=== PATIENT | female | born 1970 | race Caucasian/White ===

== ENCOUNTER 2018-02-11 20:02 | Observation (INO) | payer OTHER ==
[2018-02-11 21:27] LABS: Absolute Monocytes 0.5 K/uL (0.1-1.3); Absolute Neutrophil 4.9 K/uL (1.8-8.0); Basophils % 0.9 % (0-1.3); Eosinophils % 6.6 % (0-4.4); Hematocrit 38.5 % (36.0-45.0); Lymphocytes % 25.4 % (15.3-44.8); MCH 27.3 pg (27.0-35.0); MCV 82.6 fL (80-100); MPV 8.6 fL (7.6-11.3); Monocytes % 6.2 % (3.3-12.3); RBC Red Blood Cell Count 4.66 M/uL (3.86-4.86)
--- NOTE | 2018-02-11 21:28 | RAD REPORT ---
EXAM DESCRIPTION: Tamir Single View02/11/2018 9:21 pm CLINICAL HISTORY: abd pain COMPARISON: none FINDINGS: The lungs appear clear of acute infiltrate. The heart is normal size IMPRESSION: No acute abnormalities displayed
[2018-02-11] MEDS ORDERED: NA CHLORIDE 0.9% 1,000 ML ONE (21:30)
[2018-02-11] MEDS ORDERED: FENTANYL CITR 100 MCG/2 ML ONE (21:30)
[2018-02-11] MEDS ORDERED: ONDANSETRON 4 MG/2 ML VIAL ONE (21:30)
[2018-02-11 21:32] LABS: Urine Bacteria <20 /HPF (<20); Urine Culture Reflex Order NOT NEEDED; Urine RBC <5 /HPF (NONE SEEN)
[2018-02-11 21:33] LABS: Urine Mucus 2+ /HPF (NONE SEEN)
[2018-02-11 21:42] LABS: Bicarbonate 27 mEq/L (21-31); Glucose Level 115 mg/dL (65-120); Lipase 15 U/L (22-51); Potassium 3.8 mEq/L (3.6-5.0); Sodium Level 137 mEq/L (135-145)
[2018-02-11 21:48] LABS: ALT/SGPT 13 IU/L (10-60); AST/SGOT 16 IU/L (10-42); Albumin 3.8 g/dL (3.2-5.5); Alkaline Phosphatase 45 IU/L (42-121); Amylase Level 32 U/L (28-100); BUN Blood Urea Nitrogen 13 mg/dL (6-20); Bilirubin Direct < 0.1 mg/dL (0-0.2); Bilirubin Total 0.3 mg/dL (0.3-1.2); Protein, Total 6.4 g/dL (6.0-8.3)
[2018-02-11 22:23] LABS: Urine Blood NEGATIVE (NEG); Urine Glucose NEGATIVE (NEG); Urine Protein 1+ (NEG); Urine Specific Gravity >1.030 (1.005-1.030); Urine pH 5.5 (5.0-7.0)
[2018-02-12] MEDS ORDERED: FENTANYL CITR 100 MCG/2 ML ONE (00:24)
--- NOTE | 2018-02-12 00:54 | ER ---
Nurse's Notes [facility] Name: Nithin Beth Age: 47 yrs Sex: Female : 1970 Arrival Date: 02/11/2018 Time: 20:04 Bed 13 Private MD: Ghassan Bang Diagnosis: Abdominal tenderness-intractable Presentation: 02/11 20:12 Presenting complaint: Patient states: About 1:00 today I started getting pain in my aj1 right lower side, it was constant and wouldn't go away. By the time I drove to [place] the pain was awful. I went to [place] emergency room and they thought it might be a hernia. They did a CT scan. They said to go home and if the pain gets worse than come back to the emergency room. Reports nausea. denies vomiting, diarrhea, fever. Transition of care: patient was not received from another setting of care. Onset of symptoms was February 11, 2018. Risk Assessment: Do you want to hurt yourself or someone else? Patient reports no desire to harm self or others. Initial Sepsis Screen: Does the patient meet any 2 criteria? No. Patient's initial sepsis screen is negative. Does the patient have a suspected source of infection? No. Patient's initial sepsis screen is negative. Care prior to arrival: None. 20:12 Method Of Arrival: [facility]ulatory [facility] 20:12 Acuity: HUSAM 3 aj1 Triage Assessment: 20:16 General: Appears in no apparent distress. uncomfortable, Behavior is calm, cooperative, aj1 appropriate for age. Pain: Complains of pain in right lower quadrant Pain does not radiate. Pain currently is 7 out of 10 on a pain scale. Quality of pain is described as burning, Pain began 1300 today Is continuous, Alleviated by nothing. Aggravated by nothing. GI: Abdomen is non-distended, Reports nausea, Patient currently denies diarrhea, vomiting. 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 - Social history:: Smoking status: Patient uses tobacco products, 3 cigarettes per day. - Ebola Screening: : No symptoms or risks identified at this time. - Family history:: not pertinent. Screenin:30 Abuse screen: Denies threats or abuse. Denies injuries from another. Nutritional bp screening: No deficits noted. Tuberculosis screening: No symptoms or risk factors identified. Fall Risk None identified. Assessment: 20:20 General: Appears distressed, uncomfortable, obese, Behavior is cooperative, appropriate bp for age, anxious, RECD 47YO [facility] AMBULATORY FROM TRIAGE, C/O RLQ PAIN SINCE 1300, SEEN EARLIER TODAY AT [facility] WITH CT COMPLETED AND D/C HOME. 21:00 GI: Bowel sounds present X 4 quads. Abd is soft X 4 quads. bp 21:36 Reassessment: PT COMPLETED PO CONTRAST, CT NOTIFIED. bp 22:22 Reassessment: PT RESTING QUIETLY, NO S/S ACUTE DISTRESS, CT PENDING. bp 23:21 Reassessment: ALL CURRENT ORDERS COMPLETED, PT TO CT AT THIS TIME, NO S/S ACUTE bp DISTRESS. Vital Signs: 20:16 BP 128 / 69; Pulse 70; Resp 18; Temp 97.7; Pulse Ox 97% on R/A; Weight 95.71 kg (R); aj1 Height 5 ft. 3 in. (160.02 cm); Pain 7/10; 21:45 BP 99 / 55; Pulse 50; Resp 14; Pulse Ox 95% ; bp 22:23 BP 106 / 55; Pulse 47; Resp 23; Pulse Ox 95% ; bp 23:20 BP 103 / 53; Pulse 61; Resp 20; Pulse Ox 95% ; bp 05 00:10 BP 106 / 57; Pulse 50; Resp 13; Pulse Ox 95% ; bp 01:00 BP 108 / 68; Pulse 57; Resp 21; Pulse Ox 95% ; bp 02:00 BP 97 / 60; Pulse 49; Resp 23; Pulse Ox 95% ; bp 02:30 BP 101 / 67; Pulse 55; Resp 15; Pulse Ox 96% ; bp 02/11 20:16 Body Mass Index 37.38 (95.71 kg, 160.02 cm) [facility] ED Course: 02/11 20:04 Patient arrived in ED. am2 20:04 Ghassan Bang MD is Private Physician. am2 20:14 Triage completed. aj1 20:16 Arm band placed on Patient placed in an exam room. aj1 20:18 Ghassan Fong, RON is Primary Nurse. bp 20:27 Sulaiman Garcia MD is Attending Physician. deborah 20:30 Patient has correct armband on for positive identification. Bed in low position. Call bp light in reach. Side rails up X2. 21:21 Chest Single View XRAY In Process Unspecified. EDMS 21:22 Inserted saline lock: 20 gauge in left forearm, using aseptic technique. Blood bp collected. 23:42 CT completed. Patient moved to CT via wheelchair. Patient moved back from CT. cw1 23:53 CT Abd/Pelvis - W/Contrast In Process Unspecified. EDMS 05 00:53 Estevan Harris MD is Hospitalizing Provider. deborah 02:34 No provider procedures requiring assistance completed. Patient admitted, IV remains in bp place. Administered Medications: 02/11 21:25 Drug: NS 0.9% 1000 ml Route: IV; Rate: 1 bolus; Site: left forearm; bp 02/12 00:17 Follow up: IV Status: Completed infusion; IV Intake: 1000ml bp 02/11 21:25 Drug: fentaNYL (PF) 50 mcg Route: IVP; Site: left forearm; bp 22:00 Follow up: Response: Pain is decreased bp 21:25 Drug: Zofran 4 mg Route: IVP; Site: left forearm; bp 22:00 Follow up: Response: No adverse reaction; Pain is decreased bp 02/12 00:51 Drug: fentaNYL (PF) 50 mcg Route: IVP; Site: left forearm; bp 02:03 Follow up: Response: Pain is unchanged, physician notified bp 02:12 Drug: morphine 4 mg Route: IVP; Site: left forearm; bp 02:36 Follow up: Response: Pain is decreased bp 02:12 Drug: Zofran 4 mg Route: IVP; Site: left forearm; bp 02:36 Follow up: Response: No adverse reaction bp Intake: 00:17 IV: 1000ml; Total: 1000ml. bp Outcome: 00:53 Decision to Hospitalize by Provider. deborah 02:57 Admitted to Tele accompanied by tech, family with patient, via wheelchair, room 425, bp with chart, Report called to DIDIER VELASQUEZ 02:58 Condition: stable bp 02:58 Patient left the ED. bp Signatures: Dispatcher [employer] EDMary Lou Peterson RN RN ajSulaiman Jackson MD MD cha Woodley, Eusebia cw1 Manuela Cornelius am2 Ghassan Fong RN RN bp Corrections: (The following items were deleted from the chart) 02/11 23:42 23:21 Reassessment: ALL CURRENT ORDERS COMPLETED, CT RESULTS PENDING, NO S/S ACUTE bp DISTRESS bp 02/12 02:56 02:35 Admitted to Med/surg accompanied by tech, family with patient, via wheelchair, bp room 425, with chart, Report called to HAYDEN VELASQUEZ bp 02:58 02:35 Condition: stable bp bp 02:58 02:35 Instructed on the need for admit, bp bp 02:58 02:35 Admitted to Med/surg accompanied by tech, family with patient, via wheelchair, bp room 425, with chart, Report called to DIDIER VELASQUEZ bp
--- NOTE | 2018-02-12 00:54 | EDPHYS ---
Physician Documentation [facility] Name: Nithin Beth Age: 47 yrs Sex: Female : 1970 Arrival Date: 02/11/2018 Time: 20:04 Bed 13 Private MD: Ghassan Bang ED Physician Sulaiman Garcia HPI: 02/11 21:03 This 47 yrs old Female presents to ER via Ambulatory with complaints of deborah Abdominal Pain - RLQ. 21:03 The patient presents with abdominal pain in the lower abdomen, right lower quadrant. deborah Onset: The symptoms/episode began/occurred 1 day(s) ago. The symptoms do not radiate. Associated signs and symptoms: none. The symptoms are described as crampy, sharp. Modifying factors: The symptoms are alleviated by nothing, the symptoms are aggravated by nothing. Severity of pain: At its worst the pain was moderate in the emergency department the pain has resolved. The patient has not experienced similar symptoms in the past. 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 - Social history:: Smoking status: Patient uses tobacco products, 3 cigarettes per day. - Ebola Screening: : No symptoms or risks identified at this time. - Family history:: not pertinent. ROS: 21:03 Constitutional: Negative for fever, chills, and weight loss, Eyes: Negative for injury, deborah pain, redness, and discharge, ENT: Negative for injury, pain, and discharge, Neck: Negative for injury, pain, and swelling, Cardiovascular: Negative for chest pain, palpitations, and edema, Respiratory: Negative for shortness of breath, cough, wheezing, and pleuritic chest pain, Back: Negative for injury and pain, : Negative for injury, bleeding, discharge, and swelling, MS/Extremity: Negative for injury and deformity, Skin: Negative for injury, rash, and discoloration, Neuro: Negative for headache, weakness, numbness, tingling, and seizure, Psych: Negative for depression, anxiety, suicide ideation, homicidal ideation, and hallucinations, Allergy/Immunology: Negative for hives, rash, and allergies, Endocrine: Negative for neck swelling, polydipsia, polyuria, polyphagia, and marked weight changes, Hematologic/Lymphatic: Negative for swollen nodes, abnormal bleeding, and unusual bruising. 21:03 Abdomen/GI: Positive for abdominal pain, of the right lower quadrant. Exam: 21:03 Constitutional: This is a well developed, well nourished patient who is awake, alert, deborah and in no acute distress. Head/Face: Normocephalic, atraumatic. Eyes: Pupils equal round and reactive to light, extra-ocular motions intact. Lids and lashes normal. Conjunctiva and sclera are non-icteric and not injected. Cornea within normal limits. Periorbital areas with no swelling, redness, or edema. ENT: Nares patent. No nasal discharge, no septal abnormalities noted. Tympanic membranes are normal and external auditory canals are clear. Oropharynx with no redness, swelling, or masses, exudates, or evidence of obstruction, uvula midline. Mucous membranes moist. Neck: Trachea midline, no thyromegaly or masses palpated, and no cervical lymphadenopathy. Supple, full range of motion without nuchal rigidity, or vertebral point tenderness. No Meningismus. Chest/axilla: Normal chest wall appearance and motion. Nontender with no deformity. No lesions are appreciated. Cardiovascular: Regular rate and rhythm with a normal S1 and S2. No gallops, murmurs, or rubs. Normal PMI, no JVD. No pulse deficits. Respiratory: Lungs have equal breath sounds bilaterally, clear to auscultation and percussion. No rales, rhonchi or wheezes noted. No increased work of breathing, no retractions or nasal flaring. Abdomen/GI: Soft, non-tender, with normal bowel sounds. No distension or tympany. No guarding or rebound. No evidence of tenderness throughout. Back: No spinal tenderness. No costovertebral tenderness. Full range of motion. Skin: Warm, dry with normal turgor. Normal color with no rashes, no lesions, and no evidence of cellulitis. MS/ Extremity: Pulses equal, no cyanosis. Neurovascular intact. Full, normal range of motion. Neuro: Awake and alert, GCS 15, oriented to person, place, time, and situation. Cranial nerves II-XII grossly intact. Motor strength 5/5 in all extremities. Sensory grossly intact. Cerebellar exam normal. Normal gait. Psych: Awake, alert, with orientation to person, place and time. Behavior, mood, and affect are within normal limits. Vital Signs: 20:16 BP 128 / 69; Pulse 70; Resp 18; Temp 97.7; Pulse Ox 97% on R/A; Weight 95.71 kg (R); aj1 Height 5 ft. 3 in. (160.02 cm); Pain 7/10; 21:45 BP 99 / 55; Pulse 50; Resp 14; Pulse Ox 95% ; bp 22:23 BP 106 / 55; Pulse 47; Resp 23; Pulse Ox 95% ; bp 23:20 BP 103 / 53; Pulse 61; Resp 20; Pulse Ox 95% ; bp 05 00:10 BP 106 / 57; Pulse 50; Resp 13; Pulse Ox 95% ; bp 01:00 BP 108 / 68; Pulse 57; Resp 21; Pulse Ox 95% ; bp 02:00 BP 97 / 60; Pulse 49; Resp 23; Pulse Ox 95% ; bp 02:30 BP 101 / 67; Pulse 55; Resp 15; Pulse Ox 96% ; bp 02/11 20:16 Body Mass Index 37.38 (95.71 kg, 160.02 cm) [facility] MDM: 02/11 20:27 Patient medically screened. [facility] 21:05 Data reviewed: vital signs, nurses notes, lab test result(s), radiologic studies, CT [facility] scan, plain films. 02/11 21:02 Order name: Amylase, Serum; Complete Time: :31 [facility] 02/11 21:02 Order name: Basic Metabolic Panel; Complete Time: : [facility] 02/11 21:02 Order name: CBC with Diff; Complete Time: : [facility] 02/11 21:02 Order name: Creatinine for Radiology; Complete Time: 22:31 [facility] 02/11 21:02 Order name: Hepatic Function; Complete Time: 22:31 [facility] 02/11 21:02 Order name: Lipase; Complete Time: 22:31 [facility] 02/11 21:02 Order name: Urine Microscopic Only; Complete Time: 22:31 [facility] 02/11 21:02 Order name: Urine Culture [facility] 02/11 21:02 Order name: CT Abd/Pelvis - W/Contrast 02/11 21:06 Order name: Reserve; Complete Time: : [facility] 02/11 21:06 Order name: Chest Single View XRAY; Complete Time: : [facility] 02/11 21:28 Order name: Urine Dipstick--Ancillary (enter results); Complete Time: : [facility] 02/11 21:28 Order name: Urine --Ancillary (enter results); Complete Time: : [facility] 02/11 21:02 Order name: Urine Test (obtain specimen); Complete Time: : [facility] 02/11 21:02 Order name: IV Saline Lock; Complete Time: : [facility] 02/11 21:02 Order name: Labs collected and sent; Complete Time: : [facility] 02/11 21:02 Order name: Urine Dipstick-Ancillary (obtain specimen); Complete Time: : [facility] 02/11 21:06 Order name: EKG; Complete Time: 21: [facility] 02/11 21:06 Order name: EKG - Nurse/Tech; Complete Time: 21:35 [facility] 02/12 01:00 Order name: CONS Physician Consult EDMS Administered Medications: 21:25 Drug: NS 0.9% 1000 ml Route: IV; Rate: 1 bolus; Site: left forearm; bp 02/12 00:17 Follow up: IV Status: Completed infusion; IV Intake: 1000ml bp 02/11 21:25 Drug: fentaNYL (PF) 50 mcg Route: IVP; Site: left forearm; bp 22:00 Follow up: Response: Pain is decreased bp 21:25 Drug: Zofran 4 mg Route: IVP; Site: left forearm; bp 22:00 Follow up: Response: No adverse reaction; Pain is decreased bp 02/12 00:51 Drug: fentaNYL (PF) 50 mcg Route: IVP; Site: left forearm; bp 02:03 Follow up: Response: Pain is unchanged, physician notified bp 02:12 Drug: morphine 4 mg Route: IVP; Site: left forearm; bp 02:36 Follow up: Response: Pain is decreased bp 02:12 Drug: Zofran 4 mg Route: IVP; Site: left forearm; bp 02:36 Follow up: Response: No adverse reaction bp Disposition: 02/12/18 00:53 Hospitalization ordered by Estevan Harris for Observation. Preliminary diagnosis is Abdominal tenderness - intractable. - Bed requested for Telemetry/MedSurg (observation). - Status is Observation. bp - Condition is Fair. - Problem is new. - Symptoms have improved. UTI on Admission? No Signatures: Dispatcher [employer] EDMS Mary Lou Caballero RN RN ajOralia Swann RN RN kl Anderson, Corey, MD MD cha Peltier, Brian, RN RN bp Corrections: (The following items were deleted from the chart) 00:54 00:53 Hospitalization Ordered by Estevan Harris MD for Observation. Preliminary deborah diagnosis is Abdominal tenderness. Bed requested for Telemetry/MedSurg (observation). Status is Observation. Condition is Fair. Problem is new. Symptoms have improved. UTI on Admission? No. deborah 02:19 00:54 02/12/2018 00:53 Hospitalization Ordered by Estevan Harris MD for Observation. kl Preliminary diagnosis is Abdominal tenderness - intractable. Bed requested for Telemetry/MedSurg (observation). Status is Observation. Condition is Fair. Problem is new. Symptoms have improved. UTI on Admission? No. deborah 02:58 02:19 02/12/2018 00:53 Hospitalization Ordered by Estevan Harris MD for Observation. bp Preliminary diagnosis is Abdominal tenderness - intractable. Bed requested for Telemetry/MedSurg (observation). Status is Observation. Condition is Fair. Problem is new. Symptoms have improved. UTI on Admission? No. marilyn
[2018-02-12] MEDS ORDERED: ACETAMINOPHEN 500 MG TAB PO PRN (01:37)
[2018-02-12] MEDS ORDERED: ONDANSETRON 4 MG/2 ML VIAL IV PRN (01:37)
[2018-02-12] MEDS ORDERED: ALPRAZOLAM 0.25 MG TABLET PO PRN (01:37)
[2018-02-12] MEDS ORDERED: NA CHLORIDE 0.9% 1,000 ML IV SCH (02:00)
[2018-02-12] MEDS ORDERED: MORPHINE 4 MG/ML SYR ONE (02:08)
[2018-02-12] MEDS ORDERED: ONDANSETRON 4 MG/2 ML VIAL ONE (02:08)
[2018-02-12 03:41] VITALS: BMI 37.3
[2018-02-12] MEDS ORDERED: METHYLPREDNISOLONE 125 MG INJ IV ONE (06:04)
[2018-02-12 06:28] VITALS: O2SAT 94
[2018-02-12] MEDS ORDERED: Levofloxacin500mg IV 500 MG/100 ML BAG IV SCH (07:00)
--- NOTE | 2018-02-12 08:33 | RAD REPORT ---
EXAM DESCRIPTION: CTAbdomen Pelvis W Contrast - 02/12/2018 6:03 am CLINICAL HISTORY: Abdominal pain. COMPARISON: 01/22/2017 TECHNIQUE: Biphasic CT imaging of the abdomen and pelvis was performed with 100 ml non-ionic IV cont rast. All CT scans are performed using dose optimization technique as appropriate and may include automated exposure control or mA/KV adjustment according to patient size. FINDINGS: Ill-defined opacities in both posterior lung bases, greater on the left may represent deve loping pneumonia/ aspiration or subsegmental atelectasis. The liver, spleen, pancreas, adrenal glands and kidneys are within normal limits. Cholecystectomy cli ps. No bowel obstruction, free air, free fluid or abscess. Postsurgical changes of gastric bypass noted. The appendix is normal. No evidence of significant lymphadenopathy. No suspicious bony findings. IMPRESSION: No acute intra-abdominal or pelvic finding. Posterior lung base opacities as detailed, greater on the left.
[2018-02-12] MEDS ORDERED: ENOXAPARIN 40 MG/0.4 ML SQ SCH (09:00)
[2018-02-12] MEDS ORDERED: TRAMADOL HCL 50 MG TAB PO PRN (10:08)
[2018-02-12] MEDS ORDERED: TRAZODONE 50 MG TABLET PO PRN (10:09)
--- NOTE | 2018-02-12 10:49 | EKG ---
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
[2018-02-12] MEDS ORDERED: METAXALONE 800 MG TAB PO PRN (11:25)
--- NOTE | 2018-02-12 11:25 | P.HP ---
Certification for Inpatient Patient admitted to: Observation With expected LOS: <2 Midnights Patient will require the following post-hospital care: None Practitioner: I am a practitioner with admitting privileges, knowledge of patient current condition, hospital course, and medical plan of care. Services: Services provided to patient in accordance with Admission requirements found in Title 42 Section 412.3 of the Code of Federal Regulations Patient History Date of Service: 02/12/18 Reason for admission: patient with right sided abdominal pain History of Present Illness: Patient is a 47-year-old female who came to the hospital with right-sided abdominal pain. Patient's pain was getting worse through the day. It started around 1 o'clock and after she picked up her child from [employer] she went to the emergency room. In the emergency room she had imaging studies as well as labs with no abnormality. Patient was discharged from the hospital. Patient came to our emergency room as her pain was not improving. In the emergency room her initial CT scan was repeated and once again this did not reveal any abnormality. However, reviewing the CT scan patient did appear to have a right lower lobe infiltrate. Otherwise, did not see any other abnormal findings. On physical exam patient does have pain on straight leg raise. Whenever I raise her right leg she has severe abdominal pain. Whenever I ask her to twist from her right to left side she has severe pain. She has pain on palpation from the transversus abdominus muscle to the right rectus sheath. She may have a abdominal muscle injury. At this time she will be admitted to the hospital for further evaluation. Allergies ketorolac Allergy (Verified 02/12/18 05:53) Unknown Erythromycin Allergy (Uncoded 01/22/17 20:13) Unknown TETRACYCLINES Allergy (Uncoded 01/22/17 20:13) Unknown Home Medications: Fluoxetine HCl [Prozac] 1 tab PO DAILY 02/12/18 Eclectic Carbonate [Eclectic Carbonate ER] 2 tab PO BEDTIME 02/12/18 Trazodone HCl 2 tab PO BEDTIME PRN PRN 02/12/18 - Past Medical/Surgical History Has patient received pneumonia vaccine in the past: No Diabetic: No -: bipolar -: cholecystectomy -: gastric bypass -: tubal ligation - Family History Mother Medical History: Hypertension, Diabetes, Stroke - Social History Smoking Status: Current every day smoker Alcohol use: No CD- Drugs: No Caffeine use: Yes Place of Residence: Home Review of Systems 10-point ROS is otherwise unremarkable Physical Examination - Vital Signs Temperature: 98.4 F Blood Pressure: 104/53 Pulse: 59 Respirations: 16 Pulse Ox (%): 95 - Physical Exam General: Alert, In no apparent distress, Oriented x3 HEENT: Atraumatic, PERRLA, Mucous membr. moist/pink, EOMI, Sclerae nonicteric Neck: Supple, 2+ carotid pulse no bruit, No LAD, Without JVD or thyroid abnormality Respiratory: Clear to auscultation bilaterally, Normal air movement Cardiovascular: Regular rate/rhythm, Normal S1 S2, No murmurs Gastrointestinal: Normal bowel sounds, Soft and benign, Non-distended, No rebound, No guarding, Tenderness Musculoskeletal: No tenderness Integumentary: No rashes Neurological: Normal gait, Normal speech, Normal strength at 5/5 x4 extr, Normal tone, Sensation intact, Cranial nerves 3-12 intact, Normal affect Lymphatics: No axilla or inguinal lymphadenopathy - Studies Laboratory Data (last 24 hrs) 02/11/18 21:10: Creatinine 0.88 02/11/18 21:10: WBC 8.0, Hgb 12.7, Hct 38.5, Plt Count 217 02/11/18 21:10: Sodium 137, Potassium 3.8, BUN 13, Creatinine 0.92, Glucose 115 , Total Bilirubin 0.3, AST 16, ALT 13, Alkaline Phosphatase 45, Amylase 32, Lipase 15 L Assessment & Plan - Problems (Diagnosis) (1) Strain of abdominal muscle Current Visit: Yes Status: Acute (2) Abdominal pain Onset Date: 02/12/18 Current Visit: Yes Status: Acute Qualifiers: Abdominal location: right lower quadrant Qualified Code(s): R10.31 - Right lower quadrant pain - Plan Plan: 1. we will go ahead and start patient on on IV fluids and pain control. Will start patient on a muscle relaxer as well. Patient's labs and imaging studies do not indicate an intra-abdominal process. It appears she may have been muscle strain and she has significant pain on straight leg raise. She does not have any peritoneal signs. Whenever she moves her core muscles she appears to have more tenderness. At this time will go ahead and consult GI and surgery and get an opinion from them. If they do not feel that patient needs any further workup that she possibly can go home later today with anti-inflammatory and a muscle relaxer as well as something stronger for pain. She will need a repeat evaluation in 1-2 weeks if she is stable for discharge home. Discharge Plan: Home Plan to discharge in: 48 Hours - Advance Directives Does patient have a Living Will: No Does patient have a Durable POA for Healthcare: No - Code Status/Comfort Care Code Status Assessed: Yes Code Status: Full Code Critical Care: No Time Spent Managing PTS Care (In Minutes): 50
[2018-02-12 12:20] VITALS: BP 117/72; TEMP 99
--- NOTE | 2018-02-12 13:36 | CON ---
Date of Consultation: 02/12/2018 I came to do the consult; however, the patient's bed empty. She is nowhere to be found. I asked the nurses and coffee roaster. No one knows where the patient is needs. They are suspecting, the patient tomas s already escaped the hospital. Therefore, consult could not be done. BENTLEY/VIOLETA Voice ID: [id number] Report ID: [id number]
[2018-02-12] MEDS ORDERED: LITHIUM CARBONATE PO SCH (21:00)
[2018-02-13] MEDS ORDERED: FLUOXETINE 20 MG CAP PO SCH (09:00)
== END 2018-02-12 13:12 | disposition home or self-care (01) ==
LOC: ER 20:02 → ERHOLD 02-12 00:57 → 4TH 02-12 02:26
PROVIDERS: ADMIT Hospitalist; ATTEND Hospitalist
DX: S39.011A Strain of muscle, fascia and tendon of abdomen, initial encounter (principal); X58.XXXA Exposure to other specified factors, initial encounter; Y92.9 Unspecified place or not applicable; F31.9 Bipolar disorder, unspecified; Z98.84 Bariatric surgery status; F17.210 Nicotine dependence, cigarettes, uncomplicated
CPT/HCPCS: 36415; 71045; 74177; 80048; 80076; 80178; 81003; 81015; 81025; 82150; 83690; 85025; 87086; 87088; 93005; 96361; 96374; 96375; 99285; G0378; J1650; J2405; J2930; J3010; J7030; Q9967

== ENCOUNTER 2018-04-10 17:33 | Emergency (ER) | payer OTHER ==
--- OUTSIDE RECORDS SUMMARY | 2018-04-10 17:55 | XMS REPORT ---
:1970 Author Organization eClinicalWorks Care Team Providers Name Role Phone Mariana Ochoa Provider Role Unavailable Allergies, Adverse Reactions, Alerts Substance Reaction Event Type N.K.D.A. Info Not Available Non Drug Allergy Problems Problem Type Condition Code Onset Dates Condition Status Problem Non-intractable vomiting with R11.2 Active nausea, unspecified vomiting type Problem Arthralgia, unspecified joint M25.50 Active Problem Diarrhea, unspecified type R19.7 Active Problem Bipolar disorder F31.9 Active Problem Lightheadedness R42 Active Problem Weakness R53.1 Active Problem Joint swelling M25.40 Active Problem Iron deficiency anemia, unspecified D50.9 Active iron deficiency anemia type Problem Fatigue, unspecified type R53.83 Active Problem Hypotension, unspecified hypotension I95.9 Active type Assessment Iron deficiency anemia, unspecified D50.9 Active iron deficiency anemia type Assessment Lightheadedness R42 Active Assessment Joint swelling M25.40 Active Assessment Arthralgia, unspecified joint M25.50 Active Assessment Non-intractable vomiting with R11.2 Active nausea, unspecified vomiting type Assessment Diarrhea, unspecified type R19.7 Active Assessment Weakness R53.1 Active Assessment Hypotension, unspecified hypotension I95.9 Active type Assessment Fatigue, unspecified type R53.83 Active Medications Medication Code Code Instructions Start End Status Dosage System Date Date Fish Oil [facility] 62202035730 1000 MG Orally Active 1 capsule Once a day Multivitamin ND 81214985138 - Orally Active as Women directed Fluoxetine HCl ND 72331306259 20 MG Orally Active 1 capsule [place] [address]-42 300 MG Orally Active 3 capsule Carbonate Once a day at bedtime Trazodone HCl [facility] [address]-36 100 MG Orally Active 2 tablet Once a day at bedtime as needed Vitamin B ND 90718187575 - Orally Active as Complex directed Melatonin [facility] 10357-68920 10 MG Orally Active 3 capsule at bedtime as needed with food Results Name Result Date Reference Range Unit Abnormality Flag Electrocardiogram (EKG) Summary Purpose eClinicalWorks Submission
--- NOTE | 2018-04-10 18:20 | RAD REPORT ---
EXAM DESCRIPTION: RAD - Chest Single View - 04/10/2018 6:12 pm CLINICAL HISTORY: CHEST PAIN Chest pain. COMPARISON: Chest Single View dated 02/11/2018 FINDINGS: Portable technique limits examination quality. The lungs are grossly clear. The heart is normal in size. No displaced fractures. IMPRESSION: No acute intrathoracic process suspected.
[2018-04-10] MEDS ORDERED: NA CHLORIDE 0.9% 0 ML ONE (18:43)
[2018-04-10] MEDS ORDERED: METOCLOPRAMIDE 10 MG/2mL INJ ONE (18:43)
[2018-04-10 18:59] LABS: Absolute Lymphocytes (CBC) 2.5 K/uL (0.7-4.9); Absolute Monocytes 0.4 K/uL (0.1-1.3); Absolute Neutrophil 5.9 K/uL (1.8-8.0); Basophils % 0.9 % (0-1.3); Eosinophils % 4.6 % (0-4.4); Hematocrit 38.7 % (36.0-45.0); Lymphocytes % 26.9 % (15.3-44.8); MCH 28.6 pg (27.0-35.0); MCV 85.7 fL (80-100); MPV 8.1 fL (7.6-11.3); Monocytes % 4.7 % (3.3-12.3); RBC Red Blood Cell Count 4.52 M/uL (3.86-4.86)
[2018-04-10 19:13] LABS: Protime INR 0.96
[2018-04-10 19:39] LABS: ALT/SGPT 37 U/L (12-78); AST/SGOT 7 U/L (15-37); Albumin 3.7 g/dL (3.4-5.0); Alkaline Phosphatase 51 U/L (45-117); BUN Blood Urea Nitrogen 11 mg/dL (7-18); Bicarbonate 25 mmol/L (21-32); Bilirubin Direct 0.1 mg/dL (0-0.2); Bilirubin Total 0.3 mg/dL (0.2-1.0); CKMB Creatine Kinase MB < 1.0 ng/mL (0.3-3.6); Creatine Phosphokinase 38 U/L (26-192); Glucose Level 91 mg/dL (74-106); Magnesium 2.1 mg/dL (1.8-2.4); NT PRO-BNP 261 pg/mL (<125); Potassium 3.8 mmol/L (3.5-5.1); Protein, Total 6.9 g/dL (6.4-8.2); Sodium Level 141 mmol/L (136-145)
[2018-04-10] MEDS ORDERED: PROMETHAZINE 25 MG/ML VIAL ONE (21:07)
--- NOTE | 2018-04-10 22:13 | RAD REPORT ---
EXAM DESCRIPTION: CT - Abdomen Pelvis W Contrast - 04/10/2018 9:37 pm CLINICAL HISTORY: Abdominal pain COMPARISON: CT study February 11 TECHNIQUE: Biphasic, helical CT imaging of the abdomen and pelvis was performed following 100 ml non -ionic IV contrast. No oral contrast administered. All CT scans are performed using dose optimization technique as appropriate and may include automated exposure control or mA/KV adjustment according to patient size. FINDINGS: No suspicious findings in the lung bases. No pericardial thickening or effusion. The liver, spleen, and pancreas show no suspicious findings. Cholecystectomy clips are present. No bi liary tree dilatation. Symmetric renal function is seen with no hydronephrosis or suspicious renal mass. No pyelonephritis o r acute renal parenchymal process. No urinary bladder abnormality. Calcifications are seen along the anterior aspect of the uterus. These are similar to the comparison. Uterine configuration has not changed. A 2 centimeter left ovarian cyst is present. Additional small er ovarian cysts are present. No suspicious ovarian finding. Gastric bypass surgical changes are present. The gastric and small bowel anastomotic sites show no ac keaton findings. No acute large or small bowel finding the appendix is normal. No free air or pneumatosi s. Physiologic quantity of free fluid present in the cul-de-sac. No mass or bulky lymphadenopathy. The patient has a small to moderate-sized fat only right inguinal h ernia. This has enlarged since January. There is no congested or edematous fatty tissue. Patient has a ve ry small incidental umbilical hernia. No suspicious bony findings. IMPRESSION: No obstruction, free air or surgically emergent finding. No acute GI or finding. Patient has fat only right inguinal hernia has enlarged since January. This shows no congested or ed[place] us fat. A 2 centimeter left ovarian cyst is present believed to be incidental. Physiologic quantity of free f luid seen.
--- NOTE | 2018-04-10 22:13 | RAD REPORT ---
EXAM DESCRIPTION: CT - Chest For Pe Angio - 04/10/2018 9:37 pm CLINICAL HISTORY: Syncope, chest pain, hypotension, bradycardia, history of gastric bypass and suasna cystectomy, abdominal pain COMPARISON: Chest films same date TECHNIQUE: Dynamically enhanced 3 mm thick images of the chest were obtained during administration o f approximately 150mL Isovue 370 IV contrast. Coronal and oblique reconstruction images were generate d and reviewed. Exam utilizes a protocol to evaluate the pulmonary arterial tree. All CT scans are performed using dose optimization technique as appropriate and may include automated exposure control or mA/KV adjustment according to patient size. FINDINGS: No pulmonary emboli are identified. The aorta as imaged shows no acute or suspicious finding. No pericardial thickening or effusion. No infiltrate or mass in the lung parenchyma. Minimal atelectasis changes are present No pleural effu timur or pleural thickening. No mediastinal or hilar suspicious masses. No chest wall masses or abnormal axillary lymphadenopathy. IMPRESSION: No pulmonary emboli identified. No other significant or suspicious findings.
--- NOTE | 2018-04-10 22:15 | EDPHYS ---
Physician Documentation [facility] Name: Nithin Beth Age: 48 yrs Sex: Female : 1970 Arrival Date: 04/10/2018 Time: 17:36 Bed 20 Private MD: Mariana Ochoa ED Physician Tevin Méndez HPI: 04/10 18:09 This 48 yrs old Female presents to ER via Wheelchair with complaints of Blood jmm Pressure Problem - LOW, Syncope. 18:09 The patient has experienced syncope, collapsed. Onset: The symptoms/episode jmm began/occurred acutely, just prior to arrival. Associated injury: The patient did not suffer any apparent associated injury. Associated signs and symptoms: Pertinent positives: abdominal pain, chest pain. This is a 48 year old female with a history of bipolar disorder that presents to the ED with a syncopal episode which occurred earlier today. Patient complains of 6 weeks of generalized fatigue with intermittent episodes of chest pain which is described as a pulling sensation. The patient also admits to ongoing low blood pressure for the same period of time. The patient denies fever. The patient states beginning 1 week ago the patient develop multiple episodes of vomiting and diarrhea with reported dark stools. . 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 - Social history:: Smoking status: Patient/guardian denies using tobacco, the patient reports quitting approximately .1 years ago. - Ebola Screening: : No symptoms or risks identified at this time. ROS: 18:09 Eyes: Negative for injury, pain, redness, and discharge, ENT: Negative for injury, jmm pain, and discharge, Neck: Negative for injury, pain, and swelling. 18:09 Respiratory: Negative for shortness of breath, cough, wheezing, and pleuritic chest pain. 18:09 Back: Negative for injury and pain, : Negative for injury, bleeding, discharge, and swelling, MS/Extremity: Negative for injury and deformity. 18:09 Constitutional: Positive for malaise. 18:09 Cardiovascular: Positive for chest pain. 18:09 Abdomen/GI: Positive for abdominal pain, nausea and vomiting, diarrhea. 18:09 Neuro: Positive for syncope. 18:09 All other systems are negative. Exam: 18:09 Constitutional: This is a well developed, well nourished patient who is awake, alert, jmm and in no acute distress. Head/Face: atraumatic. 18:09 Cardiovascular: Rate: normal, Rhythm: regular, Pulses: no pulse deficits are appreciated. 18:09 Respiratory: the patient does not display signs of respiratory distress, Respirations: normal, Breath sounds: are clear throughout. 18:09 Abdomen/GI: Inspection: abdomen appears normal, Bowel sounds: normal, Palpation: soft, mild abdominal tenderness, in the right lower quadrant and left lower quadrant. 18:09 Skin: Appearance: Color: normal in color. 18:09 Neuro: Orientation: is normal, Mentation: is normal, Memory: is normal. 18:09 Psych: Behavior/mood is pleasant, cooperative. Vital Signs: 17:42 BP 114 / 42; Pulse 50; Resp 18; Pulse Ox 96% ; Weight 90.26 kg; Height 5 ft. 2 in. sv (157.48 cm); 19:45 BP 86 / 64; Pulse 70; Resp 16; Pulse Ox 99% on R/A; bs1 20:00 BP 99 / 62; Pulse 58; Resp 16; Pulse Ox 99% on R/A; bs1 21:00 BP 110 / 63; Pulse 60; Resp 16; Pulse Ox 98% on R/A; bs1 22:00 BP 98 / 46; Pulse 51; Resp 16 S; Pulse Ox 95% on R/A; bs1 22:30 BP 110 / 54; Pulse 58; Resp 16; Temp 98(O); Pulse Ox 100% on R/A; Pain 0/10; bs1 17:42 Body Mass Index 36.40 (90.26 kg, 157.48 cm) sv MDM: 18:02 Patient medically screened. [facility] 21:48 Data reviewed: vital signs, nurses notes, lab test result(s). [facility] 22:06 Differential Diagnosis: aortic aneurysm, cardiac arrhythmia, GI bleed, sepsis, [facility] vasovagal episode. ED course: Lab and imaging studies are unremarkable. Patient is alert and non toxic in appearance in the ED. Patient is encouraged to follow up with PCP for further evaluation or to return to the ED if symptoms worsen. Patient and family understood and agrees with the plan of care. . ED course: Patient is afebrile and non toxic in appearance, labs appear inconsistent with sepsis. Guac is negative and H/H is normal. I do not currently suspect GI bleed. Patient has no focal neuro deficits, I do not currently suspect CVA, imaging studies negative for PE and and dissection. . ED course: I discussed the patient with Dr. Cardona whom agrees with the plan of care. . 04/10 17:50 Order name: Basic Metabolic Panel; Complete Time: 19:53 [facility] 04/10 17:50 Order name: CBC with Diff; Complete Time: 19:30 [facility] 04/10 17:50 Order name: Ckmb; Complete Time: 19:53 [facility] 04/10 17:50 Order name: CPK; Complete Time: 19:53 [facility] 04/10 17:50 Order name: LFT's; Complete Time: 19:53 [facility] 04/10 17:50 Order name: Magnesium; Complete Time: 19:53 [facility] 04/10 17:50 Order name: NT PRO-BNP; Complete Time: 19:53 [facility] 04/10 17:50 Order name: PT-INR; Complete Time: 19:33 [facility] 04/10 17:50 Order name: Ptt, Activated; Complete Time: 19:33 [facility] 04/10 17:50 Order name: Troponin (emerg Dept Use Only); Complete Time: 19:30 [facility] 04/10 17:50 Order name: XRAY Chest (1 view); Complete Time: 18:37 [facility] 04/10 18:04 Order name: CT Chest For PE Angio; Complete Time: 22:21 [facility] 04/10 18:04 Order name: Occult Blood [facility] 04/10 20:10 Order name: D-Dimer; Complete Time: 20:55 [facility] 04/10 17:49 Order name: EKG; Complete Time: 17:49 sv 04/10 17:49 Order name: EKG - Nurse/Tech; Complete Time: 21:36 sv 04/10 17:50 Order name: Cardiac monitoring; Complete Time: 22:36 [facility] 04/10 17:50 Order name: IV Saline Lock; Complete Time: 21:11 [facility] 04/10 17:50 Order name: Labs collected and sent; Complete Time: 21:11 [facility] 04/10 17:50 Order name: O2 Per Protocol; Complete Time: 21:11 [facility] 04/10 17:50 Order name: O2 Sat Monitoring; Complete Time: 21:11 [facility] 04/10 18:04 Order name: CT Abd/Pelvis - W/Contrast; Complete Time: 22:21 [facility] 04/10 22:39 Order name: EKG - Nurse/Tech; Complete Time: 22:39 bs1 Administered Medications: 18:45 Drug: Reglan 10 mg {Note: administered by RON Guzman.} Route: IVP; Site: right bs1 antecubital; 22:36 Follow up: Response: No adverse reaction bs1 20:14 Not Given (No IV access, informed PA Ángel): NS 0.9% 1000 ml IV at 1 bolus Per protocol; bs1 1000 mL bolus 21:10 Drug: Promethazine 12.5 mg Route: IVP; Site: right upper arm; 22:36 Follow up: Response: No adverse reaction bs1 21:11 Drug: NS 0.9% 1000 ml Route: IV; Rate: 1 bolus; Site: right upper arm; bs1 22:36 Follow up: IV Status: Completed infusion bs1 22:36 Not Given (Patient Refused; informed PA): NS 0.9% 1000 ml IV at 1 bolus Per protocol; bs1 1000 mL bolus Disposition: 04/11 07:05 Co-signature as Attending Physician, Tevin Méndez MD. rn Disposition: 04/10/18 22:14 Discharged to Home. Impression: Syncope and collapse, Vomiting, Diarrhea, unspecified. - Condition is Stable. - Discharge Instructions: Food Choices to Help Relieve Diarrhea, Adult, Nausea and Vomiting, Adult, Syncope. - Prescriptions for promethazine 25 mg Oral Tablet - take 1 tablet by ORAL route every 6 hours As needed; 20 tablet. - Medication Reconciliation Form, Thank You Letter, Antibiotic Education, Prescription Opioid Use form. - Follow up: Mariana Ochoa MD; When: 1 - 2 days; Reason: Continuance of care. Signatures: Dispatcher [employer] EDMS Yojana Garcia, RN RN Ángel Bowen PA PA [facility] Jacey Warner RN RN Tevin Gorman MD MD rn Salazar, Brittany, RN RN bs1 Corrections: (The following items were deleted from the chart) 04/10 22:17 18:09 This is a 48 year old female with a history of bipolar disorder that presents to [facility] the ED with a syncopal episode which occurred earlier today. Patient complains of 6 weeks of generalized fatigue with intermittent episodes of chest pain which is described as a pulling sensation. The patient states beginning 1 week ago the patient develop multiple episodes of vomiting and diarrhea with reported dark stools. . [facility] 22:41 22:14 04/10/2018 22:14 Discharged to Home. Impression: Syncope and collapse; Vomiting; bs1 Diarrhea, unspecified. Condition is Stable. Forms are Medication Reconciliation Form, Thank You Letter, Antibiotic Education, Prescription Opioid Use. Follow up: Mariana Ochoa; When: 1 - 2 days; Reason: Continuance of care. [facility]
--- NOTE | 2018-04-10 22:15 | ER ---
Nurse's Notes [facility] Name: Nithin Beth Age: 48 yrs Sex: Female : 1970 Arrival Date: 04/10/2018 Time: 17:36 Bed 20 Private MD: Mariana Ochoa Diagnosis: Syncope and collapse;Vomiting;Diarrhea, unspecified Presentation: 04/10 17:40 Presenting complaint: Patient states: has been having syncope, chest pain, hypotension, sv low heart rate, dizziness, SOB x 1 month. Pt has been seeing her PCP and has had lab work and EKG done yesterday. Transition of care: patient was not received from another setting of care. Onset of symptoms was March 11, 2018. Care prior to arrival: None. 17:40 Method Of Arrival: Wheelchair sv 17:40 Acuity: HUSAM 3 sv 19:14 Risk Assessment: Do you want to hurt yourself or someone else? Patient reports no bs1 desire to harm self or others. Initial Sepsis Screen: Does the patient meet any 2 criteria? No. Patient's initial sepsis screen is negative. Does the patient have a suspected source of infection? No. Patient's initial sepsis screen is negative. 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 - Social history:: Smoking status: Patient/guardian denies using tobacco, the patient reports quitting approximately .1 years ago. - Ebola Screening: : No symptoms or risks identified at this time. Screenin:50 Abuse screen: Denies threats or abuse. Nutritional screening: No deficits noted. rb1 Tuberculosis screening: No symptoms or risk factors identified. 22:40 Fall Risk None identified. bs1 Assessment: 17:50 General: Appears in no apparent distress. comfortable, Behavior is calm, cooperative. rb1 17:50 Pain: Complains of pain in mid-sternal area Pain currently is 6 out of 10 on a pain rb1 scale. Neuro: Level of Consciousness is awake, alert, obeys commands, Oriented to person, place, time, situation. Cardiovascular: Capillary refill < 3 seconds is brisk in bilateral fingers Rhythm is regular. Respiratory: Airway is patent Respiratory effort is even, unlabored, Respiratory pattern is regular, symmetrical. GI: No signs and/or symptoms were reported involving the gastrointestinal system. : No signs and/or symptoms were reported regarding the genitourinary system. Derm: Skin is pink, warm \T\ dry. 17:50 Neuro: Reports dizziness, a syncopal episode. rb1 19:15 Reassessment: Report received from RON Guzman. bs1 19:15 General: Appears in no apparent distress. comfortable, Behavior is calm, cooperative, bs1 appropriate for age. Pain: Complains of pain in chest and mid-sternal area and left lower quadrant and right lower quadrant Pain does not radiate. Neuro: Level of Consciousness is awake, alert, obeys commands, Oriented to person, place, time, situation, Appropriate for age Reports dizziness, a syncopal episode. Respiratory: Airway is patent Trachea midline Respiratory effort is even, unlabored, Respiratory pattern is regular, symmetrical, Breath sounds are clear bilaterally. GI: Abdomen is round non-distended, Bowel sounds present X 4 quads. : No signs and/or symptoms were reported regarding the genitourinary system. Derm: Skin is intact, Skin is pink, warm \T\ dry. normal. Musculoskeletal: Circulation, motion, and sensation intact. Capillary refill < 3 seconds, Range of motion: intact in all extremities. 19:15 Cardiovascular: Cardiovascular: Heart tones S1 S2 present Capillary refill < 3 seconds bs1 Rhythm is regular. 20:00 Reassessment: patients IV infiltrated from doppler US from Dr Méndez, 20g right FA area. bs1 IV dc'd. Informed PA. 21:00 Reassessment: No changes from previously documented assessment. Patient and/or family bs1 updated on plan of care and expected duration. Pain level reassessed. Patient is alert, oriented x 3, equal unlabored respirations, skin warm/dry/pink. 22:30 Reassessment: Patient appears in no apparent distress at this time. Patient and/or bs1 family updated on plan of care and expected duration. Pain level reassessed. Patient is alert, oriented x 3, equal unlabored respirations, skin warm/dry/pink. Patient denies pain at this time. Patient states feeling better. Patient states symptoms have improved. Vital Signs: 17:42 BP 114 / 42; Pulse 50; Resp 18; Pulse Ox 96% ; Weight 90.26 kg; Height 5 ft. 2 in. sv (157.48 cm); 19:45 BP 86 / 64; Pulse 70; Resp 16; Pulse Ox 99% on R/A; bs1 20:00 BP 99 / 62; Pulse 58; Resp 16; Pulse Ox 99% on R/A; bs1 21:00 BP 110 / 63; Pulse 60; Resp 16; Pulse Ox 98% on R/A; bs1 22:00 BP 98 / 46; Pulse 51; Resp 16 S; Pulse Ox 95% on R/A; bs1 22:30 BP 110 / 54; Pulse 58; Resp 16; Temp 98(O); Pulse Ox 100% on R/A; Pain 0/10; bs1 17:42 Body Mass Index 36.40 (90.26 kg, 157.48 cm) sv ED Course: 17:36 Patient arrived in ED. sb2 17:36 Mariana Ochoa MD is Private Physician. sb2 17:41 Triage completed. sv 17:43 Arm band placed on left wrist. sv 17:49 [facility]el Walker [facility]. jmm 17:49 Tevin Méndez MD is Attending Physician. jmm 17:50 Patient has correct armband on for positive identification. Placed in gown. Bed in low rb1 position. Call light in reach. Side rails up X 1. hospital monitor on. Pulse ox on. NIBP on. Warm blanket given. 18:09 X-ray completed. Portable x-ray completed in exam room. Patient tolerated procedure bb2 well. 18:09 XRAY Chest (1 view) In Process Unspecified. EDMS 18:11 EKG done, by rf test technician. reviewed by Ángel VILLELA. sm3 18:15 Megan Walden, RN is Primary Nurse. rb1 18:17 Missed attempt(s): 22 gauge in right antecubital area. Bleeding controlled, band aid rb1 applied, catheter tip intact. 18:45 Missed attempt(s): 22 gauge in left antecubital area. Labs were collected and sent.. rb1 Bleeding controlled, band aid applied, catheter tip intact. 19:00 Report given to RON Dye. rb1 19:14 Radiology exam delayed due to lab results not completed at this time. (BUN/Creatinine). vr 20:01 Radiology exam delayed due to IV insertion attempt and/or patient not having nj appropriate IV at this time. 20:50 Inserted 18 gauge 10 cm midline to right upper arm brachial vein on second attempt. fc Line with good blood return and flushes well. 21:37 CT completed. Patient tolerated procedure well. Patient moved back from CT. nj 21:37 CT Chest For PE Angio In Process Unspecified. EDMS 21:37 CT Abd/Pelvis - W/Contrast In Process Unspecified. EDMS 22:00 EKG done, by ED staff, reviewed by Ángel VILLELA. bs1 22:14 Mariana Ochoa MD is Referral Physician. [facility] 22:40 No provider procedures requiring assistance completed. IV discontinued, bleeding bs1 controlled, No redness/swelling at site. Pressure dressing applied. Administered Medications: 18:45 Drug: Reglan 10 mg {Note: administered by RON Guzman.} Route: IVP; Site: right bs1 antecubital; 22:36 Follow up: Response: No adverse reaction bs1 20:14 Not Given (No IV access, informed TIKA Neal): NS 0.9% 1000 ml IV at 1 bolus Per protocol; bs1 1000 mL bolus 21:10 Drug: Promethazine 12.5 mg Route: IVP; Site: right upper arm; fc 22:36 Follow up: Response: No adverse reaction bs1 21:11 Drug: NS 0.9% 1000 ml Route: IV; Rate: 1 bolus; Site: right upper arm; bs1 22:36 Follow up: IV Status: Completed infusion bs1 22:36 Not Given (Patient Refused; informed PA): NS 0.9% 1000 ml IV at 1 bolus Per protocol; bs1 1000 mL bolus Outcome: 22:14 Discharge ordered by . [facility] 22:40 Discharged to home ambulatory, with family. bs1 22:40 Condition: stable 22:40 Discharge instructions given to patient, Instructed on discharge instructions, follow up and referral plans. medication usage, Demonstrated understanding of instructions, follow-up care, medications, Prescriptions given X 1. 22:41 Patient left the ED. bs1 Signatures: Dispatcher [employer] EDYojana Ledesma, RN RN Ángel Walker PA PA jmm Chretien, Felicia, RN RN Kimber Ayala Rebecca RN RN rb1 [place] Her Brittany bb2 Salazar, Brittany, RN RN bs1 Rhiannon Ayoub2 Linh Elliott 3 Corrections: (The following items were deleted from the chart) 17:48 17:40 Presenting complaint: Patient states: has been having syncope, hypotension, low sv heart rate, dizziness, SOB x 1 month. Pt has been seeing her PCP and has had lab work and EKG done yesterday. sv 19:15 17:50 Pain: rb1 rb1 19:17 17:50 Missed attempt(s): 22 gauge in right antecubital area. rb1 rb1
[2018-04-10] MEDS ORDERED: NA CHLORIDE 0.9% 1,000 ML ONE (22:20)
[2018-04-10 22:51] VITALS: BP 110/54; TEMP 98; O2SAT 100
--- NOTE | 2018-04-11 08:06 | EKG ---
Test Date: 2018-04-10 Test Time: 21:52:21 Tugger Operator: BETZAIDA MEASUREMENT RESULTS: Intervals: Rate: 52 AL: 144 QRSD: 92 QT: 486 QTc: 451 [place]: P: 50 AL: 144 QRS: 8 T: 36 INTERPRETIVE STATEMENTS: Sinus bradycardia Otherwise normal ECG Compared to ECG 04/10/2018 18:03:58 ST (T wave) deviation no longer present Electronically Signed On 04-11-18 08:03:16 CDT by Dano Johansen
--- NOTE | 2018-04-11 08:06 | EKG ---
Test Date: 2018-04-10 Test Time: 18:03:58 Design Technician: DARSHANA MEASUREMENT RESULTS: Intervals: Rate: 49 LA: 126 QRSD: 78 QT: 472 QTc: 426 [place]: P: 55 LA: 126 QRS: 5 T: 41 INTERPRETIVE STATEMENTS: Marked sinus bradycardia Junctional ST depression, probably normal Abnormal ECG Compared to ECG 04/09/2018 11:21:06 ST (T wave) deviation now present Electronically Signed On 04-11-18 08:03:19 CDT by Dano Johansen
== END 2018-04-10 22:41 | disposition home or self-care (01) ==
LOC: ER 17:33
DX: R11.10 Vomiting, unspecified (principal); R19.7 Diarrhea, unspecified; F31.9 Bipolar disorder, unspecified; Z88.3 Allergy status to other anti-infective agents; Z88.5 Allergy status to narcotic agent
CPT/HCPCS: 36415; 71045; 71275; 74177; 80048; 80076; 82550; 82553; 83735; 83880; 84484; 85025; 85379; 85610; 85730; 93005; 99285; J2550; J2765; J7030; Q9967

== ENCOUNTER 2018-10-28 21:05 | Inpatient (IN) | payer OTHER ==
[2018-10-28 21:42] VITALS: BMI 35.4
[2018-10-28] MEDS ORDERED: ONDANSETRON 4 MG/2 ML VIAL IV PRN (21:48)
--- OUTSIDE RECORDS SUMMARY | 2018-10-28 22:22 | XMS REPORT | Clinical Summary ---
:1970 Author Organization [facility] Address [address] [place] [address] Care Team Providers Name Role Phone Mariana Ochoa MD Primary Care Provider Allergies Active Allergy Reactions Severity Noted Date Comments Erythromycin 05/04/2018 Tetracycline 05/04/2018 Ondansetron Hcl 05/04/2018 Medications Medication Sig Dispensed Refills Start Date End Date Status FLUoxetine Take 20 mg by 0 Active (PROzac) 20 mg/5 mouth daily. mL (4 mg/mL) solution lithium 300 mg Take 900 mg by 0 Active tablet mouth nightly. meclizine Take 1 tablet 20 tablet 0 05/11/2018 Active (ANTIVERT) 25 mg (25 mg total) by tablet mouth every 6 (six) hours as needed for dizziness for up to 20 doses. traZODone Take 200 mg by 0 05/11/2018 Discontinued (DESYREL) 100 MG mouth nightly as tablet needed for sleep. aspirin 81 mg Chew 1 tablet 30 tablet 0 05/06/2018 06/05/2018 chewable tablet (81 mg total) daily for 30 days. traZODone Take 1 tablet 30 tablet 0 05/11/2018 06/10/2018 (DESYREL) 100 MG (100 mg total) tablet by mouth nightly as needed for sleep for up to 30 days. Active Problems Problem Noted Date Chest pain 05/06/2018 Unstable angina 05/04/2018 Encounters Date Type Specialty Care Team Description 05/12/2018 Documentation [employer] Mayte Rainey RN 05/04/2018 - Hospital Encounter General Internal Claudio Sanches History of fainting spells of unknown cause (Primary Dx); 05/11/2018 Medicine MD Iman Unstable angina; Joglekar, MD Daniel Reyes Dhruti Bharatbhai, MD after 10/27/2017 Social History Tobacco Use Types Packs/Day Years Used Date Former Smoker Cigarettes 30 Quit: 02/21/2018 Smokeless Tobacco: Never Used Comments: 3-4 cigarrettes at day Alcohol Use Drinks/Week oz/Week Comments No Sex Assigned at Date Recorded Not on file Job Start Date Occupation Industry Not on file Not on file Not on file Travel History Travel Start Travel End No recent travel history available. Last Filed Vital Signs Vital Sign Reading Time Taken Blood Pressure 92/43 05/11/2018 7:36 AM CDT Pulse 55 05/11/2018 7:36 AM CDT Temperature 36.7 C (98 F) 05/11/2018 7:36 AM CDT Respiratory Rate 18 05/11/2018 7:36 AM CDT Oxygen Saturation 94% 05/11/2018 7:36 AM CDT Inhaled Oxygen Concentration - - Weight 98 kg (216 lb) 05/05/2018 8:58 AM CDT Height 160 cm (5' 3") 05/05/2018 8:58 AM CDT Body Mass Index 38.26 05/05/2018 8:58 AM CDT Plan of Treatment Health Maintenance Due Date Last Done Comments CERVICAL CANCER SCREENING 1993 INFLUENZA VACCINE 04/23/2018 Procedures Procedure Name Priority Date/Time Associated Comments Diagnosis EEG VIDEO MONITORING Routine 05/10/2018 7:33 Results for this PM CDT procedure are in the results section. EEG CONTINUOUS WITH Routine 05/10/2018 1:09 Results for this VIDEO REDUCED SERVICE AM CDT procedure are in the results section. LITHIUM LEVEL Routine 05/09/2018 9:50 Results for this PM CDT procedure are in the results section. EEG AWAKE/ASLEEP LESS Routine 05/09/2018 9:56 Results for this THAN 41 MIN AM CDT procedure are in the results section. ZZESTIMATED GFR Routine 05/09/2018 4:55 Results for this AM CDT procedure are in the results section. BASIC METABOLIC PANEL Routine 05/09/2018 4:55 Results for this AM CDT procedure are in the results section. CBC HEMOGRAM Routine 05/09/2018 3:30 Results for this AM CDT procedure are in the results section. MRI BRAIN WO CONTRAST Routine 05/08/2018 8:45 Results for this PM CDT procedure are in the results section. ZZESTIMATED GFR Routine 05/08/2018 4:00 Results for this AM CDT procedure are in the results section. BASIC METABOLIC PANEL Routine 05/08/2018 4:00 Results for this AM CDT procedure are in the results section. HC COMPLETE BLD COUNT Routine 05/08/2018 3:55 Results for this W/AUTO DIFF AM CDT procedure are in the results section. CT HEAD WO CONTRAST Routine 05/07/2018 1:25 Results for this PM CDT procedure are in the results section. ZZESTIMATED GFR Routine 05/07/2018 3:05 Results for this AM CDT procedure are in the results section. CBC HEMOGRAM Routine 05/07/2018 3:05 Results for this AM CDT procedure are in the results section. COMPREHENSIVE METABOLIC Routine 05/07/2018 3:05 Results for this PANEL AM CDT procedure are in the results section. LITHIUM LEVEL Routine 05/07/2018 3:05 Results for this AM CDT procedure are in the results section. LITHIUM LEVEL STAT 05/06/2018 12:00 Results for this PM CDT procedure are in the results section. ZZESTIMATED GFR Routine 05/06/2018 3:38 Results for this AM CDT procedure are in the results section. COMPREHENSIVE METABOLIC Routine 05/06/2018 3:38 Results for this PANEL AM CDT procedure are in the results section. LITHIUM LEVEL Routine 05/06/2018 3:38 Results for this AM CDT procedure are in the results section. MAGNESIUM LEVEL Routine 05/06/2018 3:38 Results for this AM CDT procedure are in the results section. LITHIUM LEVEL STAT 05/05/2018 8:28 Results for this PM CDT procedure are in the results section. US CAROTID DUPLEX Routine 05/05/2018 12:23 Results for this BILATERAL PM CDT procedure are in the results section. NM MYOCARDIAL PERFUSION Routine 05/05/2018 11:08 Results for this STRESS ONLY AM CDT procedure are in the results section. CV STRESS TEST NUCLEAR Routine 05/05/2018 11:08 Results for this CARDIO AM CDT procedure are in the results section. ECHOCARDIOGRAM 2D Routine 05/05/2018 8:30 Results for this COMPLETE W MMODE AM CDT procedure are in SPECTRAL COLOR DOPPLER the results (16568) section. ECG 12-LEAD STAT 05/05/2018 5:36 Results for this AM CDT procedure are in the results section. TROPONIN Routine 05/05/2018 5:35 Results for this AM CDT procedure are in the results section. URINE DRUGS OF ABUSE Routine 05/05/2018 4:31 Results for this SCREEN AM CDT procedure are in the results section. HCG QUALITATIVE, URINE Routine 05/05/2018 4:31 Results for this SCREEN AM CDT procedure are in the results section. THYROID STIMULATING Routine 05/05/2018 4:22 Results for this HORMONE AM CDT procedure are in the results section. LIPID PANEL Routine 05/05/2018 4:22 Results for this AM CDT procedure are in the results section. ZZESTIMATED GFR Routine 05/05/2018 4:22 Results for this AM CDT procedure are in the results section. PROTHROMBIN TIME WITH Routine 05/05/2018 4:22 Results for this INR AM CDT procedure are in the results section. HC COMPLETE BLD COUNT Routine 05/05/2018 4:22 Results for this W/AUTO DIFF AM CDT procedure are in the results section. BASIC METABOLIC PANEL Routine 05/05/2018 4:22 Results for this AM CDT procedure are in the results section. CT CERVICAL SPINE W STAT 05/04/2018 8:55 Results for this CONTRAST PM CDT procedure are in the results section. ECG ED PRELIMINARY Routine 05/04/2018 6:01 Results for this INTERPRETATION PM CDT procedure are in the results section. POTASSIUM LEVEL STAT 05/04/2018 5:50 Results for this PM CDT procedure are in the results section. ALT (SGPT) STAT 05/04/2018 5:50 Results for this PM CDT procedure are in the results section. AST (SGOT) STAT 05/04/2018 5:50 Results for this PM CDT procedure are in the results section. ZZESTIMATED GFR STAT 05/04/2018 4:54 Results for this PM CDT procedure are in the results section. B NATRIURETIC PEPTIDE STAT 05/04/2018 4:54 Results for this PM CDT procedure are in the results section. TROPONIN STAT 05/04/2018 4:54 Results for this PM CDT procedure are in the results section. COMPREHENSIVE METABOLIC STAT 05/04/2018 4:54 Results for this PANEL PM CDT procedure are in the results section. HC COMPLETE BLD COUNT STAT 05/04/2018 4:54 Results for this W/AUTO DIFF PM CDT procedure are in the results section. XR CHEST 2 VW STAT 05/04/2018 3:29 Results for this PM CDT procedure are in the results section. ECG 12-LEAD STAT 05/04/2018 3:03 Results for this PM CDT procedure are in the results section. after 10/27/2017 Results Continuous EEG monitoring (05/10/2018 7:33 PM CDT) Narrative Performed At CONTINUOUS VIDEO-EEG MONITORING REPORT Patient Name: Nithin Bojorquez Date of : 1970 Gender: female Start Date: 05/10/18 Start Time: 00:00 End Date: 05/10/18 End Time: 18:42 Indication Seizures Technical Summary Technique:Modified international 10/20 system of EEG electrode placement was used. Visual Analysis of EEG-Video Monitoring:This electroencephalogram was recorded simultaneously with video throughout the monitoring. The EEG was visually inspected and analyzed for characterization of the background activity in all awake and sleep states, abnormal focal and generalized features, and intraictal and ictal epileptiform activity. Electrical seizure activity was correlated with the patients clinical activity recorded on video and video captured clinical events were correlated with simultaneously recorded EEG activity. Computer Analysis of EEG Waveforms:The EEG underwent continuous computerized digital spectral analysis, which consisted of real time detection of electrical events that could be considered epileptiform. All electrographic events identified by the detection program were visually inspected in order to assess the waveform characteristics and significance of these electrographic events. All intraictal and ictal epileptiform events are described further below with additional details of the visual analysis of the EEG. Events detected by computer analysis that were not determined by visual analysis to be epileptiform were considered to be myogenic, biologic, mechanical, or electrical artifact in origin. Only computer detected events that have been verified by visual inspection to be interictal or ictal epileptiform discharges are reported below and considered in the final report of this monitoring study. Findings Awake Recording:The occipital dominant rhythm is 10 Hz. 18-22 Hz activity is present in all regions. Sleep Recording: No epileptiform activity was recorded. Hyperventilation: Not performed. Photic Stimulation:Not performed. Impression The background activity is within the range of normal variation. No lateralized or epileptiform activity was recorded. ICD-10 Code: R569 Continuous EEG monitoring (05/10/2018 1:09 AM CDT) Narrative Performed At CONTINUOUS VIDEO-EEG MONITORING REPORT Patient Name: Nithin Bojorquez Date of : 1970 Gender: female Start Date: 05/09/18 Start Time: 17:00 End Date: 05/09/18 End Time: 23:59 The study was disconnected for approximately 3 hours Indication Seizures Technical Summary Technique:Modified international 10/20 system of EEG electrode placement was used. Visual Analysis of EEG-Video Monitoring:This electroencephalogram was recorded simultaneously with video throughout the monitoring. The EEG was visually inspected and analyzed for characterization of the background activity in all awake and sleep states, abnormal focal and generalized features, and intraictal and ictal epileptiform activity. Electrical seizure activity was correlated with the patients clinical activity recorded on video and video captured clinical events were correlated with simultaneously recorded EEG activity. Computer Analysis of EEG Waveforms:The EEG underwent continuous computerized digital spectral analysis, which consisted of real time detection of electrical events that could be considered epileptiform. All electrographic events identified by the detection program were visually inspected in order to assess the waveform characteristics and significance of these electrographic events. All intraictal and ictal epileptiform events are described further below with additional details of the visual analysis of the EEG. Events detected by computer analysis that were not determined by visual analysis to be epileptiform were considered to be myogenic, biologic, mechanical, or electrical artifact in origin. Only computer detected events that have been verified by visual inspection to be interictal or ictal epileptiform discharges are reported below and considered in the final report of this monitoring study. Findings Awake Recording: The occipital dominant rhythm is 10 Hz. 18-22 Hz activity is present in all regions. Sleep Recording:No epileptiform activity was recorded. Hyperventilation: Not performed. Photic Stimulation: Not performed. Impression The background activity is within the range of normal variation. No lateralized or epileptiform activity was recorded. ICD-10 Code: R569 [place] level (05/09/2018 9:50 PM CDT)Only the most recent of5 resultswithin the time period is included. [place] 0.31 (L) 0.60 - 1.20 mmol/L [facility] DEPARTMENT OF PATHOLOGY AND GENOMIC MEDICINE Specimen Serum Performing Organization Address City/State/Zipcode Phone Number [facility] DEPARTMENT OF PATHOLOGY AND [address] [place] [address] [employer] EEG (routine) (05/09/2018 9:56 AM CDT) Narrative Performed At EEG AWAKE AND ASLEEP Date of Service: 05/09/18 Awake Recording: The occipital dominant rhythm is 10 Hz. 18-22 Hz activity is present in all regions. Sleep Recording:No epileptiform activity was recorded. Hyperventilation: Not performed. Photic Stimulation: Not performed. Impression The background activity is within the range of normal variation. No lateralized or epileptiform activity was recorded. ICD-10 Code: R569 Estimated GFR (05/09/2018 4:55 AM CDT)Only the most recent of6 resultswithin the time period is included. GFR Non Af Amer >90 mL/min/1.[address] [facility] DEPARTMENT OF PATHOLOGY AND GENOMIC MEDICINE GFR Af Amer >90 mL/min/1.[address] [facility] DEPARTMENT OF Comment: PATHOLOGY AND GENOMIC Chronic kidney disease: <60 mL/min/1.73m2 MEDICINE Kidney failure: <15 mL/min/1.73m2 The estimated GFR is calculated from the IDMS-traceable Modification of Diet in Renal Disease Equation. The accuracy of the calculation is poor when the creatinine is normal. Calculated values >90 mL/min/1.73m2 are not reported. This equation has not been validated in children (<18 years), women, the elderly (>70 years), or ethnic groups other than Caucasians and Americans. Specimen Plasma specimen Performing Organization Address City/State/Zipcode Phone Number [facility] DEPARTMENT OF PATHOLOGY AND [address] [place] [address] [employer] Basic metabolic panel (05/09/2018 4:55 AM CDT)Only the most recent of3 resultswithin the time period is included. Sodium 141 135 - 148 mEq/L [facility] DEPARTMENT OF PATHOLOGY AND GENOMIC MEDICINE Potassium 4.1 3.5 - 5.0 mEq/L [facility] DEPARTMENT OF PATHOLOGY AND GENOMIC MEDICINE Chloride 108 98 - 112 mEq/L [facility] DEPARTMENT OF PATHOLOGY AND GENOMIC MEDICINE CO2 21 (L) 24 - 31 mEq/L [facility] DEPARTMENT OF PATHOLOGY AND GENOMIC MEDICINE Anion gap 12@ANIO 7 - 15 mEq/L [facility] DEPARTMENT OF PATHOLOGY AND GENOMIC MEDICINE BUN 9 6 - 20 mg/dL [facility] DEPARTMENT OF PATHOLOGY AND GENOMIC MEDICINE Creatinine 0.7 0.5 - 0.9 mg/dL [facility] DEPARTMENT OF PATHOLOGY AND GENOMIC MEDICINE Glucose 100 (H) 65 - 99 mg/dL [facility] DEPARTMENT OF PATHOLOGY AND GENOMIC MEDICINE Calcium 8.3 8.3 - 10.2 mg/dL [facility] DEPARTMENT OF PATHOLOGY AND GENOMIC MEDICINE Specimen Plasma specimen Performing Organization Address City/[facility] Phone Number [facility] PATHOLOGY AND [address] [place] [address] [facility] CBC hemogram (05/09/2018 3:30 AM CDT)Only the most recent of2 resultswithin the time period is included. WBC 7.62 4.50 - 11.00 k/uL [facility] DEPARTMENT OF PATHOLOGY AND GENOMIC MEDICINE RBC 4.17 (L) 4.20 - 5.50 m/uL [facility] DEPARTMENT OF PATHOLOGY AND GENOMIC MEDICINE HGB 12.0 12.0 - 16.0 g/dL [facility] DEPARTMENT OF PATHOLOGY AND GENOMIC MEDICINE HCT 37.6 37.0 - 47.0 % [facility] DEPARTMENT OF PATHOLOGY AND GENOMIC MEDICINE MCV 90.2 82.0 - 100.[address] [facility] DEPARTMENT OF PATHOLOGY AND GENOMIC MEDICINE MCH 28.8 27.0 - 34.[address] [facility] DEPARTMENT OF PATHOLOGY AND GENOMIC MEDICINE MCHC 31.9 31.0 - 37.0 g/dL [facility] DEPARTMENT OF PATHOLOGY AND GENOMIC MEDICINE RDW - SD 47.9 37.0 - 55.[address] [facility] DEPARTMENT OF PATHOLOGY AND GENOMIC MEDICINE MPV 9.6 8.8 - 13.[address] [facility] DEPARTMENT OF PATHOLOGY AND GENOMIC MEDICINE Platelet count 246 150 - 400 k/uL [facility] DEPARTMENT OF PATHOLOGY AND GENOMIC MEDICINE Nucleated RBC 0.00 /[address] [facility] DEPARTMENT OF PATHOLOGY AND GENOMIC MEDICINE Performing Organization Address City/[facility] Phone Number [facility] DEPARTMENT PATHOLOGY AND [address] [place] [address] [facility] MRI Brain Wo Contrast (05/08/2018 8:45 PM CDT) Narrative Performed At EXAMINATION: MRI BRAIN WO CONTRAST RADIANT CLINICAL HISTORY: NEURO DEFICITACUTESINGLEPROGRESSING, possible seizures COMPARISON:05/07/[address] TECHNIQUE: Multiplanar and multisequence MRI imaging of the brain was obtained without contrast. FINDINGS: No diffusion restriction to suggest acute ischemia. No abnormal susceptibility to suggest intracranial hemorrhage. Brain volume is normal. No acute hydrocephalus or extra-axial fluid collection identified. No intracranial mass effect. Midline structures are maintained. The major flow voids in the skull base are identified. Visualized paranasal sinuses and mastoid air cells are clear. Orbits are unremarkable. Visualized soft tissue shows no gross abnormalities. IMPRESSION: No acute intracranial abnormality. [facility]-[id number] Procedure Note Interface, Radiology Results Incoming - 05/08/2018 9:57 PM CDT EXAMINATION: MRI BRAIN WO CONTRAST CLINICAL HISTORY: NEURO DEFICIT ACUTE SINGLE PROGRESSING, possible seizures COMPARISON: 05/07/[address] TECHNIQUE: Multiplanar and multisequence MRI imaging of the brain was obtained without contrast. FINDINGS: No diffusion restriction to suggest acute ischemia. No abnormal susceptibility to suggest intracranial hemorrhage. Brain volume is normal. No acute hydrocephalus or extra-axial fluid collection identified. No intracranial mass effect. Midline structures are maintained. The major flow voids in the skull base are identified. Visualized paranasal sinuses and mastoid air cells are clear. Orbits are unremarkable. Visualized soft tissue shows no gross abnormalities. IMPRESSION: No acute intracranial abnormality. [id number] Performing Organization Address City/State/Zipcode Phone Number [facility] [address] [place] [address] CBC with platelet and differential (05/08/2018 3:55 AM CDT)Only the most recent of3 resultswithin the time period is included. WBC 7.51 4.50 - 11.00 k/uL [facility] DEPARTMENT OF PATHOLOGY AND GENOMIC MEDICINE RBC 4.26 4.20 - 5.50 m/uL [facility] DEPARTMENT OF PATHOLOGY AND GENOMIC MEDICINE HGB 12.2 12.0 - 16.0 g/dL [facility] DEPARTMENT OF PATHOLOGY AND GENOMIC MEDICINE HCT 37.6 37.0 - 47.0 % [facility] DEPARTMENT OF PATHOLOGY AND GENOMIC MEDICINE MCV 88.3 82.0 - 100.[address] [facility] DEPARTMENT OF PATHOLOGY AND GENOMIC MEDICINE MCH 28.6 27.0 - 34.[address] [facility] DEPARTMENT OF PATHOLOGY AND GENOMIC MEDICINE MCHC 32.4 31.0 - 37.0 g/dL [facility] DEPARTMENT OF PATHOLOGY AND GENOMIC MEDICINE RDW - SD 47.1 37.0 - 55.[address] [facility] DEPARTMENT OF PATHOLOGY AND GENOMIC MEDICINE MPV 9.5 8.8 - 13.[address] [facility] DEPARTMENT OF PATHOLOGY AND GENOMIC MEDICINE Platelet count 227 150 - 400 k/uL [facility] DEPARTMENT OF PATHOLOGY AND GENOMIC MEDICINE Nucleated RBC 0.00 /[address] [facility] DEPARTMENT OF PATHOLOGY AND GENOMIC MEDICINE Neutrophils 57.3 39.0 - 69.0 % [facility] DEPARTMENT OF PATHOLOGY AND GENOMIC MEDICINE Lymphocytes 28.8 25.0 - 45.0 % [facility] DEPARTMENT OF PATHOLOGY AND GENOMIC MEDICINE Monocytes 6.4 0.0 - 10.0 % [facility] DEPARTMENT OF PATHOLOGY AND GENOMIC MEDICINE Eosinophils 5.5 (H) 0.0 - 5.0 % [facility] DEPARTMENT OF PATHOLOGY AND GENOMIC MEDICINE Basophils 0.9 0.0 - 1.0 % [facility] DEPARTMENT OF PATHOLOGY AND GENOMIC MEDICINE Immature granulocytes 1.1 (H)Comment: 0.0 - 1.0 % [facility] DEPARTMENT OF "Immature PATHOLOGY AND GENOMIC granulocytes" MEDICINE (promyelocytes, myelocytes, metamyelocytes) Specimen Blood Performing Organization Address City/State/Zipcode Phone Number [facility] DEPARTMENT OF PATHOLOGY AND [employer] [place] [address] [facility] CT Head Wo Contrast (05/07/2018 1:25 PM CDT) Narrative Performed At EXAMINATION:CT HEAD WO CONTRAST RADIANT CLINICAL HISTORY:dizziness COMPARISON:CT head 01/21/2012. TECHNIQUE: Noncontrast head CT performed using radiation dose reduction techniques.Technical factors are evaluated and adjusted to ensure appropriate moderation of exposure.Automated dose management technology is applied to adjust radiation exposure while achieving a diagnostic quality image. FINDINGS: No evidence of acute intracranial hemorrhage, mass, mass effect, midline shift, or acute infarct. Ventricles and sulci are normal in appearance for age.Basal cisterns are clear. Calvarium is intact. Stable nonspecific tortuosity mild prominence of the optic nerve sheaths. Orbital contents are otherwise unremarkable. No significant sinus inflammatory changes.Mastoid air cells are clear. IMPRESSION: 1. No CT evidence of acute intracranial abnormality. [id number] Procedure Note Interface, Radiology Results Incoming - 05/07/2018 1:41 PM CDT EXAMINATION: CT HEAD WO CONTRAST CLINICAL HISTORY: dizziness COMPARISON: CT head 01/21/2012. TECHNIQUE: Noncontrast head CT performed using radiation dose reduction techniques. Technical factors are evaluated and adjusted to ensure appropriate moderation of exposure. Automated dose management technology is applied to adjust radiation exposure while achieving a diagnostic quality image. FINDINGS: No evidence of acute intracranial hemorrhage, mass, mass effect, midline shift , or acute infarct. Ventricles and sulci are normal in appearance for age. Basal cisterns are clear. Calvarium is intact. Stable nonspecific tortuosity mild prominence of the optic nerve sheaths. Orbital contents are otherwise unremarkable. No significant sinus inflammatory changes. Mastoid air cells are clear. IMPRESSION: 1. No CT evidence of acute intracranial abnormality. [id number] Performing Organization Address City/State/Zipcode Phone Number [facility] [address] [place] [address] Comprehensive metabolic panel (05/07/2018 3:05 AM CDT)Only the most recent of3 resultswithin the time period is included. Sodium 139 135 - 148 mEq/L [facility] DEPARTMENT OF PATHOLOGY AND GENOMIC MEDICINE Potassium 3.7 3.5 - 5.0 mEq/L [facility] DEPARTMENT OF PATHOLOGY AND GENOMIC MEDICINE Chloride 106 98 - 112 mEq/L [facility] DEPARTMENT OF PATHOLOGY AND GENOMIC MEDICINE CO2 20 (L) 24 - 31 mEq/L [facility] DEPARTMENT OF PATHOLOGY AND GENOMIC MEDICINE Anion gap 13@ANIO 7 - 15 mEq/L [facility] DEPARTMENT OF PATHOLOGY AND GENOMIC MEDICINE BUN 11 6 - 20 mg/dL [facility] DEPARTMENT OF PATHOLOGY AND GENOMIC MEDICINE Creatinine 0.7 0.5 - 0.9 mg/dL [facility] DEPARTMENT OF PATHOLOGY AND GENOMIC MEDICINE Glucose 112 (H) 65 - 99 mg/dL [facility] DEPARTMENT OF PATHOLOGY AND GENOMIC MEDICINE Calcium 9.2 8.3 - 10.2 mg/dL [facility] DEPARTMENT OF PATHOLOGY AND GENOMIC MEDICINE Protein 6.2 (L) 6.3 - 8.3 g/dL [facility] DEPARTMENT OF Comment: PATHOLOGY AND GENOMIC [place] 4.6-7.0 g/dL MEDICINE 1 week 4.4-7.6 g/dL 7 months-1year5.1-7.3 g/dL 1-2 years5.6-7.5 g/dL >3 years6.0-8.0 g/dL 18-150 6.3-8.3 g/dL Albumin 3.2 (L) 3.5 - 5.0 g/dL [facility] DEPARTMENT OF PATHOLOGY AND GENOMIC MEDICINE A/G ratio 1.1 0.7 - 3.8 [facility] [facility]IC MEDICINE Alkaline phosphatase 47 35 - 104 U/L [facility] DEPARTMENT OF PATHOLOGY AND GENOMIC MEDICINE AST 16 10 - 35 U/L [facility] DEPARTMENT OF PATHOLOGY AND GENOMIC MEDICINE ALT 9 5 - 50 U/L [facility] DEPARTMENT OF PATHOLOGY AND GENOMIC MEDICINE Total bilirubin <0.2 0.0 - 1.2 mg/dL [facility] DEPARTMENT OF PATHOLOGY AND GENOMIC MEDICINE Specimen Plasma specimen Performing Organization Address City/[facility] Phone Number [facility] DEPARTMENT OF PATHOLOGY AND [address] [place] [address] Magnesium level (05/06/2018 3:38 AM CDT) Magnesium 1.8 1.6 - 2.6 mg/dL [facility] DEPARTMENT OF PATHOLOGY AND GENOMIC MEDICINE Specimen Plasma specimen Performing Organization Address City/[facility] Phone Number [facility] DEPARTMENT OF PATHOLOGY AND [address] [place] [address] Pv carotid duplex (05/05/2018 12:23 PM CDT) Narrative Performed At [facility] Vascular Ultrasound Laboratory Carotid Artery Duplex Report [address] [place] [address] 9, [place] [address] For quality control director purposes, the categorization of the degree of the stenosis of this exam is based on criteria described in the IAC carotid stenosis grading white paper( www.intersocietal.org/Vascular) and Ml Hercules, Daphne Antony, et al. Carotid artery stenosis: monzon-scale and Doppler US diagnosis--Society of Radiologists in Ultrasound Consensus Conference. Radiology. 2003 Nov; 229(2):340-6. Pat.Name:NITHIN BOJORQUEZ Pat.ID:[id number] .Date: 05/05/2018 Refer.MD:CLAUDIO SANCHES MD Exam Time: 11:42:00 AM Study Type:Carotid DOBAge:1970,48Y Sex: FEMALE Sonogrphr: Yanci Durbin RVBobbi. Stat.:Inpatient Room:Y0225HHeiiRiz: [place], CPT - 4: 14796 Echo Event ID:[id number] Order ID:[id number] Reason for Study:Multiple episodes of syncope and chest pain. History of bipolar disorder and tobacco use. Procedures:Colorflow, Grayscale/2D, Pulsed wave Doppler Race:C SUMMARY: PHYSICAL ASSESSMENT BloodPulsesCarotid Pressure Carotid TemporalBruit Right 100/61 ++0 Left 95/63 ++0 CAROTID ARTERY SCAN RIGHT:There is smooth intimal lining in the common carotid ,bulb, internal and external carotid artery. Colorflow is normal. LEFT:There is smooth intimal lining in the common carotid ,bulb, internal and external carotid artery. Colorflow is normal. PRELIMINARY FINDINGS 1. Normal carotid duplex exam. PHYSICIAN INTERPRETATION Bilateral carotid artery examination demonstrates no evidence of plaque or occlusive disease. Normal carotid duplex exam. Both vertebral arteries are antegrade. Hypoplastic left vertebral artery. Carotid Findings:RightLeft Verteb.Flw AntegradeAntegrade Subclavian TriphasicTriphasic MEASUREMENTS: DOPPLER Right CCA Dist CCA Dist PSV87.9 cm/sCCA Dist EDV20.6 cm/s Right CCA Mid CCA Mid DDW711 cm/sCCA Mid EDV 27.3 cm/s Right CCA Prox CCA Prox PSV 100 cm/sCCA Prox EDV19.5 cm/s Right ECA Prox ECA Prox PSV 112 cm/sECA Prox EDV13.6 cm/s Right ICA Dist ICA Dist PSV85.4 cm/Lauren Dist EDV25.7 cm/s Right ICA Mid ICA Mid PSV 58.9 cm/Lauren Mid EDV 17.8 cm/s Right ICA Prox ICA Prox PSV81.2 cm/Lauren Prox EDV26.4 cm/s Right Vertebral Vertebral PSV 46.1 cm/sVertebral EDV 16.4 cm/s Right Subclavian Subclavian PSV 132 cm/sSubclavian EDV 0 cm/s Left CCA Dist CCA Dist PSV94.3 cm/sCCA Dist EDV19.5 cm/s Left CCA Mid CCA Mid BPL333 cm/sCCA Mid EDV 27.4 cm/s Left CCA Prox CCA Prox PSV 130 cm/sCCA Prox EDV21.5 cm/s Left ECA Prox ECA Prox PSV 115 cm/sECA Prox EDV13.2 cm/s Left ICA Dist ICA Dist PSV73.6 cm/Lauren Dist EDV25.8 cm/s Left ICA Mid ICA Mid PSV 71.1 cm/Lauren Mid EDV 27 cm/s Left ICA Prox ICA Prox PSV63.1 cm/Lauren Prox EDV23.2 cm/s Left Vertebral Vertebral PSV 48.3 cm/sVertebral EDV 8.68 cm/s Left Subclavian Subclavian PSV94 cm/sSubclavian EDV 0 cm/s Right ICA/CCA Ratio ICA/CCA PSV0.796 Left ICA/CCA Ratio ICA/CCA PSV0.595 Signed 05/05/2018 02:49 PM Frantz Lawrence MD, RPVI Procedure Note Interface, Radiology Results In - 05/05/2018 2:51 PM CDT Vascular Ultrasound Laboratory Carotid Artery Duplex Report [address] [place] [address] For quality control director purposes, the categorization of the degree of the stenosis of this exam is based on criteria described in the IAC carotid stenosis grading white paper( www.intersocietal.org/Vascular) and Wendi Hercules., Mami Antony., et al. Carotid artery stenosis: monzon-scale and Doppler US diagnosis--Society of Radiologists in Ultrasound Consensus Conference. Radiology. 2003 Nov; 229(2):340-6. Pat.Name: NITHIN BOJORQUEZ.ID: [id number] .Date: 05/05/2018 Refer.MD: CLAUDIO SANCHES MD Exam Time: 11:42:00 AM Study Type:Carotid Age: 9 1970,48Y Sex: FEMALE Sonogrphr: Yanci Durbin RVT Pat. Stat.:Inpatient Room: [facility] Tape Vol: [place], CPT - 4: 51680 Echo Event ID:[id number] Order ID: [id number] Reason for Study:Multiple episodes of syncope and chest pain. History of bipolar disorder and tobacco use. Procedures:Colorflow, Grayscale/2D, Pulsed wave Doppler Race: C SUMMARY: PHYSICAL ASSESSMENT Blood Pulses Carotid Pressure Carotid Temporal Bruit Right 100/61 + + 0 Left 95/63 + + 0 CAROTID ARTERY SCAN RIGHT: There is smooth intimal lining in the common carotid ,bulb, internal and external carotid artery. Colorflow is normal. LEFT: There is smooth intimal lining in the common carotid ,bulb, internal and external carotid artery. Colorflow is normal. PRELIMINARY FINDINGS 1. Normal carotid duplex exam. PHYSICIAN INTERPRETATION Bilateral carotid artery examination demonstrates no evidence of plaque or occlusive disease. Normal carotid duplex exam. Both vertebral arteries are antegrade. Hypoplastic left vertebral artery. Carotid Findings: Right Left Verteb.Flw Antegrade Antegrade Subclavian Triphasic Triphasic MEASUREMENTS: DOPPLER Right CCA Dist CCA Dist PSV 87.9 cm/s CCA Dist EDV 20.6 cm/s Right CCA Mid CCA Mid PSV 102 cm/s CCA Mid EDV 27.3 cm/s Right CCA Prox CCA Prox PSV 100 cm/s CCA Prox EDV 19.5 cm/s Right ECA Prox ECA Prox PSV 112 cm/s ECA Prox EDV 13.6 cm/s Right ICA Dist ICA Dist PSV 85.4 cm/s ICA Dist EDV 25.7 cm/s Right ICA Mid ICA Mid PSV 58.9 cm/s ICA Mid EDV 17.8 cm/s Right ICA Prox ICA Prox PSV 81.2 cm/s ICA Prox EDV 26.4 cm/s Right Vertebral Vertebral PSV 46.1 cm/s Vertebral EDV 16.4 cm/s Right Subclavian Subclavian PSV 132 cm/s Subclavian EDV 0 cm/s Left CCA Dist CCA Dist PSV 94.3 cm/s CCA Dist EDV 19.5 cm/s Left CCA Mid CCA Mid PSV 106 cm/s CCA Mid EDV 27.4 cm/s Left CCA Prox CCA Prox PSV 130 cm/s CCA Prox EDV 21.5 cm/s Left ECA Prox ECA Prox PSV 115 cm/s ECA Prox EDV 13.2 cm/s Left ICA Dist ICA Dist PSV 73.6 cm/s ICA Dist EDV 25.8 cm/s Left ICA Mid ICA Mid PSV 71.1 cm/s ICA Mid EDV 27 cm/s Left ICA Prox ICA Prox PSV 63.1 cm/s ICA Prox EDV 23.2 cm/s Left Vertebral Vertebral PSV 48.3 cm/s Vertebral EDV 8.68 cm/s Left Subclavian Subclavian PSV 94 cm/s Subclavian EDV 0 cm/s Right ICA/CCA Ratio ICA/CCA PSV 0.796 Left ICA/CCA Ratio ICA/CCA PSV 0.595 Signed 05/05/2018 02:49 PM Frantz Lawrence MD, RPVI Performing Organization Address [facility] Phone Number [facility] [address] [place] [address] Cv ecg exercise stress (nuclear or echo) (05/05/2018 11:08 AM CDT) Resting HR 53 [facility] Resting BP 103 [facility] Peak MET Achieved 1.0 [facility] Protocol Name REGADENO [facility] Time in Exercise Phase 00:01:00 [facility] Max Systolic BP 106 [facility] Max Diastolic BP 53 [facility] Max Heart Rate 70 [facility] Max Predicted Heart Rate 174 [facility] Target HR Formula (220 - Age)*100% [facility] Test Indication chest pain [facility] Stress Test Impression -Waveform interpreted in report [facility] associated with image study. No interpretation is provided as part of this Stress ECG report.-Electronically Signed By Esme HOUSTON, Barbara Barfield ([id number]), field map editor Rosmery Romo ([id number]) on 05/05/2018 10:51:23 AM Target HR 147.[address] [facility] Performing Organization Address [facility] Phone Number [facility] [address] [place] [address] Myocardial perfusion (05/05/2018 11:08 AM CDT) Narrative Performed At [facility] Nuclear Cardiology and Cardiac CT [address] [address] Myocardial Perfusion Imaging Report Stress ECG tracings are available in MUSE, EPIC and CV Web All ECG interpretations are included in this report Pat.Name:NITHIN BOJORQUEZ Pat.ID:[id number] .Date: 05/05/2018 Refer.MD:BARBARA DOUGLASS MD Exam Time: 10:24:00 AM Study Type:Myocardial Perfusion Imaging Height:63inWeight: 216lb BSA: 2 g5SQOXve:1970,48Y Sex: FEMALEBP:103/55 HR:53 bpmHCT: 38 % Nuclear Tech:Francy Woodward [facility]/Sanya Salazar [facility] Pat. Stat.:Outpatient Nuclear Event ID:[id number] Order ID:[id number] Reason for Study:Chest pain, unspecified* History / Clinical:Family history CAD, Obesity, Cholecystectomy, Gastric Bypass, Bi-Polar Procedures:Stress only Risk Factors:Obesity, Family history of cardiovascular disease Clinical Symptoms:Regadenoson Physical Exam:S1, S2 Surgery: Troponin Negativex 1 - 05/05/18, K+ - 3.7 - 05/05/18, Bun/Cr - 12/0.8 - 05/05/18 Medications:Aspirin SUMMARY: SCINTIGRAPHIC RESULTS Perfusion Defect Size (% LV) 0 % Total 0 % Ischemia 0 % Scar Left Ventricular Perfusion Results There is normal tracer distribution throughout the myocardium during stress. Gated SPECT Results The post-stress left ventricular ejection fraction is 64 % with normal regional wall motion and left ventricular thickening.Left ventricular end-diastolic volume is 100 ml; end-systolic volume is36 ml. The left ventricle is of normal size at stress.The right ventricle is of normal size with normal wall motion. Conclusion Normal regadenoson Tc-99m tetrofosmin myocardial perfusion study. The left ventricular ejection fraction is normal. Comments Patients with a normal stress myocardial perfusion study have a low (< 1%) annual risk of cardiac or nonfatal myocardial infarction. Study Quality/Artifacts The study quality is good. The mild reduction in apical-septal wall counts is probably due to breast attenuation artifact rather than coronary artery disease which resolves with prone imaging. Comparison to Previous Study None available. STRESS: Baseline Vital Signs:Intervention: Regadenoson 0.4mg/5ml IV over 10 seconds followed by radiotracer injection and 5ml saline flush ECG: Sinus bradycardia HR:53 BP:103/55 Stress Test Results: Target HR: 148 Symptoms and Complications: Arrhythmias: None Terminated: As per Regadenoson protocol Symptoms:Shortness of breath Complications: None Conclusions: Normal heart rate response to pharmacological stress, Normal blood pressure response to pharmacological stress Stress ECG Interp: No ischemic ST segment change occurred with stress. Signed 05/05/2018 05:00 PM Barbara Victoria MD Procedure Note Interface, Radiology Results In - 05/05/2018 5:00 PM CDT Nuclear Cardiology and Cardiac CT [address] [place] [address] Myocardial Perfusion Imaging Report Stress ECG tracings are available in [employer], [employer] and [employer] All ECG interpretations are included in this report Pat.Name: NITHIN BOJORQUEZ Pat.ID: [id number] .Date: 05/05/2018 Refer.MD: BARBARA DOUGLASS MD Exam Time: 10:24:00 AM Study Type:Myocardial Perfusion Imaging Height: 63in Weight: 216lb BSA: 2 m2 Age: 7 1970,48Y Sex: FEMALE BP: 103/55 HR: 53 bpm HCT: 38 % Nuclear Tech:ROB Acosta/Sanya Salazar [employer] Pat. Stat.:Outpatient Nuclear Event ID:[id number] Order ID: [id number] Reason for Study:Chest pain, unspecified* History / Clinical:Family history CAD, Obesity, Cholecystectomy, Gastric Bypass, Bi-Polar Procedures:Stress only Risk Factors:Obesity, Family history of cardiovascular disease Clinical Symptoms:Regadenoson Physical Exam:S1, S2 Surgery: Troponin Negative x 1 - 05/05/18, K+ - 3.7 - 05/05/18, Bun/Cr - 12/0.8 - 05/05/18 Medications:Aspirin SUMMARY: SCINTIGRAPHIC RESULTS Perfusion Defect Size (% LV) 0 % Total 0 % Ischemia 0 % Scar Left Ventricular Perfusion Results There is normal tracer distribution throughout the myocardium during stress. Gated SPECT Results The post-stress left ventricular ejection fraction is 64 % with normal regional wall motion and left ventricular thickening. Left ventricular end-diastolic volume is 100 ml; end-systolic volume is 36 ml. The left ventricle is of normal size at stress. The right ventricle is of normal size with normal wall motion. Conclusion Normal regadenoson Tc-99m tetrofosmin myocardial perfusion study. The left ventricular ejection fraction is normal. Comments Patients with a normal stress myocardial perfusion study have a low (< 1%) annual risk of cardiac or nonfatal myocardial infarction. Study Quality/Artifacts The study quality is good. The mild reduction in apical-septal wall counts is probably due to breast attenuation artifact rather than coronary artery disease which resolves with prone imaging. Comparison to Previous Study None available. STRESS: Baseline Vital Signs: Intervention: Regadenoson 0.4mg/5ml IV over 10 seconds followed by radiotracer injection and 5ml saline flush ECG: Sinus bradycardia HR: 53 BP: 103/55 Stress Test Results: Target HR: 148 Symptoms and Complications: Arrhythmias: None Terminated: As per Regadenoson protocol Symptoms: Shortness of breath Complications: None Conclusions: Normal heart rate response to pharmacological stress, Normal blood pressure response to pharmacological stress Stress ECG Interp: No ischemic ST segment change occurred with stress. Signed 05/05/2018 05:00 PM Barbara Victoria MD Performing Organization Address City/State/Zipcode Phone Number [facility] [address] [place] [address] Echocardiogram complete w contrast and 3D if needed (05/05/2018 8:30 AM CDT) Narrative Performed At [facility] Echocardiography Report [address] [facility], [facility] 9, [place] [address] Pat.Name:NITHIN BOJORQUEZ.ID:[id number] .Date: 05/05/2018 Refer.MD:CARMEN MCCORMICK MD Exam Time: 6:40:00 AMStudy Type:Routine Echo Height:63inWeight: 216lb BSA: 2 j2BQERrp:1970,48Y Sex: FEMALEBP:99/51 HR:51 bpmSonogrphr: THADDEUS Mancia Pat. Stat.:Inpatient Room:[facility] Study Status:Final Echo Event ID:[id number] Order ID:[id number] Reason for Study:Chest pain, suspected cardiac etiology Procedures:2D Echo, Colorflow Doppler, Strain Race: SUMMARY: Normal 2D and Doppler examination. FINDINGS: LV: LV size is normal. LV EF is normal. Overall wall motion is normal.Estimated EF is 60-64%. RV: RV size is normal. RV systolic function is normal. RV wall motionis normal. LA: LA size is normal. RA: RA size is normal. AO: Aortic root diameter is normal. BULMARO: No pericardial effusion. AV: No structural AV abnormalities noted. MV: No structural MV abnormalities noted. A trace of mitral regurgitation. PV: Pulmonic valve not well seen. TV: No structural TV abnormalities noted. A trace of tricuspid regurgitation Rodriguez: LV relaxation is normal. LV filling pressure is normal. Other:Insufficient TR jet to estimate PA systolic pressure. MEASUREMENTS: 2D Parasternal [place] LVOT 2.2 cmLA Ds3.5 cm LVIDd4.9 cmIndex2.5 cm/m Ao Rtd 3.3 cm Index1.7 cm/m LVIDs3.1 cmLV Tbhw064.7 g(87-129) LV%fs 37.6 % LVM Index 80.8 g/m2 IVSd 1 cmRWT0.3 LVPWd0.8 cm Signed 05/05/2018 02:34 PM Lisa Castaneda M.D. Procedure Note Interface, Radiology Results In - 05/05/2018 2:35 PM CDT Echocardiography Report [address]Name: NITHIN BOJORQUEZ Radha.ID: [id number] .Date: 05/05/2018 Refer.MD: CARMEN MCCORMICK MD Exam Time: 6:40:00 AM Study Type:Routine Echo Height: 63in Weight: 216lb BSA: 2 m2 Age: 7 1970,48Y Sex: FEMALE BP: 99/51 HR: 51 bpm Sonogrphr: THADDEUS Mancia Pat. Stat.:Inpatient Room: [facility] Study Status:Final Echo Event ID:[id number] Order ID: [id number] Reason for Study:Chest pain, suspected cardiac etiology Procedures:2D Echo, Colorflow Doppler, Strain Race: SUMMARY: Normal 2D and Doppler examination. FINDINGS: LV: LV size is normal. LV EF is normal. Overall wall motion is normal. Estimated EF is 60-64%. RV: RV size is normal. RV systolic function is normal. RV wall motion is normal. LA: LA size is normal. RA: RA size is normal. AO: Aortic root diameter is normal. BULMARO: No pericardial effusion. AV: No structural AV abnormalities noted. MV: No structural MV abnormalities noted. A trace of mitral regurgitation. PV: Pulmonic valve not well seen. TV: No structural TV abnormalities noted. A trace of tricuspid regurgitation Rodriguez: LV relaxation is normal. LV filling pressure is normal. Other: Insufficient TR jet to estimate PA systolic pressure. MEASUREMENTS: 2D Parasternal [place] LVOT 2.2 cm LA Ds 3.5 cm LVIDd 4.9 cm Index 2.5 cm/m Ao Rtd 3.3 cm Index 1.7 cm/m LVIDs 3.1 cm LV Mass 161.7 g (87-129) LV%fs 37.6 % LVM Index 80.8 g/m2 IVSd 1 cm RWT 0.3 LVPWd 0.8 cm Signed 05/05/2018 02:34 PM Lisa Castaneda M.D. Performing Organization Address City/State/Zipcode Phone Number [facility] [address] [place] [address] ECG 12 lead (05/05/2018 5:36 AM CDT)Only the most recent of2 resultswithin the time period is included. Ventricular rate 52 [facility] Atrial rate 52 [facility] PA interval 140 [facility] QRSD interval 88 [facility] QT interval 482 [facility] QTC interval 448 [facility] P axis 1 39 [facility] QRS axis 1 11 [facility] T wave axis 47 [facility] EKG impression Sinus bradycardia-Low voltage QRS-Borderline [facility] ECG-In automated comparison with ECG of 04-MAY-2018 15:03,-Change in inferior and anterior forces now noted- Performing Organization Address [facility]i Phone Number [facility] [address] [place] [address] Troponin (05/05/2018 5:35 AM CDT)Only the most recent of2 resultswithin the time period is included. Troponin <0.30 0.00 - 0.30 ng/mL [facility] DEPARTMENT OF PATHOLOGY Comment: AND GENOMIC MEDICINE 0.30 - 1.49 ng/mlMay indicate increased risk of acute coronary syndrome. >=1.5 ng/mlConsistent with acute myocardial infarction. The diagnostic value of a single normal or non-diagnostic result is questionable.Serial samples at 2-6 hour intervals are required to rule out acute myocardial injury. Specimen Plasma specimen Performing Organization Address [facility] Phone Number [facility] DEPARTMENT OF PATHOLOGY AND [address] [place], [place] [id number] [facility] hCG qualitative, urine screen (05/05/2018 4:31 AM CDT) hCG qualitative, urine NegativeComment: [facility] DEPARTMENT OF Sensitivity of HCG test: 25 PATHOLOGY AND GENOMIC mIU/mL MEDICINE Specimen Urine Performing Organization Address [facility] Phone Number [facility] DEPARTMENT OF PATHOLOGY AND [address] [place] [address] [facility] Urine drugs of abuse screen (05/05/2018 4:31 AM CDT) Amphetamine screen, urine Negative [facility] DEPARTMENT OF PATHOLOGY AND GENOMIC MEDICINE Barbiturate screen, urine Negative [facility] DEPARTMENT OF PATHOLOGY AND GENOMIC MEDICINE Benzodiazepine screen, Negative [facility] DEPARTMENT OF urine PATHOLOGY AND GENOMIC MEDICINE Cannabinoid screen, urine Negative [facility] DEPARTMENT OF PATHOLOGY AND GENOMIC MEDICINE Cocaine screen, urine Negative [facility] DEPARTMENT OF PATHOLOGY AND GENOMIC MEDICINE Methadone metabolite Negative [facility] DEPARTMENT OF (EDDP), urine PATHOLOGY AND GENOMIC MEDICINE Opiates screen, urine Negative [facility] DEPARTMENT OF PATHOLOGY AND GENOMIC MEDICINE Oxycodone screen, urine Negative [facility] DEPARTMENT OF PATHOLOGY AND GENOMIC MEDICINE Phencyclidine screen, urine Negative [facility] DEPARTMENT OF PATHOLOGY AND GENOMIC MEDICINE Tricyclic screen, urine Negative [facility] DEPARTMENT OF Comment: PATHOLOGY AND GENOMIC Drug screen minimum concentration of detectability MEDICINE Kirgjkakbtux6322 ng/mL Barbiturates 200 ng/mL Itqakzkfgbemofs031 ng/mL Aracsku806 ng/mL Eaukyqizc219 ng/mL Ndmkotj915 ng/mL Stnklapcb814 ng/mL Phencyclidine 25 ng/mL Ctqwfqeiprop91 ng/mL Yjetprfwrn9451 ng/mL Negative test results indicates presumptive evidence of lack of clinically significant drug concentration in this urine specimen. Positive test results are presumptive evidence of clinically significant drug concentration in this urine specimen. Testing performed for medical purposes only. Specimen Urine Performing Organization Address City/[facility] Phone Number [facility] DEPARTMENT OF PATHOLOGY AND [address] [place] [address] [employer] [facility] Prothrombin time with INR (05/05/2018 4:22 AM CDT) Prothrombin time 13.6 12.0 - 15.[address] [facility] DEPARTMENT OF PATHOLOGY AND GENOMIC MEDICINE INR 1.0 [facility] DEPARTMENT OF Comment: PATHOLOGY AND GENOMIC The International Normalized Ratio (INR) is a therapeutic MEDICINE monitoring tool for patients who are stable on oral anticoagulant therapy. An INR of 2.0-3.0 is suggested for deep vein thrombosis/pulmonary embolism. Specimen Blood Performing Organization Address City/[facility] Phone Number [facility] DEPARTMENT OF PATHOLOGY AND [address] [place] [address] Thyroid stimulating hormone (05/05/2018 4:22 AM CDT) TSH 6.15 (H) 0.27 - 4.20 uIU/mL [facility] DEPARTMENT OF PATHOLOGY AND GENOMIC MEDICINE Specimen Plasma specimen Performing Organization Address [facility] Phone Number [facility] DEPARTMENT OF PATHOLOGY AND [address] [place] [address] [employer] [facility] Lipid panel (05/05/2018 4:22 AM CDT) Cholesterol 177 <200 mg/dL [facility] DEPARTMENT OF PATHOLOGY AND GENOMIC MEDICINE Triglycerides 105 <150 mg/dL [facility] DEPARTMENT OF PATHOLOGY AND GENOMIC MEDICINE HDL cholesterol 45 >40 mg/dL [facility] DEPARTMENT OF PATHOLOGY AND GENOMIC MEDICINE LDL cholesterol 114 (H)Comment: Result <100 mg/dL [facility] DEPARTMENT OF obtained by direct LDL PATHOLOGY AND GENOMIC measurement MEDICINE Lipid panel interpretation SeeBelow [facility] DEPARTMENT OF Comment: PATHOLOGY AND GENOMIC Total Cholesterol (mg/dL) MEDICINE <200 Desirable 700-631Oemislasew-akyj >=240High Triglycerides (mg/dL) <150 Normal 596-807Nfkwehhhdu-lyqe 200-499High >=500Very high HDL Cholesterol (mg/dL) <40Low (male) <40Low (female) LDL Cholesterol (mg/dL) <100 Optimal 100-129Near or above optimal 704-897Yrdgjvnyce-urkz 160-189High >=190Very high Risk Catergories that modify LDL goals. Risk CatergoriesLDL goal (mg/dL) CHD and CHD risk equivalent<100 (10-year risk >20%) Multiple (2+) risk factors <130 (10-year risk=<20%) 0-1 risk factors <160 (<10-year risk) Defining levels of lipids in metabolic syndrome Triglycerides>=150 mg/dL HDL Cholesterol Men<40 mg/dL Women<40 mg/dL Non-HDL cholesterol is a second target for therapy in persons with high triglycerides (>=200 mg/dL) Specimen Plasma specimen Performing Organization Address City/State/Zipcode Phone Number [facility] DEPARTMENT OF PATHOLOGY AND [address] [place] [address] CT Cervical Spine W Contrast (05/04/2018 8:55 PM CDT) Narrative Performed At EXAMINATION: CT CERVICAL SPINE W CONTRAST [facility] CLINICAL HISTORY: Radiculopathy COMPARISON:None TECHNIQUE: Postcontrast imaging through the cervical spine was performed with coronal and sagittal reconstructed images. CT scans are performed using radiation dose reduction techniques (iterative reconstruction and/or automated exposure control). Technical factors are evaluated and adjusted to ensure appropriate moderation of exposure. Automated dose management technology is applied to adjust radiation exposure while achieving a diagnostic quality image. FINDINGS: Cervical lordosis is maintained.No acute fractures or subluxations. No suspicious soft tissue abnormalities. No abnormal enhancement. Degenerative changes: Mildly degenerative disc at C5-C6 resulting in mild central stenosis and mild right foraminal stenosis. Otherwise no significant posterior disc disease, spinal canal or neural foraminal stenosis. IMPRESSION: No acute abnormality. [facility]-[id number] Procedure Note Interface, Radiology Results Incoming - 05/04/2018 9:05 PM CDT EXAMINATION: CT CERVICAL SPINE W CONTRAST CLINICAL HISTORY: Radiculopathy COMPARISON: None TECHNIQUE: Postcontrast imaging through the cervical spine was performed with coronal and sagittal reconstructed images. CT scans are performed using radiation dose reduction techniques (iterative reconstruction and/or automated exposure control). Technical factors are evaluated and adjusted to ensure appropriate moderation of exposure. Automated dose management technology is applied to adjust radiation exposure while achieving a diagnostic quality image. FINDINGS: Cervical lordosis is maintained. No acute fractures or subluxations. No suspicious soft tissue abnormalities. No abnormal enhancement. Degenerative changes: Mildly degenerative disc at C5-C6 resulting in mild central stenosis and mild right foraminal stenosis. Otherwise no significant posterior disc disease, spinal canal or neural foraminal stenosis. IMPRESSION: No acute abnormality. [facility]-[id number] Performing Organization Address [facility] Phone Number [facility] [address] [place] [id number] ECG ED Preliminary Interpretation - NOT AN ORDER (05/04/2018 6:01 PM CDT) Narrative Performed At Claudio Sanches MD 05/09/20182:00 AM ECG ED Preliminary Interpretation - Not an Order Performed by: CLAUDIO SANCHES Authorized by: CLAUDIO SANCHES ECG reviewed by ED Physician in the absence of a help desk analyst: yes Previous ECG: Previous ECG:Unavailable Interpretation: Interpretation: abnormal Rate: ECG rate:62 ECG rate assessment: normal Rhythm: Rhythm: sinus rhythm Ectopy: Ectopy: none QRS: QRS axis:Normal QRS intervals:Normal Conduction: Conduction: normal ST segments: ST segments:Normal T waves: T waves: normal Q waves: Q waves:III and aVF Other findings: Other findings: poor R wave progression ALT (SGPT) (05/04/2018 5:50 PM CDT) ALT 14 5 - 50 U/L [facility] DEPARTMENT OF PATHOLOGY AND GENOMIC MEDICINE Specimen Plasma specimen Performing Organization Address [facility] Phone Number [facility] DEPARTMENT OF PATHOLOGY AND [address] [place] [phone] [facility] AST (SGOT) (05/04/2018 5:50 PM CDT) AST 13 10 - 35 U/L [facility] DEPARTMENT OF PATHOLOGY AND GENOMIC MEDICINE Specimen Plasma specimen Performing Organization Address [facility] Phone Number [facility] DEPARTMENT OF PATHOLOGY AND [address] [place] [phone] [facility] Potassium level (05/04/2018 5:50 PM CDT) Potassium 4.1 3.5 - 5.0 mEq/L [facility] DEPARTMENT OF PATHOLOGY AND GENOMIC MEDICINE Specimen Plasma specimen Performing Organization Address City/State/Zipcode Phone Number [facility] DEPARTMENT OF PATHOLOGY AND [address] [place] [address] [facility] B natriuretic peptide (05/04/2018 4:54 PM CDT) BNP 43 0 - 100 pg/mL [facility] DEPARTMENT OF PATHOLOGY AND GENOMIC MEDICINE Specimen Blood Narrative Performed At Unable to perform testing, specimen is [facility] DEPARTMENT OF PATHOLOGY AND GENOMIC HEMOLYZED.[facility] MEDICINE requested for K, AST, ALT,ALP(tests). ROGE CELESTE/HUNTER(name/location) notified by PC(tech ID) at05/04/2018 17:31(date/time). Performing Organization Address [facility] Phone Number [facility] DEPARTMENT OF PATHOLOGY AND [address] [place] [address] GENOMIC MEDICINE XR Chest 2 Vw (05/04/2018 3:29 PM CDT) Narrative Performed At EXAMINATION:XR CHEST 2 VW [facility] CLINICAL HISTORY:Chest painACS suspected COMPARISON:None Technique:PA and lateral chest radiographs are obtained. IMPRESSION: 1.The lungs are clear. 2.There is no pleural fluid or pneumothorax. 3.The heart size and mediastinal contours are within normal limits. 4.There is no significant skeletal abnormality. [id number] Procedure Note Hm Interface, Radiology Results Incoming - 05/04/2018 3:34 PM CDT EXAMINATION: XR CHEST 2 VW CLINICAL HISTORY: Chest pain ACS suspected COMPARISON: None Technique: PA and lateral chest radiographs are obtained. IMPRESSION: 1. The lungs are clear. 2. There is no pleural fluid or pneumothorax. 3. The heart size and mediastinal contours are within normal limits. 4. There is no significant skeletal abnormality. [id number] Performing Organization Address City/[facility]/Zipcode Phone Number [facility] [address] [place] [address] after 10/27/2017 Insurance Payer Benefit Plan / Group Subscriber ID Type Phone Address [employer] OPEN ACCESS/NETWORK xxxxxxxxxxx HMO Advance Directives Patient has advance care planning documents on file. For more information, please contact:Félix Madsen[address] [place] [address]
--- OUTSIDE RECORDS SUMMARY | 2018-10-28 22:22 | XMS REPORT ---
:1970 Author Organization eClinicalWorks Care Team Providers Name Role Phone Mariana Ochoa Provider Role Unavailable Allergies No Known Allergies Problems Problem Type Condition Code Onset Dates [...] Problem Hypotension, unspecified hypotension I95.9 Active type Medications No Known Medications Results No Known Results Summary Purpose eClinicalWorks Submission
--- OUTSIDE RECORDS SUMMARY | 2018-10-28 22:22 | XMS REPORT ---
:1970 Author Organization eClinicalWorks Care Team Providers Name Role Phone Mariana Ochoa Provider Role Unavailable Allergies, Adverse Reactions, Alerts Substance Reaction Event Type Zofran Causes red bumps on her tongue Drug Allergy Problems Problem Type Condition Code Onset Dates Condition Status Problem Fatigue, unspecified type R53.83 Active Problem Joint swelling M25.40 Active Problem Iron deficiency anemia, unspecified D50.9 Active iron deficiency anemia type Problem Left lower quadrant pain R10.32 Active Assessment Chest pain, unspecified type R07.9 Active Problem Abnormal liver function test R94.5 Active Assessment Follow-up exam Z09 Active Problem Vitamin D deficiency E55.9 Active Problem Abdominal pain, unspecified R10.9 Active abdominal location Problem Syncope, unspecified syncope type R55 Active Problem Chest pain, unspecified type R07.9 Active Problem Left ovarian cyst N83.202 Active Problem Non-intractable vomiting with R11.2 Active nausea, unspecified vomiting type Assessment Left ovarian cyst N83.202 Active Assessment Left lower quadrant pain R10.32 Active Problem Lightheadedness R42 Active Problem Bipolar disorder F31.9 Active Problem Diarrhea, unspecified type R19.7 Active Problem Weakness R53.1 Active Problem Arthralgia, unspecified joint M25.50 Active Problem Hypotension, unspecified I95.9 Active hypotension type Medications Medication Code Code Instructions Start End Status Dosage System Date Date [place] ND 39264932102 300 MG Orally Active 3 capsule at Carbonate Once a day bedtime Fish Oil ND 20195000048 1000 MG Orally Active 1 capsule Once a day Multivitamin ND 56532774213 - Orally Active as directed Women Trazodone HCl ND 73221087387 100 MG Orally Active 2 tablet at Once a day bedtime as needed Melatonin ND 82612771842 10 MG Orally Active 3 capsule at bedtime as needed with food Dicyclomine HCl ND 20543544825 20 mg Orally Up Active 1 tablet as to 4x daily needed for abdominal pain Tramadol HCl ND 20709408169 50 MG Orally May 15May Active 1 tablet as Twice daily 2018 03, needed for 2017 pain Vitamin B [facility] 39590846477 - Orally Active as directed Complex Fluoxetine HCl [facility] 13966198529 20 MG Orally Active 1 capsule in Once a day the morning Results No Known Results Summary Purpose eClinicalWorks Submission
--- OUTSIDE RECORDS SUMMARY | 2018-10-28 22:22 | XMS REPORT ---
:1970 Author Organization eClinicalWorks Care Team Providers Name Role Phone Mariana Ochoa Provider Role Unavailable Allergies, Adverse Reactions, Alerts Substance Reaction Event Type Zofran Causes red bumps on her tongue Drug Allergy Problems Problem Type Condition Code Onset Dates Condition Status Problem Lightheadedness R42 Active Problem Weakness R53.1 Active Problem Bipolar disorder F31.9 Active Problem Abdominal pain, unspecified R10.9 Active abdominal location Problem Joint swelling M25.40 Active Problem Syncope, unspecified syncope type R55 Active Problem Diarrhea, unspecified type R19.7 Active Problem Non-intractable vomiting with R11.2 Active nausea, unspecified vomiting type Problem Iron deficiency anemia, unspecified D50.9 Active iron deficiency anemia type Problem Arthralgia, unspecified joint M25.50 Active Assessment Non-intractable vomiting with R11.2 Active nausea, unspecified vomiting type Assessment Abdominal pain, unspecified R10.9 Active abdominal location Assessment Diarrhea, unspecified type R19.7 Active Assessment Hypotension, unspecified hypotension I95.9 Active type Assessment Follow-up exam Z09 Active Problem Hypotension, unspecified hypotension I95.9 Active type Assessment Syncope, unspecified syncope type R55 Active Problem Fatigue, unspecified type R53.83 Active Medications Medication Code Code Instructions Start End Status Dosage System Date Date Multivitamin [facility] 55544745210 - Orally Active as directed Women Vitamin B [facility] 70844615628 - Orally Active as directed Complex Trazodone HCl ND 24258091153 100 MG Orally Active 2 tablet at Once a day bedtime as needed [place] ND 73158635872 300 MG Orally Active 3 capsule at Carbonate Once a day bedtime Melatonin ND 90578246179 10 MG Orally Active 3 capsule at bedtime as needed with food Fluoxetine HCl ND 58997716613 20 MG Orally Active 1 capsule in Once a day the morning Fish Oil ND 01698664805 1000 MG Orally Active 1 capsule Once a day Dicyclomine HCl ND 16106739111 20 mg Orally Up April 16May 16, Active 1 tablet as to 4x daily 2017 2017 needed for abdominal pain Results No Known Results Summary Purpose eClinicalWorks Submission
--- OUTSIDE RECORDS SUMMARY | 2018-10-28 22:22 | XMS REPORT ---
:1970 Author Organization eClinicalWorks Care Team Providers Name Role Phone Mariana Ochoa Provider Role Unavailable Allergies No Known Allergies Problems Problem Type Condition Code Onset Dates Condition Status Problem Lightheadedness R42 Active Problem Weakness R53.1 Active Problem Bipolar disorder F31.9 Active Problem Hypotension, unspecified hypotension I95.9 Active type Problem Fatigue, unspecified type R53.83 Active Problem Abdominal pain, unspecified R10.9 Active abdominal location Problem Joint swelling M25.40 Active Problem Syncope, unspecified syncope type R55 Active Problem Diarrhea, unspecified type R19.7 Active Problem Non-intractable vomiting with R11.2 Active nausea, unspecified vomiting type Problem Iron deficiency anemia, unspecified D50.9 Active iron deficiency anemia type Problem Arthralgia, unspecified joint M25.50 Active Medications No Known Medications Results No Known Results Summary Purpose eClinicalWorks Submission
--- OUTSIDE RECORDS SUMMARY | 2018-10-28 22:22 | XMS REPORT ---
[...] Status Dosage System Date Date Fish Oil [facility] 40484636819 1000 MG Orally Active 1 capsule Once a day Multivitamin ND 97957423400 - Orally Active as Women directed Fluoxetine HCl ND 58635323963 20 MG Orally Active 1 capsule [place] [address]-47 300 MG Orally Active 3 capsule Carbonate Once a day at bedtime Trazodone HCl [facility] [address]-05 100 MG Orally Active 2 tablet Once a day at bedtime as needed Vitamin B ND 99588083347 - Orally Active as Complex directed Melatonin [facility] [address] 10 MG Orally Active 3 capsule at bedtime as needed with food Results Name Result Date Reference Range Unit Abnormality Flag Electrocardiogram (EKG) Summary Purpose eClinicalWorks Submission
--- OUTSIDE RECORDS SUMMARY | 2018-10-28 22:23 | XMS REPORT ---
:1970 Author Organization eClinicalWorks Care Team Providers Name Role Phone Mariana Ochoa Provider Role Unavailable Allergies, Adverse Reactions, Alerts Substance Reaction Event Type Zofran Causes red bumps on her tongue Drug Allergy Gabapentin shaking and twitching Drug Allergy Problems Problem Type Condition Code Onset Dates Condition Status Problem Vitamin D deficiency E55.9 Active Problem Left lower quadrant pain R10.32 Active Problem Left ovarian cyst N83.202 Active Problem Paresthesias R20.2 Active Problem Bipolar disorder F31.9 Active Problem Other chronic pain G89.29 Active Problem Lightheadedness R42 Active Problem Neck pain M54.2 Active Problem Abnormal liver function test R94.5 Active Problem Chest pain, unspecified type R07.9 Active Problem Dorsalgia, unspecified M54.9 Active Problem Gastroesophageal reflux disease K21.9 Active without esophagitis Problem Diarrhea, unspecified type R19.7 Active Problem Arthralgia, unspecified joint M25.50 Active Problem Weakness R53.1 Active Problem Non-intractable vomiting with R11.2 Active nausea, unspecified vomiting type Problem Iron deficiency anemia, unspecified D50.9 Active iron deficiency anemia type Problem Joint swelling M25.40 Active Problem Hypotension, unspecified I95.9 Active hypotension type Problem Syncope, unspecified syncope type R55 Active Assessment Paresthesias R20.2 Active Problem Fatigue, unspecified type R53.83 Active Problem Abdominal pain, unspecified R10.9 Active abdominal location Medications Medication Code Code Instructions Start End Status Dosage System Date Date [place] ND 43022257524 300 MG Orally Active 3 capsule at Carbonate Once a day bedtime Multivitamin ND 21278013004 - Orally Active as directed Women Vitamin B ND 13462853752 - Orally Active as directed Complex Trazodone HCl ND 59488059603 100 MG Orally Active 2 tablet at Once a day bedtime as needed Melatonin ND 03262760857 10 MG Orally Active 3 capsule at bedtime as needed with food Dicyclomine HCl ND 08989424585 20 mg Orally Up Active 1 tablet as to 4x daily needed for abdominal pain Fish Oil [facility] 92486343997 1000 MG Orally Active 1 capsule Once a day Lyrica [facility] 67215492298 100 MG Orally Aug 14, Active 1 capsule Three times a 2017 day Fluoxetine HCl [facility] 01935520027 20 MG Orally Active 1 capsule in Once a day the morning Results No Known Results Summary Purpose eClinicalWorks Submission
[2018-10-28] MEDS: MORPHINE 2 MG/ML SYR IV PRN (22:24)
[2018-10-28] MEDS: D5 0.45 NS 1,000 ML IV SCH (22:25)
[2018-10-28] MEDS: PROMETHAZINE 25 MG/ML VIAL IV PRN (22:46)
[2018-10-29] MEDS: MORPHINE 2 MG/ML SYR IV PRN ×8 (00:30→22:55)
[2018-10-29] MEDS: D5 0.45 NS 1,000 ML IV SCH ×3 (04:31→21:40)
[2018-10-29] MEDS: PROMETHAZINE 25 MG/ML VIAL IV PRN ×3 (04:31→13:15)
[2018-10-29 06:07] LABS: Absolute Lymphocytes (CBC) 1.9 K/uL (0.7-4.9); Absolute Monocytes 0.4 K/uL (0.1-1.3); Absolute Neutrophil 3.4 K/uL (1.8-8.0); Basophils % 0.9 % (0-1.3); Eosinophils % 5.8 % (0-4.4); Hematocrit 38.7 % (36.0-45.0); Lymphocytes % 31.3 % (15.3-44.8); MPV 8.1 fL (7.6-11.3); Monocytes % 6.1 % (3.3-12.3); RBC Red Blood Cell Count 4.48 M/uL (3.86-4.86)
--- NOTE | 2018-10-29 14:08 | P.HP ---
Date of Service: 10/29/18 PC: This 48-year-old female presented to another facility with severe right lower quadrant abdominal pain for diagnosis and treatment. HPC: Patient has been complaining of right lower quadrant abdominal pain, going straight through to her back. Describes it as severe. Located around the area were she has her known right inguinal hernia. Does not feel bulge at the moment, will was having severe discomfort. She was transferred to our facility for evaluation and treatment. PMH: Morbid obesity PSHx: Previous gastric bypass surgery, cholecystectomy, tubal ligation SOC: Allergies are noted SYS REVIEW: No cough, wheeze, shortness of breath. No chest pain or palpitations. Has having this discomfort for the last couple of weeks but has intensified O/E awake alert comfortable at the moment HEENT: Within normal limits Chest: Air entry equal bilateral ABD: Tender in the right lower quadrant, hernia is reduced at the moment LOCO: Intact DATA: White cell count normal, I reviewed the films with the radiologist Dr. richards. We did not see any acute findings however the patient does have an obvious right inguinal hernia. IMPRESSION: Abdominal pain PLAN: I will take her to the operating room for laparoscopic repair of this right inguinal hernia with mesh. The risks of this procedure have been discussed. The possibility of bleeding, infection, injury to bowel blood vessels and nerves were explained. Chronic pain and recurrence were outlined. Infection and the need to remove the mesh was explained. She understands and wants us to proceed.
[2018-10-29] MEDS ORDERED: PROPOFOL 200 MG/20 ML VIAL IV ONE (14:15)
[2018-10-29] MEDS ORDERED: MIDAZOLAM HCL 2 MG/2 ML INJ ONE ×2 (14:16→17:02)
[2018-10-29] MEDS ORDERED: GLYCOPYRROLATE 0.2 MG/ML SYR ONE (14:16)
[2018-10-29] MEDS ORDERED: LIDOCAINE 2% MPF 5 ML VIAL ONE (14:17)
[2018-10-29] MEDS ORDERED: FENTANYL CITR 250 MCG/5 ML ONE (14:18)
[2018-10-29] MEDS ORDERED: ONDANSETRON 4 MG/2 ML VIAL ONE (14:20)
[2018-10-29] MEDS ORDERED: NEOSTIGMINE 1 MG/ML -10 ML VIAL ONE (14:20)
[2018-10-29] MEDS ORDERED: ROCURONIUM 50 MG/5 ML VIAL IV ONE (14:21)
[2018-10-29] MEDS ORDERED: Ringers Lactate 1,000 ML IV ONE (14:27)
[2018-10-29] MEDS ORDERED: CEFAZOLIN SODIUM 1 GM/VIAL ONE (14:29)
[2018-10-29] MEDS: BUPIVACAINE 0.5% PF 10 ML VIAL ONE ×2 (14:40→15:15)
[2018-10-29] MEDS ORDERED: NS 0.9% VIAL 10 ML ONE (15:41)
--- NOTE | 2018-10-29 16:58 | P.OP ---
Preoperative diagnosis: Possible bilateral inguinal hernia Postoperative diagnosis: Right inguinal hernia (insignificant) Primary procedure: Attempted preperitoneal laparoscopic hernia repair Secondary procedure: Laparoscopy with lysis of adhesions Anesthesia: General Estimated blood loss: Less than 10 cc Specimen: None Findings: See operative technique Operative Technique: The patient brought the operating room and placed supine on the table were after the induction of adequate general anesthesia, the Burk catheter was inserted, and she was prepped and draped in usual aseptic manner. A subumbilical incision was made. This brought down through the skin and subcutaneous tissue. She has some scar tissue in this area from a previous tubal ligation. Attempts were made to identify the anterior rectus sheath. We were unable to easily do this and decision was made to do a laparoscopy and performed a KRYSTA repair of these hernias if needed. With the Visiport were able to enter is the peritoneal cavity. The peritoneum was pressurized approximate 12 mm of mercury. Under direct vision 2 5 mm trocars were placed in the left and right lateral sides of the abdomen at the level of the umbilicus. The patient was then placed in marked Trendelenburg. We were now able to visualize the pelvis in the lower anterior abdominal wall. We could see that the uterus was adherent to the anterior wall abdominal wall most area. As we brushed a small bowel all way of we could see that there was if slight hang-up for a 2nd and it appeared that we took down spleen adhesions of the small bowel to the lateral aspect and broad ligament. The small bowel was then freed it. Inspection of the right fallopian tube showed some mild congestion there was also a cyst in the right ovary. Inspection of the anterior abdominal wall showed a tiny knee opening measure approximately 3 mm as our peritoneal defect. This is most likely was showing as a cystic area on the CT scan consistent with a possible miniscule hernia. This however does not cause any bowel entrapment excess trauma as it is so is significant in size. If I justify doing a hernia repair as I do not believe the AE it is required nor be it is the source of the patient's discomfort. Continuing to look around we followed the small bowel up to the ileocecal bowel. The appendix was visualized was no evidence of any inflammation. Some adhesions to the anterior abdominal wall were noted it were taken down using blunt sharp dissection. Attention was turned back duct very insistent will discuss this with her gynecological colleagues to see whether not is of significance in the severe addressed in the future. At this point the eye was inspected to ensure adequate hemostasis. The umbilical trocar site was approximated with 2 interrupted sutures of absorbable material placed using the Endo Close. The pneumoperitoneum was now collapsed, the sutures tied, and zuri applied to the skin. At the end of the procedure she was in a stable condition when sent to the recovery room. Needle sponge instrument count were correct. No drains were placed. The Burk catheter had been discontinued.
--- NOTE | 2018-10-29 17:31 | RAD REPORT ---
[facility] 5[facility]20 pm CLINICAL HISTORY: Chest pain COMPARISON: March 2018 FINDINGS: The lungs appear clear of acute infiltrate. The heart is normal size A pneumothorax is not seen
[2018-10-29] MEDS: HYDROMORPHONE HCL 2 MG/ML inj ONE ×3 (17:37→17:50)
[2018-10-29 22:07] VITALS: O2SAT 99
[2018-10-30] MEDS: HYDROCODONE/APAP 7.5/325 MG TAB PO PRN ×3 (00:09→15:15)
[2018-10-30] MEDS: MORPHINE 2 MG/ML SYR IV PRN ×3 (01:57→11:27)
[2018-10-30] MEDS: PROMETHAZINE 25 MG/ML VIAL IV PRN ×2 (01:57→07:30)
[2018-10-30] MEDS: D5 0.45 NS 1,000 ML IV SCH ×2 (05:20→14:00)
[2018-10-30 12:21] VITALS: BP 155/72; TEMP 99.2
--- NOTE | 2018-10-30 14:14 | P.PN ---
Date of Service: 10/30/18 S: Patient feels okay today, has been up ambulating about 5 times this morning. Since urine for regional pain appears to be gone now just extremely sore from the surgery. O: Wounds are clean, vital signs remain stable pain appears to be controlled on oral medication A: Surgically stable P: Patient's pain appears to have resolved. I have discussed her case with another physician. She will see her as an outpatient in regards to her ovarian cyst. It is all positive been recommended that she be placed on Levaquin Flagyl for some mild observed inflammation in that right at our next day. She will also be discharged on oral pain medication (a script has been left on her chart). She will be see me next week, an appoint will we made at that time for the [facility] [facility] evaluation within the next 2 weeks after she has completed her course of antibiotics. I have discussed with the patient her surgical findings. The fact that she had a tiny hernia that I did not believe required surgical repair. This was explained to her has been in detail. We also discussed the use of her incentive spirometer, diet, and need for laxatives probably in a day or so should she find herself constipated. They appear to be content, had no other questions, and will be seeing me next week in my office. Should she have any questions or problems, she has been advised go directly to the emergency room, or contact me. l
== END 2018-10-30 15:22 | disposition home or self-care (01) | DRG 358 ==
LOC: 2ND 21:23 → OBSVTOIN 10-29 14:05
PROVIDERS: ADMIT Surgery; ATTEND Surgery
PROC: 0WJG4ZZ Inspection of Peritoneal Cavity, Percutaneous Endoscopic Approach (ICD-10-PCS; principal; 2018-10-29 14:30)
DX: K40.90 Unilateral inguinal hernia, without obstruction or gangrene, not specified as recurrent (principal); N83.201 Unspecified ovarian cyst, right side; E66.01 Morbid (severe) obesity due to excess calories; Z68.35 Body mass index [BMI] 35.0-35.9, adult
CPT/HCPCS: 36415; 71045; 85025; G0378; J0690; J1170; J2250; J2270; J2405; J2550; J2704; J2710; J3010

== ENCOUNTER 2018-11-10 16:29 | Emergency (ER) | payer OTHER ==
--- OUTSIDE RECORDS SUMMARY | 2018-11-10 16:32 | XMS REPORT ---
[...] Dosage System Date Date Fish Oil [facility] 74565579217 1000 MG Orally Active 1 capsule Once a day Multivitamin ND 13649210658 - Orally Active as Women directed Fluoxetine HCl ND 24028407559 20 MG Orally Active 1 capsule [place] [address]-40 300 MG Orally Active 3 capsule Carbonate Once a day at bedtime Trazodone HCl [facility] [address]-64 100 MG Orally Active 2 tablet Once a day at bedtime as needed Vitamin B ND 85932613318 - Orally Active as Complex directed Melatonin [facility] [address] 10 MG Orally Active 3 capsule at bedtime as needed with food Results Name Result Date Reference Range Unit Abnormality Flag Electrocardiogram (EKG) Summary Purpose eClinicalWorks Submission
--- OUTSIDE RECORDS SUMMARY | 2018-11-10 16:32 | XMS REPORT ---
[...] End Status Dosage System Date Date Multivitamin [facility] [id number] - Orally Active as directed Women Vitamin B [facility] 62523320319 - Orally Active as directed Complex Trazodone HCl ND 90750470842 100 MG Orally Active 2 tablet at Once a day bedtime as needed [place] ND 76024828318 300 MG Orally Active 3 capsule at Carbonate Once a day bedtime Melatonin ND 74342617083 10 MG Orally Active 3 capsule at bedtime as needed with food Fluoxetine HCl ND 40151730730 20 MG Orally Active 1 capsule in Once a day the morning Fish Oil ND 37965012816 1000 MG Orally Active 1 capsule Once a day Dicyclomine HCl ND 73863476025 20 mg Orally Up April 16May 16, Active 1 tablet as to 4x daily 2017 2017 needed for abdominal pain Results No Known Results Summary Purpose eClinicalWorks Submission
--- OUTSIDE RECORDS SUMMARY | 2018-11-10 16:32 | XMS REPORT ---
[...] Start End Status Dosage System Date Date [place] ND 74653281790 300 MG Orally Active 3 capsule at Carbonate Once a day bedtime Fish Oil ND 66192202782 1000 MG Orally Active 1 capsule Once a day Multivitamin ND 98300230987 - Orally Active as directed Women Trazodone HCl ND 65280823746 100 MG Orally Active 2 tablet at Once a day bedtime as needed Melatonin ND 43454784597 10 MG Orally Active 3 capsule at bedtime as needed with food Dicyclomine HCl ND 34108605724 20 mg Orally Up Active 1 tablet as to 4x daily needed for abdominal pain Tramadol HCl ND 38588341393 50 MG Orally May 15May Active 1 tablet as Twice daily 2018 03, needed for 2017 pain Vitamin B [facility] 27834989288 - Orally Active as directed Complex Fluoxetine HCl [facility] 81526047867 20 MG Orally Active 1 capsule in Once a day the morning Results No Known Results Summary Purpose eClinicalWorks Submission
--- OUTSIDE RECORDS SUMMARY | 2018-11-10 16:32 | XMS REPORT ---
[...] Start End Status Dosage System Date Date [place] ND [id number] 300 MG Orally Active 3 capsule at Carbonate Once a day bedtime Multivitamin ND 65268802470 - Orally Active as directed Women Vitamin B ND 65451197824 - Orally Active as directed Complex Trazodone HCl ND 87267024718 100 MG Orally Active 2 tablet at Once a day bedtime as needed Melatonin ND 19302806569 10 MG Orally Active 3 capsule at bedtime as needed with food Dicyclomine HCl ND 00423412575 20 mg Orally Up Active 1 tablet as to 4x daily needed for abdominal pain Fish Oil [facility] 74575284724 1000 MG Orally Active 1 capsule Once a day Lyrica [facility] 67665701061 100 MG Orally Aug 14, Active 1 capsule Three times a 2017 day Fluoxetine HCl [facility] 70659472366 20 MG Orally Active 1 capsule in Once a day the morning Results No Known Results Summary Purpose eClinicalWorks Submission
--- OUTSIDE RECORDS SUMMARY | 2018-11-10 16:32 | XMS REPORT | Clinical Summary ---
:1970 Author Organization [employer] Address [address] [place] [address] Care Team Providers Name Role Phone Mariana [...] Type Specialty Care Team Description 05/12/2018 Documentation Continuous Process Tanner Rotary Drum Mayte Rainey RN 05/04/2018 - Hospital Encounter General Internal Claudio Sanches History of fainting spells of unknown cause (Primary Dx); 05/11/2018 Medicine MD Iman Unstable angina; Joglekar, MD Daniel Reyes Dhruti Bharatbhai, MD after 11/09/2017 Social History Tobacco Use Types Packs/Day Years [...] are in SPECTRAL COLOR DOPPLER the results (38615) section. ECG 12-LEAD STAT 05/05/2018 5:36 Results [...] procedure are in the results section. after 11/09/2017 Results Continuous EEG monitoring (05/10/2018 7:33 PM [...] epileptiform activity was recorded. ICD-10 Code: R569 [place] level (05/09/2018 9:50 PM CDT)Only the most recent of5 resultswithin the time period is included. [place] 0.31 (L) 0.60 - 1.20 mmol/L [facility] DEPARTMENT OF PATHOLOGY AND GENOMIC MEDICINE Specimen Serum Performing Organization Address City/State/Zipcode Phone Number [facility] DEPARTMENT OF PATHOLOGY AND [address] [place] [address] [facility] EEG (routine) (05/09/2018 9:56 AM CDT) Narrative [...] GFR Non Af Amer >90 mL/min/1.73 m2 [facility] DEPARTMENT OF PATHOLOGY AND GENOMIC MEDICINE GFR Af Amer >90 mL/min/1.73 m2 [facility] DEPARTMENT OF Comment: PATHOLOGY AND GENOMIC Chronic [...] specimen Performing Organization Address City/State/Zipcode Phone Number [facility] DEPARTMENT OF PATHOLOGY AND [address] [place] [address] [facility] Basic metabolic panel (05/09/2018 4:55 AM CDT)Only the most recent of3 resultswithin the time period is included. Sodium 141 135 - 148 mEq/L [facility] DEPARTMENT OF PATHOLOGY AND GENOMIC MEDICINE Potassium 4.1 3.5 - 5.0 mEq/L [facility] DEPARTMENT OF PATHOLOGY AND GENOMIC MEDICINE Chloride 108 98 - 112 mEq/L [facility] DEPARTMENT OF PATHOLOGY AND GENOMIC MEDICINE CO2 21 (L) 24 - 31 mEq/L [facility] DEPARTMENT OF PATHOLOGY AND GENOMIC MEDICINE Anion gap 12@ANIO 7 - 15 mEq/L [facility] DEPARTMENT OF PATHOLOGY AND GENOMIC MEDICINE BUN 9 6 - 20 mg/dL [facility] DEPARTMENT OF PATHOLOGY AND GENOMIC MEDICINE Creatinine 0.7 0.5 - 0.9 mg/dL [facility] DEPARTMENT OF PATHOLOGY AND GENOMIC MEDICINE Glucose 100 (H) 65 - 99 mg/dL [facility] DEPARTMENT OF PATHOLOGY AND GENOMIC MEDICINE Calcium 8.3 8.3 - 10.2 mg/dL [facility] DEPARTMENT OF PATHOLOGY AND GENOMIC MEDICINE Specimen Plasma specimen Performing Organization Address City/[facility] Phone Number [facility] PATHOLOGY AND [address] [place] [address] [facility] CBC hemogram (05/09/2018 3:30 AM CDT)Only the most recent of2 resultswithin the time period is included. WBC 7.62 4.50 - 11.00 k/uL [facility] DEPARTMENT OF PATHOLOGY AND GENOMIC MEDICINE RBC 4.17 (L) 4.20 - 5.50 m/uL [facility] DEPARTMENT OF PATHOLOGY AND GENOMIC MEDICINE HGB 12.0 12.0 - 16.0 g/dL [facility] DEPARTMENT OF PATHOLOGY AND GENOMIC MEDICINE HCT 37.6 37.0 - 47.0 % [facility] DEPARTMENT OF PATHOLOGY AND GENOMIC MEDICINE MCV 90.2 82.0 - 100.0 fL [facility] DEPARTMENT OF PATHOLOGY AND GENOMIC MEDICINE MCH 28.8 27.0 - 34.0 pg [facility] DEPARTMENT OF PATHOLOGY AND GENOMIC MEDICINE MCHC 31.9 31.0 - 37.0 g/dL [facility] DEPARTMENT OF PATHOLOGY AND GENOMIC MEDICINE RDW - SD 47.9 37.0 - 55.0 fL [facility] DEPARTMENT OF PATHOLOGY AND GENOMIC MEDICINE MPV 9.6 8.8 - 13.2 fL [facility] DEPARTMENT OF PATHOLOGY AND GENOMIC MEDICINE Platelet count 246 150 - 400 k/uL [facility] DEPARTMENT OF PATHOLOGY AND GENOMIC MEDICINE Nucleated RBC 0.00 /100 WBC [facility] DEPARTMENT OF PATHOLOGY AND GENOMIC MEDICINE Performing Organization Address City/[facility] Phone Number [facility] DEPARTMENT PATHOLOGY AND [address] [place] [address] [facility] MRI Brain Wo Contrast (05/08/2018 8:45 [...] gross abnormalities. IMPRESSION: No acute intracranial abnormality. [facility]-[id number] Procedure Note Interface, Radiology Results Incoming - [...] gross abnormalities. IMPRESSION: No acute intracranial abnormality. [facility]-[id number] Performing Organization Address City/State/Zipcode Phone Number [facility] [address] [place] [address] CBC with platelet and differential (05/08/2018 3:55 AM CDT)Only the most recent of3 resultswithin the time period is included. WBC 7.51 4.50 - 11.00 k/uL [facility] DEPARTMENT OF PATHOLOGY AND GENOMIC MEDICINE RBC 4.26 4.20 - 5.50 m/uL [facility] DEPARTMENT OF PATHOLOGY AND GENOMIC MEDICINE HGB 12.2 12.0 - 16.0 g/dL [facility] DEPARTMENT OF PATHOLOGY AND GENOMIC MEDICINE HCT 37.6 37.0 - 47.0 % [facility] DEPARTMENT OF PATHOLOGY AND GENOMIC MEDICINE MCV 88.3 82.0 - 100.0 fL [facility] DEPARTMENT OF PATHOLOGY AND GENOMIC MEDICINE MCH 28.6 27.0 - 34.0 pg [facility] DEPARTMENT OF PATHOLOGY AND GENOMIC MEDICINE MCHC 32.4 31.0 - 37.0 g/dL [facility] DEPARTMENT OF PATHOLOGY AND GENOMIC MEDICINE RDW - SD 47.1 37.0 - 55.0 fL [facility] DEPARTMENT OF PATHOLOGY AND GENOMIC MEDICINE MPV 9.5 8.8 - 13.2 fL [facility] DEPARTMENT OF PATHOLOGY AND GENOMIC MEDICINE Platelet count 227 150 - 400 k/uL [facility] DEPARTMENT OF PATHOLOGY AND GENOMIC MEDICINE Nucleated RBC 0.00 /100 WBC [facility] DEPARTMENT OF PATHOLOGY AND GENOMIC MEDICINE Neutrophils 57.3 39.0 - 69.0 % [facility] DEPARTMENT OF PATHOLOGY AND GENOMIC MEDICINE Lymphocytes 28.8 25.0 - 45.0 % [facility] DEPARTMENT OF PATHOLOGY AND GENOMIC MEDICINE Monocytes 6.4 0.0 - 10.0 % [facility] DEPARTMENT OF PATHOLOGY AND GENOMIC MEDICINE Eosinophils 5.5 (H) 0.0 - 5.0 % [facility] DEPARTMENT OF PATHOLOGY AND GENOMIC MEDICINE Basophils 0.9 0.0 - 1.0 % [facility] DEPARTMENT OF PATHOLOGY AND GENOMIC MEDICINE Immature granulocytes 1.1 (H)Comment: 0.0 - 1.0 % [facility] DEPARTMENT OF "Immature PATHOLOGY AND GENOMIC granulocytes" MEDICINE (promyelocytes, myelocytes, metamyelocytes) Specimen Blood Performing Organization Address City/State/Zipcode Phone Number [facility] DEPARTMENT OF PATHOLOGY AND [address] [place] [address] [facility] CT Head Wo Contrast (05/07/2018 1:25 [...] No CT evidence of acute intracranial abnormality. [id number] Procedure Note Interface, Radiology Results Incoming - [...] No CT evidence of acute intracranial abnormality. [id number] Performing Organization Address City/State/Zipcode Phone Number [facility] [address] [place] [address] Comprehensive metabolic panel (05/07/2018 3:05 AM CDT)Only the most recent of3 resultswithin the time period is included. Sodium 139 135 - 148 mEq/L [facility] DEPARTMENT OF PATHOLOGY AND GENOMIC MEDICINE Potassium 3.7 3.5 - 5.0 mEq/L [facility] DEPARTMENT OF PATHOLOGY AND GENOMIC MEDICINE Chloride 106 98 - 112 mEq/L [facility] DEPARTMENT OF PATHOLOGY AND GENOMIC MEDICINE CO2 20 (L) 24 - 31 mEq/L [facility] DEPARTMENT OF PATHOLOGY AND GENOMIC MEDICINE Anion gap 13@ANIO 7 - 15 mEq/L [facility] DEPARTMENT OF PATHOLOGY AND GENOMIC MEDICINE BUN 11 6 - 20 mg/dL [facility] DEPARTMENT OF PATHOLOGY AND GENOMIC MEDICINE Creatinine 0.7 0.5 - 0.9 mg/dL [facility] DEPARTMENT OF PATHOLOGY AND GENOMIC MEDICINE Glucose 112 (H) 65 - 99 mg/dL [facility] DEPARTMENT OF PATHOLOGY AND GENOMIC MEDICINE Calcium 9.2 8.3 - 10.2 mg/dL [facility] DEPARTMENT OF PATHOLOGY AND GENOMIC MEDICINE Protein 6.2 (L) 6.3 - 8.3 g/dL [facility] DEPARTMENT OF Comment: PATHOLOGY AND GENOMIC 4.6-7.0 g/dL MEDICINE 1 week 4.4-7.6 g/dL 7 months-1year5.1-7.3 g/dL 1-2 years5.6-7.5 g/dL >3 years6.0-8.0 g/dL 18-150 6.3-8.3 g/dL Albumin 3.2 (L) 3.5 - 5.0 g/dL [facility] DEPARTMENT OF PATHOLOGY AND GENOMIC MEDICINE A/G ratio 1.1 0.7 - 3.8 [facility] DEPARTMENT OF PATHOLOGY AND GENOMIC MEDICINE Alkaline phosphatase 47 35 - 104 U/L [facility] DEPARTMENT OF PATHOLOGY AND GENOMIC MEDICINE AST 16 10 - 35 U/L [facility] DEPARTMENT OF PATHOLOGY AND GENOMIC MEDICINE ALT 9 5 - 50 U/L [facility] DEPARTMENT OF PATHOLOGY AND GENOMIC MEDICINE Total bilirubin <0.2 0.0 - 1.2 mg/dL [facility] DEPARTMENT OF PATHOLOGY AND GENOMIC MEDICINE Specimen Plasma specimen Performing Organization Address City/[facility] Phone Number [facility] DEPARTMENT OF PATHOLOGY AND [address] [place] [address] Magnesium level (05/06/2018 3:38 AM CDT) Magnesium 1.8 1.6 - 2.6 mg/dL [facility] DEPARTMENT OF PATHOLOGY AND GENOMIC MEDICINE Specimen Plasma specimen Performing Organization Address City/[facility] Phone Number [facility] DEPARTMENT OF PATHOLOGY AND [address] [place] [address] Pv carotid duplex (05/05/2018 12:23 PM CDT) Narrative Performed At [facility] Vascular Ultrasound Laboratory Carotid Artery Duplex Report [address] [place] [address] 9, [place] [address] For quality control specialist purposes, the categorization of the degree of the stenosis of this exam is based on criteria described in the IAC carotid stenosis grading white paper( www.intersocietal.org/Vascular) and Ml Hercules, Daphne Antony, et al. Carotid artery stenosis: monzon-scale and Doppler US diagnosis--Society of Radiologists in Ultrasound Consensus Conference. Radiology. 2003 Nov; 229(2):340-6. Pat.Name:NITHIN BOJORQUEZ Pat.ID:[id number] .Date: 05/05/2018 Refer.MD:CLAUDIO SANCHES MD Exam Time: 11:42:00 AM Study Type:Carotid DOBAge:1970,48Y Sex: FEMALE Sonogrphr: Yanci Durbin RVBobbi. Stat.:Inpatient Room:[id number]: [place], CPT - 4: [address]92 Echo Event ID:[id number] Order ID:[id number] Reason for Study:Multiple episodes of syncope and [...] EDV20.6 cm/s Right CCA Mid CCA Mid [id number] cm/sCCA Mid EDV 27.3 cm/s Right CCA [...] EDV19.5 cm/s Left CCA Mid CCA Mid [id number] cm/sCCA Mid EDV 27.4 cm/s Left CCA [...] Vascular Ultrasound Laboratory Carotid Artery Duplex Report [address] [place] [address] For quality control specialist purposes, the categorization of the degree of the stenosis of this exam is based on criteria described in the IAC carotid stenosis grading white paper( www.intersocietal.org/Vascular) and Wendi Hercules., Mami Antony., et al. Carotid artery stenosis: monzon-scale and Doppler US diagnosis--Society of Radiologists in Ultrasound Consensus Conference. Radiology. 2003 Nov; 229(2):340-6. Pat.Name: NITHIN BOJORQUEZ.ID: [id number] .Date: 05/05/2018 Refer.MD: CLAUDIO SANCHES MD Exam Time: 11:42:00 AM Study Type:Carotid Age: 9 1970,48Y Sex: FEMALE Sonogrphr: Yanci Durbin RVT Pat. Stat.:Inpatient Room: [facility] Tape Vol: [place], CPT - 4: [address]854 Echo Event ID:[id number] Order ID: [id number] Reason for Study:Multiple episodes of syncope and [...] Frantz Lawrence MD, RPVI Performing Organization Address [facility] Phone Number [facility] [address] [place] [address] Cv ecg exercise stress (nuclear or echo) (05/05/2018 11:08 AM CDT) Resting HR 53 [facility] MUSE Resting BP 103 [facility] Peak MET Achieved 1.0 [facility] Protocol Name REGADENO [facility] Time in Exercise Phase 00:01:00 [facility] Max Systolic BP 106 [facility] Max Diastolic BP 53 [facility] M[facility] Max Heart Rate 70 [facility] Max Predicted Heart Rate 174 [facility] M[facility] Target HR Formula (220 - Age)*100% [facility] M[facility] Test Indication chest pain [facility] M[facility] Stress Test Impression -Waveform interpreted in report [facility] MUSE associated with image study. No interpretation is provided as part of this Stress ECG report.-Electronically Signed By Esme HOUSTON, Barbara Barfield ([id number]), editor map Rosmery Romo ([id number]) on 05/05/2018 10:51:23 AM Target HR 147.90 bpm [facility] M[facility] Performing Organization Address [facility] Phone Number [facility] [address] [place] [address] Myocardial perfusion (05/05/2018 11:08 AM CDT) Narrative Performed At [facility] Nuclear Cardiology and Cardiac CT [address] [address] Myocardial Perfusion Imaging Report Stress ECG tracings are available in MUSE, EPIC and CV Web All ECG interpretations are included in this report Pat.Name:NITHIN BOJORQUEZ Pat.ID:[id number] .Date: 05/05/2018 Refer.MD:BARBARA DOUGLASS MD Exam Time: 10:24:00 AM Study Type:Myocardial Perfusion Imaging Height:63inWeight: 216lb BSA: 2 [id number]:1970,48Y Sex: FEMALEBP:103/55 HR:53 bpmHCT: 38 % Nuclear Tech:Francy Woodward [facility]/Sanya Salazar [facility] Pat. Stat.:Outpatient Nuclear Event ID:[id number] Order ID:[id number] Reason for Study:Chest pain, unspecified* History / [...] PM CDT Nuclear Cardiology and Cardiac CT [address] [place] [address] Myocardial Perfusion Imaging Report Stress ECG tracings are available in [employer], [employer] and [employer] All ECG interpretations are included in this report Pat.Name: NITHIN BOJORQUEZ Pat.ID: [id number] .Date: 05/05/2018 Refer.MD: BARBARA DOULGASS MD Exam Time: 10:24:00 AM Study Type:Myocardial Perfusion Imaging Height: 63in Weight: 216lb BSA: 2 m2 Age: 7 1970,48Y Sex: FEMALE BP: 103/55 HR: 53 bpm HCT: 38 % Nuclear Tech:ROB Acosta/Sanya Salazar [employer] Pat. Stat.:Outpatient Nuclear Event ID:[id number] Order ID: [id number] Reason for Study:Chest pain, unspecified* History / [...] Organization Address City/State/Zipcode Phone Number [facility] [address] [place] [address] Echocardiogram complete w contrast and 3D if needed (05/05/2018 8:30 AM CDT) Narrative Performed At [facility] Echocardiography Report [address] [facility], [facility] [address], [place] [address] Pat.Name:NITHIN BOJORQUEZ.ID:[id number] .Date: 05/05/2018 Refer.MD:CARMEN MCCORMICK MD Exam Time: 6:40:00 AMStudy Type:Routine Echo Height:63inWeight: 216lb BSA: 2 q8OUOUkw:1970,48Y Sex: FEMALEBP:99/51 HR:51 bpmSonogrphr: THADDEUS Mancia Pat. Stat.:Inpatient Room:[facility] Study Status:Final Echo Event ID:[id number] Order ID:[id number] Reason for Study:Chest pain, suspected cardiac etiology [...] PA systolic pressure. MEASUREMENTS: 2D Parasternal [place] LVOT 2.2 cmLA Ds3.5 cm LVIDd4.9 cmIndex2.5 cm/m Ao Rtd 3.3 cm Index1.7 cm/m LVIDs3.1 cmLV Sqoo380.7 g(87-129) LV%fs 37.6 % LVM Index 80.8 g/m2 IVSd 1 cmRWT0.3 LVPWd0.8 cm Signed 05/05/2018 02:34 PM Lisa Castaneda M.D. Procedure Note Interface, Radiology Results In - 05/05/2018 2:35 PM CDT Echocardiography Report [address]Name: NITHIN BOJORQUEZ Radha.ID: [id number] .Date: 05/05/2018 Refer.MD: CARMEN MCCORMICK MD Exam Time: 6:40:00 AM Study Type:Routine Echo Height: 63in Weight: 216lb BSA: 2 m2 Age: 7 1970,48Y Sex: FEMALE BP: 99/51 HR: 51 bpm Sonogrphr: THADDEUS Mancia Pat. Stat.:Inpatient Room: [facility] Study Status:Final Echo Event ID:[id number] Order ID: [id number] Reason for Study:Chest pain, suspected cardiac etiology [...] PA systolic pressure. MEASUREMENTS: 2D Parasternal [place] LVOT 2.2 cm LA Ds 3.5 cm LVIDd 4.9 cm Index 2.5 cm/m Ao Rtd 3.3 cm Index 1.7 cm/m LVIDs 3.1 cm LV Mass 161.7 g (87-129) LV%fs 37.6 % LVM Index 80.8 g/m2 IVSd 1 cm RWT 0.3 LVPWd 0.8 cm Signed 05/05/2018 02:34 PM Lisa Castaneda M.D. Performing Organization Address City/State/Zipcode Phone Number [facility] [address] [place] [address] ECG 12 lead (05/05/2018 5:36 AM CDT)Only the most recent of2 resultswithin the time period is included. Ventricular rate 52 [facility] Atrial rate 52 [facility] CO interval 140 [facility] QRSD interval 88 [facility] QT interval 482 [facility] QTC interval 448 [facility] P axis 1 39 [facility] QRS axis 1 11 [facility] T wave axis 47 [facility] EKG impression Sinus bradycardia-Low voltage QRS-Borderline [facility] ECG-In automated comparison with ECG of 04-MAY-2018 15:03,-Change in inferior and anterior forces now noted- Performing Organization Address [facility] Phone Number [facility] [address] [place] [address] Troponin (05/05/2018 5:35 AM CDT)Only the most recent of2 resultswithin the time period is included. Troponin <0.30 0.00 - 0.30 ng/mL [facility] DEPARTMENT OF PATHOLOGY Comment: AND GENOMIC MEDICINE 0.30 - 1.49 ng/mlMay indicate increased risk of acute coronary syndrome. >=1.5 ng/mlConsistent with acute myocardial infarction. The diagnostic value of a single normal or non-diagnostic result is questionable.Serial samples at 2-6 hour intervals are required to rule out acute myocardial injury. Specimen Plasma specimen Performing Organization Address [facility] Phone Number [facility] DEPARTMENT OF PATHOLOGY AND [address] [place], [place] [address] [facility] hCG qualitative, urine screen (05/05/2018 4:31 AM CDT) hCG qualitative, urine NegativeComment: [facility] DEPARTMENT OF Sensitivity of HCG test: 25 PATHOLOGY AND GENOMIC mIU/mL MEDICINE Specimen Urine Performing Organization Address [facility] Phone Number [facility] DEPARTMENT OF PATHOLOGY AND [address] [place] [address] [facility] Urine drugs of abuse screen (05/05/2018 4:31 AM CDT) Amphetamine screen, urine Negative [facility] DEPARTMENT OF PATHOLOGY AND GENOMIC MEDICINE Barbiturate screen, urine Negative [facility] DEPARTMENT OF PATHOLOGY AND GENOMIC MEDICINE Benzodiazepine screen, Negative [facility] DEPARTMENT OF urine PATHOLOGY AND GENOMIC MEDICINE Cannabinoid screen, urine Negative [facility] DEPARTMENT OF PATHOLOGY AND GENOMIC MEDICINE Cocaine screen, urine Negative [facility] DEPARTMENT OF PATHOLOGY AND GENOMIC MEDICINE Methadone metabolite Negative [facility] DEPARTMENT OF (EDDP), urine PATHOLOGY AND GENOMIC MEDICINE Opiates screen, urine Negative [facility] DEPARTMENT OF PATHOLOGY AND GENOMIC MEDICINE Oxycodone screen, urine Negative [facility] DEPARTMENT OF PATHOLOGY AND GENOMIC MEDICINE Phencyclidine screen, urine Negative [facility] DEPARTMENT OF PATHOLOGY AND GENOMIC MEDICINE Tricyclic screen, urine Negative [facility] DEPARTMENT OF Comment: PATHOLOGY AND GENOMIC Drug screen minimum concentration of detectability MEDICINE Mjxrqvkeuobo8889 ng/mL Barbiturates 200 ng/mL Hffcudtapvsvspx111 ng/mL Bcclrlu414 ng/mL Liekrcfpj179 ng/mL Texozik885 ng/mL Rpcnxkhif972 ng/mL Phencyclidine 25 ng/mL Khwolqlkdfcv45 ng/mL Gewhrhfzbn3530 ng/mL Negative test results indicates presumptive evidence of lack of clinically significant drug concentration in this urine specimen. Positive test results are presumptive evidence of clinically significant drug concentration in this urine specimen. Testing performed for medical purposes only. Specimen Urine Performing Organization Address City/[facility] Phone Number [facility] DEPARTMENT OF PATHOLOGY AND [address] [place] [address] [employer] [facility] Prothrombin time with INR (05/05/2018 4:22 AM CDT) Prothrombin time 13.6 12.0 - 15.0 sec [facility] DEPARTMENT OF PATHOLOGY AND GENOMIC MEDICINE INR 1.0 [facility] DEPARTMENT OF Comment: PATHOLOGY AND GENOMIC The International Normalized Ratio (INR) is a therapeutic MEDICINE monitoring tool for patients who are stable on oral anticoagulant therapy. An INR of 2.0-3.0 is suggested for deep vein thrombosis/pulmonary embolism. Specimen Blood Performing Organization Address City/[facility] Phone Number [facility] DEPARTMENT OF PATHOLOGY AND [address] [place] [address] Thyroid stimulating hormone (05/05/2018 4:22 AM CDT) TSH 6.15 (H) 0.27 - 4.20 uIU/mL [facility] DEPARTMENT OF PATHOLOGY AND GENOMIC MEDICINE Specimen Plasma specimen Performing Organization Address [facility] Phone Number [facility] DEPARTMENT OF PATHOLOGY AND [address] [place] [address] [employer] [facility] Lipid panel (05/05/2018 4:22 AM CDT) Cholesterol 177 <200 mg/dL [facility] DEPARTMENT OF PATHOLOGY AND GENOMIC MEDICINE Triglycerides 105 <150 mg/dL [facility] DEPARTMENT OF PATHOLOGY AND GENOMIC MEDICINE HDL cholesterol 45 >40 mg/dL [facility] DEPARTMENT OF PATHOLOGY AND GENOMIC MEDICINE LDL cholesterol 114 (H)Comment: Result <100 mg/dL [facility] DEPARTMENT OF obtained by direct LDL PATHOLOGY AND GENOMIC measurement MEDICINE Lipid panel interpretation SeeBelow [facility] DEPARTMENT OF Comment: PATHOLOGY AND GENOMIC Total Cholesterol (mg/dL) MEDICINE <200 Desirable 085-487Tometvpiuj-yikn >=240High Triglycerides (mg/dL) <150 Normal 588-810Ydvlfphhdl-hrnd 200-499High >=500Very high HDL Cholesterol (mg/dL) <40Low (male) <40Low (female) LDL Cholesterol (mg/dL) <100 Optimal 100-129Near or above optimal 492-980Gnxkrlwovp-mvjd 160-189High >=190Very high Risk Catergories that modify [...] specimen Performing Organization Address City/State/Zipcode Phone Number [facility] DEPARTMENT OF PATHOLOGY AND [address] [place] [address] CT Cervical Spine W Contrast (05/04/2018 8:55 [...] neural foraminal stenosis. IMPRESSION: No acute abnormality. [facility]-[id number] Procedure Note Interface, Radiology Results Incoming - [...] neural foraminal stenosis. IMPRESSION: No acute abnormality. [facility]-[id number] Performing Organization Address [facility] Phone Number [facility] [address] [place] [address] ECG ED Preliminary Interpretation - NOT AN ORDER (05/04/2018 6:01 PM CDT) Narrative Performed At Claudio Sanches MD 05/09/20182:00 AM ECG ED Preliminary Interpretation - Not an Order Performed by: CLAUDIO SANCHES Authorized by: CLAUDIO SANCHES ECG reviewed by ED Physician in the absence of a car rental agency manager: yes Previous ECG: Previous ECG:Unavailable Interpretation: Interpretation: [...] CDT) ALT 14 5 - 50 U/L [facility] DEPARTMENT OF PATHOLOGY AND GENOMIC MEDICINE Specimen Plasma specimen Performing Organization Address [facility] Phone Number [facility] DEPARTMENT OF PATHOLOGY AND [address] [place] [address] [facility] AST (SGOT) (05/04/2018 5:50 PM CDT) AST 13 10 - 35 U/L [facility] DEPARTMENT OF PATHOLOGY AND GENOMIC MEDICINE Specimen Plasma specimen Performing Organization Address [facility] Phone Number [facility] DEPARTMENT OF PATHOLOGY AND [address] [place] [address] [facility] Potassium level (05/04/2018 5:50 PM CDT) Potassium 4.1 3.5 - 5.0 mEq/L [facility] DEPARTMENT OF PATHOLOGY AND GENOMIC MEDICINE Specimen Plasma specimen Performing Organization Address City/State/Zipcode Phone Number [facility] DEPARTMENT OF PATHOLOGY AND [address] [place] [address] [facility] MEDICINE B natriuretic peptide (05/04/2018 4:54 PM CDT) BNP 43 0 - 100 pg/mL [facility] DEPARTMENT OF PATHOLOGY AND GENOMIC MEDICINE Specimen Blood Narrative Performed At Unable to perform testing, specimen is [facility] DEPARTMENT OF PATHOLOGY AND GENOMIC HEMOLYZED.Recollect MEDICINE requested for K, AST, ALT,ALP(tests). ROGE CELESTE/HUNTER(name/location) notified by PC(tech ID) at05/04/2018 17:31(date/time). Performing Organization Address [facility] Phone Number [facility] DEPARTMENT OF PATHOLOGY AND [address] [place] [address] GENOMIC MEDICINE XR Chest 2 Vw (05/04/2018 3:29 PM CDT) Narrative Performed At EXAMINATION:XR CHEST 2 VW [facility] CLINICAL HISTORY:Chest painACS suspected COMPARISON:None Technique:PA and lateral chest radiographs are obtained. IMPRESSION: 1.The lungs are clear. 2.There is no pleural fluid or pneumothorax. 3.The heart size and mediastinal contours are within normal limits. 4.There is no significant skeletal abnormality. [id number] Procedure Note Hm Interface, Radiology Results Incoming [...] 4. There is no significant skeletal abnormality. [id number] Performing Organization Address City/[facility]/Zipcode Phone Number [facility] [address] [place] [address] after 11/09/2017 Insurance Payer Benefit Plan / Group Subscriber ID Type Phone Address [employer] OPEN ACCESS/NETWORK xxxxxxxxxxx HMO Advance Directives Patient has advance care planning documents on file. For more information, please contact:Félix Madsen[address] [place] [address]
[2018-11-10 18:09] LABS: Absolute Lymphocytes (CBC) 1.4 K/uL (0.7-4.9); Absolute Monocytes 0.6 K/uL (0.1-1.3); Absolute Neutrophil 6.2 K/uL (1.8-8.0); Basophils % 0.5 % (0-1.3); Eosinophils % 2.6 % (0-4.4); Hematocrit 41.6 % (36.0-45.0); Lymphocytes % 16.8 % (15.3-44.8); MPV 7.9 fL (7.6-11.3); RBC Red Blood Cell Count 4.89 M/uL (3.86-4.86)
[2018-11-10 18:22] LABS: Protime INR 1.09
--- NOTE | 2018-11-10 18:34 | RAD REPORT ---
EXAM DESCRIPTION: US - Extrem Venous W Compress Neal - 11/10/2018 6:25 pm CLINICAL HISTORY: PAIN Bilateral leg edema and swelling. COMPARISON: No comparisons TECHNIQUE: Real-time sonographic interrogation of the left and right lower extremity deep venous sys tems was performed. FINDINGS: Normal compressibility, flow augmentation, phasic flow and spontaneous flow is identified in both the left and right lower extremity deep venous systems. IMPRESSION: No sonographic evidence of left or right lower extremity deep venous thrombosis.
--- NOTE | 2018-11-10 18:37 | RAD REPORT ---
EXAM DESCRIPTION: US - Lower Extremity Artery Uni Ltd - 11/10/2018 6:25 pm CLINICAL HISTORY: PAIN COMPARISON: No comparisons FINDINGS: Grayscale, color, power and spectral Doppler of the left lower extremity arterial system w as performed. Triphasic waveforms are seen throughout the left lower extremity arterial system. No stenosis or occl usion is seen. IMPRESSION: Unremarkable examination.
[2018-11-10] MEDS ORDERED: PROMETHAZINE 25 MG/ML VIAL ONE (18:47)
[2018-11-10] MEDS ORDERED: NA CHLORIDE 0.9% 100 ML IV ONE (18:48)
[2018-11-10] MEDS ORDERED: NACHLORIDE 0.45% 1,000 ML IV ONE (18:53)
[2018-11-10] MEDS ORDERED: NA CHLORIDE 0.9% 1,000 ML ONE (18:53)
[2018-11-10] MEDS ORDERED: BUTORPHANOL 2 MG/ML VIAL IV ONE (19:00)
--- NOTE | 2018-11-10 19:27 | RAD REPORT ---
EXAM DESCRIPTION: RAD - Chest Single View - 11/10/2018 6:50 pm CLINICAL HISTORY: COUGH Chest pain. COMPARISON: Chest Single View dated 10/29/2018; Chest Single View dated 04/10/2018; Chest Single View d ated 02/11/2018 FINDINGS: Portable technique limits examination quality. The lungs are grossly clear. The heart is normal in size. No displaced fractures. IMPRESSION: No acute intrathoracic process suspected.
--- NOTE | 2018-11-10 19:28 | RAD REPORT ---
EXAM DESCRIPTION: RAD - Foot Left 2 View - 11/10/2018 6:50 pm CLINICAL HISTORY: PAIN COMPARISON: No comparisons FINDINGS: No fracture or dislocation seen. Prominent posterior and plantar calcaneal spurs.
--- NOTE | 2018-11-10 19:29 | RAD REPORT ---
EXAM DESCRIPTION: RAD - Ankle Left 3 View - 11/10/2018 6:50 pm CLINICAL HISTORY: PAIN Pain and swelling to left ankle. COMPARISON: No comparisons FINDINGS: No fracture or dislocation seen. Prominent calcaneal spurs.
[2018-11-10 19:34] LABS: ALT/SGPT 66 U/L (12-78); AST/SGOT 70 U/L (15-37); Albumin 3.4 g/dL (3.4-5.0); Alkaline Phosphatase 104 U/L (45-117); BUN Blood Urea Nitrogen 12 mg/dL (7-18); Bicarbonate 22 mmol/L (21-32); Bilirubin Direct 0.2 mg/dL (0-0.2); Bilirubin Total 0.4 mg/dL (0.2-1.0); Glucose Level 111 mg/dL (74-106); Magnesium 1.7 mg/dL (1.8-2.4); NT PRO-BNP 66 pg/mL (<125); Protein, Total 6.9 g/dL (6.4-8.2); Sodium Level 136 mmol/L (136-145); Troponin (Emerg Dept Use Only) < 0.02 ng/mL (0.0-0.045)
--- NOTE | 2018-11-10 19:43 | ER ---
Nurse's Notes [facility] Name: Nithin Beth Age: 48 yrs Sex: Female : 1970 Arrival Date: 11/10/2018 Time: 16:32 Bed 16 Private MD: Mariana Ochoa Diagnosis: Pain in left leg;Bipolar disorder Presentation: 11/10 16:40 Presenting complaint: Patient states: left ankle and left lower extremity pain that aa5 began this morning, denies known injury. Pt reports abd sx 1 week ago. Pt states "I am also running a fever today". Pt reports congestion, denies cough. Transition of care: patient was not received from another setting of care. Onset of symptoms was November 10, 2018. Risk Assessment: Do you want to hurt yourself or someone else? Patient reports no desire to harm self or others. Care prior to arrival: None. 16:40 Method Of Arrival: Wheelchair aa5 16:40 Acuity: HUSAM 3 aa5 Triage Assessment: 17:05 General: Appears uncomfortable, Behavior is calm, cooperative. Pain:. Neuro: No ls4 deficits noted. Cardiovascular: No deficits noted. Respiratory: No deficits noted. GI: No signs and/or symptoms were reported involving the gastrointestinal system. : No deficits noted. Musculoskeletal: No deficits noted. 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 - Social history:: Smoking status: Patient/guardian denies using tobacco. - Ebola Screening: : No symptoms or risks identified at this time. - Family history:: not pertinent. Screenin:06 Abuse screen: Denies threats or abuse. Denies injuries from another. Nutritional ls4 screening: No deficits noted. Tuberculosis screening: No symptoms or risk factors identified. Fall Risk None identified. Assessment: 18:50 General: Appears in no apparent distress. uncomfortable, unkempt, Behavior is anxious, ls4 fussy. Neuro: No deficits noted. Cardiovascular: No deficits noted. Respiratory: No deficits noted. GI: No deficits noted. : No signs and/or symptoms were reported regarding the genitourinary system. Derm: Skin is pink, warm \\T\\ dry. Musculoskeletal: Circulation, motion, and sensation intact. Capillary refill < 3 seconds, Range of motion: intact in all extremities, no deformity, swelling or redness to lower extremities. Vital Signs: 16:42 BP 102 / 67; Pulse 97; Resp 18 S; Temp 100.0(TE); Pulse Ox 99% on R/A; Weight 102.06 kg aa5 (R); Height 5 ft. 3 in. (160.02 cm) (R); Pain 6/10; 20:00 BP 106 / 48; Pulse 60; Resp 16; Pulse Ox 98% on R/A; jb4 16:42 Body Mass Index 39.86 (102.06 kg, 160.02 cm) aa5 ED Course: 16:32 Patient arrived in ED. mr 16:32 Mariana Ochoa MD is Private Physician. mr 16:39 Arm band placed on. aa5 16:41 Triage completed. aa5 16:44 Sulaiman Garcia MD is Attending Physician. deborah 17:05 Emani Medina, RON is Primary Nurse. ls4 17:50 First set of blood cultures drawn by me. dh3 17:58 Initial lab(s) drawn, by dc, sent to lab. Inserted saline lock: 24 gauge in left hand, dh3 using aseptic technique. Blood collected. 18:00 EKG done, by power equipment technology instructor. reviewed by Sulaiman Garcia MD. sm3 18:05 Second set of blood cultures drawn by dc. dh3 18:24 US Extremity Venous W Compression Neal In Process Unspecified. EDMS 18:25 US LE Artery Uni Ltd In Process Unspecified. EDMS 18:45 XRAY Chest (1 view) In Process Unspecified. EDMS 18:45 Foot Left 2 View XRAY In Process Unspecified. EDMS 18:45 Ankle Left 3 View XRAY In Process Unspecified. EDMS 19:00 Patient has correct armband on for positive identification. Bed in low position. Call jb4 light in reach. Side rails up X2. Pulse ox on. NIBP on. 19:31 Audra Pop FNP-C is PHCP. snw 19:41 Mariana Ochoa MD is Referral Physician. snw 19:41 Finesse Landon MD is Referral Physician. snw 20:00 No provider procedures requiring assistance completed. IV discontinued, intact, jb4 bleeding controlled. Administered Medications: 18:46 Drug: Phenergan 12.5 mg Route: IVP; Site: left forearm; ls4 19:01 Follow up: Response: No adverse reaction ls4 19:15 Follow up: Response: No adverse reaction ls4 18:48 Drug: NS 0.9% 500 ml Route: IV; Rate: bolus; Site: right forearm; ls4 19:30 Follow up: IV Status: Completed infusion; IV Intake: 500ml ls4 18:49 Drug: NS 0.9% 1000 ml Route: IV; Rate: 125 ml/hr; Site: left wrist; ls4 19:15 Drug: Stadol 2 mg Route: IVP; Site: left wrist; ls4 19:30 Follow up: Response: No adverse reaction; Marked relief of symptoms ls4 Intake: 19:30 IV: 500ml; Total: 500ml. ls4 Outcome: 19:41 Discharge ordered by . snw 20:00 Discharged to home via wheelchair, with family. jb4 20:00 Condition: stable 20:00 Discharge instructions given to patient, family, Instructed on discharge instructions, follow up and referral plans. medication usage, Demonstrated understanding of instructions, follow-up care, medications, Prescriptions given X 2. 20:14 Patient left the ED. jb4 Signatures: Dispatcher [employer] EDME Sulaiman Garcia MD MD cha Therrien, Shelly, ORTHODONTIC TREATMENT COORDINATOR-C ORTHODONTIC TREATMENT COORDINATOR-Csn Caty CliftonJennifer pan, RN RN aa5 Finesse Graham, RN RN jb4 Precious Infante Linh Elliott 3 Emani Medina, RON RN ls4
--- NOTE | 2018-11-10 19:43 | EDPHYS ---
Physician Documentation [facility] Name: Nithin Beth Age: 48 yrs Sex: Female : 1970 Arrival Date: 11/10/2018 Time: 16:32 Bed 16 Private MD: Mariana Ochoa ED Physician Sulaiman Garcia HPI: 11/10 17:28 This 48 yrs old Female presents to ER via Wheelchair with complaints of Foot deborah Pain, Fever. 17:28 The patient presents with decreased range of motion, pain. The complaints affect the deborah left foot, lateral aspect of left calf, left lateral ankle, lateral aspect of left foot, medial aspect of left calf, left medial ankle, medial aspect of left foot, left morales, anterior aspect of left ankle and dorsum of left foot. Context: The problem was sustained at an unknown location. Onset: The symptoms/episode began/occurred this morning. Modifying factors: The symptoms are alleviated by elevation of extremity, the symptoms are aggravated by weight bearing, movement. Associated signs and symptoms: The patient has no apparent associated signs or symptoms. Severity of symptoms: At their worst the symptoms were moderate, in the emergency department the symptoms are unchanged. The patient has not experienced similar symptoms in the past. 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 - Social history:: Smoking status: Patient/guardian denies using tobacco. - Ebola Screening: : No symptoms or risks identified at this time. - Family history:: not pertinent. ROS: 17:28 Constitutional: Negative for fever, chills, and weight loss, Eyes: Negative for injury, deborah pain, redness, and discharge, ENT: Negative for injury, pain, and discharge, Neck: Negative for injury, pain, and swelling, Cardiovascular: Negative for chest pain, palpitations, and edema, Respiratory: Negative for shortness of breath, cough, wheezing, and pleuritic chest pain, Abdomen/GI: Negative for abdominal pain, nausea, vomiting, diarrhea, and constipation, Back: Negative for injury and pain, : Negative for injury, bleeding, discharge, and swelling, Skin: Negative for injury, rash, and discoloration, Neuro: Negative for headache, weakness, numbness, tingling, and seizure, Psych: Negative for depression, anxiety, suicide ideation, homicidal ideation, and hallucinations, Allergy/Immunology: Negative for hives, rash, and allergies, Endocrine: Negative for neck swelling, polydipsia, polyuria, polyphagia, and marked weight changes, Hematologic/Lymphatic: Negative for swollen nodes, abnormal bleeding, and unusual bruising. 17:28 MS/extremity: Positive for pain, tenderness, of the left leg. Exam: 17:28 Head/Face: Normocephalic, atraumatic. Eyes: Pupils equal round and reactive to light, deborah extra-ocular motions intact. Lids and lashes normal. Conjunctiva and sclera are non-icteric and not injected. Cornea within normal limits. Periorbital areas with no swelling, redness, or edema. ENT: Nares patent. No nasal discharge, no septal abnormalities noted. Tympanic membranes are normal and external auditory canals are clear. Oropharynx with no redness, swelling, or masses, exudates, or evidence of obstruction, uvula midline. Mucous membranes moist. Neck: Trachea midline, no thyromegaly or masses palpated, and no cervical lymphadenopathy. Supple, full range of motion without nuchal rigidity, or vertebral point tenderness. No Meningismus. Chest/axilla: Normal chest wall appearance and motion. Nontender with no deformity. No lesions are appreciated. Cardiovascular: Regular rate and rhythm with a normal S1 and S2. No gallops, murmurs, or rubs. Normal PMI, no JVD. No pulse deficits. Respiratory: Lungs have equal breath sounds bilaterally, clear to auscultation and percussion. No rales, rhonchi or wheezes noted. No increased work of breathing, no retractions or nasal flaring. Back: No spinal tenderness. No costovertebral tenderness. Full range of motion. Female : Normal external genitalia. Skin: Warm, dry with normal turgor. Normal color with no rashes, no lesions, and no evidence of cellulitis. MS/ Extremity: Pulses equal, no cyanosis. Neurovascular intact. Full, normal range of motion. Neuro: Awake and alert, GCS 15, oriented to person, place, time, and situation. Cranial nerves II-XII grossly intact. Motor strength 5/5 in all extremities. Sensory grossly intact. Cerebellar exam normal. Normal gait. Psych: Awake, alert, with orientation to person, place and time. Behavior, mood, and affect are within normal limits. 17:28 Abdomen/GI: Inspection: abdomen appears normal, Bowel sounds: normal, Palpation: abdomen is soft and non-tender, Liver: no appreciated palpable abnormalities, Hernia: not appreciated, umbilical drainage. Vital Signs: 16:42 BP 102 / 67; Pulse 97; Resp 18 S; Temp 100.0(TE); Pulse Ox 99% on R/A; Weight 102.06 kg aa5 (R); Height 5 ft. 3 in. (160.02 cm) (R); Pain 6/10; 20:00 BP 106 / 48; Pulse 60; Resp 16; Pulse Ox 98% on R/A; jb4 16:42 Body Mass Index 39.86 (102.06 kg, 160.02 cm) aa5 MDM: 16:44 Patient medically screened. deborah 17:23 Patient medically screened. [facility] 17:28 Data reviewed: vital signs, nurses notes, lab test result(s), EKG, radiologic studies, deborah doppler, plain films. 11/10 17:27 Order name: Basic Metabolic Panel; Complete Time: 19:39 [facility] 11/10 17:27 Order name: CBC with Diff; Complete Time: 18:54 [facility] 11/10 17:27 Order name: LFT's; Complete Time: 19:39 [facility] 11/10 17:27 Order name: Magnesium; Complete Time: 19:39 [facility] 11/10 17:27 Order name: NT PRO-BNP; Complete Time: 19:39 [facility] 11/10 17:27 Order name: PT-INR; Complete Time: 18:54 [facility] 11/10 17:27 Order name: Troponin (emerg Dept Use Only); Complete Time: 19:39 [facility] 11/10 17:27 Order name: XRAY Chest (1 view); Complete Time: 19:31 [facility] 11/10 17:28 Order name: Blood Culture Adult (2) [facility] 11/10 17:28 Order name: Extremity Venous W Compression Neal; Complete Time: 18:54 [facility] 11/10 17:28 Order name: LE Artery Uni Ltd; Complete Time: 18:54 [facility] 11/10 17:28 Order name: Foot Left 2 View XRAY; Complete Time: 19:31 [facility] 11/10 17:28 Order name: Uric Acid; Complete Time: 19:39 [facility] 11/10 17:28 Order name: Sed Rate; Complete Time: 18:54 [facility] 11/10 17:27 Order name: EKG; Complete Time: 17:29 [facility] 11/10 17:27 Order name: Cardiac monitoring; Complete Time: 19:16 [facility] 11/10 17:27 Order name: EKG - Nurse/Tech; Complete Time: 19:01 [facility] 11/10 17:27 Order name: IV Saline Lock; Complete Time: 18:05 [facility] 11/10 17:27 Order name: Labs collected and sent; Complete Time: 18:05 [facility] 11/10 17:28 Order name: O2 Per Protocol; Complete Time: 19:16 [facility] 11/10 17:28 Order name: O2 Sat Monitoring; Complete Time: 19:16 [facility] 11/10 17:28 Order name: Ankle Left 3 View XRAY; Complete Time: 19:31 [facility] 11/10 18:23 Order name: Labs - recollect needed; Complete Time: 19:01 bd Administered Medications: 18:46 Drug: Phenergan 12.5 mg Route: IVP; Site: left forearm; ls4 19:01 Follow up: Response: No adverse reaction ls4 19:15 Follow up: Response: No adverse reaction ls4 18:48 Drug: NS 0.9% 500 ml Route: IV; Rate: bolus; Site: right forearm; ls4 19:30 Follow up: IV Status: Completed infusion; IV Intake: 500ml ls4 18:49 Drug: NS 0.9% 1000 ml Route: IV; Rate: 125 ml/hr; Site: left wrist; ls4 19:15 Drug: Stadol 2 mg Route: IVP; Site: left wrist; ls4 19:30 Follow up: Response: No adverse reaction; Marked relief of symptoms ls4 Disposition: 11/10/18 19:41 Discharged to Home. Impression: Pain in left leg, Bipolar disorder. - Condition is Stable. - Discharge Instructions: Bipolar Disorder, Musculoskeletal Pain, Ankle Pain, Foot Pain. - Prescriptions for Tylenol- Codeine #3 300-30 mg Oral Tablet - take 2 tablets by ORAL route every 6 hours As needed; 12 tablet. Ibuprofen 600 mg Oral Tablet - take 1 tablet by ORAL route every 8 hours As needed take with food; 21 tablet. - Medication Reconciliation Form, Thank You Letter, Antibiotic Education, Prescription Opioid Use form. - Follow up: Mariana Gabriela; When: 2 - 3 days; Reason: Recheck today's complaints, Continuance of care, Re-evaluation by your physician. Follow up: Finesse Landon; When: 2 - 3 days; Reason: Recheck today's complaints, Continuance of care, Re-evaluation by your physician. - Problem is new. - Symptoms have improved. Signatures: Dispatcher [employer] EDMS Denisha Blanton Corey, MD MD cha Therrien, Shelly, RISK ANALYST-C RISK ANALYST-Csnw Jennifer Alvarenga, RON RN aa5 Finesse Graham, RON RN jb4 Emani Medina RN RN ls4 Corrections: (The following items were deleted from the chart) 20:14 19:41 11/10/2018 19:41 Discharged to Home. Impression: Pain in left leg; Bipolar jb4 disorder. Condition is Stable. Discharge Instructions: Bipolar Disorder, Musculoskeletal Pain, Ankle Pain, Foot Pain. Prescriptions for Tylenol-Codeine #3 300-30 mg Oral Tablet - take 2 tablet by ORAL route every 6 hours As needed; 30 tablet, Ibuprofen 600 mg Oral Tablet - take 1 tablet by ORAL route every 8 hours As needed take with food; 21 tablet. and Forms are Medication Reconciliation Form, Thank You Letter, Antibiotic Education, Prescription Opioid Use. Follow up: Marianasandro Ochoa; When: 2 - 3 days; Reason: Recheck today's complaints, Continuance of care, Re-evaluation by your physician. Follow up: Finesse Landon; When: 2 - 3 days; Reason: Recheck today's complaints, Continuance of care, Re-evaluation by your physician. Problem is new. Symptoms have improved. snw
[2018-11-10 20:55] VITALS: TEMP 100
[2018-11-10 20:57] VITALS: BP 106/48; O2SAT 98
--- NOTE | 2018-11-11 08:48 | EKG ---
Test Date: 2018-11-10 Test Time: 17:55:13 Director Of Grants: DARSHANA MEASUREMENT RESULTS: Intervals: Rate: 88 AK: 152 QRSD: 82 QT: 364 QTc: 440 [place]: P: 39 AK: 152 QRS: -18 T: 39 INTERPRETIVE STATEMENTS: Normal sinus rhythm Cannot rule out Inferior infarct, age undetermined Cannot rule out Anterior infarct, age undetermined Abnormal ECG Compared to ECG 04/10/2018 21:52:21 Myocardial infarct finding now present Sinus bradycardia no longer present Electronically Signed On 11-11-18 08:46:08 CIRCUITRY NEGATIVE INSPECTOR by Dano Johansen
== END 2018-11-10 20:14 | disposition home or self-care (01) ==
LOC: ER 16:29
DX: M79.605 Pain in left leg (principal); F31.9 Bipolar disorder, unspecified; Z88.1 Allergy status to other antibiotic agents; Z88.8 Allergy status to other drugs, medicaments and biological substances
CPT/HCPCS: 36415; 71045; 80048; 80076; 83735; 83880; 84484; 84550; 85025; 85610; 85652; 87040; 93005; 93926; 93970; 99284; J0595; J2550; J7030

== ENCOUNTER 2018-12-04 06:14 | Day surgery (SDC) | payer OTHER ==
[2018-12-03 18:20] LABS: Urine Appearance CLEAR; Urine Bilirubin NEGATIVE (NEG); Urine Blood NEGATIVE (NEG); Urine Color YELLOW; Urine Glucose NEGATIVE (NEG); Urine Protein NEGATIVE (NEG); Urine Specific Gravity >=1.030 (1.005-1.030); Urine pH 5.5 (5.0-7.0)
[2018-12-03 18:21] LABS: Urine Microscopic Reflex NO UMIC
[2018-12-03 18:29] LABS: Specific Gravity > 1.030 (1.005-1.030)
[2018-12-03 18:33] LABS: Protime INR 0.93
[2018-12-03 18:38] LABS: Absolute Lymphocytes (CBC) 1.7 K/uL (0.7-4.9); Absolute Monocytes 0.3 K/uL (0.1-1.3); Basophils % 0.9 % (0-1.3); Eosinophils % 6.7 % (0-4.4); Lymphocytes % 30.7 % (15.3-44.8); MPV 7.9 fL (7.6-11.3); Monocytes % 5.5 % (3.3-12.3); RBC Red Blood Cell Count 4.47 M/uL (3.86-4.86)
--- OUTSIDE RECORDS SUMMARY | 2018-12-04 06:26 | XMS REPORT | Clinical Summary ---
:1970 Author Organization [facility] Address [address] [place] [address] Care Team Providers Name Role Phone Mariana [...] Type Specialty Care Team Description 05/12/2018 Documentation Fur Dressing Supervisor Mayte Rainey RN 05/04/2018 - Hospital Encounter General Internal Claudio Sanches History of fainting spells of unknown cause (Primary Dx); 05/11/2018 Medicine MD Iman Unstable angina; Joglekar, MD Daniel Reyes Dhruti Bharatbhai, MD after 12/03/2017 Social History Tobacco Use Types Packs/Day Years [...] are in SPECTRAL COLOR DOPPLER the results (51400) section. ECG 12-LEAD STAT 05/05/2018 5:36 Results [...] procedure are in the results section. after 12/03/2017 Results Continuous EEG monitoring (05/10/2018 7:33 PM [...] epileptiform activity was recorded. ICD-10 Code: R569 [place] level (05/09/2018 9:50 PM CDT)Only the most recent of5 resultswithin the time period is included. [place] 0.31 (L) 0.60 - 1.20 mmol/L [facility] DEPARTMENT OF PATHOLOGY AND GENOMIC MEDICINE Specimen Serum Performing Organization Address City/State/Zipcode Phone Number [facility] DEPARTMENT OF PATHOLOGY AND [address] [place] [address] [employer] EEG (routine) (05/09/2018 9:56 AM CDT) Narrative [...] GFR Non Af Amer >90 mL/min/1.73 m2 [facility] DEPARTMENT OF PATHOLOGY AND GENOMIC MEDICINE GFR Af Amer >90 mL/min/1.73 m2 [facility] DEPARTMENT OF Comment: PATHOLOGY AND GENOMIC Chronic [...] specimen Performing Organization Address City/State/Zipcode Phone Number [facility] DEPARTMENT OF PATHOLOGY AND [address] [place] [address] [employer] Basic metabolic panel (05/09/2018 4:55 AM CDT)Only the most recent of3 resultswithin the time period is included. Sodium 141 135 - 148 mEq/L [facility] DEPARTMENT OF PATHOLOGY AND GENOMIC MEDICINE Potassium 4.1 3.5 - 5.0 mEq/L [facility] DEPARTMENT OF PATHOLOGY AND GENOMIC MEDICINE Chloride 108 98 - 112 mEq/L [facility] DEPARTMENT OF PATHOLOGY AND GENOMIC MEDICINE CO2 21 (L) 24 - 31 mEq/L [facility] DEPARTMENT OF PATHOLOGY AND GENOMIC MEDICINE Anion gap 12@ANIO 7 - 15 mEq/L [facility] DEPARTMENT OF PATHOLOGY AND GENOMIC MEDICINE BUN 9 6 - 20 mg/dL [facility] DEPARTMENT OF PATHOLOGY AND GENOMIC MEDICINE Creatinine 0.7 0.5 - 0.9 mg/dL [facility] DEPARTMENT OF PATHOLOGY AND GENOMIC MEDICINE Glucose 100 (H) 65 - 99 mg/dL [facility] DEPARTMENT OF PATHOLOGY AND GENOMIC MEDICINE Calcium 8.3 8.3 - 10.2 mg/dL [facility] DEPARTMENT OF PATHOLOGY AND GENOMIC MEDICINE Specimen Plasma specimen Performing Organization Address City/[facility] Phone Number [facility] PATHOLOGY AND [address] [place] [address] [facility] CBC hemogram (05/09/2018 3:30 AM CDT)Only the most recent of2 resultswithin the time period is included. WBC 7.62 4.50 - 11.00 k/uL [facility] DEPARTMENT OF PATHOLOGY AND GENOMIC MEDICINE RBC 4.17 (L) 4.20 - 5.50 m/uL [facility] DEPARTMENT OF PATHOLOGY AND GENOMIC MEDICINE HGB 12.0 12.0 - 16.0 g/dL [facility] DEPARTMENT OF PATHOLOGY AND GENOMIC MEDICINE HCT 37.6 37.0 - 47.0 % [facility] DEPARTMENT OF PATHOLOGY AND GENOMIC MEDICINE MCV 90.2 82.0 - 100.0 fL [facility] DEPARTMENT OF PATHOLOGY AND GENOMIC MEDICINE MCH 28.8 27.0 - 34.0 pg [facility] DEPARTMENT OF PATHOLOGY AND GENOMIC MEDICINE MCHC 31.9 31.0 - 37.0 g/dL [facility] DEPARTMENT OF PATHOLOGY AND GENOMIC MEDICINE RDW - SD 47.9 37.0 - 55.0 fL [facility] DEPARTMENT OF PATHOLOGY AND GENOMIC MEDICINE MPV 9.6 8.8 - 13.2 fL [facility] DEPARTMENT OF PATHOLOGY AND GENOMIC MEDICINE Platelet count 246 150 - 400 k/uL [facility] DEPARTMENT OF PATHOLOGY AND GENOMIC MEDICINE Nucleated RBC 0.00 /100 WBC [facility] DEPARTMENT OF PATHOLOGY AND GENOMIC MEDICINE Performing Organization Address City/[facility] Phone Number [facility] DEPARTMENT PATHOLOGY AND [address] [place] [address] [facility] MRI Brain Wo Contrast (05/08/2018 [...] gross abnormalities. IMPRESSION: No acute intracranial abnormality. [facility]-[id number] Procedure Note Interface, Radiology Results Incoming - [...] gross abnormalities. IMPRESSION: No acute intracranial abnormality. [facility]-[id number] Performing Organization Address City/State/Zipcode Phone Number [facility] [address] [place] [address] CBC with platelet and differential (05/08/2018 3:55 AM CDT)Only the most recent of3 resultswithin the time period is included. WBC 7.51 4.50 - 11.00 k/uL [facility] DEPARTMENT OF PATHOLOGY AND GENOMIC MEDICINE RBC 4.26 4.20 - 5.50 m/uL [facility] DEPARTMENT OF PATHOLOGY AND GENOMIC MEDICINE HGB 12.2 12.0 - 16.0 g/dL [facility] DEPARTMENT OF PATHOLOGY AND GENOMIC MEDICINE HCT 37.6 37.0 - 47.0 % [facility] DEPARTMENT OF PATHOLOGY AND GENOMIC MEDICINE MCV 88.3 82.0 - 100.0 fL [facility] DEPARTMENT OF PATHOLOGY AND GENOMIC MEDICINE MCH 28.6 27.0 - 34.0 pg [facility] DEPARTMENT OF PATHOLOGY AND GENOMIC MEDICINE MCHC 32.4 31.0 - 37.0 g/dL [facility] DEPARTMENT OF PATHOLOGY AND GENOMIC MEDICINE RDW - SD 47.1 37.0 - 55.0 fL [facility] DEPARTMENT OF PATHOLOGY AND GENOMIC MEDICINE MPV 9.5 8.8 - 13.2 fL [facility] DEPARTMENT OF PATHOLOGY AND GENOMIC MEDICINE Platelet count 227 150 - 400 k/uL [facility] DEPARTMENT OF PATHOLOGY AND GENOMIC MEDICINE Nucleated RBC 0.00 /100 WBC [facility] DEPARTMENT OF PATHOLOGY AND GENOMIC MEDICINE Neutrophils 57.3 39.0 - 69.0 % [facility] DEPARTMENT OF PATHOLOGY AND GENOMIC MEDICINE Lymphocytes 28.8 25.0 - 45.0 % [facility] DEPARTMENT OF PATHOLOGY AND GENOMIC MEDICINE Monocytes 6.4 0.0 - 10.0 % [facility] DEPARTMENT OF PATHOLOGY AND GENOMIC MEDICINE Eosinophils 5.5 (H) 0.0 - 5.0 % [facility] DEPARTMENT OF PATHOLOGY AND GENOMIC MEDICINE Basophils 0.9 0.0 - 1.0 % [facility] DEPARTMENT OF PATHOLOGY AND GENOMIC MEDICINE Immature granulocytes 1.1 (H)Comment: 0.0 - 1.0 % [facility] DEPARTMENT OF "Immature PATHOLOGY AND GENOMIC granulocytes" MEDICINE (promyelocytes, myelocytes, metamyelocytes) Specimen Blood Performing Organization Address City/State/Zipcode Phone Number [facility] DEPARTMENT OF PATHOLOGY AND [address] [place] [address] [facility] CT Head Wo Contrast (05/07/2018 [...] No CT evidence of acute intracranial abnormality. [id number] Procedure Note Interface, Radiology Results Incoming - [...] No CT evidence of acute intracranial abnormality. [id number] Performing Organization Address City/State/Zipcode Phone Number [facility] [address] [place] [address] Comprehensive metabolic panel (05/07/2018 3:05 AM CDT)Only the most recent of3 resultswithin the time period is included. Sodium 139 135 - 148 mEq/L [facility] DEPARTMENT OF PATHOLOGY AND GENOMIC MEDICINE Potassium 3.7 3.5 - 5.0 mEq/L [facility] DEPARTMENT OF PATHOLOGY AND GENOMIC MEDICINE Chloride 106 98 - 112 mEq/L [facility] DEPARTMENT OF PATHOLOGY AND GENOMIC MEDICINE CO2 20 (L) 24 - 31 mEq/L [facility] DEPARTMENT OF PATHOLOGY AND GENOMIC MEDICINE Anion gap 13@ANIO 7 - 15 mEq/L [facility] DEPARTMENT OF PATHOLOGY AND GENOMIC MEDICINE BUN 11 6 - 20 mg/dL [facility] DEPARTMENT OF PATHOLOGY AND GENOMIC MEDICINE Creatinine 0.7 0.5 - 0.9 mg/dL [facility] DEPARTMENT OF PATHOLOGY AND GENOMIC MEDICINE Glucose 112 (H) 65 - 99 mg/dL [facility] DEPARTMENT OF PATHOLOGY AND GENOMIC MEDICINE Calcium 9.2 8.3 - 10.2 mg/dL [facility] DEPARTMENT OF PATHOLOGY AND GENOMIC MEDICINE Protein 6.2 (L) 6.3 - 8.3 g/dL [facility] DEPARTMENT OF Comment: PATHOLOGY AND GENOMIC 4.6-7.0 g/dL MEDICINE 1 week 4.4-7.6 g/dL 7 months-1year5.1-7.3 g/dL 1-2 years5.6-7.5 g/dL >3 years6.0-8.0 g/dL 18-150 6.3-8.3 g/dL Albumin 3.2 (L) 3.5 - 5.0 g/dL [facility] DEPARTMENT OF PATHOLOGY AND GENOMIC MEDICINE A/G ratio 1.1 0.7 - 3.8 [facility] DEPARTMENT OF PATHOLOGY AND GENOMIC MEDICINE Alkaline phosphatase 47 35 - 104 U/L [facility] DEPARTMENT OF PATHOLOGY AND GENOMIC MEDICINE AST 16 10 - 35 U/L [facility] DEPARTMENT OF PATHOLOGY AND GENOMIC MEDICINE ALT 9 5 - 50 U/L [facility] DEPARTMENT OF PATHOLOGY AND GENOMIC MEDICINE Total bilirubin <0.2 0.0 - 1.2 mg/dL [facility] DEPARTMENT OF PATHOLOGY AND GENOMIC MEDICINE Specimen Plasma specimen Performing Organization Address City/[facility] Phone Number [facility] DEPARTMENT OF PATHOLOGY AND [address] [place] [address] Magnesium level (05/06/2018 3:38 AM CDT) Magnesium 1.8 1.6 - 2.6 mg/dL [facility] DEPARTMENT OF PATHOLOGY AND GENOMIC MEDICINE Specimen Plasma specimen Performing Organization Address City/[facility] Phone Number [facility] DEPARTMENT OF PATHOLOGY AND [address] [place] [address] Pv carotid duplex (05/05/2018 12:23 PM CDT) Narrative Performed At [facility] Vascular Ultrasound Laboratory Carotid Artery Duplex Report [address] [place] [address] [address], [place] [address] For principal quality engineer purposes, the categorization of the degree of the stenosis of this exam is based on criteria described in the IAC carotid stenosis grading white paper( www.intersocietal.org/Vascular) and Ml Hercules, Daphne Antony, et al. Carotid artery stenosis: monzon-scale and Doppler US diagnosis--Society of Radiologists in Ultrasound Consensus Conference. Radiology. 2003 Nov; 229(2):340-6. Pat.Name:NITHIN BOJORQUEZ Pat.ID:[id number] .Date: 05/05/2018 Refer.MD:CLAUDIO SANCHES MD Exam Time: 11:42:00 AM Study Type:Carotid DOBAge:1970,48Y Sex: FEMALE Sonogrphr: Yanci Durbin RVBobbi. Stat.:Inpatient Room:[id number]: [place], CPT - 4: [address] Echo Event ID:[id number] Order ID:[id number] Reason for Study:Multiple episodes of syncope and [...] EDV20.6 cm/s Right CCA Mid CCA Mid [id number] cm/sCCA Mid EDV 27.3 cm/s Right CCA [...] EDV19.5 cm/s Left CCA Mid CCA Mid [id number] cm/sCCA Mid EDV 27.4 cm/s Left CCA [...] Vascular Ultrasound Laboratory Carotid Artery Duplex Report [address] [place] [address] For principal quality engineer purposes, the categorization of the degree of the stenosis of this exam is based on criteria described in the IAC carotid stenosis grading white paper( www.intersocietal.org/Vascular) and Wendi Hercules., Mami Antony., et al. Carotid artery stenosis: monzon-scale and Doppler US diagnosis--Society of Radiologists in Ultrasound Consensus Conference. Radiology. 2003 Nov; 229(2):340-6. Pat.Name: NITHIN BOJORQUEZ.ID: [id number] .Date: 05/05/2018 Refer.MD: CLAUDIO SANCHES MD Exam Time: 11:42:00 AM Study Type:Carotid Age: 7 1970,48Y Sex: FEMALE Sonogrphr: Yanci Durbin RVT Pat. Stat.:Inpatient Room: [facility] Tape Vol: [place], CPT - 4: [address] Echo Event ID:[id number] Order ID: [id number] Reason for Study:Multiple episodes of syncope and [...] Frantz Lawrence MD, RPVI Performing Organization Address [facility]/[place] Phone Number [facility] [address] [place] [address] Cv ecg exercise stress (nuclear or echo) (05/05/2018 11:08 AM CDT) Resting HR 53 [facility] MUSE Resting BP 103 [facility] MUSE Peak MET Achieved 1.0 [facility] MUSE Protocol Name REGADENO [facility] MUSE Time in Exercise Phase 00:01:00 [facility] MUSE Max Systolic BP 106 [facility] MUSE Max Diastolic BP 53 [facility] MUSE Max Heart Rate 70 [facility] MUSE Max Predicted Heart Rate 174 [facility] MUSE Target HR Formula (220 - Age)*100% [facility] MUSE Test Indication chest pain [facility] MUSE Stress Test Impression -Waveform interpreted in report [facility] MUSE associated with image study. No interpretation is provided as part of this Stress ECG report.-Electronically Signed By Esme HOUSTON, Barbara Barfield ([id number]), scientific editor Rosmery Romo (21) on 05/05/2018 10:51:23 AM Target HR 147.90 bpm [facility] MUSE Performing Organization Address [facility]/[place] Phone Number [facility] [address] [place] [address] Myocardial perfusion (05/05/2018 11:08 AM CDT) Narrative Performed At [facility] Nuclear Cardiology and Cardiac CT [address] [address] Myocardial Perfusion Imaging Report Stress ECG tracings are available in MUSE, EPIC and CV Web All ECG interpretations are included in this report Pat.Name:NITHIN BOJORQUEZ Pat.ID:[id number] .Date: 05/05/2018 Refer.MD:BARBARA DOUGLASS MD Exam Time: 10:24:00 AM Study Type:Myocardial Perfusion Imaging Height:63inWeight: 216lb BSA: 2 i7TYTPxo:1970,48Y Sex: FEMALEBP:103/55 HR:53 bpmHCT: 38 % Nuclear Tech:Francy Woodward [facility]/Sanya Salazar [facility] Pat. Stat.:Outpatient Nuclear Event ID:[id number] Order ID:[id number] Reason for Study:Chest pain, unspecified* History / [...] PM CDT Nuclear Cardiology and Cardiac CT [address] [place] [address] Myocardial Perfusion Imaging Report Stress ECG tracings are available in [employer], [employer] and [employer] All ECG interpretations are included in this report Pat.Name: NITHIN BOJORQUEZ Pat.ID: [id number] .Date: 05/05/2018 Refer.MD: BARBARA DOUGLASS MD Exam Time: 10:24:00 AM Study Type:Myocardial Perfusion Imaging Height: 63in Weight: 216lb BSA: 2 m2 Age: 7 1970,48Y Sex: FEMALE BP: 103/55 HR: 53 bpm HCT: 38 % Nuclear Tech:ROB Acosta/Sanya Salazar [employer]ETING AND PUBLIC RELATIONS MANAGER Pat. Stat.:Outpatient Nuclear Event ID:[id number] Order ID: [id number] Reason for Study:Chest pain, unspecified* History / [...] Organization Address City/State/Zipcode Phone Number [facility] [address] [place] [address] Echocardiogram complete w contrast and 3D if needed (05/05/2018 8:30 AM CDT) Narrative Performed At [facility] Echocardiography Report [address] [facility] [address], [place] [address] Pat.Name:NITHIN BOJORQUEZ.ID:[id number] .Date: 05/05/2018 Refer.MD:CARMEN MCCORMICK MD Exam Time: 6:40:00 AMStudy Type:Routine Echo Height:63inWeight: 216lb BSA: 2 [id number]:1970,48Y Sex: FEMALEBP:99/51 HR:51 bpmSonogrphr: THADDEUS Mancia Pat. Stat.:Inpatient Room:[facility] Study Status:Final Echo Event ID:[id number] Order ID:[id number] Reason for Study:Chest pain, suspected cardiac etiology [...] PA systolic pressure. MEASUREMENTS: 2D Parasternal Long Sarepta LVOT 2.2 cmLA Ds3.5 cm LVIDd4.9 cmIndex2.5 cm/m Ao Rtd 3.3 cm Index1.7 cm/m LVIDs3.1 cmLV Xgfp240.7 g(87-129) LV%fs 37.6 % LVM Index 80.8 g/m2 IVSd 1 cmRWT0.3 LVPWd0.8 cm Signed 05/05/2018 02:34 PM Lisa Castaneda M.D. Procedure Note Interface, Radiology Results In - 05/05/2018 2:35 PM CDT Echocardiography Report [address]Name: NITHIN BOJORQUEZ Radha.ID: [id number] .Date: 05/05/2018 Refer.MD: CARMEN MCCORMICK MD Exam Time: 6:40:00 AM Study Type:Routine Echo Height: 63in Weight: 216lb BSA: 2 m2 Age: 7 1970,48Y Sex: FEMALE BP: 99/51 HR: 51 bpm Sonogrphr: THADDEUS Mancia Pat. Stat.:Inpatient Room: [facility] Study Status:Final Echo Event ID:[id number] Order ID: [id number] Reason for Study:Chest pain, suspected cardiac etiology [...] PA systolic pressure. MEASUREMENTS: 2D Parasternal Long Sarepta LVOT 2.2 cm LA Ds 3.5 cm LVIDd 4.9 cm Index 2.5 cm/m Ao Rtd 3.3 cm Index 1.7 cm/m LVIDs 3.1 cm LV Mass 161.7 g (87-129) LV%fs 37.6 % LVM Index 80.8 g/m2 IVSd 1 cm RWT 0.3 LVPWd 0.8 cm Signed 05/05/2018 02:34 PM Lisa Castaneda M.D. Performing Organization Address City/State/Zipcode Phone Number [facility] [address] [place] [address] ECG 12 lead (05/05/2018 5:36 AM CDT)Only the most recent of2 resultswithin the time period is included. Ventricular rate 52 [facility] Atrial rate 52 [facility] VA interval 140 [facility] QRSD interval 88 [facility] QT interval 482 [facility] QTC interval 448 [facility] P axis 1 39 [facility] QRS axis 1 11 [facility] T wave axis 47 [facility] EKG impression Sinus bradycardia-Low voltage QRS-Borderline [facility] MUSE ECG-In automated comparison with ECG of 04-MAY-2018 15:03,-Change in inferior and anterior forces now noted- Performing Organization Address [facility] Phone Number [facility] MUSE [address] [place] [address] Troponin (05/05/2018 5:35 AM CDT)Only the most recent of2 resultswithin the time period is included. Troponin <0.30 0.00 - 0.30 ng/mL [facility] DEPARTMENT OF PATHOLOGY Comment: AND GENOMIC MEDICINE 0.30 - 1.49 ng/mlMay indicate increased risk of acute coronary syndrome. >=1.5 ng/mlConsistent with acute myocardial infarction. The diagnostic value of a single normal or non-diagnostic result is questionable.Serial samples at 2-6 hour intervals are required to rule out acute myocardial injury. Specimen Plasma specimen Performing Organization Address [facility]/[place] Phone Number [facility] DEPARTMENT OF PATHOLOGY AND [address] [place], [place] [address] [facility] hCG qualitative, urine screen (05/05/2018 4:31 AM CDT) hCG qualitative, urine NegativeComment: [facility] DEPARTMENT OF Sensitivity of HCG test: 25 PATHOLOGY AND GENOMIC mIU/mL MEDICINE Specimen Urine Performing Organization Address [facility]/[place] Phone Number [facility] DEPARTMENT OF PATHOLOGY AND [address] [place] [address] [facility] Urine drugs of abuse screen (05/05/2018 4:31 AM CDT) Amphetamine screen, urine Negative [facility] DEPARTMENT OF PATHOLOGY AND GENOMIC MEDICINE Barbiturate screen, urine Negative [facility] DEPARTMENT OF PATHOLOGY AND GENOMIC MEDICINE Benzodiazepine screen, Negative [facility] DEPARTMENT OF urine PATHOLOGY AND GENOMIC MEDICINE Cannabinoid screen, urine Negative [facility] DEPARTMENT OF PATHOLOGY AND GENOMIC MEDICINE Cocaine screen, urine Negative [facility] DEPARTMENT OF PATHOLOGY AND GENOMIC MEDICINE Methadone metabolite Negative [facility] DEPARTMENT OF (EDDP), urine PATHOLOGY AND GENOMIC MEDICINE Opiates screen, urine Negative [facility] DEPARTMENT OF PATHOLOGY AND GENOMIC MEDICINE Oxycodone screen, urine Negative [facility] DEPARTMENT OF PATHOLOGY AND GENOMIC MEDICINE Phencyclidine screen, urine Negative [facility] DEPARTMENT OF PATHOLOGY AND GENOMIC MEDICINE Tricyclic screen, urine Negative [facility] DEPARTMENT OF Comment: PATHOLOGY AND GENOMIC Drug screen minimum concentration of detectability MEDICINE Qcvvvqbsausq2540 ng/mL Barbiturates 200 ng/mL Zcebhonvmuweuoi843 ng/mL Shniyzw000 ng/mL Aftyhyiqs029 ng/mL Rqaquxc285 ng/mL Tguciofmd307 ng/mL Phencyclidine 25 ng/mL Ftaubfzlwdat97 ng/mL Htmtixpggf2640 ng/mL Negative test results indicates presumptive evidence of lack of clinically significant drug concentration in this urine specimen. Positive test results are presumptive evidence of clinically significant drug concentration in this urine specimen. Testing performed for medical purposes only. Specimen Urine Performing Organization Address City/[facility] Phone Number [facility] DEPARTMENT OF PATHOLOGY AND [address] [place] [address] Checkd[employer]In [facility] Prothrombin time with INR (05/05/2018 4:22 AM CDT) Prothrombin time 13.6 12.0 - 15.0 sec [facility] DEPARTMENT OF PATHOLOGY AND GENOMIC MEDICINE INR 1.0 [facility] DEPARTMENT OF Comment: PATHOLOGY AND GENOMIC The International Normalized Ratio (INR) is a therapeutic MEDICINE monitoring tool for patients who are stable on oral anticoagulant therapy. An INR of 2.0-3.0 is suggested for deep vein thrombosis/pulmonary embolism. Specimen Blood Performing Organization Address City/[facility] Phone Number [facility] DEPARTMENT OF PATHOLOGY AND [address] [place] [address] Thyroid stimulating hormone (05/05/2018 4:22 AM CDT) TSH 6.15 (H) 0.27 - 4.20 uIU/mL [facility] DEPARTMENT OF PATHOLOGY AND GENOMIC MEDICINE Specimen Plasma specimen Performing Organization Address [facility] Phone Number [facility] DEPARTMENT OF PATHOLOGY AND [address] [place] [address] [employer]In [facility] Lipid panel (05/05/2018 4:22 AM CDT) Cholesterol 177 <200 mg/dL [facility] DEPARTMENT OF PATHOLOGY AND GENOMIC MEDICINE Triglycerides 105 <150 mg/dL [facility] DEPARTMENT OF PATHOLOGY AND GENOMIC MEDICINE HDL cholesterol 45 >40 mg/dL [facility] DEPARTMENT OF PATHOLOGY AND GENOMIC MEDICINE LDL cholesterol 114 (H)Comment: Result <100 mg/dL [facility] DEPARTMENT OF obtained by direct LDL PATHOLOGY AND GENOMIC measurement MEDICINE Lipid panel interpretation SeeBelow [facility] DEPARTMENT OF Comment: PATHOLOGY AND GENOMIC Total Cholesterol (mg/dL) MEDICINE <200 Desirable 597-628Eqbuqbocpg-oxed >=240High Triglycerides (mg/dL) <150 Normal 188-672Ekzlrtpolp-daqm 200-499High >=500Very high HDL Cholesterol (mg/dL) <40Low (male) <40Low (female) LDL Cholesterol (mg/dL) <100 Optimal 100-129Near or above optimal 446-285Pwaypwmdds-vaen 160-189High >=190Very high Risk Catergories that modify [...] specimen Performing Organization Address City/State/Zipcode Phone Number [facility] DEPARTMENT OF PATHOLOGY AND [address] [place] [address] CT Cervical Spine W Contrast (05/04/2018 8:55 [...] neural foraminal stenosis. IMPRESSION: No acute abnormality. [facility]-[id number] Procedure Note Interface, Radiology Results Incoming - [...] neural foraminal stenosis. IMPRESSION: No acute abnormality. [facility]-[id number] Performing Organization Address [facility]/[place] Phone Number [employer] [address] [place] [id number] ECG ED Preliminary Interpretation - NOT AN ORDER (05/04/2018 6:01 PM CDT) Narrative Performed At Claudio Sanches MD 05/09/20182:00 AM ECG ED Preliminary Interpretation - Not an Order Performed by: CLAUDIO SANCHES Authorized by: CLAUDIO SANCHES ECG reviewed by ED Physician in the absence of a political analyst: yes Previous ECG: Previous ECG:Unavailable Interpretation: [...] CDT) ALT 14 5 - 50 U/L [facility] DEPARTMENT OF PATHOLOGY AND GENOMIC MEDICINE Specimen Plasma specimen Performing Organization Address [facility]/[place] Phone Number [facility] DEPARTMENT OF PATHOLOGY AND [address] [place] [id number] [facility] AST (SGOT) (05/04/2018 5:50 PM CDT) AST 13 10 - 35 U/L [facility] DEPARTMENT OF PATHOLOGY AND GENOMIC MEDICINE Specimen Plasma specimen Performing Organization Address [facility]/[place] Phone Number [facility] DEPARTMENT OF PATHOLOGY AND [address] [place] [phone] [facility] Potassium level (05/04/2018 5:50 PM CDT) Potassium 4.1 3.5 - 5.0 mEq/L [facility] DEPARTMENT OF PATHOLOGY AND GENOMIC MEDICINE Specimen Plasma specimen Performing Organization Address City/State/Zipcode Phone Number [facility] DEPARTMENT OF PATHOLOGY AND [address] [place] [address] [facility] MEDICINE B natriuretic peptide (05/04/2018 4:54 PM CDT) BNP 43 0 - 100 pg/mL [facility] DEPARTMENT OF PATHOLOGY AND GENOMIC MEDICINE Specimen Blood Narrative Performed At Unable to perform testing, specimen is [facility] DEPARTMENT OF PATHOLOGY AND GENOMIC HEMOLYZED.Recollect MEDICINE requested for K, AST, ALT,ALP(tests). ROGE CELESTE/HUNTER(name/location) notified by PC(tech ID) at05/04/2018 17:31(date/time). Performing Organization Address [facility] Phone Number [facility] DEPARTMENT OF PATHOLOGY AND [address] [place] [address] GENOMIC MEDICINE XR Chest 2 Vw (05/04/2018 3:29 PM CDT) Narrative Performed At EXAMINATION:XR CHEST 2 VW [facility] CLINICAL HISTORY:Chest painACS suspected COMPARISON:None Technique:PA and lateral chest radiographs are obtained. IMPRESSION: 1.The lungs are clear. 2.There is no pleural fluid or pneumothorax. 3.The heart size and mediastinal contours are within normal limits. 4.There is no significant skeletal abnormality. [id number] Procedure Note Hm Interface, Radiology Results Incoming [...] 4. There is no significant skeletal abnormality. [id number] Performing Organization Address City/[facility]/Zipcode Phone Number [facility] [address] [place] [address] after 12/03/2017 Insurance Payer Benefit Plan / Group Subscriber ID Type Phone Address [employer] OPEN ACCESS/NETWORK xxxxxxxxxxx HMO Advance Directives Patient has advance care planning documents on file. For more information, please contact:Félix Madsen[address] [place] [address]
--- OUTSIDE RECORDS SUMMARY | 2018-12-04 06:27 | XMS REPORT ---
[...] Start End Status Dosage System Date Date [place] ND 47941898615 300 MG Orally Active 3 capsule at Carbonate Once a day bedtime Fish Oil ND 00627364298 1000 MG Orally Active 1 capsule Once a day Multivitamin ND 23032282619 - Orally Active as directed Women Trazodone HCl ND 64227196724 100 MG Orally Active 2 tablet at Once a day bedtime as needed Melatonin ND 86765453461 10 MG Orally Active 3 capsule at bedtime as needed with food Dicyclomine HCl ND 89230805075 20 mg Orally Up Active 1 tablet as to 4x daily needed for abdominal pain Tramadol HCl ND 71950806755 50 MG Orally May 15May Active 1 tablet as Twice daily 2018 03, needed for 2017 pain Vitamin B [facility] 80178728356 - Orally Active as directed Complex Fluoxetine HCl [facility] 24525803154 20 MG Orally Active 1 capsule in Once a day the morning Results No Known Results Summary Purpose eClinicalWorks Submission
--- OUTSIDE RECORDS SUMMARY | 2018-12-04 06:27 | XMS REPORT ---
[...] Start End Status Dosage System Date Date [place] ND 06884891274 300 MG Orally Active 3 capsule at Carbonate Once a day bedtime Multivitamin ND 26737590005 - Orally Active as directed Women Vitamin B ND 92675823313 - Orally Active as directed Complex Trazodone HCl ND 36862604686 100 MG Orally Active 2 tablet at Once a day bedtime as needed Melatonin ND 38778238848 10 MG Orally Active 3 capsule at bedtime as needed with food Dicyclomine HCl ND 28400224223 20 mg Orally Up Active 1 tablet as to 4x daily needed for abdominal pain Fish Oil [facility] 20860830343 1000 MG Orally Active 1 capsule Once a day Lyrica [facility] 39455614615 100 MG Orally Aug 14, Active 1 capsule Three times a 2017 day Fluoxetine HCl [facility] 22851081793 20 MG Orally Active 1 capsule in Once a day the morning Results No Known Results Summary Purpose eClinicalWorks Submission
--- OUTSIDE RECORDS SUMMARY | 2018-12-04 06:27 | XMS REPORT ---
[...] End Status Dosage System Date Date Multivitamin [facility] 26240876107 - Orally Active as directed Women Vitamin B [facility] 48064867705 - Orally Active as directed Complex Trazodone HCl ND 18487790619 100 MG Orally Active 2 tablet at Once a day bedtime as needed [place] ND 41341838303 300 MG Orally Active 3 capsule at Carbonate Once a day bedtime Melatonin ND 67654493610 10 MG Orally Active 3 capsule at bedtime as needed with food Fluoxetine HCl ND 68673105222 20 MG Orally Active 1 capsule in Once a day the morning Fish Oil ND 13170670753 1000 MG Orally Active 1 capsule Once a day Dicyclomine HCl ND 33375177005 20 mg Orally Up April 16May 16, Active 1 tablet as to 4x daily 2017 2017 needed for abdominal pain Results No Known Results Summary Purpose eClinicalWorks Submission
--- OUTSIDE RECORDS SUMMARY | 2018-12-04 06:27 | XMS REPORT ---
[...] Status Dosage System Date Date Fish Oil [facility] 58517646266 1000 MG Orally Active 1 capsule Once a day Multivitamin ND 31567903216 - Orally Active as Women directed Fluoxetine HCl ND 41333729889 20 MG Orally Active 1 capsule [place] [address]-32 300 MG Orally Active 3 capsule Carbonate Once a day at bedtime Trazodone HCl [facility] [address]-54 100 MG Orally Active 2 tablet Once a day at bedtime as needed Vitamin B ND 62289085955 - Orally Active as Complex directed Melatonin [facility] [address] 10 MG Orally Active 3 capsule at bedtime as needed with food Results Name Result Date Reference Range Unit Abnormality Flag Electrocardiogram (EKG) Summary Purpose eClinicalWorks Submission
[2018-12-04] MEDS ORDERED: Ringers Lactate 1,000 ML IV ONE (07:02)
[2018-12-04] MEDS ORDERED: PROPOFOL 200 MG/20 ML VIAL IV ONE (07:03)
[2018-12-04] MEDS ORDERED: FENTANYL CITR 100 MCG/2 ML ONE (07:03)
[2018-12-04] MEDS ORDERED: CEFAZOLIN/SWI 1gm 2 GM/20 ML SYR ONE (07:03)
[2018-12-04] MEDS ORDERED: ONDANSETRON 4 MG/2 ML VIAL ONE (07:04)
[2018-12-04] MEDS ORDERED: LIDOCAINE 2% MPF 5 ML VIAL ONE (07:04)
[2018-12-04] MEDS ORDERED: MIDAZOLAM HCL 2 MG/2 ML INJ ONE ×2 (07:04→10:38)
[2018-12-04] MEDS ORDERED: ROCURONIUM 50 MG/5 ML VIAL IV ONE (07:04)
[2018-12-04] MEDS ORDERED: LIDOCAINE 1% MPF 5 ML VIAL ONE (07:05)
[2018-12-04] MEDS ORDERED: BUPIVACAINE 0.5% PF 10 ML VIAL ONE (07:21)
[2018-12-04] MEDS ORDERED: NEOSTIGMINE 1 MG/ML -10 ML VIAL ONE (09:34)
[2018-12-04] MEDS ORDERED: GLYCOPYRROLATE 0.2 MG/ML SYR ONE (09:34)
[2018-12-04] MEDS: MORPHINE 4 MG/ML SYR ONE ×2 (10:08→10:14)
[2018-12-04] MEDS: HYDROMORPHONE HCL 1 MG/ML INJ ONE ×2 (10:23→10:28)
[2018-12-04] MEDS ORDERED: PROMETHAZINE 25 MG/ML VIAL ONE (10:30)
[2018-12-04] MEDS ORDERED: MEPERIDINE HCL 25 MG/0.5 ML ONE (11:15)
[2018-12-04 11:32] VITALS: TEMP 98.6
[2018-12-04] MEDS ORDERED: TRAMADOL HCL 50 MG TAB ONE (11:51)
[2018-12-04] MEDS ORDERED: HYDROCODONE/APAP 10/325 TAB ONE (12:27)
[2018-12-04 12:58] VITALS: BP 124/70; O2SAT 96
--- NOTE | 2018-12-04 20:01 | DS ---
Date of Discharge: 12/04/2018 Hospital Course: The patient underwent diagnostic laparoscopy, lysis of numerous thick adhesions, ap pendectomy, right salpingectomy, left salpingo-oophorectomy. Specimen sent to Pathology. Minimal bl ood loss. She had been given 2 g of Ancef for prophylaxis. She will be observed for 2-3 hours posto peratively, and if she does well, she will be dismissed. To return to my office in 1 week for follow up, to report any temperature elevation of 100 degrees or greater, severe pain, heavy bleeding, or an y other type of abnormalities. Dismissed with tramadol for analgesia. Final Diagnoses: Left lower quadrant pain, diagnostic laparoscopy with numerous adhesions removed, r ight salpingectomy, left salpingo-oophorectomy, and appendectomy. NIKKI/VIOLETA Voice ID: [id number] Report ID: [id number]
--- NOTE | 2018-12-04 20:01 | OP ---
Surgeon: Jose Luis Delgadillo MD Indications: A 48-year-old female with left lower quadrant discomfort. Full preoperative counseling concerning procedures and possible complications, including infection, blood loss, anesthetic compli cations, injury to bladder, bowel, ureter, postoperative complications, clots in legs, pneumonia. Th e patient knows fully well this surgery does not guarantee that her discomfort will stop. Additional Surgeon: Dr. Allen. Ext Js Developer Surgeon: Dr. Delgadillo. Description Of Procedure: After adequate general anesthesia, prepped and draped, and time-out was pe rformed, visualizing instruments were placed above the umbilicus. Noted to be dense adhesions of the omentum to the anterior abdominal wall. These were removed piecemeal by fulguration. At this point , the uterus was seen, noted to be basically normal. The right ovary was normal. Both tubes were sw ollen and inflamed, and the left ovary had a 3 cm cystic lesion. It was decided to remove both tubes , which were done with LigaSure, fulguration. The left tube and ovary were both removed. The right ovary though appeared completely normal and therefore it was decided to leave the right ovary. The a ppendix was noted to have a fecalith in the base, and therefore the appendix was removed. All specim ens were removed. Re-evaluation of the pelvis showed no further spotting or bleeding. At this point , all instruments were removed, and the incisions were closed. The patient had been given 2 g of Anc ef for prophylaxis. Tolerated all procedures well. Transferred to the recovery room in good conditi on. Final Diagnoses: Left lower quadrant pain, diagnostic laparoscopy with lysis of numerous adhesions, right salpingectomy, left salpingo-oophorectomy, and appendectomy. NIKKI/VIOLETA Voice ID: [id number] Report ID: [id number]
--- NOTE | 2018-12-04 20:13 | OP ---
Date of Procedure: 12/04/2018 Surgeon: Bartolome Allen MD INTRAOPERATIVE CONSULTATION Essentially, the patient is a 48-year-old female, who was undergoing a diagnostic laparoscopy for low er pelvic pain. Had a left ovarian cyst seen on an endovaginal ultrasound. Had a diagnostic laparos copy and lysis of adhesions done about 6 weeks ago. The patient still has her appendix and was compl aining of bilateral lower pelvic pain. Therefore, Dr. Delgadillo is going to dictate portion of the case involving the lysis of adhesion, the salpingectomy, and left ovarian oophorectomy with the cyst remov al as well. I will dictate the appendix portion of it. Essentially the small bowel and large bowel were within normal limits. The appendix itself had appen dicoliths, which were visible. Then the mesoappendix was divided with ligature and the Endo-DARCY stap ling device was used to divide the base of the appendix on the cecum, and then all specimen was retri eved through the umbilicus via an EndoCatch bag. The entire pelvis and abdomen were examined. No ev idence of bleeding or bowel injury appreciated. All trocars were removed under direct vision. Stay sutures were tied to each other to approximate the fascial defect. Subcutaneous wounds were irrigate d. Bleeding controlled with cautery. 3-0 chromic was used to approximate the subcutaneous tissue an d close the skin. Sterile dressing was applied. The patient was awakened and taken to Recovery in g ood general condition. /MODL Voice ID: [id number] Report ID: [id number]
--- NOTE | 2018-12-08 09:51 | PREOPHP ---
Date of Admission: 12/04/2018 History Of Present Illness: This is a 48-year-old female with left lower quadrant discomfort. The p atient has had surgery not that long ago for possible hernias, noted to have a right ovarian cyst and swollen tube on the right side. Says the pain that was on the left side and thinks the surgeon got mixed up. Pros and cons of this thoroughly discussed. We have also offered before and today expecta nt management. She does not wish to wait. Infection, blood loss, anesthetic complications, injury t o bladder, bowel, ureter; postoperative complications, clots in legs discussed. The patient knows th is does not constitute all the possible problems that could occur during or following surgery and kno ws that even if we remove both tubes and ovaries and the appendix that does not guarantee that she wi ll not continue to have the discomfort. is in attendance today and has no questions. Past History: Really not contributory as far as the current problem. Review of Systems: Noncontributory. Physical Examination: HEENT: Clear. Pupils are equal, round, and reactive to light and accommodation. Conjunctivae well perfused. No oral, lingual, or buccal lesions. Chest and lungs: Clear. Heart: Without murmurs, thrills, heaves, or rubs. Breasts: Not examined. Abdomen: Obese. Not really tender. Pelvic: Shows no major tenderness but more or so on the left than on the right. No masses can be pa lpated. Extremities: Clear without major edema, cyanosis, or clubbing. Plan: We have the patient cleared for diagnostic laparoscopy, possible bilateral salpingo oophorecto my, possible appendectomy. We will discuss at the time of surgery. She knows that how will be the main surgeon and I will be assisting and if we do the appendix, she may need to stay overnight. NIKKI/VIOLETA Voice ID: [id number]
== END 2018-12-04 13:06 | disposition home or self-care (01) ==
LOC: OR 06:14
PROVIDERS: ATTEND Specialist
PROC: 0UT14ZZ Resection of Left Ovary, Percutaneous Endoscopic Approach (ICD-10-PCS; 2018-12-04)
PROC: 0DTJ4ZZ Resection of Appendix, Percutaneous Endoscopic Approach (ICD-10-PCS; principal; 2018-12-04 07:30)
PROC: 0UT74ZZ Resection of Bilateral Fallopian Tubes, Percutaneous Endoscopic Approach (ICD-10-PCS; 2018-12-04 07:30)
DX: K36 Other appendicitis (principal); D27.1 Benign neoplasm of left ovary; N83.12 Corpus luteum cyst of left ovary; K66.0 Peritoneal adhesions (postprocedural) (postinfection); N70.91 Salpingitis, unspecified
CPT/HCPCS: 36415; 81003; 81025; 85025; 85610; 85730; 86850; 86900; 86901; 88304; 88305; J0690; J1170; J2175; J2250; J2405; J2550; J2704; J2710; J3010

== ENCOUNTER 2018-12-07 15:07 | Emergency (ER) | payer OTHER ==
--- OUTSIDE RECORDS SUMMARY | 2018-12-07 15:10 | XMS REPORT | Clinical Summary ---
:1970 Author Organization [facility] [employer] Address [address] [place] [address] Care Team Providers Name Role Phone Mariana [...] Type Specialty Care Team Description 05/12/2018 Documentation Silk Soaker Mayte Rainey RN 05/04/2018 - Hospital Encounter General Internal Claudio Sanches History of fainting spells of unknown cause (Primary Dx); 05/11/2018 Medicine MD Iman Unstable angina; Joglekar, MD Daniel Reyes Dhruti Bharatbhai, MD after 12/06/2017 Social History Tobacco Use Types Packs/Day Years [...] are in SPECTRAL COLOR DOPPLER the results (68573) section. ECG 12-LEAD STAT 05/05/2018 5:36 Results [...] procedure are in the results section. after 12/06/2017 Results Continuous EEG monitoring (05/10/2018 7:33 PM [...] epileptiform activity was recorded. ICD-10 Code: R569 [place] level (05/09/2018 9:50 PM CDT)Only the most recent of5 resultswithin the time period is included. [place] 0.31 (L) 0.60 - 1.20 mmol/L [facility] DEPARTMENT OF PATHOLOGY AND GENOMIC MEDICINE Specimen Serum Performing Organization Address City/State/Zipcode Phone Number [facility] DEPARTMENT OF PATHOLOGY AND [address] [place] [address] [employer] EEG (routine) (05/09/2018 9:56 AM CDT) Narrative [...] GFR Non Af Amer >90 mL/min/1.73 m2 [facility] DEPARTMENT OF PATHOLOGY AND GENOMIC MEDICINE GFR Af Amer >90 mL/min/1.73 m2 [facility] DEPARTMENT OF Comment: PATHOLOGY AND GENOMIC Chronic [...] specimen Performing Organization Address City/State/Zipcode Phone Number [facility] DEPARTMENT OF PATHOLOGY AND [address] [place] [address] [employer] Basic metabolic panel (05/09/2018 4:55 AM CDT)Only the most recent of3 resultswithin the time period is included. Sodium 141 135 - 148 mEq/L [facility] DEPARTMENT OF PATHOLOGY AND GENOMIC MEDICINE Potassium 4.1 3.5 - 5.0 mEq/L [facility] DEPARTMENT OF PATHOLOGY AND GENOMIC MEDICINE Chloride 108 98 - 112 mEq/L [facility] DEPARTMENT OF PATHOLOGY AND GENOMIC MEDICINE CO2 21 (L) 24 - 31 mEq/L [facility] DEPARTMENT OF PATHOLOGY AND GENOMIC MEDICINE Anion gap 12@ANIO 7 - 15 mEq/L [facility] DEPARTMENT OF PATHOLOGY AND GENOMIC MEDICINE BUN 9 6 - 20 mg/dL [facility] DEPARTMENT OF PATHOLOGY AND GENOMIC MEDICINE Creatinine 0.7 0.5 - 0.9 mg/dL [facility] DEPARTMENT OF PATHOLOGY AND GENOMIC MEDICINE Glucose 100 (H) 65 - 99 mg/dL [facility] DEPARTMENT OF PATHOLOGY AND GENOMIC MEDICINE Calcium 8.3 8.3 - 10.2 mg/dL [facility] DEPARTMENT OF PATHOLOGY AND GENOMIC MEDICINE Specimen Plasma specimen Performing Organization Address City/[facility] Phone Number [facility] PATHOLOGY AND [address] [place] [address] [facility] CBC hemogram (05/09/2018 3:30 AM CDT)Only the most recent of2 resultswithin the time period is included. WBC 7.62 4.50 - 11.00 k/uL [facility] DEPARTMENT OF PATHOLOGY AND GENOMIC MEDICINE RBC 4.17 (L) 4.20 - 5.50 m/uL [facility] DEPARTMENT OF PATHOLOGY AND GENOMIC MEDICINE HGB 12.0 12.0 - 16.0 g/dL [facility] DEPARTMENT OF PATHOLOGY AND GENOMIC MEDICINE HCT 37.6 37.0 - 47.0 % [facility] DEPARTMENT OF PATHOLOGY AND GENOMIC MEDICINE MCV 90.2 82.0 - 100.0 fL [facility] DEPARTMENT OF PATHOLOGY AND GENOMIC MEDICINE MCH 28.8 27.0 - 34.0 pg [facility] DEPARTMENT OF PATHOLOGY AND GENOMIC MEDICINE MCHC 31.9 31.0 - 37.0 g/dL [facility] DEPARTMENT OF PATHOLOGY AND GENOMIC MEDICINE RDW - SD 47.9 37.0 - 55.0 fL [facility] DEPARTMENT OF PATHOLOGY AND GENOMIC MEDICINE MPV 9.6 8.8 - 13.2 fL [facility] DEPARTMENT OF PATHOLOGY AND GENOMIC MEDICINE Platelet count 246 150 - 400 k/uL [facility] DEPARTMENT OF PATHOLOGY AND GENOMIC MEDICINE Nucleated RBC 0.00 /100 WBC [facility] DEPARTMENT OF PATHOLOGY AND GENOMIC MEDICINE Performing Organization Address City/[facility] Facility[facility] Phone Number [facility] DEPARTMENT PATHOLOGY AND [address] [place] [address] [facility] MRI Brain Wo Contrast (05/08/2018 8:45 PM [...] gross abnormalities. IMPRESSION: No acute intracranial abnormality. [facility]-[id number] Procedure Note Interface, Radiology Results Incoming - [...] gross abnormalities. IMPRESSION: No acute intracranial abnormality. [facility]-[id number] Performing Organization Address City/State/Zipcode Phone Number [facility] [address] [place] [address] CBC with platelet and differential (05/08/2018 3:55 AM CDT)Only the most recent of3 resultswithin the time period is included. WBC 7.51 4.50 - 11.00 k/uL [facility] DEPARTMENT OF PATHOLOGY AND GENOMIC MEDICINE RBC 4.26 4.20 - 5.50 m/uL [facility] DEPARTMENT OF PATHOLOGY AND GENOMIC MEDICINE HGB 12.2 12.0 - 16.0 g/dL [facility] DEPARTMENT OF PATHOLOGY AND GENOMIC MEDICINE HCT 37.6 37.0 - 47.0 % [facility] DEPARTMENT OF PATHOLOGY AND GENOMIC MEDICINE MCV 88.3 82.0 - 100.0 fL [facility] DEPARTMENT OF PATHOLOGY AND GENOMIC MEDICINE MCH 28.6 27.0 - 34.0 pg [facility] DEPARTMENT OF PATHOLOGY AND GENOMIC MEDICINE MCHC 32.4 31.0 - 37.0 g/dL [facility] DEPARTMENT OF PATHOLOGY AND GENOMIC MEDICINE RDW - SD 47.1 37.0 - 55.0 fL [facility] DEPARTMENT OF PATHOLOGY AND GENOMIC MEDICINE MPV 9.5 8.8 - 13.2 fL [facility] DEPARTMENT OF PATHOLOGY AND GENOMIC MEDICINE Platelet count 227 150 - 400 k/uL [facility] DEPARTMENT OF PATHOLOGY AND GENOMIC MEDICINE Nucleated RBC 0.00 /100 WBC [facility] DEPARTMENT OF PATHOLOGY AND GENOMIC MEDICINE Neutrophils 57.3 39.0 - 69.0 % [facility] DEPARTMENT OF PATHOLOGY AND GENOMIC MEDICINE Lymphocytes 28.8 25.0 - 45.0 % [facility] DEPARTMENT OF PATHOLOGY AND GENOMIC MEDICINE Monocytes 6.4 0.0 - 10.0 % [facility] DEPARTMENT OF PATHOLOGY AND GENOMIC MEDICINE Eosinophils 5.5 (H) 0.0 - 5.0 % [facility] DEPARTMENT OF PATHOLOGY AND GENOMIC MEDICINE Basophils 0.9 0.0 - 1.0 % [facility] DEPARTMENT OF PATHOLOGY AND GENOMIC MEDICINE Immature granulocytes 1.1 (H)Comment: 0.0 - 1.0 % [facility] DEPARTMENT OF "Immature PATHOLOGY AND GENOMIC granulocytes" MEDICINE (promyelocytes, myelocytes, metamyelocytes) Specimen Blood Performing Organization Address City/State/Zipcode Phone Number [facility] DEPARTMENT OF PATHOLOGY AND [employer] [place] [address] [facility] CT Head Wo Contrast (05/07/2018 1:25 PM [...] No CT evidence of acute intracranial abnormality. [id number] Procedure Note Interface, Radiology Results Incoming - [...] No CT evidence of acute intracranial abnormality. [id number] Performing Organization Address City/State/Zipcode Phone Number [facility] [address] [place] [address] Comprehensive metabolic panel (05/07/2018 3:05 AM CDT)Only the most recent of3 resultswithin the time period is included. Sodium 139 135 - 148 mEq/L [facility] DEPARTMENT OF PATHOLOGY AND GENOMIC MEDICINE Potassium 3.7 3.5 - 5.0 mEq/L [facility] DEPARTMENT OF PATHOLOGY AND GENOMIC MEDICINE Chloride 106 98 - 112 mEq/L [facility] DEPARTMENT OF PATHOLOGY AND GENOMIC MEDICINE CO2 20 (L) 24 - 31 mEq/L [facility] DEPARTMENT OF PATHOLOGY AND GENOMIC MEDICINE Anion gap 13@ANIO 7 - 15 mEq/L [facility] DEPARTMENT OF PATHOLOGY AND GENOMIC MEDICINE BUN 11 6 - 20 mg/dL [facility] DEPARTMENT OF PATHOLOGY AND GENOMIC MEDICINE Creatinine 0.7 0.5 - 0.9 mg/dL [facility] DEPARTMENT OF PATHOLOGY AND GENOMIC MEDICINE Glucose 112 (H) 65 - 99 mg/dL [facility] DEPARTMENT OF PATHOLOGY AND GENOMIC MEDICINE Calcium 9.2 8.3 - 10.2 mg/dL [facility] DEPARTMENT OF PATHOLOGY AND GENOMIC MEDICINE Protein 6.2 (L) 6.3 - 8.3 g/dL [facility] DEPARTMENT OF Comment: PATHOLOGY AND GENOMIC 4.6-7.0 g/dL MEDICINE 1 week 4.4-7.6 g/dL 7 months-1year5.1-7.3 g/dL 1-2 years5.6-7.5 g/dL >3 years6.0-8.0 g/dL 18-150 6.3-8.3 g/dL Albumin 3.2 (L) 3.5 - 5.0 g/dL [facility] DEPARTMENT OF PATHOLOGY AND GENOMIC MEDICINE A/G ratio 1.1 0.7 - 3.8 [facility] DEPARTMENT OF PATHOLOGY AND GENOMIC MEDICINE Alkaline phosphatase 47 35 - 104 U/L [facility] DEPARTMENT OF PATHOLOGY AND GENOMIC MEDICINE AST 16 10 - 35 U/L [facility] DEPARTMENT OF PATHOLOGY AND GENOMIC MEDICINE ALT 9 5 - 50 U/L [facility] DEPARTMENT OF PATHOLOGY AND GENOMIC MEDICINE Total bilirubin <0.2 0.0 - 1.2 mg/dL [facility] DEPARTMENT OF PATHOLOGY AND GENOMIC MEDICINE Specimen Plasma specimen Performing Organization Address City/[facility] Phone Number [facility] DEPARTMENT OF PATHOLOGY AND [address] [place] [address] Magnesium level (05/06/2018 3:38 AM CDT) Magnesium 1.8 1.6 - 2.6 mg/dL [facility] DEPARTMENT OF PATHOLOGY AND GENOMIC MEDICINE Specimen Plasma specimen Performing Organization Address City/[facility] Phone Number [facility] DEPARTMENT OF PATHOLOGY AND [address] [place] [address] Pv carotid duplex (05/05/2018 12:23 PM CDT) Narrative Performed At [facility] Vascular Ultrasound Laboratory Carotid Artery Duplex Report [address] [place] [address] 9, [place] [address] For quality management coordinator purposes, the categorization of the degree of the stenosis of this exam is based on criteria described in the IAC carotid stenosis grading white paper( www.intersocietal.org/Vascular) and Ml Hercules, Daphne Antony, et al. Carotid artery stenosis: monzon-scale and Doppler US diagnosis--Society of Radiologists in Ultrasound Consensus Conference. Radiology. 2003 Nov; 229(2):340-6. Pat.Name:NITHIN BOJORQUEZ Pat.ID:[id number] .Date: 05/05/2018 Refer.MD:CLAUDIO SANCHES MD Exam Time: 11:42:00 AM Study Type:Carotid DOBAge:1970,48Y Sex: FEMALE Sonogrphr: Yanci Durbin RVBobbi. Stat.:Inpatient Room:[id number]: [place], CPT - 4: [address]124 Echo Event ID:[id number] Order ID:[id number] Reason for Study:Multiple episodes of syncope and [...] EDV20.6 cm/s Right CCA Mid CCA Mid [id number] cm/sCCA Mid EDV 27.3 cm/s Right CCA [...] EDV19.5 cm/s Left CCA Mid CCA Mid [id number] cm/sCCA Mid EDV 27.4 cm/s Left CCA [...] Vascular Ultrasound Laboratory Carotid Artery Duplex Report [address] [place] [address] For quality management coordinator purposes, the categorization of the degree of the stenosis of this exam is based on criteria described in the IAC carotid stenosis grading white paper( www.intersocietal.org/Vascular) and Wendi Hercules., Mami Antony., et al. Carotid artery stenosis: monzon-scale and Doppler US diagnosis--Society of Radiologists in Ultrasound Consensus Conference. Radiology. 2003 Nov; 229(2):340-6. Pat.Name: NITHIN BOJORQUEZ.ID: [id number] .Date: 05/05/2018 Refer.MD: CLAUDIO SANCHES MD Exam Time: 11:42:00 AM Study Type:Carotid Age: 9 1970,48Y Sex: FEMALE Sonogrphr: Yanci Durbin RVT Pat. Stat.:Inpatient Room: [facility] Tape Vol: [place], CPT - 4: [address]32 Echo Event ID:[id number] Order ID: [id number] Reason for Study:Multiple episodes of syncope and [...] Frantz Lawrence MD, RPVI Performing Organization Address [facility] Phone Number [facility] [address] [place] [address] Cv ecg exercise stress (nuclear or echo) (05/05/2018 11:08 AM CDT) Resting HR 53 [facility] MUSE Resting BP 103 [facility] MUSE Peak MET Achieved 1.0 [facility] MUSE Protocol Name REGADENO [facility] MUSE Time in Exercise Phase 00:01:00 [facility] MUSE Max Systolic BP 106 [facility] MUSE Max Diastolic BP 53 [facility] MUSE Max Heart Rate 70 [facility] MUSE Max Predicted Heart Rate 174 [facility] MUSE Target HR Formula (220 - Age)*100% [facility] MUSE Test Indication chest pain [facility] MUSE Stress Test Impression -Waveform interpreted in report [facility] MUSE associated with image study. No interpretation is provided as part of this Stress ECG report.-Electronically Signed By Esme HOUSTON, Barbara Barfield ([id number]), fashion editor Rosmery Romo ([id number]) on 05/05/2018 10:51:23 AM Target HR 147.90 bpm [facility] MUSE Performing Organization Address [facility] Phone Number [facility] [address] [place] [address] Myocardial perfusion (05/05/2018 11:08 AM CDT) Narrative Performed At [facility] Nuclear Cardiology and Cardiac CT [address] [address] Myocardial Perfusion Imaging Report Stress ECG tracings are available in MUSE, EPIC and CV Web All ECG interpretations are included in this report Pat.Name:NITHIN BOJORQUEZ Pat.ID:[id number] .Date: 05/05/2018 Refer.MD:BARBARA DOUGLASS MD Exam Time: 10:24:00 AM Study Type:Myocardial Perfusion Imaging Height:63inWeight: 216lb BSA: 2 z9RQPByz:1970,48Y Sex: FEMALEBP:103/55 HR:53 bpmHCT: 38 % Nuclear Tech:Francy Woodward [facility]/Sanya Salazar [facility] Pat. Stat.:Outpatient Nuclear Event ID:[id number] Order ID:[id number] Reason for Study:Chest pain, unspecified* History / [...] CDT Nuclear Cardiology and Cardiac CT [address] [place] [address] Myocardial Perfusion Imaging Report Stress ECG tracings are available in [employer]: [employer], [employer] and [employer] All ECG interpretations are included in this report Pat.Name: NITHIN BOJORQUEZ Pat.ID: [id number] .Date: 05/05/2018 Refer.MD: BARBARA DOUGLASS MD Exam Time: 10:24:00 AM Study Type:Myocardial Perfusion Imaging Height: 63in Weight: 216lb BSA: 2 m2 Age: 7 1970,48Y Sex: FEMALE BP: 103/55 HR: 53 bpm HCT: 38 % Nuclear Tech:ROB Acosta/Sanya Salazar [employer] Pat. Stat.:Outpatient Nuclear Event ID:[id number] Order ID: [id number] Reason for Study:Chest pain, unspecified* History / [...] Organization Address City/State/Zipcode Phone Number [facility] [address] [place] [address] Echocardiogram complete w contrast and 3D if needed (05/05/2018 8:30 AM CDT) Narrative Performed At [facility] Echocardiography Report [address] [facility] [address], [place] [address] Pat.Name:NITHIN BOJORQUEZ.ID:[id number] .Date: 05/05/2018 Refer.MD:CARMEN MCOCRMICK MD Exam Time: 6:40:00 AMStudy Type:Routine Echo Height:63inWeight: 216lb BSA: 2 a3EFLZea:1970,48Y Sex: FEMALEBP:99/51 HR:51 bpmSonogrphr: THADDEUS Mancia Pat. Stat.:Inpatient Room:[facility] Study Status:Final Echo Event ID:[id number] Order ID:[id number] Reason for Study:Chest pain, suspected cardiac etiology [...] PA systolic pressure. MEASUREMENTS: 2D Parasternal [place] LVOT 2.2 cmLA Ds3.5 cm LVIDd4.9 cmIndex2.5 cm/m Ao Rtd 3.3 cm Index1.7 cm/m LVIDs3.1 cmLV Mtrp426.7 g(87-129) LV%fs 37.6 % LVM Index 80.8 g/m2 IVSd 1 cmRWT0.3 LVPWd0.8 cm Signed 05/05/2018 02:34 PM Lisa Castaneda M.D. Procedure Note Interface, Radiology Results In - 05/05/2018 2:35 PM CDT Echocardiography Report [address]Name: NITHIN BOJORQUEZ Radha.ID: [id number] .Date: 05/05/2018 Refer.MD: CARMEN MCCORMICK MD Exam Time: 6:40:00 AM Study Type:Routine Echo Height: 63in Weight: 216lb BSA: 2 m2 Age: 9 1970,48Y Sex: FEMALE BP: 99/51 HR: 51 bpm Sonogrphr: THADDEUS Mancia Pat. Stat.:Inpatient Room: [facility] Study Status:Final Echo Event ID:[id number] Order ID: [id number] Reason for Study:Chest pain, suspected cardiac etiology [...] PA systolic pressure. MEASUREMENTS: 2D Parasternal [place] LVOT 2.2 cm LA Ds 3.5 cm LVIDd 4.9 cm Index 2.5 cm/m Ao Rtd 3.3 cm Index 1.7 cm/m LVIDs 3.1 cm LV Mass 161.7 g (87-129) LV%fs 37.6 % LVM Index 80.8 g/m2 IVSd 1 cm RWT 0.3 LVPWd 0.8 cm Signed 05/05/2018 02:34 PM Lisa Castaneda M.D. Performing Organization Address City/State/Zipcode Phone Number [facility] [address] [place] [address] ECG 12 lead (05/05/2018 5:36 AM CDT)Only the most recent of2 resultswithin the time period is included. Ventricular rate 52 [facility] Atrial rate 52 [facility] RI interval 140 [facility] QRSD interval 88 [facility] QT interval 482 [facility] QTC interval 448 [facility] P axis 1 39 [facility] QRS axis 1 11 [facility] T wave axis 47 [facility] EKG impression Sinus bradycardia-Low voltage QRS-Borderline [facility] ECG-In automated comparison with ECG of 04-MAY-2018 15:03,-Change in inferior and anterior forces now noted- Performing Organization Address [facility] Phone Number [facility] MUSE [address] [place] [address] Troponin (05/05/2018 5:35 AM CDT)Only the most recent of2 resultswithin the time period is included. Troponin <0.30 0.00 - 0.30 ng/mL [facility] DEPARTMENT OF PATHOLOGY Comment: AND GENOMIC MEDICINE 0.30 - 1.49 ng/mlMay indicate increased risk of acute coronary syndrome. >=1.5 ng/mlConsistent with acute myocardial infarction. The diagnostic value of a single normal or non-diagnostic result is questionable.Serial samples at 2-6 hour intervals are required to rule out acute myocardial injury. Specimen Plasma specimen Performing Organization Address [facility] Phone Number [facility] DEPARTMENT OF PATHOLOGY AND [address] [place], [place] [address] [facility] hCG qualitative, urine screen (05/05/2018 4:31 AM CDT) hCG qualitative, urine NegativeComment: [facility] DEPARTMENT OF Sensitivity of HCG test: 25 PATHOLOGY AND GENOMIC mIU/mL MEDICINE Specimen Urine Performing Organization Address [facility] Phone Number [facility] DEPARTMENT OF PATHOLOGY AND [address] [place] [address] [facility] Urine drugs of abuse screen (05/05/2018 4:31 AM CDT) Amphetamine screen, urine Negative [facility] DEPARTMENT OF PATHOLOGY AND GENOMIC MEDICINE Barbiturate screen, urine Negative [facility] DEPARTMENT OF PATHOLOGY AND GENOMIC MEDICINE Benzodiazepine screen, Negative [facility] DEPARTMENT OF urine PATHOLOGY AND GENOMIC MEDICINE Cannabinoid screen, urine Negative [facility] DEPARTMENT OF PATHOLOGY AND GENOMIC MEDICINE Cocaine screen, urine Negative [facility] DEPARTMENT OF PATHOLOGY AND GENOMIC MEDICINE Methadone metabolite Negative [facility] DEPARTMENT OF (EDDP), urine PATHOLOGY AND GENOMIC MEDICINE Opiates screen, urine Negative [facility] DEPARTMENT OF PATHOLOGY AND GENOMIC MEDICINE Oxycodone screen, urine Negative [facility] DEPARTMENT OF PATHOLOGY AND GENOMIC MEDICINE Phencyclidine screen, urine Negative [facility] DEPARTMENT OF PATHOLOGY AND GENOMIC MEDICINE Tricyclic screen, urine Negative [facility] DEPARTMENT OF Comment: PATHOLOGY AND GENOMIC Drug screen minimum concentration of detectability MEDICINE Tyasrpzdtsuz9103 ng/mL Barbiturates 200 ng/mL Rhcppxbwztkabis486 ng/mL Zjbejqq187 ng/mL Rjzwijxuh958 ng/mL Tcexiev234 ng/mL Jovtgsymh629 ng/mL Phencyclidine 25 ng/mL Kmylrypslvrs22 ng/mL Mspdamcfwd5310 ng/mL Negative test results indicates presumptive evidence of lack of clinically significant drug concentration in this urine specimen. Positive test results are presumptive evidence of clinically significant drug concentration in this urine specimen. Testing performed for medical purposes only. Specimen Urine Performing Organization Address City/[facility] Phone Number [facility] DEPARTMENT OF PATHOLOGY AND [address] [place] [address] [email or web address] [facility] Prothrombin time with INR (05/05/2018 4:22 AM CDT) Prothrombin time 13.6 12.0 - 15.0 sec [facility] DEPARTMENT OF PATHOLOGY AND GENOMIC MEDICINE INR 1.0 [facility] DEPARTMENT OF Comment: PATHOLOGY AND GENOMIC The International Normalized Ratio (INR) is a therapeutic MEDICINE monitoring tool for patients who are stable on oral anticoagulant therapy. An INR of 2.0-3.0 is suggested for deep vein thrombosis/pulmonary embolism. Specimen Blood Performing Organization Address City/[facility] Phone Number [facility] DEPARTMENT OF PATHOLOGY AND [address] [place] [address] Thyroid stimulating hormone (05/05/2018 4:22 AM CDT) TSH 6.15 (H) 0.27 - 4.20 uIU/mL [facility] DEPARTMENT OF PATHOLOGY AND GENOMIC MEDICINE Specimen Plasma specimen Performing Organization Address [facility] Facilitycode Phone Number [facility] DEPARTMENT OF PATHOLOGY AND [address] [place] [address] [email or web address] [facility] Lipid panel (05/05/2018 4:22 AM CDT) Cholesterol 177 <200 mg/dL [facility] DEPARTMENT OF PATHOLOGY AND GENOMIC MEDICINE Triglycerides 105 <150 mg/dL [facility] DEPARTMENT OF PATHOLOGY AND GENOMIC MEDICINE HDL cholesterol 45 >40 mg/dL [facility] DEPARTMENT OF PATHOLOGY AND GENOMIC MEDICINE LDL cholesterol 114 (H)Comment: Result <100 mg/dL [facility] DEPARTMENT OF obtained by direct LDL PATHOLOGY AND GENOMIC measurement MEDICINE Lipid panel interpretation SeeBelow [facility] DEPARTMENT OF Comment: PATHOLOGY AND GENOMIC Total Cholesterol (mg/dL) MEDICINE <200 Desirable 826-754Ciuepipxrn-eybg >=240High Triglycerides (mg/dL) <150 Normal 559-448Dksnkjitds-ygws 200-499High >=500Very high HDL Cholesterol (mg/dL) <40Low (male) <40Low (female) LDL Cholesterol (mg/dL) <100 Optimal 100-129Near or above optimal 640-881Hxbmmjjnrn-ahjv 160-189High >=190Very high Risk Catergories that modify [...] specimen Performing Organization Address City/State/Zipcode Phone Number [facility] DEPARTMENT OF PATHOLOGY AND [address] [place] [address] CT Cervical Spine W Contrast (05/04/2018 8:55 [...] neural foraminal stenosis. IMPRESSION: No acute abnormality. [facility]-[id number] Procedure Note Interface, Radiology Results Incoming - [...] neural foraminal stenosis. IMPRESSION: No acute abnormality. [facility]-[id number] Performing Organization Address [facility] Phone Number [facility] [address] [place] [id number] ECG ED Preliminary Interpretation - NOT AN ORDER (05/04/2018 6:01 PM CDT) Narrative Performed At Claudio Sanches MD 05/09/20182:00 AM ECG ED Preliminary Interpretation - Not an Order Performed by: CLAUDIO SANCHES Authorized by: CLAUDIO SANCHES ECG reviewed by ED Physician in the absence of a structures technician: yes Previous ECG: Previous ECG:Unavailable Interpretation: Interpretation: [...] CDT) ALT 14 5 - 50 U/L [facility] DEPARTMENT OF PATHOLOGY AND GENOMIC MEDICINE Specimen Plasma specimen Performing Organization Address [facility] Phone Number [facility] DEPARTMENT OF PATHOLOGY AND [address] [place] [phone] [facility] AST (SGOT) (05/04/2018 5:50 PM CDT) AST 13 10 - 35 U/L [facility] DEPARTMENT OF PATHOLOGY AND GENOMIC MEDICINE Specimen Plasma specimen Performing Organization Address [facility] Phone Number [facility] DEPARTMENT OF PATHOLOGY AND [address] [place] [address] [facility] Potassium level (05/04/2018 5:50 PM CDT) Potassium 4.1 3.5 - 5.0 mEq/L [facility] DEPARTMENT OF PATHOLOGY AND GENOMIC MEDICINE Specimen Plasma specimen Performing Organization Address City/State/Zipcode Phone Number [facility] DEPARTMENT OF PATHOLOGY AND [address] [place] [address] [facility] MEDICINE B natriuretic peptide (05/04/2018 4:54 PM CDT) BNP 43 0 - 100 pg/mL [facility] DEPARTMENT OF PATHOLOGY AND GENOMIC MEDICINE Specimen Blood Narrative Performed At Unable to perform testing, specimen is [facility] DEPARTMENT OF PATHOLOGY AND GENOMIC HEMOLYZED.Recollect MEDICINE requested for K, AST, ALT,ALP(tests). ROGE CELESTE/HUNTER(name/location) notified by PC(tech ID) at05/04/2018 17:31(date/time). Performing Organization Address [facility] Facilitycode Phone Number [facility] DEPARTMENT OF PATHOLOGY AND [address] [place] [address] GENOMIC MEDICINE XR Chest 2 Vw (05/04/2018 3:29 PM CDT) Narrative Performed At EXAMINATION:XR CHEST 2 VW [facility] CLINICAL HISTORY:Chest painACS suspected COMPARISON:None Technique:PA and lateral chest radiographs are obtained. IMPRESSION: 1.The lungs are clear. 2.There is no pleural fluid or pneumothorax. 3.The heart size and mediastinal contours are within normal limits. 4.There is no significant skeletal abnormality. [id number] Procedure Note Hm Interface, Radiology Results Incoming [...] 4. There is no significant skeletal abnormality. [id number] Performing Organization Address City/[facility]/Zipcode Phone Number [facility] [address] [place] [address] after 12/06/2017 Insurance Payer Benefit Plan / Group Subscriber ID Type Phone Address [employer] OPEN ACCESS/NETWORK xxxxxxxxxxx HMO Advance Directives Patient has advance care planning documents on file. For more information, please contact:Félix Madsen[address] [place] [address]
--- OUTSIDE RECORDS SUMMARY | 2018-12-07 15:11 | XMS REPORT ---
[...] Start End Status Dosage System Date Date [place] ND 81073000168 300 MG Orally Active 3 capsule at Carbonate Once a day bedtime Multivitamin ND 63527022977 - Orally Active as directed Women Vitamin B ND 74799724741 - Orally Active as directed Complex Trazodone HCl ND 41765525905 100 MG Orally Active 2 tablet at Once a day bedtime as needed Melatonin ND 55998755370 10 MG Orally Active 3 capsule at bedtime as needed with food Dicyclomine HCl ND 33421269703 20 mg Orally Up Active 1 tablet as to 4x daily needed for abdominal pain Fish Oil [facility] 2001 76117128934 1000 MG Orally Active 1 capsule Once a day Lyrica [facility] 04479672409 100 MG Orally Aug 14, Active 1 capsule Three times a 2017 day Fluoxetine HCl [facility] 65813888596 20 MG Orally Active 1 capsule in Once a day the morning Results No Known Results Summary Purpose eClinicalWorks Submission
--- OUTSIDE RECORDS SUMMARY | 2018-12-07 15:11 | XMS REPORT ---
[...] Start End Status Dosage System Date Date [place] ND 52919130035 300 MG Orally Active 3 capsule at Carbonate Once a day bedtime Fish Oil ND 24341742476 1000 MG Orally Active 1 capsule Once a day Multivitamin ND 31061687019 - Orally Active as directed Women Trazodone HCl ND 48303849226 100 MG Orally Active 2 tablet at Once a day bedtime as needed Melatonin ND 01313046037 10 MG Orally Active 3 capsule at bedtime as needed with food Dicyclomine HCl ND 57649172304 20 mg Orally Up Active 1 tablet as to 4x daily needed for abdominal pain Tramadol HCl ND 33998355984 50 MG Orally May 15May Active 1 tablet as Twice daily 2018 03, needed for 2017 pain Vitamin B [facility] 48139146790 - Orally Active as directed Complex Fluoxetine HCl [facility] 88254931898 20 MG Orally Active 1 capsule in Once a day the morning Results No Known Results Summary Purpose eClinicalWorks Submission
--- OUTSIDE RECORDS SUMMARY | 2018-12-07 15:11 | XMS REPORT ---
:1970 Author Organization eClinicalWorks Care Team Providers Name Role Phone Mariana Ochao Provider Role Unavailable Allergies, Adverse Reactions, Alerts [...] Status Dosage System Date Date Fish Oil [facility] 68856468483 1000 MG Orally Active 1 capsule Once a day Multivitamin ND 55996318268 - Orally Active as Women directed Fluoxetine HCl ND 78495732171 20 MG Orally Active 1 capsule Once [place] [address]-56 300 MG Orally Active 3 capsule Carbonate Once a day at bedtime Trazodone HCl [facility] [address]-83 100 MG Orally Active 2 tablet Once a day at bedtime as needed Vitamin B ND 40847325863 - Orally Active as Complex directed Melatonin [facility] [address] 10 MG Orally Active 3 capsule at bedtime as needed with food Results Name Result Date Reference Range Unit Abnormality Flag Electrocardiogram (EKG) Summary Purpose eClinicalWorks Submission
--- OUTSIDE RECORDS SUMMARY | 2018-12-07 15:11 | XMS REPORT ---
[...] End Status Dosage System Date Date Multivitamin [facility] 51554828373 - Orally Active as directed Women Vitamin B [facility] 00551812441 - Orally Active as directed Complex Trazodone HCl ND 37568551495 100 MG Orally Active 2 tablet at Once a day bedtime as needed [place] ND 94905499690 300 MG Orally Active 3 capsule at Carbonate Once a day bedtime Melatonin ND 50938454109 10 MG Orally Active 3 capsule at bedtime as needed with food Fluoxetine HCl ND 08319601208 20 MG Orally Active 1 capsule in Once a day the morning Fish Oil ND 82011595723 1000 MG Orally Active 1 capsule Once a day Dicyclomine HCl ND 82123438472 20 mg Orally Up April 16May 16, Active 1 tablet as to 4x daily 2017 2017 needed for abdominal pain Results No Known Results Summary Purpose eClinicalWorks Submission
[2018-12-07 16:38] LABS: Urine Blood NEGATIVE (NEG); Urine Glucose NEGATIVE (NEG); Urine Protein NEGATIVE (NEG); Urine Specific Gravity 1.025 (1.005-1.030); Urine pH 5.5 (5.0-7.0)
[2018-12-07] MEDS ORDERED: PROMETHAZINE 25 MG/ML VIAL ONE (17:14)
[2018-12-07] MEDS ORDERED: FENTANYL CITR 100 MCG/2 ML ONE (17:14)
[2018-12-07 17:32] LABS: Absolute Lymphocytes (CBC) 1.6 K/uL (0.7-4.9); Absolute Monocytes 0.7 K/uL (0.1-1.3); Absolute Neutrophil 4.4 K/uL (1.8-8.0); Basophils % 0.4 % (0-1.3); Eosinophils % 5.1 % (0-4.4); Hematocrit 37.6 % (36.0-45.0); Lymphocytes % 23.1 % (15.3-44.8); Monocytes % 9.2 % (3.3-12.3)
[2018-12-07 17:33] LABS: ALT/SGPT 14 U/L (12-78); AST/SGOT 11 U/L (15-37); Albumin 3.5 g/dL (3.4-5.0); Alkaline Phosphatase 80 U/L (45-117); BUN Blood Urea Nitrogen 12 mg/dL (7-18); Bicarbonate 22 mmol/L (21-32); Bilirubin Direct < 0.1 mg/dL (0-0.2); Bilirubin Total 0.2 mg/dL (0.2-1.0); Glucose Level 115 mg/dL (74-106); Lipase 26 U/L (73-393); Potassium 4.3 mmol/L (3.5-5.1); Protein, Total 6.8 g/dL (6.4-8.2); Sodium Level 139 mmol/L (136-145)
--- NOTE | 2018-12-07 18:06 | RAD REPORT ---
EXAM DESCRIPTION: CT - Abdomen Pelvis W Contrast - 12/07/2018 5:55 pm CLINICAL HISTORY: Abdominal pain/hematuria COMPARISON: March 2018 cat TECHNIQUE: Computed axial tomography of the abdomen pelvis was obtained. 100 cc Isovue-300 was admin istered intravenously. Oral contrast was not requested which limits evaluation of bowel. All CT scans are performed using dose optimization technique as appropriate and may include automated exposure control or mA/KV adjustment according to patient size. FINDINGS: The liver, spleen, pancreas, adrenal and kidneys appear unremarkable. Postsurgical changes involve the stomach. Several loops of small bowel are mildly to moderately dilat ed within the left abdomen. A transition point is not seen involving the small bowel. Fluid is presen t throughout the small bowel. Small umbilical hernia contains fat. There is no evidence of diverticulitis. An adnexal mass is not seen. No significant free fluid noted IMPRESSION: Mildly to moderately dilated small bowel loops with fluid throughout the small may indic ate an enteritis or ileus. .
--- NOTE | 2018-12-07 18:07 | RAD REPORT ---
EXAM DESCRIPTION: Tamir Rushing (2 Views)12/07/2018 5:33 pm CLINICAL HISTORY: fever COMPARISON: October 2018 FINDINGS: The lungs appear clear of acute infiltrate. The heart is normal size IMPRESSION: No acute abnormalities displayed
[2018-12-07] MEDS ORDERED: SIMETHICONE 80 MG TAB PO SCH (19:00)
--- NOTE | 2018-12-07 19:10 | EDPHYS ---
Physician Documentation [facility] Name: Nithin Beth Age: 48 yrs Sex: Female : 1970 Arrival Date: 12/07/2018 Time: 15:10 Bed 8 Private MD: Mariana Ochoa ED Physician Tevin Méndez HPI: 12/07 16:34 This 48 yrs old Female presents to ER via Ambulatory with complaints of jmm Urinary Problem, Post Surgical Pain. 16:34 The patient presents with abdominal pain. jmm 16:34 Onset: The symptoms/episode began/occurred gradually, 1 day(s) ago. jmm 16:34 The symptoms do not radiate. This is a 48 year old female with a history of bipolar jmm that presents to the ED with complaints of burning left sided abdominal pain beginning 1 day ago with diarrhea. Patient is 3 days s/p right and left salpingectomy and left oophorectomy and appendectomy. Patient states having a low grade fever along with noticing blood in her urine. Patient denies flank pain, patient denies vomiting. . COAL WHEELER: 15:15 LMP N/A - Irregular menses sg Historical: - Allergies: 15:12 Erythromycin; sg 15:12 TETRACYCLINES; sg 15:12 Toradol; sg 15:12 Zofran; sg - PMHx: 15:12 Bipolar disorder; sg - PSHx: 15:12 Gastric Bypass; Cholecystectomy; Tubal ligation; sg - Immunization history:: Adult Immunizations not up to date. - Social history:: Smoking status: unknown. - Ebola Screening: : Patient negative for fever greater than or equal to 101.5 degrees Fahrenheit, and additional compatible Ebola Virus Disease symptoms Patient denies exposure to infectious person Patient denies travel to an Ebola-affected area in the 21 days before illness onset No symptoms or risks identified at this time. ROS: 16:34 Constitutional: Positive for fever. jmm 16:34 Abdomen/GI: Positive for abdominal pain, diarrhea. 16:34 : Positive for hematuria. 16:34 All other systems are negative. Exam: 16:34 Constitutional: This is a well developed, well nourished patient who is awake, alert, jmm and in no acute distress. Head/Face: atraumatic. Eyes: EOMI, no conjunctival erythema appreciated ENT: Moist Mucus Membranes Neck: Trachea midline, Supple Chest/axilla: Normal chest wall appearance and motion. Cardiovascular: Regular rate and rhythm. No edema appreciated Respiratory: Normal respirations, no respiratory distress appreciated 16:34 Abdomen/GI: Inspection: abdomen appears normal, Bowel sounds: normal, Palpation: soft, mild abdominal tenderness, in the left lower quadrant. 16:34 Skin: Appearance: Color: normal in color. 16:34 Neuro: Orientation: is normal, Mentation: is normal, Memory: is normal. 16:34 Psych: Behavior/mood is pleasant, cooperative. Vital Signs: 15:15 BP 108 / 76; Pulse 78; Resp 17; Temp 97.6; Pulse Ox 100% on R/A; Pain 6/10; sg 17:16 BP 98 / 45; Pulse 76; Resp 18; Pulse Ox 100% on R/A; hj 18:32 BP 98 / 43; Pulse 72; Resp 17; Pulse Ox 100% on R/A; hb 19:30 BP 102 / 61; Pulse 73; Resp 17 S; Pulse Ox 100% on R/A; jd3 MDM: 16:34 Patient medically screened. [facility] 17:56 Transition of care: After a detail discussion of the patient's case, care [facility] Data reviewed: vital signs, nurses notes. Data interpreted: Pulse oximetry: on room air snw is 100 %. Interpretation: normal. Counseling: I had a detailed discussion with the patient and/or guardian regarding: the historical points, exam findings, and any diagnostic results supporting the discharge/admit diagnosis, lab results, radiology results, the need for outpatient follow up, to return to the emergency department if symptoms worsen or persist or if there are any questions or concerns that arise at home. Special discussion: Based on the patient's Hx, exam, and Dx evaluation, there is no indication for emergent surgery or inpatient Tx. It is understood by the patient/guardian that if the Sx's persist or worsen they need to return immediately for re-evaluation. I discussed with the patient their frequent requests for pain medications. Instructions have been given, that in the best interests of the patient, further pain Rx's must come from the patient's PCP or a painter maintenance. Based on the history and exam findings, there is no indication for further emergent testing or inpatient evaluation. I discussed with the patient/guardian the need to see the OB Gyne specialist for further evaluation of the symptoms. I discussed with the patient/guardian the need to see the primary care provider for further evaluation of the symptoms. 12/07 16:08 Order name: Urine Dipstick--Ancillary (enter results); Complete Time: 17:00 aa 12/07 16:08 Order name: Urine --Ancillary (enter results); Complete Time: 17:00 [facility] 12/07 16:36 Order name: Basic Metabolic Panel; Complete Time: 17:40 [facility] 12/07 16:36 Order name: CBC with Diff; Complete Time: 17:40 [facility] 12/07 16:36 Order name: Creatinine for Radiology; Complete Time: 17:40 [facility] 12/07 16:36 Order name: Hepatic Function; Complete Time: 17:40 [facility] 12/07 16:36 Order name: Lipase; Complete Time: 17:40 [facility] 12/07 16:36 Order name: CT Abd/Pelvis - W/Contrast; Complete Time: 18:26 [facility] 12/07 17:18 Order name: Chest Pa And Lat (2 Views) XRAY; Complete Time: 18:26 [facility] 12/07 17:48 Order name: Flu; Complete Time: 19:46 [facility] 12/07 16:36 Order name: IV Saline Lock; Complete Time: 16:56 [facility] 12/07 16:36 Order name: Labs collected and sent; Complete Time: 16:56 jmm Administered Medications: 17:01 Drug: Promethazine 12.5 mg {Note: R shoulder area.} Route: IVP; Site: Other; pc1 17:21 Follow up: Response: No adverse reaction hj 17:01 Drug: fentaNYL (PF) 50 mcg {Note: R shoulder area.} Route: IVP; Site: Other; pc1 17:21 Follow up: Response: No adverse reaction hj 17:21 Not Given (Patient Refused): morphine 2 mg IVP once hj 17:26 Drug: NS 0.9% 1000 ml Route: IV; Rate: 1000 ml; Site: right forearm; hj 19:53 Follow up: IV Status: Completed infusion jd3 19:53 Drug: Simethicone 120 mg Route: PO; jd3 19:54 Follow up: Response: Medication administered at discharge. jd3 Disposition: 18:54 Co-signature as Attending Physician, Tevin Méndez MD Consulted Dr. Allen, CT and rn clinical findings more consistent with enteritis, given patient with soft abdomen, no distension, has vomiting and diarrhea, he recommends cipro/flagyl, pain meds, and f/u. Pt reports mainly here for pain, doesn't understand why we can't give her norco or stronger meds. Will write for a few tylenol # 3 and alternate with motrin. . Disposition: 12/07/18 19:10 Discharged to Home. Impression: Infectious gastroenteritis and colitis, unspecified. - Condition is Stable. - Discharge Instructions: Abdominal Pain, Adult, Food Choices to Help Relieve Diarrhea, Adult, Diarrhea, Adult, Rehydration, Adult. - Prescriptions for Flagyl 500 mg Oral Tablet - take 1 tablet by ORAL route every 8 hours for 10 days; 30 tablet. Tylenol- Codeine #3 300-30 mg Oral Tablet - take 2 tablet by ORAL route every 6 hours As needed; 6 tablet. Cipro 500 mg Oral Tablet - take 1 tablet by ORAL route every 12 hours for 7 days; 14 tablet. - Medication Reconciliation Form, Thank You Letter, Antibiotic Education, Prescription Opioid Use form. - Follow up: Jose Luis Delgadillo MD; When: 2 - 3 days; Reason: Recheck today's complaints, Continuance of care, Re-evaluation by your physician. Signatures: Dispatcher [employer] EDMS Brett Olmstead RN Audra Montgomery, [employer] Ángel Walker PA PA [facility] Tevin Méndez MD MD rn Joaquin, Henry, RN RN hj Starr, Gregory, MD MD gs Davies, Jonathon, RN RN jd3 Cantu, Patrick pc1 Corrections: (The following items were deleted from the chart) 17:47 16:34 This is a 48 year old female with a history of bipolar that presents to the ED [facility] with complaints of burning left sided abdominal pain beginning 1 day ago with diarrhea. Patient is 3 days s/p hysterectomy and appendectomy. Patient states having a low grade fever along with noticing blood in her urine. Patient denies flank pain, patient denies vomiting. . [facility] 19:56 19:10 12/07/2018 19:10 Discharged to Home. Impression: Infectious gastroenteritis and jd3 colitis, unspecified. Condition is Stable. Forms are Medication Reconciliation Form, Thank You Letter, Antibiotic Education, Prescription Opioid Use. Follow up: Jose Luis Delgadillo; When: 2 - 3 days; Reason: Recheck today's complaints, Continuance of care, Re-evaluation by your physician. snw
--- NOTE | 2018-12-07 19:10 | ER ---
Nurse's Notes [facility] Name: Nithin Beth Age: 48 yrs Sex: Female : 1970 Arrival Date: 12/07/2018 Time: 15:10 Bed 8 Private MD: Mariana Ochoa Diagnosis: Infectious gastroenteritis and colitis, unspecified Presentation: 12/07 15:19 Presenting complaint: Patient states: Recently had sx here with and sg , noticed yesterday low grade fever, unsure if any fever today, reports having blood in the urine prior to surgery or having urinary catheter, but today has noticed an increased in bleeding with urination and having clots as well as material that is not like a blood clot coming out while urinating, denies N/V/D, reports LLQ pain and Umbilical pain after surgery as well, denies any bleeding or drainage from surgical site. Transition of care: patient was not received from another setting of care. Onset of symptoms was December 07, 2018. Risk Assessment: Do you want to hurt yourself or someone else? Patient reports no desire to harm self or others. Initial Sepsis Screen: Does the patient meet any 2 criteria? No. Patient's initial sepsis screen is negative. Does the patient have a suspected source of infection? Yes: Dysuria/Frequency/Urgency/UTI. Care prior to arrival: None. 15:19 Method Of Arrival: Ambulatory sg 15:19 Acuity: HUSAM 3 sg Triage Assessment: 16:45 General: Appears distressed, comfortable, obese, well groomed, Behavior is calm, pc1 cooperative. RN TESTING: 15:15 LMP N/A - Irregular menses sg Historical: - Allergies: 15:12 Erythromycin; sg 15:12 TETRACYCLINES; sg 15:12 Toradol; sg 15:12 Zofran; sg - PMHx: 15:12 Bipolar disorder; sg - PSHx: 15:12 Gastric Bypass; Cholecystectomy; Tubal ligation; sg - Immunization history:: Adult Immunizations not up to date. - Social history:: Smoking status: unknown. - Ebola Screening: : Patient negative for fever greater than or equal to 101.5 degrees Fahrenheit, and additional compatible Ebola Virus Disease symptoms Patient denies exposure to infectious person Patient denies travel to an Ebola-affected area in the 21 days before illness onset No symptoms or risks identified at this time. Screenin:46 Abuse screen: Denies threats or abuse. Denies injuries from another. Nutritional pc1 screening: No deficits noted. Tuberculosis screening: No symptoms or risk factors identified. Fall Risk None identified. IV access (20 points). Total Cooper Fall Scale indicates No Risk (0-24 pts). Assessment: 16:48 Pain: Complains of pain in umbilical area Pain does not radiate. Pain currently is 8 pc1 out of 10 on a pain scale. Quality of pain is described as burning, aching, sharp. Respiratory:. GI: Abdomen is round obese, Abd is soft and non tender in umbilical area, right upper quadrant, left upper quadrant, right lower quadrant and left lower quadrant Reports. 19:05 Reassessment: Patient appears in no apparent distress at this time. Patient and/or jd3 family updated on plan of care and expected duration. Pain level reassessed. Patient is alert, oriented x 3, equal unlabored respirations, skin warm/dry/pink. 19:55 Reassessment: Patient appears in no apparent distress at this time. Patient and/or jd3 family updated on plan of care and expected duration. Pain level reassessed. Patient is alert, oriented x 3, equal unlabored respirations, skin warm/dry/pink. pt reported understanding of discharge instructions. Vital Signs: 15:15 BP 108 / 76; Pulse 78; Resp 17; Temp 97.6; Pulse Ox 100% on R/A; Pain 6/10; sg 17:16 BP 98 / 45; Pulse 76; Resp 18; Pulse Ox 100% on R/A; hj 18:32 BP 98 / 43; Pulse 72; Resp 17; Pulse Ox 100% on R/A; hb 19:30 BP 102 / 61; Pulse 73; Resp 17 S; Pulse Ox 100% on R/A; jd3 ED Course: 15:10 Patient arrived in ED. as 15:10 Mariana Ochoa MD is Private Physician. as 15:12 Arm band placed on. sg 15:22 Triage completed. sg 16:21 Peter Cancino is Primary Nurse. pc1 16:23 Ángel Walker PA is PHCP. [facility] 16:23 Tevin Méndez MD is Attending Physician. [facility] 16:46 Patient has correct armband on for positive identification. Placed in gown. Bed in low pc1 position. Call light in reach. Side rails up X2. Adult w/ patient. Warm blanket given. 16:46 Inserted saline lock: 22 gauge in right upper arm, using aseptic technique. pc1 16:56 Radiology exam delayed due to lab results not completed at this time. (BUN/Creatinine). mw3 17:09 Marco Craven, RN is Primary Nurse. hj 17:30 Chest Pa And Lat (2 Views) XRAY In Process Unspecified. EDMS 17:55 CT Abd/Pelvis - W/Contrast In Process Unspecified. EDMS 18:02 PHCP role handed off by Ángel Walker PA snw 18:02 Audra Pop FNP-C is PHCP. snw 18:14 Flu Sent. hj 19:09 Jose Luis Delgadillo MD is Referral Physician. snw 19:54 No provider procedures requiring assistance completed. IV discontinued, intact, jd3 bleeding controlled, No redness/swelling at site. Pressure dressing applied. Administered Medications: 17:01 Drug: Promethazine 12.5 mg {Note: R shoulder area.} Route: IVP; Site: Other; pc1 17:21 Follow up: Response: No adverse reaction hj 17:01 Drug: fentaNYL (PF) 50 mcg {Note: R shoulder area.} Route: IVP; Site: Other; pc1 17:21 Follow up: Response: No adverse reaction hj 17:21 Not Given (Patient Refused): morphine 2 mg IVP once hj 17:26 Drug: NS 0.9% 1000 ml Route: IV; Rate: 1000 ml; Site: right forearm; hj 19:53 Follow up: IV Status: Completed infusion jd3 19:53 Drug: Simethicone 120 mg Route: PO; jd3 19:54 Follow up: Response: Medication administered at discharge. jd3 Outcome: 19:10 Discharge ordered by . snw 19:54 Discharged to home ambulatory, with family. jd3 19:54 Condition: stable 19:54 Discharge instructions given to patient, family, Instructed on discharge instructions, follow up and referral plans. medication usage, Demonstrated understanding of instructions, follow-up care, medications, Prescriptions given X 3. 19:56 Patient left the ED. jd3 Signatures: Dispatcher [employer] Brett Schaeffer RN RN sg Audra Pop FNP-C BENJAMIN-Csnw Ángel Walker PA PA jmm Martinez, Amelia as Joaquin, Henry, RN RN Tory Burnette RN RN hb Davies, Jonathon, RN RN jJessica Lambert 3 Peter Cancino [facility]
[2018-12-07] MEDS ORDERED: SIMETHICONE 80 MG TAB ONE (19:45)
[2018-12-07 20:01] VITALS: TEMP 97.6; O2SAT 100
[2018-12-07 20:05] VITALS: BP 102/61
== END 2018-12-07 19:56 | disposition home or self-care (01) ==
LOC: ER 15:07
DX: A09 Infectious gastroenteritis and colitis, unspecified (principal); Z88.1 Allergy status to other antibiotic agents; Z88.3 Allergy status to other anti-infective agents; Z88.5 Allergy status to narcotic agent; Z88.8 Allergy status to other drugs, medicaments and biological substances; Z90.722 Acquired absence of ovaries, bilateral; Z98.890 Other specified postprocedural states
CPT/HCPCS: 36415; 71046; 74177; 80048; 80076; 81003; 81025; 83690; 85025; 87804; 96361; 96374; 96375; 99284; J2550; J3010; Q9967

== ENCOUNTER 2019-02-10 11:59 | Emergency (ER) | payer OTHER ==
--- OUTSIDE RECORDS SUMMARY | 2019-02-10 12:02 | XMS REPORT | Clinical Summary ---
:1970 Author Organization [facility] Address [address] [place] [address] Care Team Providers Name Role Phone Mariana [...] Type Specialty Care Team Description 05/12/2018 Documentation Spout Liner Mayte Rainey RN 05/04/2018 - Hospital Encounter General Internal Claudio Sanches History of fainting spells of unknown cause (Primary Dx); 05/11/2018 Medicine MD Iman Unstable angina; Joglekar, MD Daniel Reyes Dhruti Bharatbhai, MD after 02/09/2018 Social History Tobacco Use Types Packs/Day Years [...] Health Maintenance Due Date Last Done Comments INFLUENZA VACCINE 04/23/2019 Procedures Procedure Name Priority Date/Time Associated Comments [...] are in SPECTRAL COLOR DOPPLER the results (64923) section. ECG 12-LEAD STAT 05/05/2018 5:36 Results [...] procedure are in the results section. after 02/09/2018 Results Continuous EEG monitoring (05/10/2018 7:33 PM [...] epileptiform activity was recorded. ICD-10 Code: R569 [place] level (05/09/2018 9:50 PM CDT)Only the most recent of5 resultswithin the time period is included. [place] 0.31 (L) 0.60 - 1.20 mmol/L [facility] DEPARTMENT OF PATHOLOGY AND GENOMIC MEDICINE Specimen Serum Performing Organization Address City/State/Zipcode Phone Number [facility] DEPARTMENT OF PATHOLOGY AND [address] [place] [address] [employer] MEDICINE EEG (routine) (05/09/2018 9:56 AM CDT) Narrative [...] of6 resultswithin the time period is included. Pathologist [facility] GFR Non Af Amer >90 mL/min/1.73 [facility] DEPARTMENT OF m2 PATHOLOGY AND GENOMIC MEDICINE GFR Af Amer >90 mL/min/1.73 [facility] DEPARTMENT OF Comment: m2 PATHOLOGY AND Chronic kidney disease: <60 mL/min/1.73m2 [facility] Kidney failure: <15 mL/min/1.73m2 The estimated GFR [...] specimen Performing Organization Address City/State/Zipcode Phone Number [facility] DEPARTMENT OF PATHOLOGY AND [address] [place] [address] [place] Basic metabolic panel (05/09/2018 4:55 AM CDT)Only the most recent of3 resultswithin the time period is included. Sodium 141 135 - 148 mEq/L [facility] DEPARTMENT OF PATHOLOGY AND GENOMIC MEDICINE Potassium 4.1 3.5 - 5.0 mEq/L [facility] DEPARTMENT OF PATHOLOGY AND GENOMIC MEDICINE Chloride 108 98 - 112 mEq/L [facility] DEPARTMENT OF PATHOLOGY AND GENOMIC MEDICINE CO2 21 (L) 24 - 31 mEq/L [facility] DEPARTMENT OF PATHOLOGY AND GENOMIC MEDICINE Anion gap 12@ANIO 7 - 15 mEq/L [facility] DEPARTMENT OF PATHOLOGY AND GENOMIC MEDICINE BUN 9 6 - 20 mg/dL [facility] DEPARTMENT OF PATHOLOGY AND GENOMIC MEDICINE Creatinine 0.7 0.5 - 0.9 mg/dL [facility] DEPARTMENT OF PATHOLOGY AND GENOMIC MEDICINE Glucose 100 (H) 65 - 99 mg/dL [facility] DEPARTMENT OF PATHOLOGY AND GENOMIC MEDICINE Calcium 8.3 8.3 - 10.2 mg/dL [facility] DEPARTMENT OF PATHOLOGY AND GENOMIC MEDICINE Specimen Plasma specimen Performing Organization Address City/[facility]/Zipcode Phone Number [facility] [place] [address] [facility] CBC hemogram (05/09/2018 3:30 AM CDT)Only the most recent of2 resultswithin the time period is included. WBC 7.62 4.50 - 11.00 k/uL [facility] DEPARTMENT OF PATHOLOGY AND GENOMIC MEDICINE RBC 4.17 (L) 4.20 - 5.50 m/uL [facility] DEPARTMENT OF PATHOLOGY AND GENOMIC MEDICINE HGB 12.0 12.0 - 16.0 g/dL [facility] DEPARTMENT OF PATHOLOGY AND GENOMIC MEDICINE HCT 37.6 37.0 - 47.0 % [facility] DEPARTMENT OF PATHOLOGY AND GENOMIC MEDICINE MCV 90.2 82.0 - 100.0 fL [facility] DEPARTMENT OF PATHOLOGY AND GENOMIC MEDICINE MCH 28.8 27.0 - 34.0 pg [facility] DEPARTMENT OF PATHOLOGY AND GENOMIC MEDICINE MCHC 31.9 31.0 - 37.0 g/dL [facility] DEPARTMENT OF PATHOLOGY AND GENOMIC MEDICINE RDW - SD 47.9 37.0 - 55.0 fL [facility] DEPARTMENT OF PATHOLOGY AND GENOMIC MEDICINE MPV 9.6 8.8 - 13.2 fL [facility] DEPARTMENT OF PATHOLOGY AND GENOMIC MEDICINE Platelet count 246 150 - 400 k/uL [facility] DEPARTMENT OF PATHOLOGY AND GENOMIC MEDICINE Nucleated RBC 0.00 /100 WBC [facility] DEPARTMENT OF PATHOLOGY AND GENOMIC MEDICINE Specimen Performing Organization Address City/[facility] Phone Number [facility] DEPARTMENT PATHOLOGY AND [address] [place] [address] [facility] MRI Brain Wo Contrast (05/08/2018 8:45 PM CDT) Specimen Narrative Performed At EXAMINATION: [facility]: NEURO DEFICITACUTESINGLEPROGRESSING, possible seizures COMPARISON:05/07/2018 [...] gross abnormalities. IMPRESSION: No acute intracranial abnormality. [facility]-[id number] Procedure Note Interface, Radiology Results Incoming - [...] gross abnormalities. IMPRESSION: No acute intracranial abnormality. [facility]-[id number] Performing Organization Address City/State/Zipcode Phone Number [facility] [address] [place] [address] CBC with platelet and differential (05/08/2018 3:55 AM CDT)Only the most recent of3 resultswithin the time period is included. WBC 7.51 4.50 - 11.00 [facility] DEPARTMENT OF k/uL PATHOLOGY AND GENOMIC MEDICINE RBC 4.26 4.20 - 5.50 [facility] DEPARTMENT OF m/uL PATHOLOGY AND GENOMIC MEDICINE HGB 12.2 12.0 - 16.0 [facility] DEPARTMENT OF g/dL PATHOLOGY AND GENOMIC MEDICINE HCT 37.6 37.0 - 47.0 % [facility] DEPARTMENT OF PATHOLOGY AND GENOMIC MEDICINE MCV 88.3 82.0 - 100.0 [facility] DEPARTMENT OF fL PATHOLOGY AND GENOMIC MEDICINE MCH 28.6 27.0 - 34.0 [facility] DEPARTMENT OF pg PATHOLOGY AND GENOMIC MEDICINE MCHC 32.4 31.0 - 37.0 [facility] DEPARTMENT OF g/dL PATHOLOGY AND GENOMIC MEDICINE RDW - SD 47.1 37.0 - 55.0 [facility] DEPARTMENT OF fL PATHOLOGY AND GENOMIC MEDICINE MPV 9.5 8.8 - 13.2 [facility] DEPARTMENT OF PATHOLOGY AND GENOMIC MEDICINE Platelet count 227 150 - 400 [facility] DEPARTMENT OF k/uL PATHOLOGY AND GENOMIC MEDICINE Nucleated RBC 0.00 /100 WBC [facility] DEPARTMENT OF PATHOLOGY AND GENOMIC MEDICINE Neutrophils 57.3 39.0 - 69.0 % [facility] DEPARTMENT OF PATHOLOGY AND GENOMIC MEDICINE Lymphocytes 28.8 25.0 - 45.0 % [facility] DEPARTMENT OF PATHOLOGY AND GENOMIC MEDICINE Monocytes 6.4 0.0 - 10.0 % [facility] DEPARTMENT OF PATHOLOGY AND GENOMIC MEDICINE Eosinophils 5.5 (H) 0.0 - 5.0 % [facility] DEPARTMENT OF PATHOLOGY AND GENOMIC MEDICINE Basophils 0.9 0.0 - 1.0 % [facility] DEPARTMENT OF PATHOLOGY AND GENOMIC MEDICINE Immature granulocytes 1.1 0.0 - 1.0 % [facility] DEPARTMENT OF (H)Comment: PATHOLOGY AND "Immature GENOMIC MEDICINE granulocytes" (promyelocytes , myelocytes, metamyelocytes ) Specimen Blood Performing Organization Address City/State/Zipcode Phone Number [facility] DEPARTMENT OF PATHOLOGY AND [address] [place] [address] [employer] [address] Head Wo Contrast (05/07/2018 1:25 PM CDT) Specimen Narrative Performed At EXAMINATION:CT HEAD WO CONTRAST [...] No CT evidence of acute intracranial abnormality. [id number] Procedure Note Interface, Radiology Results Incoming - [...] No CT evidence of acute intracranial abnormality. [id number] Performing Organization Address City/State/Zipcode Phone Number [facility] [address] [place] [address] Comprehensive metabolic panel (05/07/2018 3:05 AM CDT)Only the most recent of3 resultswithin the time period is included. Sodium 139 135 - 148 [facility] DEPARTMENT OF mEq/L PATHOLOGY AND GENOMIC MEDICINE Potassium 3.7 3.5 - 5.0 [facility] DEPARTMENT OF mEq/L PATHOLOGY AND GENOMIC MEDICINE Chloride 106 98 - 112 mEq/L [facility] DEPARTMENT OF PATHOLOGY AND GENOMIC MEDICINE CO2 20 (L) 24 - 31 mEq/L [facility] DEPARTMENT OF PATHOLOGY AND GENOMIC MEDICINE Anion gap 13@ANIO 7 - 15 mEq/L [facility] DEPARTMENT OF PATHOLOGY AND GENOMIC MEDICINE BUN 11 6 - 20 mg/dL [facility] DEPARTMENT OF PATHOLOGY AND GENOMIC MEDICINE Creatinine 0.7 0.5 - 0.9 [facility] DEPARTMENT OF mg/dL PATHOLOGY AND GENOMIC MEDICINE Glucose 112 (H) 65 - 99 mg/dL [facility] DEPARTMENT OF PATHOLOGY AND GENOMIC MEDICINE Calcium 9.2 8.3 - 10.2 [facility] DEPARTMENT OF mg/dL PATHOLOGY AND GENOMIC MEDICINE Protein 6.2 (L) 6.3 - 8.3 g/dL [facility] DEPARTMENT OF Comment: PATHOLOGY AND 4.6-7.0 g/dL GENOMIC MEDICINE 1 week 4.4-7.6 g/dL 7 months-1year5.1-7.3 g/dL 1-2 years5.6-7.5 g/dL >3 years6.0-8.0 g/dL 18-150 6.3-8.3 g/dL Albumin 3.2 (L) 3.5 - 5.0 g/dL [facility] DEPARTMENT OF PATHOLOGY AND GENOMIC MEDICINE A/G ratio 1.1 0.7 - 3.8 [facility] DEPARTMENT OF PATHOLOGY AND GENOMIC MEDICINE Alkaline phosphatase 47 35 - 104 U/L [facility] DEPARTMENT OF PATHOLOGY AND GENOMIC MEDICINE AST 16 10 - 35 U/L [facility] DEPARTMENT OF PATHOLOGY AND GENOMIC MEDICINE ALT 9 5 - 50 U/L [facility] DEPARTMENT OF PATHOLOGY AND GENOMIC MEDICINE Total bilirubin <0.2 0.0 - 1.2 [facility] DEPARTMENT OF mg/dL PATHOLOGY AND GENOMIC MEDICINE Specimen Plasma specimen Performing Organization Address City/[facility] Phone Number [facility] DEPARTMENT OF PATHOLOGY AND [address] [place] [address] MEDICINE Magnesium level (05/06/2018 3:38 AM CDT) Magnesium 1.8 1.6 - 2.6 mg/dL [facility] DEPARTMENT OF PATHOLOGY AND GENOMIC MEDICINE Specimen Plasma specimen Performing Organization Address [facility] Phone Number [facility] DEPARTMENT OF PATHOLOGY AND [address] [place] [address] MEDICINE Pv carotid duplex (05/05/2018 12:23 PM CDT) Specimen Narrative Performed At [facility] Vascular Ultrasound Laboratory Carotid Artery Duplex Report [address] [place] [address] For dairy quality assurance officer purposes, the categorization of the degree of the stenosis of this exam is based on criteria described in the IAC carotid stenosis grading white paper( www.intersocietal.org/Vascular) and Ml Hercules, Daphne Antony, et al. Carotid artery stenosis: monzon-scale and Doppler US diagnosis--Society of Radiologists in Ultrasound Consensus Conference. Radiology. 2003 Nov; 229(2):340-6. Pat.Name:NITHIN BOJORQUEZ.ID:[id number] .Date: 05/05/2018 Refer.MD:CLAUDIO SANCHES MD Exam Time: 11:42:00 AM Study Type:Carotid DOBAge:1970,48Y Sex: FEMALE Sonogrphr: Yanci Durbin RVBobbi. Stat.:Inpatient Room:[id number]: [place], CPT - 4: 64082 Echo Event ID:[id number] Order ID:[id number] Reason for Study:Multiple episodes of syncope and [...] EDV20.6 cm/s Right CCA Mid CCA Mid [id number] cm/sCCA Mid EDV 27.3 cm/s Right CCA [...] EDV19.5 cm/s Left CCA Mid CCA Mid PTQ352 cm/sCCA Mid EDV 27.4 cm/s Left CCA [...] Vascular Ultrasound Laboratory Carotid Artery Duplex Report [address] [place] [address] For dairy quality assurance officer purposes, the categorization of the degree of the stenosis of this exam is based on criteria described in the IAC carotid stenosis grading white paper( www.intersocietal.org/Vascular) and Wendi Hercules., Arpan CLatoyaB., et al. Carotid artery stenosis: monzon-scale and Doppler US diagnosis--Society of Radiologists in Ultrasound Consensus Conference. Radiology. 2003 Nov; 229(2):340-6. Pat.Name: NITHIN BOJORQUEZ Pat.ID: [id number] .Date: 05/05/2018 Refer.MD: CLAUDIO SANCHES MD Exam Time: 11:42:00 AM Study Type:Carotid Age: 9 1970,48Y Sex: FEMALE Sonogrphr: Yanci Durbin RVT Pat. Stat.:Inpatient Room: P8417B Tape Vol: [place], CPT - 4: 7[address] Echo Event ID:[id number] Order ID: [id number] Reason for Study:Multiple episodes of syncope and [...] Frantz Lawrence MD, RPVI Performing Organization Address [facility] Phone Number [facility] [address] [place] [address] Cv ecg exercise stress (nuclear or echo) (05/05/2018 11:08 AM CDT) Resting HR 53 [facility] MUSE Resting BP 103 [facility] MUSE Peak MET Achieved 1.0 [facility] MUSE Protocol Name REGADENO [facility] MUSE Time in Exercise 00:01:00 [facility] MUSE Phase Max Systolic BP 106 H MUSE Max Diastolic BP 53 H MUSE Max Heart Rate 70 H MUSE Max Predicted Heart 174 [facility] MUSE Rate Target HR Formula (220 - Age)*100% [facility] MUSE Test Indication chest pain [facility] MUSE Stress Test -Waveform interpreted [facility] MUSE Impression in report associated with image study. No interpretation is provided as part of this Stress ECG report.-Electronically Signed By Esme HOUSTON, Barbara Barfield ([id number]), editor city Rosmery Romo ([id number]) on 05/05/2018 10:51:23 AM Target HR 147.90 bpm [facility] MUSE Specimen Performing Organization Address [facility] Phone Number [facility] MUSE [address] [place] [address] Myocardial perfusion (05/05/2018 11:08 AM CDT) Specimen Narrative Performed At [facility] Nuclear Cardiology and Cardiac CT [address] [address] Myocardial Perfusion Imaging Report Stress ECG tracings are available in [employer], [employer] and [employer] All ECG interpretations are included in this report Pat.Name:NITHIN BOJORQUEZ Pat.ID:[id number] .Date: 05/05/2018 Refer.MD:BARBARA DOUGLASS MD Exam Time: 10:24:00 AM Study Type:Myocardial Perfusion Imaging Height:63inWeight: 216lb BSA: 2 y3TKOXce:1970,48Y Sex: FEMALEBP:103/55 HR:53 bpmHCT: 38 % Nuclear Tech:Francy Woodward [facility]/Sanya Salazar [facility] Pat. Stat.:Outpatient Nuclear Event ID:[id number] Order ID:[id number] Reason for Study:Chest pain, unspecified* History / [...] PM CDT Nuclear Cardiology and Cardiac CT [address] [place] [address] Myocardial Perfusion Imaging Report Stress ECG tracings are available in [employer], [employer] and [employer] All ECG interpretations are included in this report Pat.Name: NITHIN BOJORQUEZ Pat.ID: [id number] .Date: 05/05/2018 Refer.MD: BARBARA DOUGLASS MD Exam Time: 10:24:00 AM Study Type:Myocardial Perfusion Imaging Height: 63in Weight: 216lb BSA: 2 m2 Age: 7 1970,48Y Sex: FEMALE BP: 103/55 HR: 53 bpm HCT: 38 % Nuclear Tech:Francy Woodward [facility]/Sanya Salazar [facility] Pat. Stat.:Outpatient Nuclear Event ID:[id number] Order ID: [id number] Reason for Study:Chest pain, unspecified* History / [...] PM Barbara Victoria MD Performing Organization Address City/State/[facility] Phone Number [facility] [address] [place] [address] Echocardiogram complete w contrast and 3D if needed (05/05/2018 8:30 AM CDT) Specimen Narrative Performed At [facility]ocardiography Report [address] [facility] [address], [place] [address] Pat.Name:NITHIN BOJORQUEZ.ID:[id number] .Date: 05/05/2018 Refer.MD:CARMEN MCCORMICK MD Exam Time: 6:40:00 AMStudy Type:Routine Echo Height:63inWeight: 216lb BSA: 2 i3WMHFox:1970,48Y Sex: FEMALEBP:99/51 HR:51 bpmSonogrphr: THADDEUS Mancia Pat. Stat.:Inpatient Room:[facility] Study Status:Final Echo Event ID:[id number] Order ID:[id number] Reason for Study:Chest pain, suspected cardiac etiology [...] PA systolic pressure. MEASUREMENTS: 2D Parasternal [place] LVOT 2.2 cmLA Ds3.5 cm LVIDd4.9 cmIndex2.5 cm/m Ao Rtd 3.3 cm Index1.7 cm/m LVIDs3.1 cmLV Blfe749.7 g(87-129) LV%fs 37.6 % LVM Index 80.8 g/m2 IVSd 1 cmRWT0.3 LVPWd0.8 cm Signed 05/05/2018 02:34 PM Lisa Castaneda M.D. Procedure Note Interface, Radiology Results In - 05/05/2018 2:35 PM CDT Echocardiography Report [address]Name: NITHIN BOJORQUEZ Pat.ID: [id number] .Date: 05/05/2018 Refer.MD: CARMEN MCCORMICK MD Exam Time: 6:40:00 AM Study Type:Routine Echo Height: 63in Weight: 216lb BSA: 2 m2 Age: 7 1970,48Y Sex: FEMALE BP: 99/51 HR: 51 bpm Sonogrphr: THADDEUS Mancia Pat. Stat.:Inpatient Room: [facility] Study Status:Final Echo Event ID:[id number] Order ID: [id number] Reason for Study:Chest pain, suspected cardiac etiology [...] PA systolic pressure. MEASUREMENTS: 2D Parasternal [place] LVOT 2.2 cm LA Ds 3.5 cm LVIDd 4.9 cm Index 2.5 cm/m Ao Rtd 3.3 cm Index 1.7 cm/m LVIDs 3.1 cm LV Mass 161.7 g (87-129) LV%fs 37.6 % LVM Index 80.8 g/m2 IVSd 1 cm RWT 0.3 LVPWd 0.8 cm Signed 05/05/2018 02:34 PM Lisa Castaneda M.D. Performing Organization Address City/State/Zipcode Phone Number [facility] [address] [place] [address] ECG 12 lead (05/05/2018 5:36 AM CDT)Only the most recent of2 resultswithin the time period is included. Ventricular rate 52 [facility] Atrial rate 52 [facility] NV interval 140 [facility] QRSD interval 88 [facility] QT interval 482 [facility] QTC interval 448 [facility] P axis 1 39 [facility] QRS axis 1 11 [facility] T wave axis 47 [facility] M[facility] EKG impression Sinus bradycardia-Low [facility] MUSE voltage QRS-Borderline ECG-In automated comparison with ECG of 04-MAY-2018 15:03,-Change in inferior and anterior forces now noted- Specimen Performing Organization Address [facility] Phone Number [facility] MUSE [address] [place] [address] Troponin (05/05/2018 5:35 AM CDT)Only the most recent of2 resultswithin the time period is included. Troponin <0.30 0.00 - 0.30 [facility] DEPARTMENT OF Comment: ng/mL PATHOLOGY AND 0.30 - 1.49 ng/mlMay indicate increased risk of acute GENOMIC MEDICINE coronary syndrome. >=1.5 ng/mlConsistent with acute myocardial infarction. The diagnostic value of a single normal or non-diagnostic result is questionable.Serial samples at 2-6 hour intervals are required to rule out acute myocardial injury. Specimen Plasma specimen Performing Organization Address [facility] Phone Number [facility] DEPARTMENT OF PATHOLOGY AND [address] [place] [address] [facility] hCG qualitative, urine screen (05/05/2018 4:31 AM CDT) Pathologist [facility] hCG qualitative, NegativeComment: [facility] DEPARTMENT OF urine Sensitivity of HCG PATHOLOGY AND test: 25 mIU/mL [facility] MEDICINE Specimen Urine Performing Organization Address [facility] Phone Number [facility] DEPARTMENT OF PATHOLOGY AND [address] [place] [address] [facility] Urine drugs of abuse screen (05/05/2018 4:31 AM CDT) Amphetamine screen, Negative [facility] DEPARTMENT OF urine PATHOLOGY AND GENOMIC MEDICINE Barbiturate screen, Negative [facility] DEPARTMENT OF urine PATHOLOGY AND GENOMIC MEDICINE Benzodiazepine Negative [facility] DEPARTMENT OF screen, urine PATHOLOGY AND GENOMIC MEDICINE Cannabinoid screen, Negative [facility] DEPARTMENT OF urine PATHOLOGY AND GENOMIC MEDICINE Cocaine screen, urine Negative [facility] DEPARTMENT OF PATHOLOGY AND GENOMIC MEDICINE Methadone metabolite Negative [facility] DEPARTMENT OF (EDDP), urine PATHOLOGY AND GENOMIC MEDICINE Opiates screen, urine Negative [facility] DEPARTMENT OF PATHOLOGY AND GENOMIC MEDICINE Oxycodone screen, Negative [facility] DEPARTMENT OF urine PATHOLOGY AND GENOMIC MEDICINE Phencyclidine screen, Negative [facility] DEPARTMENT OF urine PATHOLOGY AND GENOMIC MEDICINE Tricyclic screen, Negative [facility] DEPARTMENT OF urine Comment: PATHOLOGY AND Drug screen minimum concentration of detectability GENOMIC MEDICINE Ttzfssfpjyfu6281 ng/mL Barbiturates 200 ng/mL Ogocpikgwmorvgf483 ng/mL Uqmzsgw280 ng/mL Xcgyqyyjn568 ng/mL Luvpaoq090 ng/mL Jpuukycfo484 ng/mL Phencyclidine 25 ng/mL Funitnhkhzbo45 ng/mL Vjrqwxrnti4446 ng/mL Negative test results indicates presumptive evidence of lack of clinically significant drug concentration in this urine specimen. Positive test results are presumptive evidence of clinically significant drug concentration in this urine specimen. Testing performed for medical purposes only. Specimen Urine Performing Organization Address [facility] Phone Number [facility] DEPARTMENT OF PATHOLOGY AND [address] [place] [address] GENOMIC MEDICINE Prothrombin time with INR (05/05/2018 4:22 AM CDT) Prothrombin time 13.6 12.0 - 15.0 [facility] DEPARTMENT OF sec PATHOLOGY AND GENOMIC MEDICINE INR 1.0 [facility] DEPARTMENT OF Comment: PATHOLOGY AND The International Normalized Ratio (INR) is a therapeutic GENOMIC MEDICINE monitoring tool for patients who are stable on oral anticoagulant therapy. An INR of 2.0-3.0 is suggested for deep vein thrombosis/pulmonary embolism. Specimen Blood Performing Organization Address [facility] Phone Number [facility] DEPARTMENT OF PATHOLOGY AND [address] [place] [address] MEDICINE Thyroid stimulating hormone (05/05/2018 4:22 AM CDT) TSH 6.15 (H) 0.27 - 4.20 uIU/mL [facility] DEPARTMENT OF PATHOLOGY AND GENOMIC MEDICINE Specimen Plasma specimen Performing Organization Address City/[facility]/Zipcode Phone Number [facility] DEPARTMENT OF PATHOLOGY AND [address] [place] [address] GENOMIC MEDICINE Lipid panel (05/05/2018 4:22 AM CDT) Cholesterol 177 <200 mg/dL [facility] DEPARTMENT OF PATHOLOGY AND GENOMIC MEDICINE Triglycerides 105 <150 mg/dL [facility] DEPARTMENT OF PATHOLOGY AND GENOMIC MEDICINE HDL cholesterol 45 >40 mg/dL [facility] DEPARTMENT OF PATHOLOGY AND GENOMIC MEDICINE LDL cholesterol 114 (H)Comment: <100 mg/dL [facility] DEPARTMENT Result obtained by OF PATHOLOGY AND direct LDL GENOMIC MEDICINE measurement Lipid panel SeeBelow [facility] DEPARTMENT interpretation Comment: OF PATHOLOGY AND Total Cholesterol (mg/dL) GENOMIC MEDICINE <200 Desirable 692-708Ozusamxzbi-jkes >=240High Triglycerides (mg/dL) <150 Normal 631-299Ewvhacipzt-fhet 200-499High >=500Very high HDL Cholesterol (mg/dL) <40Low (male) <40Low (female) LDL Cholesterol (mg/dL) <100 Optimal 100-129Near or above optimal 340-225Kyxtaqdubu-urav 160-189High >=190Very high Risk Catergories that modify [...] specimen Performing Organization Address City/State/Zipcode Phone Number [facility] DEPARTMENT OF PATHOLOGY AND [address] [place] [id number] [place] [address] CT Cervical Spine W Contrast (05/04/2018 8:55 PM CDT) Specimen Narrative Performed At EXAMINATION: CT CERVICAL SPINE [...] neural foraminal stenosis. IMPRESSION: No acute abnormality. [facility]-[id number] Procedure Note Interface, Radiology Results Incoming - [...] neural foraminal stenosis. IMPRESSION: No acute abnormality. [facility]-[id number] Performing Organization Address [facility] Phone Number [facility] [address] [place] [address] ECG ED Preliminary Interpretation - NOT AN ORDER (05/04/2018 6:01 PM CDT) Narrative Performed At Claudio Sanches MD 05/09/20182:00 AM ECG ED Preliminary Interpretation - Not an Order Performed by: CLAUDIO SANCHES Authorized by: CLAUDIO SANCHES ECG reviewed by ED Physician in the absence of a take off worker: yes Previous ECG: Previous ECG:Unavailable Interpretation: Interpretation: [...] CDT) ALT 14 5 - 50 U/L [facility] DEPARTMENT OF PATHOLOGY AND GENOMIC MEDICINE Specimen Plasma specimen Performing Organization Address [facility] Phone Number [facility] DEPARTMENT OF PATHOLOGY AND [address] [place] [phone] [facility] AST (SGOT) (05/04/2018 5:50 PM CDT) AST 13 10 - 35 U/L [facility] DEPARTMENT OF PATHOLOGY AND GENOMIC MEDICINE Specimen Plasma specimen Performing Organization Address [facility] Phone Number [facility] DEPARTMENT OF PATHOLOGY AND [address] [place] [phone] GENOMIC MEDICINE Potassium level (05/04/2018 5:50 PM CDT) Potassium 4.1 3.5 - 5.0 mEq/L [facility] DEPARTMENT OF PATHOLOGY AND GENOMIC MEDICINE Specimen Plasma specimen Performing Organization Address City/State/Zipcode Phone Number [facility] DEPARTMENT OF PATHOLOGY AND [address] [place] [phone] [place] [address] MEDICINE B natriuretic peptide (05/04/2018 4:54 PM CDT) BNP 43 0 - 100 pg/mL [facility] DEPARTMENT OF PATHOLOGY AND GENOMIC MEDICINE Specimen Blood Narrative Performed At [facility] to perform testing, specimen is [facility] DEPARTMENT OF PATHOLOGY AND GENOMIC HEMOLYZED.Recollect MEDICINE requested for K, AST, ALT,ALP(tests). ROGE CELESTE/HUNTER(name/location) notified by PC(tech ID) at05/04/2018 17:31(date/time). Performing Organization Address City/[facility]/Zipcode Phone Number [facility] DEPARTMENT OF PATHOLOGY AND [address] [place] [address] MEDICINE XR Chest 2 Vw (05/04/2018 3:29 PM CDT) Specimen Narrative Performed At EXAMINATION:XR CHEST 2 VW [facility] CLINICAL HISTORY:Chest painACS suspected COMPARISON:None Technique:PA and lateral chest radiographs are obtained. IMPRESSION: 1.The lungs are clear. 2.There is no pleural fluid or pneumothorax. 3.The heart size and mediastinal contours are within normal limits. 4.There is no significant skeletal abnormality. [id number] Procedure Note Hm Interface, Radiology Results Incoming [...] 4. There is no significant skeletal abnormality. [id number] Performing Organization Address City/State/Zipcode Phone Number [facility] [address] [place] [phone] after 02/09/2018 Advance Directives Patient has advance care planning documents on file. For more information, please contact:Félix Lang[address] [place] [address]
--- OUTSIDE RECORDS SUMMARY | 2019-02-10 12:03 | XMS REPORT ---
[...] Status Dosage System Date Date Fish Oil [facility] 86245847777 1000 MG Orally Active 1 capsule Once a day Multivitamin ND 44618036982 - Orally Active as Women directed Fluoxetine HCl ND 60682300298 20 MG Orally Active 1 capsule [place] [address]-91 300 MG Orally Active 3 capsule Carbonate Once a day at bedtime Trazodone HCl [facility] [address]-91 100 MG Orally Active 2 tablet Once a day at bedtime as needed Vitamin B ND 19496769306 - Orally Active as Complex directed Melatonin [facility] [address] 10 MG Orally Active 3 capsule at bedtime as needed with food Results Name Result Date Reference Range Unit Abnormality Flag Electrocardiogram (EKG) Summary Purpose eClinicalWorks Submission
--- OUTSIDE RECORDS SUMMARY | 2019-02-10 12:03 | XMS REPORT ---
:1970 Author Organization eClinicalWorks Care Team Providers Name Role Phone Mariana Ochoa Provider Role Unavailable Allergies No Known Allergies Problems Problem Type Condition Code Onset Dates Condition Status Assessment Back pain, unspecified back M54.9 Active location, unspecified back pain laterality, unspecified chronicity Problem Abdominal pain, unspecified R10.9 Active abdominal location Assessment Neck pain M54.2 Active Problem Vitamin D deficiency E55.9 Active Problem Left ovarian cyst N83.202 Active Problem Chest pain, unspecified type R07.9 Active Problem Left lower quadrant pain R10.32 Active Problem Neck pain M54.2 Active Problem Paresthesias R20.2 Active Problem Bipolar disorder F31.9 Active Problem Lightheadedness R42 Active Problem Back pain, unspecified back M54.9 Active location, unspecified back pain laterality, unspecified chronicity Problem Non-intractable vomiting with R11.2 Active nausea, unspecified vomiting type Problem Gastroesophageal reflux disease K21.9 Active without esophagitis Problem Abnormal liver function test R94.5 Active Problem Other chronic pain G89.29 Active Problem Dorsalgia, unspecified M54.9 Active Problem Arthralgia, unspecified joint M25.50 Active Problem Hypotension, unspecified I95.9 Active hypotension type Problem Weakness R53.1 Active Problem Diarrhea, unspecified type R19.7 Active Problem Joint swelling M25.40 Active Problem Syncope, unspecified syncope type R55 Active Problem Fatigue, unspecified type R53.83 Active Problem Iron deficiency anemia, unspecified D50.9 Active iron deficiency anemia type Medications Medication Code Code Instructions Start End Status Dosage System Date Date Vitamin B Complex [facility] 43239609286 - Orally Active as directed Fluoxetine HCl ND 30358033779 20 MG Orally Active 1 capsule Once a day in the morning Meloxicam ND 65889260531 15 MG Orally DecemberJanuary 29, Active 1 tablet Once a day as 2018 needed for 2019 pain; take with food Cyclobenzaprine ND 74795736184 10 MG Orally DecemberJanuary 29, Active 1 tablet as HCl Three times a 2018 needed for day 2019 muscle cramps/pain [place] Carbonate [facility] 09809067457 300 MG Orally Active 3 capsule Once a day at bedtime Melatonin [facility] 36837314103 10 MG Orally Active 3 capsule at bedtime as needed with food Trazodone HCl [facility] 82703258386 100 MG Orally Active 2 tablet at Once a day bedtime as needed Dicyclomine HCl ND 09874828123 20 mg Orally Active 1 tablet as Up to 4x daily needed for abdominal pain Fish Oil ND 31463400837 1000 MG Orally Active 1 capsule Once a day Medrol [facility] 40575235170 4 MG Orally as December Active as directed directed 2018 Lyrica ND 07101582071 100 MG Orally Aug 14, Active 1 capsule Three times a 2017 day Multivitamin Women ND 32948456121 - Orally Active as directed Results No Known Results Summary Purpose eClinicalWorks Submission
--- OUTSIDE RECORDS SUMMARY | 2019-02-10 12:03 | XMS REPORT ---
[...] Start End Status Dosage System Date Date [place] ND 10094606508 300 MG Orally Active 3 capsule at Carbonate Once a day bedtime Multivitamin ND 53411606218 - Orally Active as directed Women Vitamin B ND 75878951619 - Orally Active as directed Complex Trazodone HCl ND 33767463260 100 MG Orally Active 2 tablet at Once a day bedtime as needed Melatonin ND 79309487429 10 MG Orally Active 3 capsule at bedtime as needed with food Dicyclomine HCl ND 68063156923 20 mg Orally Up Active 1 tablet as to 4x daily needed for abdominal pain Fish Oil [facility] 84906814984 1000 MG Orally Active 1 capsule Once a day Lyrica [facility] 47675998521 100 MG Orally Aug 14, Active 1 capsule Three times a 2017 day Fluoxetine HCl [facility] 02848017721 20 MG Orally Active 1 capsule in Once a day the morning Results No Known Results Summary Purpose eClinicalWorks Submission
--- OUTSIDE RECORDS SUMMARY | 2019-02-10 12:03 | XMS REPORT ---
[...] Start End Status Dosage System Date Date [place] ND 33129947523 300 MG Orally Active 3 capsule at Carbonate Once a day bedtime Fish Oil ND 15722741282 1000 MG Orally Active 1 capsule Once a day Multivitamin ND 95637477684 - Orally Active as directed Women Trazodone HCl ND 84882975027 100 MG Orally Active 2 tablet at Once a day bedtime as needed Melatonin ND 68332952339 10 MG Orally Active 3 capsule at bedtime as needed with food Dicyclomine HCl ND 26949768415 20 mg Orally Up Active 1 tablet as to 4x daily needed for abdominal pain Tramadol HCl ND 81350284603 50 MG Orally May 15May Active 1 tablet as Twice daily 2018 03, needed for 2017 pain Vitamin B [facility] 60693810034 - Orally Active as directed Complex Fluoxetine HCl [facility] 11204434693 20 MG Orally Active 1 capsule in Once a day the morning Results No Known Results Summary Purpose eClinicalWorks Submission
--- OUTSIDE RECORDS SUMMARY | 2019-02-10 12:03 | XMS REPORT ---
[...] End Status Dosage System Date Date Multivitamin [facility] 58526944538 - Orally Active as directed Women Vitamin B [facility] 78178872112 - Orally Active as directed Complex Trazodone HCl ND 53249314590 100 MG Orally Active 2 tablet at Once a day bedtime as needed [place] ND 91591607896 300 MG Orally Active 3 capsule at Carbonate Once a day bedtime Melatonin ND 57295883547 10 MG Orally Active 3 capsule at bedtime as needed with food Fluoxetine HCl ND 14805504469 20 MG Orally Active 1 capsule in Once a day the morning Fish Oil ND 35172209249 1000 MG Orally Active 1 capsule Once a day Dicyclomine HCl ND 02002166171 20 mg Orally Up April 16May 16, Active 1 tablet as to 4x daily 2017 2017 needed for abdominal pain Results No Known Results Summary Purpose eClinicalWorks Submission
--- OUTSIDE RECORDS SUMMARY | 2019-02-10 12:04 | XMS REPORT ---
:1970 Author Organization eClinicalWorks Care Team Providers Name Role Phone Deion Ochoaen Provider Role Unavailable Allergies, Adverse Reactions, Alerts Substance Reaction Event Type Zofran Causes red bumps on her tongue Drug Allergy Gabapentin shaking and twitching Drug Allergy Problems Problem Type Condition Code Onset Dates Condition Status Assessment URI, acute J06.9 Active Assessment Acute pharyngitis, unspecified J02.9 Active etiology Assessment Back pain, unspecified back M54.9 Active [...] Start End Status Dosage System Date Date Cyclobenzaprine [facility] 81899014934 10 MG Orally December Active 1 tablet as HCl Three times a 09, 09, needed for day 2018 2018 muscle cramps/pain Lyrica [facility] 16004358111 100 MG Orally Aug 14, Active 1 capsule Three times a 2017 day Fish Oil [facility] 50937521436 1000 MG Orally Active 1 capsule Once a day Fluoxetine HCl [facility] 95142309818 20 MG Orally Active 1 capsule Once a day in the morning [place] Carbonate [facility] 29928790047 300 MG Orally Active 3 capsule Once a day at bedtime Trazodone HCl [facility] 13251115061 100 MG Orally Active 2 tablet at Once a day bedtime as needed Dicyclomine HCl [facility] 64067210317 20 mg Orally Up Active 1 tablet as to 4x daily needed for abdominal pain Multivitamin Women [facility] 52136712768 - Orally Active as directed Vitamin B Complex [facility] 06258015264 - Orally Active as directed Meloxicam [facility] 24617076605 15 MG Orally December Active 1 tablet Once a day as , needed for 2018 2018 pain; take with food Melatonin [facility] 28737859899 10 MG Orally Active 3 capsule at bedtime as needed with food Results Name Result Date Reference Range Unit Abnormality Flag STREP A RAPID ----Result Negative [id number] Summary Purpose eClinicalWorks Submission
[2019-02-10] MEDS ORDERED: HYDROCODONE/APAP 10/325 TAB ONE (12:52)
--- NOTE | 2019-02-10 12:58 | RAD REPORT ---
EXAM DESCRIPTION: CT - Spine Lumbar Wo Con - 02/10/2019 12:48 pm CLINICAL HISTORY: Fall, back pain COMPARISON: None. TECHNIQUE: Thin section axial imaging of the lumbar spine was performed. Sagittal and coronal recon struction images were generated and reviewed. All CT scans are performed using dose optimization technique as appropriate and may include automated exposure control or mA/KV adjustment according to patient size. FINDINGS: Lumbar bodies are normal in height and normal in AP alignment. There is a very minimal lef t convex curvature in the lumbar spine that may be positional or related to muscle spasm. No acute fracture changes are identifiable. No lytic, sclerotic or expansile bony destructive process . No paraspinal mass identified. Central canal detail is inherently limited on CT imaging. No suspicion for disc herniation or signifi cant degree of disc bulging. No central spinal stenosis or significant foraminal encroachment seen. P atient does have facet joint degenerative change at L4-5 and L5-S1. No pars defects are present. IMPRESSION: Lower lumbar degenerative changes are present in the facet joints. No compression fracture or acute bone findings seen. No disc herniation or central canal abnormality identifiable. Central canal detail is inherently limi garcía.
--- NOTE | 2019-02-10 12:58 | RAD REPORT ---
EXAM DESCRIPTION: CT - CTHCSPWOC - 02/10/2019 12:48 pm CLINICAL HISTORY: Trauma, head and neck injury. fall COMPARISON: No comparisons TECHNIQUE: Axial 5 mm thick images of the head were obtained. Axial 2 mm thick images of the cervical spine were obtained with sagittal and coronal reconstruction images generated and reviewed. All CT scans are performed using dose optimization technique as appropriate and may include automated exposure control or mA/KV adjustment according to patient size. FINDINGS: CT HEAD WITHOUT CONTRAST: No acute hemorrhage, hydrocephalus or extra-axial collection is identified.No areas of brain edema or midline shift. The paranasal sinuses and mastoids are clear.The calvarium is intact. CT CERVICAL SPINE WITHOUT CONTRAST: No fracture or subluxation. Mild lower cervical degenerative change. No prevertebral soft tissues swe lling is identified. IMPRESSION: No acute intracranial or cervical spine findings.
--- NOTE | 2019-02-10 14:16 | EDPHYS ---
Physician Documentation [facility] Name: Nithin Beth Age: 48 yrs Sex: Female : 1970 Arrival Date: 02/10/2019 Time: 12:02 Bed 26 Private MD: Mariana Ochoa ED Physician Braden Arambula HPI: 02/10 12:26 This 48 yrs old Female presents to ER via Wheelchair with complaints of Back ps1 Pain. 12:26 patient has a history of chronic back pain and sees Dr. Luz. States that she fell ps1 this morning from standing height and hit her head and back. She states that she felt a couple of hard pops and has had increased pain since the event. Pain localized to lower back. No radiation. Rated as moderate and worse with movement. No LOC. No saddle or urinary complaints. She states that she did not take any of the prescribed medications (Coleman) today because she thought that she was going to have to drive. Her picked her up so now she is accompanied. . BLOCK CUBER: 12:15 LMP N/A - Hysterectomy aj Historical: - Allergies: 12:15 Erythromycin; aj 12:15 TETRACYCLINES; aj 12:15 Zofran; aj 12:15 Toradol; aj - Home Meds: 12:15 Fish Oil Oral [Active]; lithium carbonate 900mg oral cap [Active]; trazodone 300 mg aj oral tab 2 tab [Active]; hydrocodone-acetaminophen 7.5-325 mg Oral tab 1 tab every 6 hours [Active]; Latuda 60 mg oral tab 1 tab once daily [Active]; Wellbutrin 75 mg Oral tab [Active]; cyclobenzaprine 10 mg Oral tab [Active]; - PMHx: 12:15 Bipolar disorder; Chronic pain; "Possibly Fibromyalgia"; aj - PSHx: 12:15 Gastric Bypass; Cholecystectomy; Tubal ligation; aj - Immunization history:: Adult Immunizations up to date. - Social history:: Smoking status: Patient/guardian denies using tobacco. - Ebola Screening: : Patient negative for fever greater than or equal to 101.5 degrees Fahrenheit, and additional compatible Ebola Virus Disease symptoms Patient denies exposure to infectious person Patient denies travel to an Ebola-affected area in the 21 days before illness onset No symptoms or risks identified at this time. ROS: 12:26 Constitutional: Negative for fever, chills, and weight loss, Eyes: Negative for injury, ps1 pain, redness, and discharge, ENT: Negative for injury, pain, and discharge, Cardiovascular: Negative for chest pain, palpitations, and edema, Respiratory: Negative for shortness of breath, cough, wheezing, and pleuritic chest pain, Abdomen/GI: Negative for abdominal pain, nausea, vomiting, diarrhea, and constipation, MS/Extremity: Negative for injury and deformity, Skin: Negative for injury, rash, and discoloration, Neuro: Negative for headache, weakness, numbness, tingling, and seizure. 12:26 Back: Positive for pain with movement. Exam: 12:26 Constitutional: This is a well developed, well nourished patient who is awake, alert, ps1 and in no acute distress. Head/Face: Normocephalic, atraumatic. Eyes: Pupils equal round and reactive to light, extra-ocular motions intact. Lids and lashes normal. Conjunctiva and sclera are non-icteric and not injected. ENT: Nares patent. No nasal discharge, no septal abnormalities noted. Tympanic membranes are normal and external auditory canals are clear. Oropharynx with no redness, swelling, or masses, exudates, or evidence of obstruction, uvula midline. Mucous membranes moist. Chest/axilla: Normal chest wall appearance and motion. Nontender with no deformity. No lesions are appreciated. Cardiovascular: Regular rate and rhythm. No gallops, murmurs, or rubs. Normal PMI, no JVD. No pulse deficits. Respiratory: Lungs have equal breath sounds bilaterally, clear to auscultation and percussion. No rales, rhonchi or wheezes noted. No increased work of breathing, no retractions or nasal flaring. Abdomen/GI: Soft, non-tender, with normal bowel sounds. No distension or tympany. No guarding or rebound. No evidence of tenderness throughout. Skin: Warm, dry with normal turgor. Normal color with no rashes, no lesions, and no evidence of cellulitis. MS/ Extremity: Pulses equal, no cyanosis. Neurovascular intact. Full, normal range of motion. Neuro: Awake and alert, GCS 15, oriented to person, place, time, and situation. Cranial nerves II-XII grossly intact. Sensory grossly intact. 12:26 Back: pain, that is moderate, ROM is decreased, with movement. muscle spasm, is appreciated in the right subscapular area, right mid back and right low back. Vital Signs: 12:15 BP 111 / 61; Pulse 72; Resp 19; Temp 97.9; Pulse Ox 97% on R/A; Weight 103.42 kg; aj Height 5 ft. 3 in. (160.02 cm); 13:30 BP 116 / 74; Pulse 66; Resp 18; Pulse Ox 99% ; aj1 15:08 BP 115 / 78; Pulse 68; Resp 18; Temp 98; Pulse Ox 100% on R/A; Pain 2/10; mg2 12:15 Body Mass Index 40.39 (103.42 kg, 160.02 cm) aj MDM: 12:31 Patient medically screened. ps1 14:14 Data reviewed: vital signs, nurses notes, radiologic studies, and as a result, I will ps1 discharge patient. Counseling: I had a detailed discussion with the patient and/or guardian regarding: the historical points, exam findings, and any diagnostic results supporting the discharge/admit diagnosis, radiology results, the need for outpatient follow up. 14:14 ED course: Imaging negative for acute injury. Home with robaxin. Take norco as ps1 previously prescribed. Stable for discharge. . 02/10 12:31 Order name: CT Head C Spine; Complete Time: 13:01 ps1 02/10 12:31 Order name: CT Lumbar Spine Wo Con; Complete Time: 13:01 ps1 Administered Medications: 13:02 Drug: Coleman 10 mg-325 mg 1 tabs Route: PO; aj1 15:06 Follow up: Response: No adverse reaction; Marked relief of symptoms mg2 Disposition: 02/10/19 14:15 Discharged to Home. Impression: Low back pain, Fall from standing height. - Condition is Stable. - Discharge Instructions: Back Pain, Adult, Musculoskeletal Pain. - Prescriptions for Robaxin 500 mg Oral Tablet - take 2 tablet by ORAL route every 6 hours As needed; 40 tablet. - Medication Reconciliation Form, Thank You Letter, Antibiotic Education, Prescription Opioid Use form. - Follow up: Monico Stapleton DO; When: Upon discharge from the Emergency Department; Reason: Further diagnostic work-up, Recheck today's complaints, Re-evaluation by your physician. - Problem is new. - Symptoms are unchanged. Signatures: Dispatcher [employer] EDMary Lou Peterson RN RN aj1 Manuela Tarango RN RN aj Braden Arambula MD MD ps1 Samson Post, RN RN mg2 Corrections: (The following items were deleted from the chart) 15:09 14:15 02/10/2019 14:15 Discharged to Home. Impression: Low back pain; Fall from mg2 standing height. Condition is Stable. Forms are Medication Reconciliation Form, Thank You Letter, Antibiotic Education, Prescription Opioid Use. Follow up: Monico Stapleton; When: Upon discharge from the Emergency Department; Reason: Further diagnostic work-up, Recheck today's complaints, Re-evaluation by your physician. Problem is new. Symptoms are unchanged. ps1
--- NOTE | 2019-02-10 14:16 | ER ---
Nurse's Notes [facility] Name: Nithin Beth Age: 48 yrs Sex: Female : 1970 Arrival Date: 02/10/2019 Time: 12:02 Bed 26 Private MD: Mariana Ochoa Diagnosis: Low back pain;Fall from standing height Presentation: 02/10 12:12 Presenting complaint: Patient states: Lower back pain and neck pain after slip and fall aj from standing position. Reports decreased ROM to neck. Patient able to move neck during triage with no difficulty. Transition of care: patient was not received from another setting of care. Onset of symptoms was February 10, 2019. Risk Assessment: Do you want to hurt yourself or someone else? Patient reports no desire to harm self or others. Initial Sepsis Screen: Does the patient meet any 2 criteria? No. Patient's initial sepsis screen is negative. Does the patient have a suspected source of infection? No. Patient's initial sepsis screen is negative. Care prior to arrival: None. 12:12 Method Of Arrival: Wheelchair aj 12:12 Acuity: HUSAM 4 aj Triage Assessment: 12:15 General: Appears in no apparent distress. uncomfortable, Behavior is calm, cooperative, aj appropriate for age. Pain: Complains of pain in back. Neuro: Level of Consciousness is awake, alert, obeys commands, Oriented to person, place, time, situation, Appropriate for age. Respiratory: Airway is patent Respiratory effort is even, unlabored, Respiratory pattern is regular, symmetrical. Derm: Skin is intact, is healthy with good turgor, Skin is pink, warm \\T\\ dry. normal. Musculoskeletal: Range of motion: intact in all extremities, Reports pain in thoracic area, low back area and mid back area. MEDIA AID: 12:15 LMP N/A - Hysterectomy aj Historical: - Allergies: 12:15 Erythromycin; aj 12:15 TETRACYCLINES; aj 12:15 Zofran; aj 12:15 Toradol; aj - Home Meds: 12:15 Fish Oil Oral [Active]; lithium carbonate 900mg oral cap [Active]; trazodone 300 mg aj oral tab 2 tab [Active]; hydrocodone-acetaminophen 7.5-325 mg Oral tab 1 tab every 6 hours [Active]; Latuda 60 mg oral tab 1 tab once daily [Active]; Wellbutrin 75 mg Oral tab [Active]; cyclobenzaprine 10 mg Oral tab [Active]; - PMHx: 12:15 Bipolar disorder; Chronic pain; "Possibly Fibromyalgia"; aj - PSHx: 12:15 Gastric Bypass; Cholecystectomy; Tubal ligation; aj - Immunization history:: Adult Immunizations up to date. - Social history:: Smoking status: Patient/guardian denies using tobacco. - Ebola Screening: : Patient negative for fever greater than or equal to 101.5 degrees Fahrenheit, and additional compatible Ebola Virus Disease symptoms Patient denies exposure to infectious person Patient denies travel to an Ebola-affected area in the 21 days before illness onset No symptoms or risks identified at this time. Screenin:33 Abuse screen: Denies threats or abuse. Denies injuries from another. Nutritional ss screening: No deficits noted. Tuberculosis screening: Never had TB. Fall Risk Fall in past 12 months (25 points). No secondary diagnosis (0 pts). No IV (0 pts). Ambulatory Aid- None/Bed Rest/Nurse Assist (0 pts). Gait- Normal/Bed Rest/Wheelchair (0 pts) Mental Status- Oriented to own ability (0 pts). Assessment: 12:33 General: Appears uncomfortable, Behavior is calm, cooperative. Pain: Complains of pain ss in lumbar area Pain currently is 9 out of 10 on a pain scale. Quality of pain is described as aching, tender, Is continuous. Neuro: Level of Consciousness is awake, alert, obeys commands, Oriented to person, place, time, situation. Cardiovascular: Capillary refill < 3 seconds is brisk in bilateral fingers. Respiratory: Airway is patent Respiratory effort is even, unlabored, Respiratory pattern is regular, symmetrical. GI: Patient currently denies diarrhea, nausea, vomiting. : No signs and/or symptoms were reported regarding the genitourinary system. EENT: Nares are clear. Derm: Skin is intact, is healthy with good turgor, Skin is dry, Skin is pink, warm \\T\\ dry. normal. Musculoskeletal: Circulation, motion, and sensation intact. Range of motion: intact in all extremities. 13:30 Reassessment: Patient and/or family updated on plan of care and expected duration. Pain aj1 level reassessed. General: Appears in no apparent distress. uncomfortable, Behavior is calm, cooperative, appropriate for age. Pain: Complains of pain in back. Neuro: Level of Consciousness is awake, alert, obeys commands, Oriented to person, place, time, situation. Cardiovascular: Patient's skin is warm and dry. Respiratory: Airway is patent Respiratory effort is even, unlabored, Respiratory pattern is regular, symmetrical. GI: No signs and/or symptoms were reported involving the gastrointestinal system. : No signs and/or symptoms were reported regarding the genitourinary system. EENT: No signs and/or symptoms were reported regarding the EENT system. Derm: No signs and/or symptoms reported regarding the dermatologic system. Skin is pink, warm \\T\\ dry. normal. Musculoskeletal: Circulation, motion, and sensation intact. Range of motion: intact in all extremities. 14:30 Reassessment: Patient appears in no apparent distress at this time. No changes from aj1 previously documented assessment. Patient and/or family updated on plan of care and expected duration. Pain level reassessed. Patient is alert, oriented x 3, equal unlabored respirations, skin warm/dry/pink. 14:52 Reassessment: Patient states that her left to crab picker the kids, but would be aj1 back in 20 minutes. Vital Signs: 12:15 BP 111 / 61; Pulse 72; Resp 19; Temp 97.9; Pulse Ox 97% on R/A; Weight 103.42 kg; aj Height 5 ft. 3 in. (160.02 cm); 13:30 BP 116 / 74; Pulse 66; Resp 18; Pulse Ox 99% ; aj1 15:08 BP 115 / 78; Pulse 68; Resp 18; Temp 98; Pulse Ox 100% on R/A; Pain 2/10; mg2 12:15 Body Mass Index 40.39 (103.42 kg, 160.02 cm) aj ED Course: 12:02 Patient arrived in ED. mr 12:02 Mariana Ochoa MD is Private Physician. mr 12:12 Triage completed. aj 12:15 Arm band placed on right wrist. Patient placed in an exam room. aj 12:17 Braden Arambula MD is Attending Physician. ps1 12:33 Veronica Villalpando, RON is Primary Nurse. ss 12:33 Patient has correct armband on for positive identification. Bed in low position. Call ss light in reach. 12:44 CT completed. Patient tolerated procedure well. Patient moved to CT via stretcher. Patient moved back from CT. 12:48 CT Head C Spine In Process Unspecified. EDMS 12:49 CT Lumbar Spine Wo Con In Process Unspecified. EDMS 14:15 Monico Stapleton DO is Referral Physician. ps1 15:09 No provider procedures requiring assistance completed. Patient did not have IV access mg2 during this emergency room visit. Administered Medications: 13:02 Drug: [place] 10 mg-325 mg 1 tabs Route: PO; aj1 15:06 Follow up: Response: No adverse reaction; Marked relief of symptoms mg2 Outcome: 14:15 Discharge ordered by MD. ps1 15:09 Discharged to home via wheelchair, with family. mg2 15:09 Condition: stable 15:09 Discharge instructions given to patient, family, Instructed on discharge instructions, follow up and referral plans. medication usage, Demonstrated understanding of instructions, follow-up care, medications, Prescriptions given X 1. 15:09 Patient left the ED. mg2 Signatures: Dispatcher [employer] EDNC Mary Lou Caballero, RN RN ajManuela Ramirez RN RN aj Caty Clifton Stewart, Veronica Teague RN RN ss Singer, Phillip, MD MD ps1 Samson Post RN RN mg2
[2019-02-10 15:17] VITALS: BP 115/78; TEMP 98; O2SAT 100
== END 2019-02-10 15:09 | disposition home or self-care (01) ==
LOC: ER 11:59
DX: M54.5 Low back pain (principal); W19.XXXA Unspecified fall, initial encounter; Y93.89 Activity, other specified; Y92.9 Unspecified place or not applicable; Z88.1 Allergy status to other antibiotic agents; Z88.3 Allergy status to other anti-infective agents; Z88.5 Allergy status to narcotic agent; Z88.8 Allergy status to other drugs, medicaments and biological substances; F31.9 Bipolar disorder, unspecified
CPT/HCPCS: 70450; 72125; 72131; 99284

== ENCOUNTER 2019-08-11 06:04 | Day surgery (SDC) | payer OTHER ==
[2019-08-10 11:55] LABS: Urine Appearance CLEAR; Urine Bilirubin NEGATIVE (NEG); Urine Blood NEGATIVE (NEG); Urine Color YELLOW; Urine Glucose NEGATIVE (NEG); Urine Protein NEGATIVE (NEG)
[2019-08-10 11:56] LABS: Urine Microscopic Reflex NO UMIC; Urine Urobilinogen 0.2 mg/dL (0.2-1.0)
[2019-08-10 13:18] LABS: Absolute Lymphocytes (CBC) 2.1 K/uL (0.7-4.9); Basophils % 0.6 % (0-1.3); Hematocrit 38.2 % (36.0-45.0); Lymphocytes % 29.6 % (15.3-44.8); MPV 8.4 fL (7.6-11.3); RBC Red Blood Cell Count 4.63 M/uL (3.86-4.86)
--- NOTE | 2019-08-10 14:35 | PREOPHP ---
Date of Admission: 08/10/2019 49-year-old female with right lower quadrant pain. Noted to have a small ovarian cyst on that side. Requesting diagnostic laparoscopy with removal of the ovary and probably part of the tube as well. Said she has had similar procedure carried out on the contralateral side. Knows that this put her in to menopause immediately but wishes to proceed. Social History: Does not wish to wait and have serial ultrasounds to see if this resolves. Infectio n, blood loss, anesthetic complications, injury to bladder, bowel, ureter, postoperative complication s, clots in the legs discussed. Patient knows fully well this does not constitute all the possible p roblems that could occur during or after surgery. She has had several surgeries. Family History: Grandparents and mother with hypertension. Several members of family with heart att acks. Mother, maternal grandmother, maternal aunt with diabetes. Maternal grandmother with pancreat ic cancer. Another grandparent with liver cancer and another grandmother with ovarian cancer. Surgical History: The patient has had gastric bypass, right ovary surgery, mesh with the intestines, tubal surgery in 2010. Medications: She has been on lithium, trazodone and Prozac in the past. Social History: Quit smoking 1-1/2 years ago. Allergies: SHE WAS ALLERGIC TO ZOFRAN, ERYTHROMYCIN AND TETRACYCLINES, POSSIBLY EVEN TRAMADOL, BUT S HE IS NOT SURE OF THAT. 5, PARA 4, AB1. Physical Examination: HEENT: Clear. Pupils equal, round, and reactive to light and accommodation. Conjunctivae well perf used. No oral, lingual, or buccal lesions. Chest and Lungs: Clear. Heart: Without murmurs, thrills, heaves, or rubs. Breasts: Not examined. Abdomen: Obese but clear. Uterus is small, freely mobile. The cyst I cannot palpate. Patient state s she is tender. Extremities: Clear without edema, cyanosis, or clubbing. We will proceed with diagnostic laparoscopy, removal of the right ovary, possible removal of the tube on that side as well. Patient states that anything we see that needs come out should come out. We will officially make that decision intraoperatively. She knows Dr. Allen and I will be doing the wen fredrick with him, the main surgeon. NIKKI/VIOLETA Voice ID: [id number]
--- OUTSIDE RECORDS SUMMARY | 2019-08-11 06:07 | XMS REPORT ---
[...] Start End Status Dosage System Date Date [place] 15638306572 300 MG Orally Active 3 capsule at Carbonate Once a day bedtime Fish Oil ND 12400096049 1000 MG Orally Active 1 capsule Once a day Multivitamin ND 87954340482 - Orally Active as directed Women Trazodone HCl ND 89992233378 100 MG Orally Active 2 tablet at Once a day bedtime as needed Melatonin ND 69945926686 10 MG Orally Active 3 capsule at bedtime as needed with food Dicyclomine HCl ND 52631251981 20 mg Orally Up Active 1 tablet as to 4x daily needed for abdominal pain Tramadol HCl ND 71754071800 50 MG Orally May 15May Active 1 tablet as Twice daily 2018 03, needed for 2017 pain Vitamin B [facility] 44055172078 - Orally Active as directed Complex Fluoxetine HCl [facility] 89972948861 20 MG Orally Active 1 capsule in Once a day the morning Results No Known Results Summary Purpose eClinicalWorks Submission
--- OUTSIDE RECORDS SUMMARY | 2019-08-11 06:07 | XMS REPORT ---
[...] Dosage System Date Date Vitamin B Complex [facility] 90544365442 - Orally Active as directed Fluoxetine HCl ND 85256828586 20 MG Orally Active 1 capsule Once a day in the morning Meloxicam ND 75639576919 15 MG Orally DecemberJanuary 29, Active 1 tablet Once a day as 2018 needed for 2019 pain; take with food Cyclobenzaprine ND 04833208825 10 MG Orally DecemberJanuary 29, Active 1 tablet as HCl Three times a 2018 needed for day 2019 muscle cramps/pain [place] Carbonate [facility] 89247927802 300 MG Orally Active 3 capsule Once a day at bedtime Melatonin [facility] 01537591186 10 MG Orally Active 3 capsule at bedtime as needed with food Trazodone HCl [facility] 98799571619 100 MG Orally Active 2 tablet at Once a day bedtime as needed Dicyclomine HCl ND 52742491550 20 mg Orally Active 1 tablet as Up to 4x daily needed for abdominal pain Fish Oil ND 80580497688 1000 MG Orally Active 1 capsule Once a day Medrol [facility] 81235378606 4 MG Orally as December Active as directed directed 2018 [place] ND 31605743453 100 MG Orally Aug 14, Active 1 capsule Three times a 2017 day Multivitamin Women ND 12503258844 - Orally Active as directed Results No Known Results Summary Purpose eClinicalWorks Submission
--- OUTSIDE RECORDS SUMMARY | 2019-08-11 06:07 | XMS REPORT ---
[...] End Status Dosage System Date Date Multivitamin [facility] 04773157317 - Orally Active as directed Women Vitamin B [facility] 86557971294 - Orally Active as directed Complex Trazodone HCl ND 95190277874 100 MG Orally Active 2 tablet at Once a day bedtime as needed [place] ND 12189560858 300 MG Orally Active 3 capsule at Carbonate Once a day bedtime Melatonin ND 42057660721 10 MG Orally Active 3 capsule at bedtime as needed with food Fluoxetine HCl ND 22477217038 20 MG Orally Active 1 capsule in Once a day the morning Fish Oil ND 88117014590 1000 MG Orally Active 1 capsule Once a day Dicyclomine HCl ND 24222036995 20 mg Orally Up April 16May 16, Active 1 tablet as to 4x daily 2017 2017 needed for abdominal pain Results No Known Results Summary Purpose eClinicalWorks Submission
--- OUTSIDE RECORDS SUMMARY | 2019-08-11 06:07 | XMS REPORT ---
[...] Status Dosage System Date Date Fish Oil [facility] 68363256266 1000 MG Orally Active 1 capsule Once a day Multivitamin ND 18532244466 - Orally Active as Women directed Fluoxetine HCl ND 58969573478 20 MG Orally Active 1 capsule [place] [address]-98 300 MG Orally Active 3 capsule Carbonate Once a day at bedtime Trazodone HCl [facility] [address]-98 100 MG Orally Active 2 tablet Once a day at bedtime as needed Vitamin B ND 63796966857 - Orally Active as Complex directed Melatonin [facility] 69[address] 10 MG Orally Active 3 capsule at bedtime as needed with food Results Name Result Date Reference Range Unit Abnormality Flag Electrocardiogram (EKG) Summary Purpose eClinicalWorks Submission
--- OUTSIDE RECORDS SUMMARY | 2019-08-11 06:07 | XMS REPORT ---
[...] Start End Status Dosage System Date Date [place] ND 19715135916 300 MG Orally Active 3 capsule at Carbonate Once a day bedtime Multivitamin ND 45845861852 - Orally Active as directed Women Vitamin B ND 61771320523 - Orally Active as directed Complex Trazodone HCl ND 38818874407 100 MG Orally Active 2 tablet at Once a day bedtime as needed Melatonin ND 66276021006 10 MG Orally Active 3 capsule at bedtime as needed with food Dicyclomine HCl ND 39671504975 20 mg Orally Up Active 1 tablet as to 4x daily needed for abdominal pain Fish Oil [facility] 42250977685 1000 MG Orally Active 1 capsule Once a day Lyrica [facility] 48792951560 100 MG Orally Aug 14, Active 1 capsule Three times a 2017 day Fluoxetine HCl [facility] 32799705780 20 MG Orally Active 1 capsule in Once a day the morning Results No Known Results Summary Purpose eClinicalWorks Submission
--- OUTSIDE RECORDS SUMMARY | 2019-08-11 06:07 | XMS REPORT ---
[...] End Status Dosage System Date Date Cyclobenzaprine [facility] 90979940881 10 MG Orally December Active 1 tablet as HCl Three times a 09, 09, needed for day 2018 2018 muscle cramps/pain Lyrica [facility] 24255186211 100 MG Orally Aug 14, Active 1 capsule Three times a 2017 day Fish Oil [facility] 02234929421 1000 MG Orally Active 1 capsule Once a day Fluoxetine HCl [facility] 76187242000 20 MG Orally Active 1 capsule Once a day in the morning [place] Carbonate [facility] 68966691716 300 MG Orally Active 3 capsule Once a day at bedtime Trazodone HCl [facility] 16815648099 100 MG Orally Active 2 tablet at Once a day bedtime as needed Dicyclomine HCl [facility] 60720568068 20 mg Orally Up Active 1 tablet as to 4x daily needed for abdominal pain Multivitamin Women [facility] 85014406598 - Orally Active as directed Vitamin B Complex [facility] 92271247962 - Orally Active as directed Meloxicam [facility] 63840749918 15 MG Orally December Active 1 tablet Once a day as , needed for 2018 2018 pain; take with food Melatonin [facility] 34996380740 10 MG Orally Active 3 capsule at bedtime as needed with food Results Name Result Date Reference Range Unit Abnormality Flag STREP A RAPID ----Result Negative [id number] Summary Purpose eClinicalWorks Submission
[2019-08-11] MEDS ORDERED: Ringers Lactate 1,000 ML IV ONE (06:15)
[2019-08-11] MEDS ORDERED: CEFAZOLIN/SWI 2gm 2 GM/20 ML SYR ONE (06:15)
[2019-08-11 06:38] LABS: Specific Gravity 1.025 (1.005-1.030)
[2019-08-11] MEDS ORDERED: PROPOFOL 200 MG/20 ML VIAL IV ONE (07:07)
[2019-08-11] MEDS ORDERED: MIDAZOLAM HCL 2 MG/2 ML INJ ONE ×2 (07:07→07:09)
[2019-08-11] MEDS ORDERED: dexAMETHasone 10 MG/ML VIAL ONE (07:08)
[2019-08-11] MEDS ORDERED: GLYCOPYRROLATE 0.2 MG/ML SYR ONE (07:08)
[2019-08-11] MEDS ORDERED: LIDOCAINE 2% MPF 5 ML VIAL ONE (07:08)
[2019-08-11] MEDS ORDERED: FENTANYL CITR 250 MCG/5 ML ONE (07:08)
[2019-08-11] MEDS ORDERED: FENTANYL CITR 100 MCG/2 ML ONE (07:09)
[2019-08-11] MEDS ORDERED: ROCURONIUM 50 MG/5 ML VIAL IV ONE (07:10)
[2019-08-11] MEDS ORDERED: MIDAZOLAM HCL 2 MG/2 ML INJ IV ONE (07:10)
[2019-08-11] MEDS ORDERED: FENTANYL CITR 100 MCG/2 ML IV ONE (07:10)
[2019-08-11] MEDS: PROMETHAZINE 25 MG/ML VIAL ONE ×2 (08:56→09:30)
[2019-08-11] MEDS: HYDROMORPHONE HCL 1 MG/ML INJ ONE ×4 (08:58→09:36)
[2019-08-11 09:01] VITALS: TEMP 97.4
[2019-08-11] MEDS ORDERED: MEPERIDINE HCL 25 MG/0.5 ML ONE (10:21)
[2019-08-11 11:03] VITALS: BP 128/67; O2SAT 96
--- NOTE | 2019-08-11 19:29 | DS ---
Date of Discharge: 08/11/2019 Dismissal Summary: Nithin Beth is a 49-year-old female with chronic pelvic and abdominal berlin n. Patient underwent diagnostic laparoscopy. General anesthesia with numerous adhesions encountered and removed. The right ovary was removed. No other problems were seen. The liver was normal. The appendix was surgically absent. The uterus itself appeared normal. The cul-de-sac was normal. The right ovary did have a small cyst with serous material was seen after the air was removed. The ovary itself appeared normal. The patient will be observed for approximately 2 hours and then dismissed. She is to return my office next week for followup, pending pathology examination. We will discuss wh at happens in the future and whether or not she should be on hormones. Final Diagnoses: chronic pelvic and abdominal pain, diagnostic laparoscopy, lysis of numerous adhesi ons, and right oophorectomy. NIKKI/VIOLETA Voice ID: [id number] Report ID: [id number]
--- NOTE | 2019-08-11 19:29 | OP ---
Surgeon: Jose Luis Delgadillo MD Indications: Nithin Beth is a 49-year-old female with right lower quadrant chronic pain as w ell as the generalized abdominal pain for some months from now, 3 to 4 at least possibly more. The p atient has had numerous surgeries in the past including gastric bypass surgery, hernia surgery, appen dectomy, left salpingo-oophorectomy and wished to proceed with diagnostic laparoscopy, removal of the right ovary. She was noted to have a cyst on the right ovary about 10 days 2 weeks ago of 3 cm. Ot her options including expectant management were discussed with the patient. She wished to proceed. Infection, blood loss, anesthetic complications, injury to bladder, bowel, ureter, postoperative comp lications, clots in legs, pneumonia were discussed. Patient knows fully well, this does not constitu te all the possible problems that could occur during or following surgery and knows because her right ovary will be removed and left ovary already had been removed. She will be in menopause after the s urgery. We have discussed risks and benefits of hormone therapy and we will decide later if she need s any hormone therapy. Description Of Procedure: After timeout was performed, general anesthesia was employed. The patient was prepped and draped in the sterile manner, placed in dorsal supine position. The trocar and visu alizing instruments were placed. There were noted to be numerous pelvic and upper abdominal adhesion s. These were all lysed with a LigaSure including epigastric and pelvic adhesions. After removal of all adhesions, the right ovary was visualized and again removed with LigaSure. The left ovary was a lready surgically absent. The cul-de-sac was inspected. No lesions in the cul-de-sac. The uterus i tself appeared normal. The appendix had been removed previously. Thorough inspection of the pelvis and abdomen showed no further bleeding sites. At this point, all instruments were removed and the in cisions were closed. The patient has been given 2 g of Ancef preoperatively. She tolerated all the procedures well and transferred back to the recovery room in good condition. Final Diagnoses: Chronic pelvic and abdominal pain, diagnostic laparoscopy, lysis of numerous adhesi ons, pelvic and upper abdomen and removal of the right ovary, possibly part of the right tube as well ; although adhesions were seen, but difficult to visualize. NIKKI/VIOLETA Voice ID: [id number] Report ID: [id number]
== END 2019-08-11 11:10 | disposition home or self-care (01) ==
LOC: OR 06:04
PROVIDERS: ATTEND Specialist
PROC: 0DNW4ZZ Release Peritoneum, Percutaneous Endoscopic Approach (ICD-10-PCS; 2019-08-11)
PROC: 0UT04ZZ Resection of Right Ovary, Percutaneous Endoscopic Approach (ICD-10-PCS; principal; 2019-08-11 07:30)
DX: N83.201 Unspecified ovarian cyst, right side (principal); N73.6 Female pelvic peritoneal adhesions (postinfective); E66.9 Obesity, unspecified; Z68.37 Body mass index [BMI] 37.0-37.9, adult; F41.9 Anxiety disorder, unspecified; F32.9 Major depressive disorder, single episode, unspecified; Z98.84 Bariatric surgery status; Z88.1 Allergy status to other antibiotic agents; Z88.3 Allergy status to other anti-infective agents; Z88.8 Allergy status to other drugs, medicaments and biological substances; Z87.891 Personal history of nicotine dependence; Z80.41 Family history of malignant neoplasm of ovary; Z80.0 Family history of malignant neoplasm of digestive organs; Z83.3 Family history of diabetes mellitus; Z82.49 Family history of ischemic heart disease and other diseases of the circulatory system
CPT/HCPCS: 85025; 36415; 81025; 85610; 88305; 85730; 81003; 58661; 49329; J2704; J2550; J2250 ×3; J3010 ×3; J1100; J2175; J1170 ×2; J0690; J7120

== ENCOUNTER 2019-09-04 09:24 | Emergency (ER) | payer OTHER ==
--- OUTSIDE RECORDS SUMMARY | 2019-09-04 09:26 | XMS REPORT ---
[...] Start End Status Dosage System Date Date [employer] [place] 53198300150 300 MG Orally Active 3 capsule at Carbonate Once a day bedtime Fish Oil ND 37328262234 1000 MG Orally Active 1 capsule Once a day Multivitamin ND 37572548114 - Orally Active as directed Women Trazodone HCl ND 65976503380 100 MG Orally Active 2 tablet at Once a day bedtime as needed Melatonin ND 98820326842 10 MG Orally Active 3 capsule at bedtime as needed with food Dicyclomine HCl ND 43346510553 20 mg Orally Up Active 1 tablet as to 4x daily needed for abdominal pain Tramadol HCl ND 08495504276 50 MG Orally May 15May Active 1 tablet as Twice daily 2018 03, needed for 2017 pain Vitamin B [facility] 18632174514 - Orally Active as directed Complex Fluoxetine HCl [facility] 94645559808 20 MG Orally Active 1 capsule in Once a day the morning Results No Known Results Summary Purpose eClinicalWorks Submission
--- OUTSIDE RECORDS SUMMARY | 2019-09-04 09:26 | XMS REPORT ---
[...] Multivitamin [facility] 17555015298 - Orally Active as directed Women Vitamin B [facility] 03810252253 - Orally Active as directed Complex Trazodone HCl ND 22382057910 100 MG Orally Active 2 tablet at Once a day bedtime as needed [place] ND 32509452776 300 MG Orally Active 3 capsule at Carbonate Once a day bedtime Melatonin ND 69427787329 10 MG Orally Active 3 capsule at bedtime as needed with food Fluoxetine HCl ND 25027525897 20 MG Orally Active 1 capsule in Once a day the morning Fish Oil ND 47427108022 1000 MG Orally Active 1 capsule Once a day Dicyclomine HCl ND 15391490607 20 mg Orally Up April 16May 16, Active 1 tablet as to 4x daily 2017 2017 needed for abdominal pain Results No Known Results Summary Purpose eClinicalWorks Submission
--- OUTSIDE RECORDS SUMMARY | 2019-09-04 09:26 | XMS REPORT ---
[...] Start End Status Dosage System Date Date [place] ND 29955643837 300 MG Orally Active 3 capsule at Carbonate Once a day bedtime Multivitamin ND 48474363473 - Orally Active as directed Women Vitamin B ND 70036637177 - Orally Active as directed Complex Trazodone HCl ND 31964374185 100 MG Orally Active 2 tablet at Once a day bedtime as needed Melatonin ND 52185228495 10 MG Orally Active 3 capsule at bedtime as needed with food Dicyclomine HCl ND 61597951042 20 mg Orally Up Active 1 tablet as to 4x daily needed for abdominal pain Fish Oil [facility] 21831105666 1000 MG Orally Active 1 capsule Once a day Lyrica [facility] 08386021650 100 MG Orally Aug 14, Active 1 capsule Three times a 2017 day Fluoxetine HCl [facility] 48621958179 20 MG Orally Active 1 capsule in Once a day the morning Results No Known Results Summary Purpose eClinicalWorks Submission
--- OUTSIDE RECORDS SUMMARY | 2019-09-04 09:26 | XMS REPORT ---
[...] Dosage System Date Date Vitamin B Complex [facility] 39778150791 - Orally Active as directed Fluoxetine HCl ND 50842305104 20 MG Orally Active 1 capsule Once a day in the morning Meloxicam ND 79133925347 15 MG Orally DecemberJanuary 29, Active 1 tablet Once a day as 2018 needed for 2019 pain; take with food Cyclobenzaprine ND 26639342623 10 MG Orally DecemberJanuary 29, Active 1 tablet as HCl Three times a 2018 needed for day 2019 muscle cramps/pain [place] Carbonate [facility] 34571111724 300 MG Orally Active 3 capsule Once a day at bedtime Melatonin [facility] 51763112743 10 MG Orally Active 3 capsule at bedtime as needed with food Trazodone HCl [facility] 31963044379 100 MG Orally Active 2 tablet at Once a day bedtime as needed Dicyclomine HCl ND 07136555223 20 mg Orally Active 1 tablet as Up to 4x daily needed for abdominal pain Fish Oil ND 91006490054 1000 MG Orally Active 1 capsule Once a day Medrol [facility] 14074887165 4 MG Orally as December Active as directed directed 2018 Lyrica ND 96233007582 100 MG Orally Aug 14, Active 1 capsule Three times a 2017 day Multivitamin Women ND 27142064975 - Orally Active as directed Results No Known Results Summary Purpose eClinicalWorks Submission
--- OUTSIDE RECORDS SUMMARY | 2019-09-04 09:26 | XMS REPORT ---
[...] Status Dosage System Date Date Fish Oil [facility] 10812247606 1000 MG Orally Active 1 capsule Once a day Multivitamin ND 56505858514 - Orally Active as Women directed Fluoxetine HCl ND 03241040276 20 MG Orally Active 1 capsule [place] [address]-93 300 MG Orally Active 3 capsule Carbonate Once a day at bedtime Trazodone HCl [facility] [address]-60 100 MG Orally Active 2 tablet Once a day at bedtime as needed Vitamin B ND 80405979069 - Orally Active as Complex directed Melatonin [facility] [address]191 10 MG Orally Active 3 capsule at bedtime as needed with food Results Name Result Date Reference Range Unit Abnormality Flag Electrocardiogram (EKG) Summary Purpose eClinicalWorks Submission
--- OUTSIDE RECORDS SUMMARY | 2019-09-04 09:26 | XMS REPORT ---
[...] End Status Dosage System Date Date Cyclobenzaprine [facility] 56318514001 10 MG Orally December Active 1 tablet as HCl Three times a 09, 09, needed for day 2018 2018 muscle cramps/pain Lyrica [facility] 47354382819 100 MG Orally Aug 14, Active 1 capsule Three times a 2017 day Fish Oil [facility] 92701578574 1000 MG Orally Active 1 capsule Once a day Fluoxetine HCl [facility] 95465713606 20 MG Orally Active 1 capsule Once a day in the morning [place] Carbonate [facility] 49851013054 300 MG Orally Active 3 capsule Once a day at bedtime Trazodone HCl [facility] 02330829731 100 MG Orally Active 2 tablet at Once a day bedtime as needed Dicyclomine HCl [facility] 07406438377 20 mg Orally Up Active 1 tablet as to 4x daily needed for abdominal pain Multivitamin Women [facility] 81440128100 - Orally Active as directed Vitamin B Complex [facility] 05504996527 - Orally Active as directed Meloxicam [facility] 91421075241 15 MG Orally December Active 1 tablet Once a day as , needed for 2018 2018 pain; take with food Melatonin [facility] 35898842845 10 MG Orally Active 3 capsule at bedtime as needed with food Results Name Result Date Reference Range Unit Abnormality Flag STREP A RAPID ----Result Negative [id number] Summary Purpose eClinicalWorks Submission
[2019-09-04] MEDS ORDERED: PROMETHAZINE 25 MG TABLET ONE (09:43)
[2019-09-04 10:19] LABS: Urine Blood NEGATIVE (NEG); Urine Glucose NEGATIVE (NEG); Urine Protein NEGATIVE (NEG)
[2019-09-04 11:05] LABS: Urine Bacteria <20 /HPF (<20); Urine Culture Reflex Order NOT NEEDED; Urine RBC <5 /HPF (NONE SEEN)
--- NOTE | 2019-09-04 12:10 | RAD REPORT ---
EXAM DESCRIPTION: US - Transvaginal Study Probe - 09/04/2019 11:43 am CLINICAL HISTORY: Pelvic floor prolapse, pelvic pain, possible enterovaginal fistula COMPARISON: None. TECHNIQUE: Endovaginal sonography was performed. FINDINGS: Uterus is normal in size for patient age. Visualization was suboptimal due to bladder fill ing. No urinary bladder wall thickening or mass. An 8-9 mm rounded mass is seen in the low anterior u terus believed to be a small fibroid. No endometrial thickening or mass identifiable in the endometri al canal. Ovaries are absent by patient history. No adnexal mass identifiable. No sonographic findings for enterovaginal fistula ; however, sonographic assessment is very limited. IMPRESSION: Normal size uterus showing a small anterior fibroid but no other significant endometrial or myometrial finding. Absent ovaries with no adnexal mass identifiable. No enterovaginal fistula finding seen. Sonography is limited in assessment of this finding.
--- NOTE | 2019-09-04 12:34 | ER ---
Nurse's Notes [facility] Name: Nithin Beht Age: 49 yrs Sex: Female : 1970 Arrival Date: 09/04/2019 Time: 09:25 Bed 6 Private MD: Jose Luis Delgadillo B Diagnosis: Pelvic and perineal pain;Uterine fibroids Presentation: 09/04 09:26 Presenting complaint: Patient states: Constipation x 1 week. Pt states, "I was pushing ss trying to have a BM, then I heard a pop and in my vaginal discharge I saw some stool, and I'm really worried." Pt also reports N/V that began this morning. Transition of care: patient was not received from another setting of care. Onset of symptoms was August 28, 2019. Risk Assessment: Do you want to hurt yourself or someone else? Patient reports no desire to harm self or others. Initial Sepsis Screen: Does the patient meet any 2 criteria? No. Patient's initial sepsis screen is negative. Does the patient have a suspected source of infection? No. Patient's initial sepsis screen is negative. Care prior to arrival: None. 09:26 Method Of Arrival: Ambulatory ss 09:26 Acuity: HUSAM 3 ss Historical: - Allergies: 10:01 Erythromycin; ss 10:01 TETRACYCLINES; ss 10:01 Toradol; ss 10:01 Zofran; ss - PMHx: 10:01 "Possibly Fibromyalgia"; Bipolar disorder; Chronic pain; ss - PSHx: 10:01 Gastric Bypass; Cholecystectomy; Tubal ligation; ss - Immunization history:: Adult Immunizations up to date. - Social history:: Smoking status: Patient/guardian denies using tobacco. - Ebola Screening: : Patient denies exposure to infectious person Patient denies travel to an Ebola-affected area in the 21 days before illness onset. Screenin:35 Abuse screen: Denies threats or abuse. Denies injuries from another. Nutritional ph screening: No deficits noted. Tuberculosis screening: No symptoms or risk factors identified. Fall Risk None identified. Assessment: 10:15 General: Appears in no apparent distress. comfortable, Behavior is cooperative, ph appropriate for age, anxious. Pain: Denies pain. Neuro: Level of Consciousness is awake, alert, obeys commands, Oriented to person, place, time, situation. Cardiovascular: Capillary refill < 3 seconds in bilateral fingers Patient's skin is warm and dry. Respiratory: Airway is patent Respiratory effort is even, unlabored, Respiratory pattern is regular, symmetrical. GI: Reports constipation, nausea, Patient currently denies abdominal pain, vomiting. : Reports discharge, from vagina that is watery w/ what aooears to be stool present. Derm: Skin is intact, Skin is pink, warm \\T\\ dry. 11:15 Reassessment: Patient appears in no apparent distress at this time. Patient and/or ph family updated on plan of care and expected duration. Pain level reassessed. Patient is alert, oriented x 3, equal unlabored respirations, skin warm/dry/pink. Pt taken to US via wheelchair. 12:03 Reassessment: Patient appears in no apparent distress at this time. Patient and/or ph family updated on plan of care and expected duration. Pain level reassessed. Patient is alert, oriented x 3, equal unlabored respirations, skin warm/dry/pink. Pt resting comfortably, awaiting US results. 13:01 Reassessment: Patient appears in no apparent distress at this time. Patient and/or ph family updated on plan of care and expected duration. Pain level reassessed. Patient is alert, oriented x 3, equal unlabored respirations, skin warm/dry/pink. Pt d/c home, instructed to follow up w/ [facility]. Vital Signs: 10:01 BP 117 / 50; Pulse 77; Resp 16; Temp 99.4(TE); Pulse Ox 99% on R/A; Weight 99.79 kg; ss Height 5 ft. 3 in. (160.02 cm); Pain 4/10; 11:00 BP 114 / 60; Pulse 75; Resp 16; Pulse Ox 98% on R/A; ph 12:00 BP 116 / 61; Pulse 76; Resp 16; Pulse Ox 99% on R/A; ph 13:00 BP 120 / 52; Pulse 74; Resp 18; Temp 98.0; Pulse Ox 99% on R/A; ph 10:01 Body Mass Index 38.97 (99.79 kg, 160.02 cm) ED Course: :25 Patient arrived in ED. as : Jose Luis Delgadillo MD is Private Physician. as : [facility]C [facility] snw 09:28 Sulaiman Garcia MD is Attending Physician. snw 09:44 Arm band placed on. sg 09:45 Kera Nelson, RN is Primary Nurse. ph 09:45 Warm blanket given. sg 10:00 Triage completed. ss 10:18 Urine collected: straight cath specimen, clear, Amount Returned: 200mL. Straight cath ms inserted, using sterile technique, 16 Fr. Specimen obtained. Returned clear orange urine. 10:35 Patient has correct armband on for positive identification. Placed in gown. Bed in low ph position. Call light in reach. Pulse ox on. NIBP on. 11:44 US Transvaginal Study (Probe) In Process Unspecified. EDMS 12:32 Jose Luis Delgadillo MD is Referral Physician. snw 13:01 No provider procedures requiring assistance completed. Patient did not have IV access ph during this emergency room visit. Administered Medications: 09:45 Drug: Phenergan 25 mg Route: PO; sg 12:53 Follow up: Response: No adverse reaction; Nausea is decreased ph 12:53 Drug: fentaNYL (PF) 25 mcg Route: IM; Site: left deltoid; ph 12:53 Follow up: Response: No adverse reaction; Medication administered at discharge. ph Outcome: 12:33 Discharge ordered by . snw 13:01 Discharged to home ambulatory. ph 13:01 Condition: good 13:01 Discharge instructions given to patient, Instructed on discharge instructions, follow up and referral plans. medication usage, Demonstrated understanding of instructions, follow-up care, medications, Prescriptions given X 1. 13:02 Patient left the ED. ph Signatures: Dispatcher [employer] BRYCEMS Brett Olmstead, RN RN Audra Pop FNP-C [employer]-Csnw Patsy Segovia as Nikia Sims ms, Shelby, RN RN Kera Nelson, RON RN ph Corrections: (The following items were deleted from the chart) 10:41 10:15 GI: Reports constipation, ph ph
--- NOTE | 2019-09-04 12:34 | EDPHYS ---
Physician Documentation [facility] Name: Nithin Beth Age: 49 yrs Sex: Female : 1970 Arrival Date: 09/04/2019 Time: 09:25 Bed 6 Private MD: Jose Luis Delgadillo B ED Physician Sulaiman Garcia HPI: 09/04 10:12 This 49 yrs old Female presents to ER via Ambulatory with complaints of snw Vaginal Problem. 10:12 Onset: The symptoms/episode began/occurred gradually, 6 month(s) ago, and became worse snw this morning. Associated signs and symptoms: Pertinent positives: splinting to have bm and felt a pop. Modifying factors: The patient symptoms are alleviated by nothing. It is unknown whether or not the patient has had similar symptoms in the past. appt with Dr Morrow on the . Historical: - Allergies: 10:01 Erythromycin; ss 10:01 TETRACYCLINES; ss 10:01 Toradol; ss 10:01 Zofran; ss - PMHx: 10:01 "Possibly Fibromyalgia"; Bipolar disorder; Chronic pain; ss - PSHx: 10:01 Gastric Bypass; Cholecystectomy; Tubal ligation; ss - Immunization history:: Adult Immunizations up to date. - Social history:: Smoking status: Patient/guardian denies using tobacco. - Ebola Screening: : Patient denies exposure to infectious person Patient denies travel to an Ebola-affected area in the 21 days before illness onset. ROS: 10:10 Constitutional: Negative for fever, chills, and weight loss, Eyes: Negative for injury, snw pain, redness, and discharge, ENT: Negative for injury, pain, and discharge, Neck: Negative for injury, pain, and swelling, Cardiovascular: Negative for chest pain, palpitations, and edema, Respiratory: Negative for shortness of breath, cough, wheezing, and pleuritic chest pain, Abdomen/GI: Negative for abdominal pain, nausea, vomiting, diarrhea, and constipation, Back: Negative for injury and pain, MS/Extremity: Negative for injury and deformity, Skin: Negative for injury, rash, and discoloration, Neuro: Negative for headache, weakness, numbness, tingling, and seizure, Psych: Negative for depression, anxiety, suicide ideation, homicidal ideation, and hallucinations. 10:10 : Positive for urinary symptoms, concerned for prolapse. Exam: 10:10 Constitutional: This is a well developed, well nourished patient who is awake, alert, snw and in no acute distress. Head/Face: Normocephalic, atraumatic. Eyes: Pupils equal round and reactive to light, extra-ocular motions intact. Lids and lashes normal. Conjunctiva and sclera are non-icteric and not injected. Cornea within normal limits. Periorbital areas with no swelling, redness, or edema. ENT: Nares patent. No nasal discharge, no septal abnormalities noted. Tympanic membranes are normal and external auditory canals are clear. Oropharynx with no redness, swelling, or masses, exudates, or evidence of obstruction, uvula midline. Mucous membranes moist. Neck: Trachea midline, no thyromegaly or masses palpated, and no cervical lymphadenopathy. Supple, full range of motion without nuchal rigidity, or vertebral point tenderness. No Meningismus. Chest/axilla: Normal chest wall appearance and motion. Nontender with no deformity. No lesions are appreciated. Cardiovascular: Regular rate and rhythm with a normal S1 and S2. No gallops, murmurs, or rubs. Normal PMI, no JVD. No pulse deficits. Respiratory: Lungs have equal breath sounds bilaterally, clear to auscultation and percussion. No rales, rhonchi or wheezes noted. No increased work of breathing, no retractions or nasal flaring. Abdomen/GI: Soft, non-tender, with normal bowel sounds. No distension or tympany. No guarding or rebound. No evidence of tenderness throughout. Back: No spinal tenderness. No costovertebral tenderness. Full range of motion. Female : Normal external genitalia. Skin: Warm, dry with normal turgor. Normal color with no rashes, no lesions, and no evidence of cellulitis. MS/ Extremity: Pulses equal, no cyanosis. Neurovascular intact. Full, normal range of motion. Neuro: Awake and alert, GCS 15, oriented to person, place, time, and situation. Cranial nerves II-XII grossly intact. Motor strength 5/5 in all extremities. Sensory grossly intact. Cerebellar exam normal. Normal gait. Psych: Awake, alert, with orientation to person, place and time. Behavior, mood, and affect are anxious but within normal limits. Vital Signs: 10:01 BP 117 / 50; Pulse 77; Resp 16; Temp 99.4(TE); Pulse Ox 99% on R/A; Weight 99.79 kg; ss Height 5 ft. 3 in. (160.02 cm); Pain 4/10; 11:00 BP 114 / 60; Pulse 75; Resp 16; Pulse Ox 98% on R/A; ph 12:00 BP 116 / 61; Pulse 76; Resp 16; Pulse Ox 99% on R/A; ph 13:00 BP 120 / 52; Pulse 74; Resp 18; Temp 98.0; Pulse Ox 99% on R/A; ph 10:01 Body Mass Index 38.97 (99.79 kg, 160.02 cm) ss MDM: 09:30 Patient medically screened. [facility] 12:35 Data reviewed: vital signs, nurses notes. Data interpreted: Pulse oximetry: on room air snw is 99 %. Interpretation: normal. Counseling: I had a detailed discussion with the patient and/or guardian regarding: the historical points, exam findings, and any diagnostic results supporting the discharge/admit diagnosis, lab results, radiology results, the need for outpatient follow up, to return to the emergency department if symptoms worsen or persist or if there are any questions or concerns that arise at home. Special discussion: Based on the patient's Hx, exam, and Dx evaluation, there is no indication for emergent surgery or inpatient Tx. It is understood by the patient/guardian that if the Sx's persist or worsen they need to return immediately for re-evaluation. Based on the history and exam findings, there is no indication for further emergent testing or inpatient evaluation. I discussed with the patient/guardian the need to see the OB Gyne specialist for further evaluation of the symptoms. I discussed with the patient/guardian the need to see the primary care provider for further evaluation of the symptoms. 09/04 09:36 Order name: Urine Culture snw 09/04 09:36 Order name: Urine Microscopic Only; Complete Time: 11:09 snw 09/04 10:16 Order name: Urine Dipstick--Ancillary (enter results); Complete Time: 10:21 em1 09/04 10:58 Order name: US Transvaginal Study (Probe); Complete Time: 12:20 snw 09/04 09:36 Order name: Cath; Complete Time: 10:18 snw 09/04 09:36 Order name: Urine Dipstick-Ancillary (obtain specimen); Complete Time: 10:14 snw Administered Medications: 09:45 Drug: Phenergan 25 mg Route: PO; sg 12:53 Follow up: Response: No adverse reaction; Nausea is decreased ph 12:53 Drug: fentaNYL (PF) 25 mcg Route: IM; Site: left deltoid; ph 12:53 Follow up: Response: No adverse reaction; Medication administered at discharge. ph Disposition: 15:18 Co-signature as Attending Physician, Sulaiman Garcia MD I agree with the assessment and deborah plan of care. Disposition: 09/04/19 12:33 Discharged to Home. Impression: Pelvic and perineal pain, Uterine fibroids. - Condition is Stable. - Discharge Instructions: Abdominal Pain, Adult, Pelvic Pain, Female. - Prescriptions for Tylenol- Codeine #3 300-30 mg Oral Tablet - take 1 tablet by ORAL route every 6 hours As needed; 6 tablet. - Medication Reconciliation Form, Thank You Letter, Antibiotic Education, Prescription Opioid Use form. - Follow up: Jose Luis Delgadillo MD; When: 2 - 3 days; Reason: Recheck today's complaints, Continuance of care, Re-evaluation by your physician. Follow up: Emergency Department; When: As needed; Reason: Worsening of condition. Signatures: Dispatcher [employer] Brett Schaeffer, RN Sulaiman Atkins MD MD cha Therrien, Shelly, INFECTION PREVENTION COORDINATOR-C INFECTION PREVENTION COORDINATOR-Csnw Veronica Villalpando RN RN ss Hall, Patricia, RN RN ph Corrections: (The following items were deleted from the chart) 13:02 12:33 09/04/2019 12:33 Discharged to Home. Impression: Pelvic and perineal pain; ph Uterine fibroids. Condition is Stable. Forms are Medication Reconciliation Form, Thank You Letter, Antibiotic Education, Prescription Opioid Use. Follow up: Jose Luis Delgadillo; When: 2 - 3 days; Reason: Recheck today's complaints, Continuance of care, Re-evaluation by your physician. Follow up: Emergency Department; When: As needed; Reason: Worsening of condition. snw
[2019-09-04] MEDS ORDERED: FENTANYL CITR 100 MCG/2 ML ONE (12:46)
[2019-09-04 13:09] VITALS: BP 117/50; TEMP 99.4; O2SAT 99
== END 2019-09-04 13:02 | disposition home or self-care (01) ==
LOC: ER 09:24
DX: R10.2 Pelvic and perineal pain (principal); D25.9 Leiomyoma of uterus, unspecified; Z88.3 Allergy status to other anti-infective agents
CPT/HCPCS: 87088; 76830; 51702; 96372; 99284; Q0169; J3010; 81003; 81015; 87086

== ENCOUNTER 2019-09-14 10:31 | Emergency (ER) | payer OTHER ==
--- OUTSIDE RECORDS SUMMARY | 2019-09-14 10:34 | XMS REPORT ---
[...] Start End Status Dosage System Date Date [place] 61056819202 300 MG Orally Active 3 capsule at Carbonate Once a day bedtime Fish Oil ND 82287754204 1000 MG Orally Active 1 capsule Once a day Multivitamin ND 99762334482 - Orally Active as directed Women Trazodone HCl ND 97778989176 100 MG Orally Active 2 tablet at Once a day bedtime as needed Melatonin ND 68259959120 10 MG Orally Active 3 capsule at bedtime as needed with food Dicyclomine HCl ND 49886027019 20 mg Orally Up Active 1 tablet as to 4x daily needed for abdominal pain Tramadol HCl ND 36203734920 50 MG Orally May 15May Active 1 tablet as Twice daily 2018 03, needed for 2017 pain Vitamin B [facility] 16223720805 - Orally Active as directed Complex Fluoxetine HCl [facility] 32439220603 20 MG Orally Active 1 capsule in Once a day the morning Results No Known Results Summary Purpose eClinicalWorks Submission
--- OUTSIDE RECORDS SUMMARY | 2019-09-14 10:34 | XMS REPORT ---
[...] Start End Status Dosage System Date Date [place] ND 44354844969 300 MG Orally Active 3 capsule at Carbonate Once a day bedtime Multivitamin ND 77264007598 - Orally Active as directed Women Vitamin B ND 15918603906 - Orally Active as directed Complex Trazodone HCl ND 27279945733 100 MG Orally Active 2 tablet at Once a day bedtime as needed Melatonin ND 40414696486 10 MG Orally Active 3 capsule at bedtime as needed with food Dicyclomine HCl ND 43354731356 20 mg Orally Up Active 1 tablet as to 4x daily needed for abdominal pain Fish Oil [facility] 52069491939 1000 MG Orally Active 1 capsule Once a day Lyrica [facility] 75712065390 100 MG Orally Aug 14, Active 1 capsule Three times a 2017 day Fluoxetine HCl [facility] 66654871615 20 MG Orally Active 1 capsule in Once a day the morning Results No Known Results Summary Purpose eClinicalWorks Submission
--- OUTSIDE RECORDS SUMMARY | 2019-09-14 10:34 | XMS REPORT ---
[...] Dosage System Date Date Fish Oil [facility] 77832427302 1000 MG Orally Active 1 capsule Once a day Multivitamin ND 62486269278 - Orally Active as Women directed Fluoxetine HCl ND 72272266036 20 MG Orally Active 1 capsule Once [place] [address]-44 300 MG Orally Active 3 capsule Carbonate Once a day at bedtime Trazodone HCl [facility] [address]-70 100 MG Orally Active 2 tablet Once a day at bedtime as needed Vitamin B ND 01223282801 - Orally Active as Complex directed Melatonin [facility] 19[address]15 10 MG Orally Active 3 capsule at bedtime as needed with food Results Name Result Date Reference Range Unit Abnormality Flag Electrocardiogram (EKG) Summary Purpose eClinicalWorks Submission
--- OUTSIDE RECORDS SUMMARY | 2019-09-14 10:34 | XMS REPORT ---
[...] Dosage System Date Date Vitamin B Complex [facility] 24921944982 - Orally Active as directed Fluoxetine HCl ND 38883947988 20 MG Orally Active 1 capsule Once a day in the morning Meloxicam ND 93706955470 15 MG Orally DecemberJanuary 29, Active 1 tablet Once a day as 2018 needed for 2019 pain; take with food Cyclobenzaprine ND 91094024821 10 MG Orally DecemberJanuary 29, Active 1 tablet as HCl Three times a 2018 needed for day 2019 muscle cramps/pain [place] Carbonate [facility] 27768651079 300 MG Orally Active 3 capsule Once a day at bedtime Melatonin [facility] 25891258277 10 MG Orally Active 3 capsule at bedtime as needed with food Trazodone HCl [facility] 35390324673 100 MG Orally Active 2 tablet at Once a day bedtime as needed Dicyclomine HCl ND 55262871742 20 mg Orally Active 1 tablet as Up to 4x daily needed for abdominal pain Fish Oil ND 10424405930 1000 MG Orally Active 1 capsule Once a day Medrol [facility] 85822508130 4 MG Orally as December Active as directed directed 2018 Lyrica ND 99877704695 100 MG Orally Aug 14, Active 1 capsule Three times a 2017 day Multivitamin Women ND 22721068080 - Orally Active as directed Results No Known Results Summary Purpose eClinicalWorks Submission
--- OUTSIDE RECORDS SUMMARY | 2019-09-14 10:34 | XMS REPORT ---
[...] End Status Dosage System Date Date Multivitamin [facility] 66287383629 - Orally Active as directed Women Vitamin B [facility] 03903826292 - Orally Active as directed Complex Trazodone HCl ND 17628886328 100 MG Orally Active 2 tablet at Once a day bedtime as needed [place] ND 69162889041 300 MG Orally Active 3 capsule at Carbonate Once a day bedtime Melatonin ND 33248993174 10 MG Orally Active 3 capsule at bedtime as needed with food Fluoxetine HCl ND 13312751713 20 MG Orally Active 1 capsule in Once a day the morning Fish Oil ND 36815113312 1000 MG Orally Active 1 capsule Once a day Dicyclomine HCl ND 12085359826 20 mg Orally Up April 16May 16, Active 1 tablet as to 4x daily 2017 2017 needed for abdominal pain Results No Known Results Summary Purpose eClinicalWorks Submission
--- OUTSIDE RECORDS SUMMARY | 2019-09-14 10:34 | XMS REPORT ---
:1970 [facility] [address] [place] [address] Care Team Providers Name Role Phone Unavailable Unavailable Unavailable Problems This patient has no known problems. Allergies, Adverse Reactions, Alerts This patient has no known allergies or adverse reactions. Medications This patient has no known medications. Encounters Start End Encounter Admission Attending Care Care Encounter Date/Time Date/Time Type Type Clinicians Facility Department ID 2019-09-07 2019-09-07 Emergency E [id number] 16:43:00 16:43:00
--- OUTSIDE RECORDS SUMMARY | 2019-09-14 10:34 | XMS REPORT ---
[...] End Status Dosage System Date Date Cyclobenzaprine [facility] 52148390128 10 MG Orally December Active 1 tablet as HCl Three times a 09, 09, needed for day 2018 2018 muscle cramps/pain Lyrica [facility] 94372084406 100 MG Orally Aug 14, Active 1 capsule Three times a 2017 day Fish Oil [facility] 16271396820 1000 MG Orally Active 1 capsule Once a day Fluoxetine HCl [facility] 39736459539 20 MG Orally Active 1 capsule Once a day in the morning [place] Carbonate [facility] 65058767463 300 MG Orally Active 3 capsule Once a day at bedtime Trazodone HCl [facility] 50433584352 100 MG Orally Active 2 tablet at Once a day bedtime as needed Dicyclomine HCl [facility] 88489090473 20 mg Orally Up Active 1 tablet as to 4x daily needed for abdominal pain Multivitamin Women [facility] 16551615837 - Orally Active as directed Vitamin B Complex [facility] 16177898357 - Orally Active as directed Meloxicam [facility] 69158855243 15 MG Orally December Active 1 tablet Once a day as , needed for 2018 2018 pain; take with food Melatonin [facility] 36495598040 10 MG Orally Active 3 capsule at bedtime as needed with food Results Name Result Date Reference Range Unit Abnormality Flag STREP A RAPID ----Result Negative [id number] Summary Purpose eClinicalWorks Submission
[2019-09-14] MEDS ORDERED: MORPHINE 4 MG/ML SYR ONE (11:28)
[2019-09-14] MEDS ORDERED: DIPHENHYDRAMINE 50 MG/ML VIAL ONE (11:29)
[2019-09-14] MEDS ORDERED: NA CHLORIDE 0.9% 1,000 ML ONE ×2 (11:29→13:14)
[2019-09-14] MEDS ORDERED: METOCLOPRAMIDE 10 MG/2mL INJ ONE ×2 (11:29→11:31)
[2019-09-14] MEDS ORDERED: NA CHLORIDE 0.9% 100 ML IV ONE (11:31)
[2019-09-14 12:43] LABS: Absolute Lymphocytes (CBC) 2.3 K/uL (0.7-4.9); Basophils % 0.9 % (0-1.3); Hematocrit 35.3 % (36.0-45.0); Lymphocytes % 30.9 % (15.3-44.8); MPV 8.3 fL (7.6-11.3); RBC Red Blood Cell Count 4.37 M/uL (3.86-4.86)
[2019-09-14 12:49] LABS: Urine Blood NEGATIVE (NEG); Urine Glucose NEGATIVE (NEG); Urine Protein NEGATIVE (NEG); Urine Specific Gravity 1.015 (1.005-1.030)
[2019-09-14 13:07] LABS: ALT/SGPT 20 U/L (12-78); AST/SGOT 15 U/L (15-37); Albumin 3.6 g/dL (3.4-5.0); Alkaline Phosphatase 67 U/L (45-117); BUN Blood Urea Nitrogen 16 mg/dL (7-18); Bicarbonate 25 mmol/L (21-32); Bilirubin Direct < 0.1 mg/dL (0-0.2); Bilirubin Total 0.2 mg/dL (0.2-1.0); Glucose Level 84 mg/dL (74-106); Lipase 43 U/L (73-393); Potassium 4.4 mmol/L (3.5-5.1); Protein, Total 6.9 g/dL (6.4-8.2); Sodium Level 142 mmol/L (136-145)
[2019-09-14] MEDS ORDERED: FENTANYL CITR 100 MCG/2 ML ONE (13:14)
--- NOTE | 2019-09-14 13:39 | RAD REPORT ---
EXAM DESCRIPTION: CTAbdomen Pelvis W Contrast - 09/14/2019 1:25 pm CLINICAL HISTORY: Abdominal pain. lower abdominal pain COMPARISON: Abdomen Pelvis W Contrast dated 12/07/2018; Abdomen Pelvis W Contrast dated 04/10/2018 ; Abdomen Pelvis W Contrast dated 02/11/2018; Abdomen Pelvis W Contrast dated 01/22/2017 TECHNIQUE: Biphasic CT imaging of the abdomen and pelvis was performed with 100 ml non-ionic IV cont rast. All CT scans are performed using dose optimization technique as appropriate and may include automated exposure control or mA/KV adjustment according to patient size. FINDINGS: The lung bases are clear. Diffuse fatty liver is present. No aggressive liver mass or biliary dilatation. Cholecystectomy clips . The spleen, pancreas, adrenal glands and kidneys are within normal limits. No bowel obstruction, free air, free fluid or abscess. Postsurgical changes are present about the sto mach and small bowel. Appendectomy. No evidence of significant lymphadenopathy. No suspicious bony findings. IMPRESSION: No acute intra-abdominal or pelvic finding.
--- NOTE | 2019-09-14 14:01 | EDPHYS ---
Physician Documentation [facility] Name: Nithin Beth Age: 49 yrs Sex: Female : 1970 Arrival Date: 09/14/2019 Time: 10:33 Bed 13 Private MD: Mariana Ochoa ED Physician Estevan Kelly HPI: 09/14 11:17 This 49 yrs old Female presents to ER via Wheelchair with complaints of jmm Urinary Retention, Vaginal Problem. 11:17 The patient presents with pelvic pain, urinary symptoms. Onset: The symptoms/episode jmm began/occurred gradually, 2 week(s) ago. Modifying factors: The symptoms are alleviated by nothing, the symptoms are aggravated by nothing. Associated signs and symptoms: Pertinent positives: dysuria, urinary frequency, Pertinent negatives: fever. This is a 49 year old female with a history of bipolar that presents to the ED with complaints of worsening pelvic pain and dysuria. Patient states she noticed stool coming from her vagina. The patient was previously evaluated for this with a negative US. . Historical: - Allergies: 10:40 Erythromycin; sv 10:40 TETRACYCLINES; sv 10:40 Toradol; sv 10:40 Zofran; sv - PMHx: 10:40 "Possibly Fibromyalgia"; Bipolar disorder; Chronic pain; sv - PSHx: 10:40 Cholecystectomy; Tubal ligation; Gastric Bypass; sv - Immunization history:: Flu vaccine is up to date. - Social history:: Smoking status: Patient/guardian denies using tobacco. - Ebola Screening: : No symptoms or risks identified at this time. ROS: 11:17 Constitutional: Negative for fever, chills, and weight loss, Cardiovascular: Negative jmm for chest pain, palpitations, and edema, Respiratory: Negative for shortness of breath, cough, wheezing, and pleuritic chest pain. 11:17 Abdomen/GI: Positive for abdominal pain. 11:17 : Positive for urinary symptoms, pelvic pain, small amounts, difficulty urinating. 11:17 All other systems are negative. Exam: 11:17 Constitutional: This is a well developed, well nourished patient who is awake, alert, jmm and in no acute distress. Head/Face: atraumatic. Eyes: EOMI, no conjunctival erythema appreciated ENT: Moist Mucus Membranes Neck: Trachea midline, Supple Chest/axilla: Normal chest wall appearance and motion. Cardiovascular: Regular rate and rhythm. No edema appreciated Respiratory: Normal respirations, no respiratory distress appreciated Back: Normal ROM Skin: General appearance color normal 11:17 MS/ Extremity: Moves all extremities, no obvious deformities appreciated, no edema noted to the lower extremities Neuro: Awake and alert, normal gait Psych: Behavior is normal, Mood is normal, Patient is cooperative and pleasant 11:17 Abdomen/GI: Inspection: abdomen appears normal, Bowel sounds: normal, Palpation: soft, moderate abdominal tenderness, in the suprapubic area, right lower quadrant and left lower quadrant. Vital Signs: 10:40 BP 111 / 56; Pulse 64; Resp 18; Temp 97.6(TE); Pulse Ox 98% ; Weight 97.52 kg; Height 5 sv ft. 3 in. (160.02 cm); Pain 6/10; 12:05 BP 111 / 65; Pulse 50; Resp 18; Pulse Ox 100% on R/A; aj1 12:42 BP 95 / 47; Pulse 55; Resp 17; Pulse Ox 98% on R/A; mh5 13:09 BP 103 / 57; Pulse 60; Resp 18; Pulse Ox 99% on R/A; aj1 13:33 BP 104 / 60; Pulse 58; Resp 17; Temp 97.8(O); Pulse Ox 100% ; mh5 10:40 Body Mass Index 38.09 (97.52 kg, 160.02 cm) sv MDM: 11:11 Patient medically screened. [facility] 13:57 Data reviewed: vital signs, nurses notes. Counseling: I had a detailed discussion with [facility] the patient and/or guardian regarding: the historical points, exam findings, and any diagnostic results supporting the discharge/admit diagnosis, lab results, radiology results, the need for outpatient follow up, to return to the emergency department if symptoms worsen or persist or if there are any questions or concerns that arise at home. ED course: Pain relieved in the ED. Patient is alert and non toxic in appearance in the ED. Patient prescribed oral abx due to dysuria. Patient advised to follow up with urology for further evaluation of dysuria. Patient is otherwise given strict return precautions. Patient understood and agrees with the plan of care. . 09/14 11:05 Order name: Urine Culture [facility] 09/14 11:12 Order name: Basic Metabolic Panel; Complete Time: 13:18 [facility] 09/14 11:12 Order name: CBC with Diff; Complete Time: 12:53 [facility] 09/14 11:12 Order name: Creatinine for Radiology; Complete Time: 13:18 [facility] 09/14 11:12 Order name: Hepatic Function; Complete Time: 13:18 [facility] 09/14 11:12 Order name: Lipase; Complete Time: 13:18 [facility] 09/14 11:05 Order name: Urine Dipstick-Ancillary (obtain specimen); Complete Time: 12:43 [facility] 09/14 11:12 Order name: CT Abd/Pelvis - IV Contrast Only; Complete Time: 13:47 [facility] 09/14 12:38 Order name: Urine Dipstick--Ancillary (enter results); Complete Time: 12:53 09/14 11:05 Order name: Urine Test (obtain specimen); Complete Time: 12:43 [facility] 09/14 11:12 Order name: IV Saline Lock; Complete Time: 11:55 [facility] 09/14 11:12 Order name: Labs collected and sent; Complete Time: 12:44 [facility] Administered Medications: 11:54 Drug: morphine 4 mg Route: IVP; Site: Other; aj1 11:54 Drug: diphenhydrAMINE 12.5 mg Route: IVP; Site: Other; aj1 11:55 Drug: Reglan 10 mg Route: IVP; Site: Other; aj1 13:17 Drug: fentaNYL (PF) 25 mcg Route: IVP; Site: Other; aj1 13:56 Not Given (Physician Discretion): NS 0.9% 1000 ml IV at 1 bolus Per protocol; 1000 mL em bolus Disposition: 15:19 Co-signature as Attending Physician, Estevan Kelly MD. ma2 Disposition: 09/14/19 14:00 Discharged to Home. Impression: Dysuria, Pelvic and perineal pain. - Condition is Stable. - Discharge Instructions: Dysuria, Pelvic Pain, Female. - Prescriptions for Cephalexin 500 mg Oral Capsule - take 1 capsule by ORAL route every 12 hours for 10 days; 20 capsule. Ultracet 37.5- 325 mg Oral Tablet - take 1 tablet by ORAL route every 6 hours - for up to 5 days; do not exceed 8 tablets per day.; 12 tablet. - Medication Reconciliation Form, Thank You Letter, Antibiotic Education, Prescription Opioid Use form. - Follow up: Leda Allan MD; When: 2 - 3 days; Reason: Recheck today's complaints, Continuance of care, Re-evaluation by your physician. Signatures: Dispatcher [employer] Mary Lou Nava RN RN aj1 Yojana Garcia RN RN Ángel Bowen PA PA jmm Smirch, Shelby, RN RN ss Estevan Kelly MD MD ct2 Parish [place] Corrections: (The following items were deleted from the chart) 14:57 14:00 09/14/2019 14:00 Discharged to Home. Impression: Dysuria; Pelvic and perineal ss pain. Condition is Stable. Forms are Medication Reconciliation Form, Thank You Letter, Antibiotic Education, Prescription Opioid Use. Follow up: Leda Allan; When: 2 - 3 days; Reason: Recheck today's complaints, Continuance of care, Re-evaluation by your physician. calvin
--- NOTE | 2019-09-14 14:01 | ER ---
Nurse's Notes [facility] Name: Nithin Beth Age: 49 yrs Sex: Female : 1970 Arrival Date: 09/14/2019 Time: 10:33 Bed 13 Private MD: Mariana Ochoa Diagnosis: Dysuria;Pelvic and perineal pain Presentation: 09/14 10:38 Presenting complaint: Patient states: not able to urinate correctly, vaginal pain, "I sv feel like there is something down there." started a couple of weeks ago., c/o nausea. Transition of care: patient was not received from another setting of care. Onset of symptoms was 2018. Risk Assessment: Do you want to hurt yourself or someone else? Patient reports no desire to harm self or others. Initial Sepsis Screen: Does the patient meet any 2 criteria? No. Patient's initial sepsis screen is negative. Does the patient have a suspected source of infection? No. Patient's initial sepsis screen is negative. Care prior to arrival: None. 10:38 Method Of Arrival: Wheelchair sv 10:38 Acuity: HUSAM 3 sv Historical: - Allergies: 10:40 Erythromycin; sv 10:40 TETRACYCLINES; sv 10:40 Toradol; sv 10:40 Zofran; sv - PMHx: 10:40 "Possibly Fibromyalgia"; Bipolar disorder; Chronic pain; sv - PSHx: 10:40 Cholecystectomy; Tubal ligation; Gastric Bypass; sv - Immunization history:: Flu vaccine is up to date. - Social history:: Smoking status: Patient/guardian denies using tobacco. - Ebola Screening: : No symptoms or risks identified at this time. Screenin:03 Abuse screen: Denies threats or abuse. Denies injuries from another. Nutritional aj1 screening: No deficits noted. Tuberculosis screening: No symptoms or risk factors identified. Assessment: 12:03 General: Appears in no apparent distress. uncomfortable, Behavior is calm, cooperative, aj1 appropriate for age. Pain: Complains of pain in pelvis Quality of pain is described as pressure. Neuro: Level of Consciousness is awake, alert, obeys commands, Oriented to person, place, time, situation. Cardiovascular: Patient's skin is warm and dry. Respiratory: Airway is patent Respiratory effort is even, unlabored, Respiratory pattern is regular, symmetrical. GI: No signs and/or symptoms were reported involving the gastrointestinal system. : Reports she feels like her bladder is full but she is unable to urinate. EENT: No signs and/or symptoms were reported regarding the EENT system. Derm: No signs and/or symptoms reported regarding the dermatologic system. Skin is pink, warm \\T\\ dry. normal. Musculoskeletal: No signs and/or symptoms reported regarding the musculoskeletal system. Circulation, motion, and sensation intact. Vital Signs: 10:40 BP 111 / 56; Pulse 64; Resp 18; Temp 97.6(TE); Pulse Ox 98% ; Weight 97.52 kg; Height 5 sv ft. 3 in. (160.02 cm); Pain 6/10; 12:05 BP 111 / 65; Pulse 50; Resp 18; Pulse Ox 100% on R/A; aj1 12:42 BP 95 / 47; Pulse 55; Resp 17; Pulse Ox 98% on R/A; mh5 13:09 BP 103 / 57; Pulse 60; Resp 18; Pulse Ox 99% on R/A; aj1 13:33 BP 104 / 60; Pulse 58; Resp 17; Temp 97.8(O); Pulse Ox 100% ; mh5 10:40 Body Mass Index 38.09 (97.52 kg, 160.02 cm) sv ED Course: 10:33 Patient arrived in ED. as 10:34 Mariana Ochoa MD is Private Physician. as 10:39 Triage completed. sv 10:42 Ángel Walker PA is PHCP. [facility] 10:42 Estevan Kelly MD is Attending Physician. [facility] 10:51 Mary Lou Caballero, RON is Primary Nurse. aj1 11:56 Inserted saline lock: 22 gauge in left ,using aseptic technique. breast. aj1 12:03 No provider procedures requiring assistance completed. aj1 12:03 Patient has correct armband on for positive identification. Bed in low position. Call [facility] light in reach. 13:24 CT completed. Patient tolerated procedure well. Patient moved to CT via wheelchair. sw Patient moved back from CT. 13:25 CT Abd/Pelvis - IV Contrast Only In Process Unspecified. EDMS 14:00 Leda Allan MD is Referral Physician. [facility] 14:56 IV discontinued, intact, bleeding controlled, No redness/swelling at site. Pressure ss dressing applied. Administered Medications: 11:54 Drug: morphine 4 mg Route: IVP; Site: Other; aj1 11:54 Drug: diphenhydrAMINE 12.5 mg Route: IVP; Site: Other; aj1 11:55 Drug: Reglan 10 mg Route: IVP; Site: Other; aj1 13:17 Drug: fentaNYL (PF) 25 mcg Route: IVP; Site: Other; aj1 13:56 Not Given (Physician Discretion): NS 0.9% 1000 ml IV at 1 bolus Per protocol; 1000 mL em bolus Outcome: 14:00 Discharge ordered by . calvin 14:56 Discharged to home ambulatory. ss 14:56 Condition: good 14:56 Discharge instructions given to patient, family, Instructed on discharge instructions, follow up and referral plans. medication usage, Demonstrated understanding of instructions, follow-up care, medications, Prescriptions given X 2. 14:57 Patient left the ED. Signatures: Dispatcher [employer] Mary Lou Nava RN RN aj1 Verde, Stephanie, RN RN sv Mickail, Joel, PA PA jmm Martinez, Amelia as Smirch, Shelby, RN RN ss Warren, Shannon sw Martinez, Maria Parish Lopez LVN em
[2019-09-14 15:14] VITALS: BP 104/60; TEMP 97.8; O2SAT 100
== END 2019-09-14 14:57 | disposition home or self-care (01) ==
LOC: ER 10:31
DX: R10.2 Pelvic and perineal pain (principal); F31.9 Bipolar disorder, unspecified; Z88.1 Allergy status to other antibiotic agents; Z88.3 Allergy status to other anti-infective agents; Z88.5 Allergy status to narcotic agent; Z88.8 Allergy status to other drugs, medicaments and biological substances
CPT/HCPCS: 87088; 85025; 80048; 36415; 80076; 81003; 83690; 74177; 96375; 96374; 99284; Q9967; J2765; J1200; J3010; J7030 ×2; 87086

== ENCOUNTER 2019-11-10 10:17 | Emergency (ER) | payer OTHER ==
--- OUTSIDE RECORDS SUMMARY | 2019-11-10 10:20 | XMS REPORT ---
:1970 [facility] [address] [place] [address] Care Team Providers Name Role Phone Unavailable [...]
--- OUTSIDE RECORDS SUMMARY | 2019-11-10 10:20 | XMS REPORT ---
[...] End Status Dosage System Date Date Multivitamin [facility] 71361693142 - Orally Active as directed Women Vitamin B [facility] 54381545404 - Orally Active as directed Complex Trazodone HCl ND 48903697503 100 MG Orally Active 2 tablet at Once a day bedtime as needed [place] ND 17257143264 300 MG Orally Active 3 capsule at Carbonate Once a day bedtime Melatonin ND 13122131545 10 MG Orally Active 3 capsule at bedtime as needed with food Fluoxetine HCl ND 12985920196 20 MG Orally Active 1 capsule in Once a day the morning Fish Oil ND 76246434503 1000 MG Orally Active 1 capsule Once a day Dicyclomine HCl ND 20892572754 20 mg Orally Up April 16May 16, Active 1 tablet as to 4x daily 2017 2017 needed for abdominal pain Results No Known Results Summary Purpose eClinicalWorks Submission
--- OUTSIDE RECORDS SUMMARY | 2019-11-10 10:20 | XMS REPORT ---
[...] Status Dosage System Date Date Fish Oil [facility] 49521624861 1000 MG Orally Active 1 capsule Once a day Multivitamin ND 83678065992 - Orally Active as Women directed Fluoxetine HCl ND 13588840634 20 MG Orally Active 1 capsule Once [place] [address]-69 300 MG Orally Active 3 capsule Carbonate Once a day at bedtime Trazodone HCl [facility] [address]-81 100 MG Orally Active 2 tablet Once a day at bedtime as needed Vitamin B ND 20192626453 - Orally Active as Complex directed Melatonin [facility] [address] 10 MG Orally Active 3 capsule at bedtime as needed with food Results Name Result Date Reference Range Unit Abnormality Flag Electrocardiogram (EKG) Summary Purpose eClinicalWorks Submission
--- OUTSIDE RECORDS SUMMARY | 2019-11-10 10:21 | XMS REPORT ---
[...] Start End Status Dosage System Date Date [place] ND 07331746067 300 MG Orally Active 3 capsule at Carbonate Once a day bedtime Fish Oil ND 30845907517 1000 MG Orally Active 1 capsule Once a day Multivitamin ND 67451795729 - Orally Active as directed Women Trazodone HCl ND 79436031210 100 MG Orally Active 2 tablet at Once a day bedtime as needed Melatonin ND 24689410886 10 MG Orally Active 3 capsule at bedtime as needed with food Dicyclomine HCl ND 10917963038 20 mg Orally Up Active 1 tablet as to 4x daily needed for abdominal pain Tramadol HCl ND 03749325786 50 MG Orally May 15May Active 1 tablet as Twice daily 2018 03, needed for 2017 pain Vitamin B [facility] 80950010826 - Orally Active as directed Complex Fluoxetine HCl [facility] 87265143093 20 MG Orally Active 1 capsule in Once a day the morning Results No Known Results Summary Purpose eClinicalWorks Submission
--- OUTSIDE RECORDS SUMMARY | 2019-11-10 10:21 | XMS REPORT ---
[...] Start End Status Dosage System Date Date [place] 07784697747 300 MG Orally Active 3 capsule at Carbonate Once a day bedtime Multivitamin ND 65528711274 - Orally Active as directed Women Vitamin B ND 57774583831 - Orally Active as directed Complex Trazodone HCl ND 34460343760 100 MG Orally Active 2 tablet at Once a day bedtime as needed Melatonin ND 50385533750 10 MG Orally Active 3 capsule at bedtime as needed with food Dicyclomine HCl ND 58116507453 20 mg Orally Up Active 1 tablet as to 4x daily needed for abdominal pain Fish Oil [facility] 89943861841 1000 MG Orally Active 1 capsule Once a day Lyrica [facility] 11306650244 100 MG Orally Aug 14, Active 1 capsule Three times a 2017 day Fluoxetine HCl [facility] 07387949845 20 MG Orally Active 1 capsule in Once a day the morning Results No Known Results Summary Purpose eClinicalWorks Submission
--- OUTSIDE RECORDS SUMMARY | 2019-11-10 10:21 | XMS REPORT ---
[...] End Status Dosage System Date Date Cyclobenzaprine [facility] 23597345737 10 MG Orally December Active 1 tablet as HCl Three times a 09, 09, needed for day 2018 2018 muscle cramps/pain Lyrica [facility] 86655414190 100 MG Orally Aug 14, Active 1 capsule Three times a 2017 day Fish Oil [facility] 04032446875 1000 MG Orally Active 1 capsule Once a day Fluoxetine HCl [facility] 27285083805 20 MG Orally Active 1 capsule Once a day in the morning [place] Carbonate [facility] 35867578251 300 MG Orally Active 3 capsule Once a day at bedtime Trazodone HCl [facility] 31728726024 100 MG Orally Active 2 tablet at Once a day bedtime as needed Dicyclomine HCl [facility] 41829484544 20 mg Orally Up Active 1 tablet as to 4x daily needed for abdominal pain Multivitamin Women [facility] 16424095578 - Orally Active as directed Vitamin B Complex [facility] 19916088671 - Orally Active as directed Meloxicam [facility] 64838489609 15 MG Orally December Active 1 tablet Once a day as , needed for 2018 2018 pain; take with food Melatonin [facility] 67496576875 10 MG Orally Active 3 capsule at bedtime as needed with food Results Name Result Date Reference Range Unit Abnormality Flag STREP A RAPID ----Result Negative [id number] Summary Purpose eClinicalWorks Submission
--- OUTSIDE RECORDS SUMMARY | 2019-11-10 10:21 | XMS REPORT ---
[...] Dosage System Date Date Vitamin B Complex [facility] 2[facility] 67387808472 - Orally Active as directed Fluoxetine HCl ND 49151166640 20 MG Orally Active 1 capsule Once a day in the morning Meloxicam ND 17464407542 15 MG Orally DecemberJanuary 29, Active 1 tablet Once a day as 2018 needed for 2019 pain; take with food Cyclobenzaprine ND 90635846878 10 MG Orally DecemberJanuary 29, Active 1 tablet as HCl Three times a 2018 needed for day 2019 muscle cramps/pain [place] Carbonate [facility] 2] 87803817503 300 MG Orally Active 3 capsule Once a day at bedtime Melatonin [facility] 2] 90617938226 10 MG Orally Active 3 capsule at bedtime as needed with food Trazodone HCl [facility]NOTE 2] 33477676283 100 MG Orally Active 2 tablet at Once a day bedtime as needed Dicyclomine HCl ND 26965897628 20 mg Orally Active 1 tablet as Up to 4x daily needed for abdominal pain Fish Oil ND 93803961841 1000 MG Orally Active 1 capsule Once a day Medrol [facility]NOTE 2] 32557647350 4 MG Orally as December Active as directed directed 2018 Lyrica ND 66179899615 100 MG Orally Aug 14, Active 1 capsule Three times a 2017 day Multivitamin Women ND 78325435271 - Orally Active as directed Results No Known Results Summary Purpose eClinicalWorks Submission
[2019-11-10] MEDS ORDERED: HYDROCODONE/APAP 7.5/325 MG TAB ONE (10:56)
--- NOTE | 2019-11-10 11:31 | RAD REPORT ---
EXAM DESCRIPTION: RAD - Knee Right 3 View - 11/10/2019 10:59 am CLINICAL HISTORY: PAIN COMPARISON: No comparisons FINDINGS: Mild osteoarthritis is seen particularly involving the medial joint compartment. Small sup rapatellar joint effusion is present. No acute fracture or dislocation is evident.
--- NOTE | 2019-11-10 11:37 | EDPHYS ---
Physician Documentation [facility] Name: Nithin Beth Age: 49 yrs Sex: Female : 1970 Arrival Date: 11/10/2019 Time: 10:20 Bed 19 Private MD: Ramez Del Toro T ED Physician Tevin Méndez HPI: 11/10 11:10 This 49 yrs old Female presents to ER via Wheelchair with complaints of Fall kb Injury, Knee Injury. 11:10 Details of fall: The patient fell from an upright position, while walking. Onset: The kb symptoms/episode began/occurred yesterday. Associated injuries: The patient sustained right knee, decreased range of motion, painful injury, swelling. Severity of symptoms: At their worst the symptoms were moderate, in the emergency department the symptoms are unchanged. The patient has not experienced similar symptoms in the past. The patient has not recently seen a physician. Pt fell onto right knee yesterday. States she heard 2 pops when she fell and the pain has gotten worse over night. Historical: - Allergies: 10:33 Erythromycin; iw 10:33 TETRACYCLINES; iw 10:33 Toradol; iw 10:33 Zofran; iw - Home Meds: 10:33 gabapentin oral oral [Active]; estrogen [Active]; iw - PMHx: 10:33 "Possibly Fibromyalgia"; Bipolar disorder; Chronic pain; iw - PSHx: 10:33 Cholecystectomy; Tubal ligation; Gastric Bypass; ovaries removed; iw - Immunization history:: Adult Immunizations up to date. - Coronavirus screen:: The patient has NOT traveled to [place] in the past 14 days. - Social history:: Smoking status: Patient denies any tobacco usage or history of. - Ebola Screening: : Patient negative for fever greater than or equal to 101.5 degrees Fahrenheit, and additional compatible Ebola Virus Disease symptoms Patient denies exposure to infectious person Patient denies travel to an Ebola-affected area in the 21 days before illness onset No symptoms or risks identified at this time. ROS: 11:07 Constitutional: Negative for fever, chills, and weight loss, Cardiovascular: Negative kb for chest pain, palpitations, and edema, Respiratory: Negative for shortness of breath, cough, wheezing, and pleuritic chest pain, Abdomen/GI: Negative for abdominal pain, nausea, vomiting, diarrhea, and constipation, Back: Negative for injury and pain, Skin: Negative for injury, rash, and discoloration, Neuro: Negative for headache, weakness, numbness, tingling, and seizure. 11:07 MS/extremity: Positive for pain, swelling, tenderness, of the right knee. Exam: 11:07 Constitutional: This is a well developed, well nourished patient who is awake, alert, kb and in no acute distress. Head/Face: Normocephalic, atraumatic. ENT: Nares patent. No nasal discharge, no septal abnormalities noted. Tympanic membranes are normal and external auditory canals are clear. Oropharynx with no redness, swelling, or masses, exudates, or evidence of obstruction, uvula midline. Mucous membranes moist. Neck: Trachea midline, no thyromegaly or masses palpated, and no cervical lymphadenopathy. Supple, full range of motion without nuchal rigidity, or vertebral point tenderness. No Meningismus. Chest/axilla: Normal chest wall appearance and motion. Nontender with no deformity. No lesions are appreciated. Cardiovascular: Regular rate and rhythm with a normal S1 and S2. No gallops, murmurs, or rubs. Normal PMI, no JVD. No pulse deficits. Respiratory: Lungs have equal breath sounds bilaterally, clear to auscultation and percussion. No rales, rhonchi or wheezes noted. No increased work of breathing, no retractions or nasal flaring. Abdomen/GI: Soft, non-tender, with normal bowel sounds. No distension or tympany. No guarding or rebound. No evidence of tenderness throughout. Back: No spinal tenderness. No costovertebral tenderness. Full range of motion. Skin: Warm, dry with normal turgor. Normal color with no rashes, no lesions, and no evidence of cellulitis. Neuro: Awake and alert, GCS 15, oriented to person, place, time, and situation. Cranial nerves II-XII grossly intact. Motor strength 5/5 in all extremities. Sensory grossly intact. Cerebellar exam normal. Normal gait. 11:07 Musculoskeletal/extremity: Extremities: grossly normal except: noted in the right knee: decreased ROM, pain, swelling, tenderness, ROM: limited active range of motion due to pain, in the right knee, Circulation is intact in all extremities. Sensation intact. Weight bearing: able to fully bear weight. Vital Signs: 10:34 Weight 94.8 kg; Height 5 ft. 3 in. (160.02 cm); Pain 8/10; iw 10:45 BP 93 / 29; Pulse 57; Resp 17; Pulse Ox 93% on R/A; Pain 8/10; rb1 11:15 BP 92 / 35; Pulse 51; Resp 19; Temp 98.6(TE); Pulse Ox 98% on R/A; rb1 11:55 BP 92 / 57; Pulse 53; Resp 17; Pulse Ox 95% on R/A; rb1 10:34 Body Mass Index 37.02 (94.80 kg, 160.02 cm) iw 11:15 Pt. reports that her blood pressure runs low and Dr. Del Toro is aware and has never said rb1 anything. MDM: 10:29 Patient medically screened. kb 11:09 Differential diagnosis: fracture, sprain, strain. Data reviewed: vital signs, nurses kb notes, radiologic studies. Data interpreted: Pulse oximetry: on room air is 100 %. Interpretation: normal. Counseling: I had a detailed discussion with the patient and/or guardian regarding: the historical points, exam findings, and any diagnostic results supporting the discharge/admit diagnosis, radiology results, the need for outpatient follow up, a orthopedic surgeon, to return to the emergency department if symptoms worsen or persist or if there are any questions or concerns that arise at home. 11/10 10:37 Order name: Knee Right 3 View XRAY; Complete Time: 11:41 kb 11/10 11:10 Order name: Knee Immobilizer; Complete Time: 11:27 kb 11/10 11:10 Order name: Crutches; Complete Time: 11:26 kb Administered Medications: 10:55 Drug: [place] (7.5 mg-325 mg) 1 tabs Route: PO; rb1 11:25 Follow up: Response: No adverse reaction; Pain is decreased rb1 Disposition: 14:48 Co-signature as Attending Physician, Tevin Méndez MD. rn Disposition: 11/10/19 11:36 Discharged to Home. Impression: Pain in right knee. - Condition is Stable. - Discharge Instructions: Musculoskeletal Pain, Knee Pain, [id number]. - Prescriptions for Cyclobenzaprine 10 mg Oral Tablet - take 1 tablet by ORAL route every 8 hours As needed; 21 tablet. Diclofenac Sodium 75 mg Oral Tablet, Delayed Release (E.C.) - take 1 tablet by ORAL route 2 times per day As needed; 30 tablet. - Medication Reconciliation Form, Thank You Letter, Antibiotic Education, Prescription Opioid Use form. - Follow up: Emergency Department; When: As needed; Reason: Worsening of condition. Follow up: Private Physician; When: 2 - 3 days; Reason: Recheck today's complaints, Continuance of care, Re-evaluation by your physician. Signatures: Dispatcher [employer] EDMilagros Maldonado, BENJAMIN-C ALLOY WEIGHER-Katherine Victor, RN RN Tevin Duenas MD MD rn Barber, Rebecca, RN RN rb1 Corrections: (The following items were deleted from the chart) 11:58 11:36 11/10/2019 11:36 Discharged to Home. Impression: Pain in right knee. Condition is rb1 Stable. Discharge Instructions: Musculoskeletal Pain, Knee Pain, [id number]. Forms are Medication Reconciliation Form, Thank You Letter, Antibiotic Education, Prescription Opioid Use. Follow up: Emergency Department; When: As needed; Reason: Worsening of condition. Follow up: Private Physician; When: 2 - 3 days; Reason: Recheck today's complaints, Continuance of care, Re-evaluation by your physician. kb
--- NOTE | 2019-11-10 11:37 | ER ---
Nurse's Notes [facility] Name: Nithin Beth Age: 49 yrs Sex: Female : 1970 Arrival Date: 11/10/2019 Time: 10:20 Bed 19 Private MD: Ramez Del Toro T Diagnosis: Pain in right knee Presentation: 11/10 10:31 Presenting complaint: Patient states: missed a step in living room yesterday, fell onto iw right knee, heard two pops, pain is now getting worse. Transition of care: patient was not received from another setting of care. Onset of symptoms was November 09, 2019. Risk Assessment: Do you want to hurt yourself or someone else? Patient reports no desire to harm self or others. Initial Sepsis Screen: Does the patient meet any 2 criteria? No. Patient's initial sepsis screen is negative. Does the patient have a suspected source of infection? No. Patient's initial sepsis screen is negative. Care prior to arrival: None. 10:31 Method Of Arrival: Wheelchair iw 10:31 Acuity: HUSAM 4 iw Historical: - Allergies: 10:33 Erythromycin; iw 10:33 TETRACYCLINES; iw 10:33 Toradol; iw 10:33 Zofran; iw - Home Meds: 10:33 gabapentin oral oral [Active]; estrogen [Active]; iw - PMHx: 10:33 "Possibly Fibromyalgia"; Bipolar disorder; Chronic pain; iw - PSHx: 10:33 Cholecystectomy; Tubal ligation; Gastric Bypass; ovaries removed; iw - Immunization history:: Adult Immunizations up to date. - Coronavirus screen:: The patient has NOT traveled to [place] in the past 14 days. - Social history:: Smoking status: Patient denies any tobacco usage or history of. - Ebola Screening: : Patient negative for fever greater than or equal to 101.5 degrees Fahrenheit, and additional compatible Ebola Virus Disease symptoms Patient denies exposure to infectious person Patient denies travel to an Ebola-affected area in the 21 days before illness onset No symptoms or risks identified at this time. Screenin:30 Abuse screen: Denies threats or abuse. Nutritional screening: No deficits noted. rb1 Tuberculosis screening: No symptoms or risk factors identified. Fall Risk Fall in past 12 months (25 points). Secondary diagnosis (15 points) impaired mobility, pt. reports she cannot walk on her leg because it is too painful. No IV (0 pts). Ambulatory Aid- Crutches/Cane/Walker (15 pts). Gait- Impaired (20 pts.). Mental Status- Oriented to own ability (0 pts). Total Cooper Fall Scale indicates High Risk Score (45 or more points). Fall prevention measures have been instituted. Side Rails Up X 2 Placed Close to Nursing Station 1:1 Attendant Assigned Frequent Obs/Assessments Occuring Family Present and informed to notify staff if the need to leave the bedside As available patient and family educated on Fall Prevention Program and Strategies. Assessment: 10:30 General: Appears uncomfortable, Behavior is calm, cooperative. Pain: Complains of pain rb1 in right knee Pain currently is 7 out of 10 on a pain scale. Pain began 1 day ago. Aggravated by increased activity, weight bearing. Neuro: Level of Consciousness is awake, alert, obeys commands, Oriented to person, place, time, situation. Cardiovascular: Patient's skin is warm and dry. Respiratory: Airway is patent Respiratory effort is even, unlabored, Respiratory pattern is regular, symmetrical. Derm: Skin is pink, warm \\T\\ dry. Musculoskeletal: Swelling present in right knee. 11:30 Reassessment: Patient appears in no apparent distress at this time. Patient and/or rb1 family updated on plan of care and expected duration. Pain level reassessed. Patient is alert, oriented x 3, equal unlabored respirations, skin warm/dry/pink. Vital Signs: 10:34 Weight 94.8 kg; Height 5 ft. 3 in. (160.02 cm); Pain 8/10; iw 10:45 BP 93 / 29; Pulse 57; Resp 17; Pulse Ox 93% on R/A; Pain 8/10; rb1 11:15 BP 92 / 35; Pulse 51; Resp 19; Temp 98.6(TE); Pulse Ox 98% on R/A; rb1 11:55 BP 92 / 57; Pulse 53; Resp 17; Pulse Ox 95% on R/A; rb1 10:34 Body Mass Index 37.02 (94.80 kg, 160.02 cm) iw 11:15 Pt. reports that her blood pressure runs low and Dr. Del Toro is aware and has never said rb1 anything. ED Course: 10:20 Patient arrived in ED. ag5 10:20 Ramez Del Toro MD is Private Physician. ag5 10:22 Milagros Howe FNP-C is [facility]. kb 10:22 Tevin Méndez MD is Attending Physician. kb 10:30 Patient has correct armband on for positive identification. Bed in low position. Call rb1 light in reach. Side rails up X 1. Pulse ox on. NIBP on. Pillow given. 10:32 Triage completed. iw 10:34 Arm band placed on. iw 10:50 Megan Walden, RN is Primary Nurse. rb1 11:04 Knee Right 3 View XRAY In Process Unspecified. EDMS 11:26 Crutch training done. Knee immobilizer applied on right knee. lt1 11:55 No provider procedures requiring assistance completed. Patient did not have IV access rb1 during this emergency room visit. Administered Medications: 10:55 Drug: [place] (7.5 mg-325 mg) 1 tabs Route: PO; rb1 11:25 Follow up: Response: No adverse reaction; Pain is decreased rb1 Outcome: 11:36 Discharge ordered by . kb 11:55 Discharged to home with crutches, with family. rb1 11:55 Condition: stable 11:55 Discharge instructions given to patient, Instructed on discharge instructions, follow up and referral plans. medication usage, Demonstrated understanding of instructions, follow-up care, medications, Prescriptions given X 2. 11:58 Patient left the ED. rb1 Signatures: Dispatcher [employer] EDMO Milagros Howe FNP-C FOOD SAMPLER-CkKatherine Lizama RN RN iw Megan Walden, RN RN rb1 Kumar Lawson ag5 Siobhan Wayne lt1 Corrections: (The following items were deleted from the chart) 11:20 11:15 BP 92 / 35; Pulse 51bpm; Resp 19bpm; Pulse Ox 98% RA; Temp 98.6F Temporal; rb1 rb1
[2019-11-10 12:33] VITALS: TEMP 98.6
[2019-11-10 12:34] VITALS: BP 92/57; O2SAT 95
== END 2019-11-10 11:58 | disposition home or self-care (01) ==
LOC: ER 10:17
DX: M25.561 Pain in right knee (principal); F31.9 Bipolar disorder, unspecified; Z88.3 Allergy status to other anti-infective agents; Z88.5 Allergy status to narcotic agent; Z88.8 Allergy status to other drugs, medicaments and biological substances
CPT/HCPCS: 99284

== ENCOUNTER 2019-12-26 10:56 | Inpatient (IN) | payer OTHER ==
[2019-12-26 21:20] VITALS: BMI 33.8
[2019-12-29 08:48] VITALS: O2SAT 98
[2019-12-29 13:13] VITALS: BP 136/69; TEMP 98.4
== END 2019-12-29 12:24 | disposition home or self-care (01) | DRG 392 ==
LOC: ER 10:56 → ERHOLD 15:37 → 2ND 20:00
PROVIDERS: ADMIT Family Medicine; ATTEND Internal Medicine
DX: K52.9 Noninfective gastroenteritis and colitis, unspecified (principal); N17.9 Acute kidney failure, unspecified; E87.2 Acidosis; K86.1 Other chronic pancreatitis; E87.6 Hypokalemia; R00.0 Tachycardia, unspecified; Z88.1 Allergy status to other antibiotic agents; Z88.8 Allergy status to other drugs, medicaments and biological substances; Z79.899 Other long term (current) drug therapy; Z79.890 Hormone replacement therapy; E86.9 Volume depletion, unspecified; R80.9 Proteinuria, unspecified; E83.42 Hypomagnesemia; R73.9 Hyperglycemia, unspecified; E83.39 Other disorders of phosphorus metabolism; E66.9 Obesity, unspecified; Z68.33 Body mass index [BMI] 33.0-33.9, adult; E86.0 Dehydration; G89.4 Chronic pain syndrome; M79.7 Fibromyalgia; Z90.49 Acquired absence of other specified parts of digestive tract; Z98.51 Tubal ligation status; Z98.84 Bariatric surgery status; Z90.721 Acquired absence of ovaries, unilateral; Z79.891 Long term (current) use of opiate analgesic
CPT/HCPCS: 36415; 74176; 80048; 80053; 80076; 81001; 81003; 81015; 81025; 82043; 82274; 82570; 83036; 83690; 83735; 84100; 84550; 85025; 87045; 87046; 87086; 87088; 87177; 87209; 87324; 87449; 89055; 94760; 96374; 96375; 99285; J0744; J1650; J2270; J2550; J2765; J3010; J3475; J7120; J7799

== ENCOUNTER 2020-01-17 10:55 | Emergency (ER) | payer OTHER ==
--- OUTSIDE RECORDS SUMMARY | 2020-01-17 10:58 | XMS REPORT ---
:[address] [facility] t Address [facility] [place] [address] Care Team Providers Name Role Phone Unavailable Unavailable Unavailable Problems Condition Condition Condition Status Onset Resolution Last Treatin g Comments Name Details Category Date Date Treatment Clinician Date Non-intract Non-intract Problem Active able able vomiting vomiting with with nausea, nausea, unspecified unspecified vomiting vomiting type type Arthralgia, Arthralgia, Problem Active unspecified unspecified joint joint Diarrhea, Diarrhea, Problem Active unspecified unspecified type type Bipolar Bipolar Problem Active disorder disorder Lightheaded Lightheaded Problem Active ness ness Weakness Weakness Problem Active Joint Joint Problem Active swelling swelling Iron Iron Problem Active deficiency deficiency anemia, anemia, unspecified unspecified iron iron deficiency deficiency anemia type anemia type Fatigue, Fatigue, Problem Active unspecified unspecified type type Hypotension Hypotension Problem Active , , unspecified unspecified hypotension hypotension type type Abdominal Abdominal Problem Active pain, pain, unspecified unspecified abdominal abdominal location location Syncope, Syncope, Problem Active unspecified unspecified syncope syncope type type Left lower Left lower Problem Active quadrant quadrant pain pain Chest pain, Chest pain, Problem Active unspecified unspecified type type Abnormal Abnormal Problem Active liver liver function function test test Vitamin D Vitamin D Problem Active deficiency deficiency Left Left Problem Active ovarian ovarian cyst cyst Paresthesia Paresthesia Problem Active s s Other Other Problem Active chronic chronic pain pain Neck pain Neck pain Problem Active Dorsalgia, Dorsalgia, Problem Active unspecified unspecified Gastroesoph Gastroesoph Problem Active ageal ageal reflux reflux disease disease without without esophagitis esophagitis URI, acute URI, acute Diagnosis Active Acute Acute Diagnosis Active pharyngitis pharyngitis , , unspecified unspecified etiology etiology Allergies, Adverse Reactions, Alerts Allergy Name Allergy Status Severity Reaction(s) Onset Inactive Treat ing Comments Type Date Date Clinician Soraya Adverse Active Causes red Reaction bumps on her tongue Gabapentin Adverse Active shaking and Reaction twitching Medications Ordered Filled Start Stop Current Ordering Indication Dosage Frequency Signature Comments Components Medication Medication Date Date Medication? Clinician (SIG) Name Name Meloxicam Meloxicam 2019- No [place] 1 tablet 12-30 [place] 00:00: 00:00 00 :00 Cyclobenzap Cyclobenzap 2019- No [place] 1 table t rine HCl rine HCl 12-30 [place]ender as needed 00:00: 00:00 for muscle 00 :00 cramps/ber[place] n Lyrica Lyrica 2017-09 Yes [place] 1 capsule 22 Millender 00:00: 00 Dicyclomine Dicyclomine 2018- No [place] 1 table t HCl HCl 04-16 [place] as needed 00:00: 00:00 for 00 :00 abdominal pain Fish Oil Fish Oil Yes [place] 1 capsule [place] Fluoxetine Fluoxetine Yes [place] 1 capsule HCl HCl [place] in the morning [place] Yes Mariana 3 capsule Carbonate Carbonate Millender at bedti me Multivitami Multivitami Yes Mariana as n Women n Women Millender directed Vitamin B Vitamin B Yes [place] as Complex Complex Millender directed Trazodone Trazodone Yes [place] 2 tablet HCl HCl [place] at bedtime as needed Melatonin Melatonin Yes Mariana 3 capsule [place] at bedtime as needed with food Encounters Start End Encounter Admission Attending Care Care Encounter Date/Time Date/Time Type Type Clinicians Facility Department ID 2019-09-07 2019-09-07 Emergency E [id number] 16:43:00 16:43:00 2018-12-31 2018-12-31 [facility] [id number] 08:47:00 08:47:00 [facility] 2018-12-30 2018-12-30 [facility] [id number] 16:20:00 16:20:00 [facility] 2018-09-09 2018-09-09 [facility] [id number] 09:45:00 09:45:00 [facility] 2018-05-15 2018-05-15 [facility] [id number] 08:45:00 08:45:00 [facility] 2018-04-16 2018-04-16 [facility] [id number] 11:03:00 11:03:00 [facility] 2018-04-16 2018-04-16 [facility] [id number] 09:00:00 09:00:00 [facility] 2018-04-11 2018-04-11 [facility] [id number] 11:28:00 11:28:00 [facility] 2018-04-09 2018-04-09 [facility] [id number] 09:00:00 09:00:00 [facility]
--- OUTSIDE RECORDS SUMMARY | 2020-01-17 10:58 | XMS REPORT ---
:1970 Author Organization [employer] Care Team Providers Name Role Phone Mariana Ochoa Provider Role Unavailable Allergies No Known Allergies Problems Problem Type Condition Code Onset Dates Condition Statu s Problem Non-intractable vomiting with R11.2 Active nausea, unspecified vomiting type Problem Arthralgia, unspecified joint M25.50 Active Problem Diarrhea, unspecified type R19.7 A ctive Problem Bipolar disorder F31.9 Active Problem Lightheadedness R42 Active Problem Weakness R53.1 Active Problem Joint swelling M25.40 Active Problem Iron deficiency anemia, unspecified D50.9 Active iron deficiency anemia type Problem Fatigue, unspecified type R53.83 Ac tive Problem Hypotension, unspecified hypotension I95.9 Active type Medications No Known Medications Results No Known Results Summary Purpose [employer]Works Submission
--- OUTSIDE RECORDS SUMMARY | 2020-01-17 10:58 | XMS REPORT ---
[...] vomiting type Assessment Diarrhea, unspecified type R19.7 A ctive Assessment Weakness R53.1 Active Assessment Hypotension, unspecified hypotension I95.9 Active type Assessment Fatigue, unspecified type R53.83 Ac tive Medications Medication Code Code Instructions Start End Status Dosage System Date Date Fish Oil [facility] [place]NOTE 2] 95732591277 1000 MG Orally Active 1 ca psule Once a day Multivitamin [facility] [place]NOTE 2] 95490303170 - Orally Active as Women directed Fluoxetine HCl [facility] [place]NOTE 2] 77477686183 20 MG Orally Active 1 capsule Once a day in the morning [place] [facility] [place]NOTE 2[place] [address]-60 300 MG Orally Active 3 ca psule Carbonate Once a day at bedtime Trazodone HCl [facility] [place]NOTE 2] [address]-86 100 MG Orally Active 2 tablet Once a day at bedtime as needed Vitamin B [facility] [place]NOTE 2] 95315397232 - Orally Active as Complex directed Melatonin [facility] [place][NOTE 2] 69[address]-12408 10 MG Orally Active 3 cap cat at bedtime as needed with food Results Name Result Date Reference Range Unit Abnormali ty Flag Electrocardiogram (EKG) Summary Purpose [employer]Works Submission
--- OUTSIDE RECORDS SUMMARY | 2020-01-17 10:59 | XMS REPORT ---
:1970 Author Organization [employer] Care Team Providers Name Role Phone Mariana Ochoa Provider Role Unavailable Allergies No Known Allergies Problems Problem Type Condition Code Onset Dates Condition Statu s Assessment Back pain, unspecified back M54.9 Active location, unspecified back pain laterality, unspecified chronicity Problem Abdominal pain, unspecified R10.9 Active abdominal location Assessment Neck pain M54.2 Active Problem Vitamin D deficiency E55.9 Active Problem Left ovarian cyst N83.202 Active Problem Chest pain, unspecified type R07.9 Active Problem Left lower quadrant pain R10.32 Act jyotsna Problem Neck pain M54.2 Active Problem Paresthesias [...] pain G89.29 Active Problem Dorsalgia, unspecified M54.9 Activ e Problem Arthralgia, unspecified joint M25.50 Active Problem Hypotension, unspecified I95.9 Act jyotsna hypotension type Problem Weakness R53.1 Active Problem Diarrhea, unspecified type R19.7 A ctive Problem Joint swelling M25.40 Active Problem Syncope, unspecified syncope type R55 Active Problem Fatigue, unspecified type R53.83 Ac tive Problem Iron deficiency anemia, unspecified D50.9 Active iron deficiency anemia type Medications Medication Code Code Instructions Start End Status Dosage System Date Date Vitamin B Complex [facility] [place] 19454693296 - Orally Active a s directed Fluoxetine HCl ND 61155605078 20 MG Orally Active 1 capsule Once a day in the morning Meloxicam ND 30834287929 15 MG Orally DecemberJanuary 29, Active 1 tab let Once a day as 2018 needed for 2019 pain; take with food Cyclobenzaprine ND 22923162798 10 MG Orally DecemberJanuary 29, Active 1 tablet as HCl Three times a 2018 needed for day 2019 muscle cramps/pain [place] Carbonate ND 89044034218 300 MG Orally Acti ve 3 capsule Once a day at bedtime Melatonin [facility] [place] 48582391359 10 MG Orally Active 3 cap cat at bedtime as needed with food Trazodone HCl ND 18121084232 100 MG Orally Active 2 tablet at Once a day bedtime as needed Dicyclomine HCl ND 69831916881 20 mg Orally Active 1 tablet as Up to 4x daily needed fo r abdominal pain Fish Oil ND 31190785652 1000 MG Orally Active 1 ca psule Once a day Medrol ND 60100752580 4 MG Orally as December Active as di rected directed 2018 Lyrica ND 58290232723 100 MG Orally Aug 14, Active 1 caps ule Three times a 2017 day Multivitamin Women ND 16502211915 - Orally Active as directed Results No Known Results Summary Purpose eClinicalWorks Submission
--- OUTSIDE RECORDS SUMMARY | 2020-01-17 10:59 | XMS REPORT ---
:1970 Author Organization eClinicalWorks Care Team Providers Name Role Phone Mariana Ochoa Provider Role Unavailable Allergies, Adverse Reactions, Alerts Substance Reaction Event Type Zofran Causes red bumps on her tongue Drug Dwayne rgy Problems Problem Type Condition Code Onset Dates Condition Statu s Problem Fatigue, unspecified type R53.83 Ac tive Problem Joint swelling M25.40 Active Problem Iron deficiency anemia, unspecified D50.9 Active iron deficiency anemia type Problem Left lower quadrant pain R10.32 Act jyotsna Assessment Chest pain, unspecified type R07.9 Active [...] Active Assessment Left lower quadrant pain R10.32 Act jyotsna Problem Lightheadedness R42 Active Problem Bipolar disorder F31.9 Active Problem Diarrhea, unspecified type R19.7 A ctive Problem Weakness R53.1 Active Problem Arthralgia, unspecified joint M25.50 Active Problem Hypotension, unspecified I95.9 Act jyotsna hypotension type Medications Medication Code Code Instructions Start End Status Dosage System Date Date [place] ND 79960564246 300 MG Orally Active 3 caps ule at Carbonate Once a day bedtime Fish Oil ND 43073919163 1000 MG Orally Active 1 ca psule Once a day Multivitamin ND 57854314253 - Orally Active as dir ected Women Trazodone HCl ND 75149281315 100 MG Orally Active 2 tablet at Once a day bedtime as needed Melatonin ND 48974285079 10 MG Orally Active 3 cap cat at bedtime as needed with food Dicyclomine HCl ND 04509629834 20 mg Orally Up Acti ve 1 tablet as to 4x daily needed for abdominal pain Tramadol HCl [facility] 76900081398 50 MG Orally May 15May Active 1 tablet as Twice daily 2018 03, needed for 2017 pain Vitamin B [facility] 01649310637 - Orally Active as direct ed Complex Fluoxetine HCl [facility] 21316113090 20 MG Orally Active 1 capsule in Once a day the morning Results No Known Results Summary Purpose eClinicalWorks Submission
--- OUTSIDE RECORDS SUMMARY | 2020-01-17 10:59 | XMS REPORT ---
:1970 Author Organization eClinicalWorks Care Team Providers Name Role Phone Mariana Ochoa Provider Role Unavailable Allergies No Known Allergies Problems Problem Type Condition Code Onset Dates Condition Statu s Problem Lightheadedness R42 Active Problem Weakness R53.1 Active Problem Bipolar disorder F31.9 Active Problem Hypotension, unspecified hypotension I95.9 Active type Problem Fatigue, unspecified type R53.83 Ac tive Problem Abdominal pain, unspecified R10.9 Active abdominal location Problem Joint swelling M25.40 Active Problem Syncope, unspecified syncope type R55 Active Problem Diarrhea, unspecified type R19.7 A ctive Problem Non-intractable vomiting with R11.2 Active nausea, unspecified vomiting type Problem Iron deficiency anemia, unspecified D50.9 Active iron deficiency anemia type Problem Arthralgia, unspecified joint M25.50 Active Medications No Known Medications Results No Known Results Summary Purpose eClinicalWorks Submission
--- OUTSIDE RECORDS SUMMARY | 2020-01-17 10:59 | XMS REPORT ---
[...] abdominal location Assessment Diarrhea, unspecified type R19.7 A ctive Assessment Hypotension, unspecified hypotension I95.9 Active type Assessment Follow-up exam Z09 Active Problem Hypotension, unspecified hypotension I95.9 Active type Assessment Syncope, unspecified syncope type R55 Active Problem Fatigue, unspecified type R53.83 Ac tive Medications Medication Code Code Instructions Start End Status Dosage System Date Date Multivitamin [facility] 01166259119 - Orally Active as dir ected Women Vitamin B [facility] 13116192988 - Orally Active as direct ed Complex Trazodone HCl ND 95762176524 100 MG Orally Active 2 tablet at Once a day bedtime as needed [facility] [facility] [place] 75771971163 300 MG Orally Active 3 caps ule at Carbonate Once a day bedtime Melatonin [facility] 92619709771 10 MG Orally Active 3 cap cat at bedtime as needed with food Fluoxetine HCl ND 60833299667 20 MG Orally Active 1 capsule in Once a day the morning Fish Oil ND 69873210552 1000 MG Orally Active 1 ca psule Once a day Dicyclomine HCl ND 66709597676 20 mg Orally Up April 16, May 16, Act jyotsna 1 tablet as to 4x daily 2017 2017 needed for abdominal pain Results No Known Results Summary Purpose eClinicalWorks Submission
--- OUTSIDE RECORDS SUMMARY | 2020-01-17 10:59 | XMS REPORT ---
:1970 Author Organization eClinicalWorks Care Team Providers Name Role Phone Mariana Ochoa Provider Role Unavailable Allergies, Adverse Reactions, Alerts Substance Reaction Event Type Zofran Causes red bumps on her tongue Drug Dwayne rgy Gabapentin shaking and twitching Drug Allergy Problems Problem Type Condition Code Onset Dates Condition Statu s Problem Vitamin D deficiency E55.9 Active Problem Left lower quadrant pain R10.32 Act jyotsna Problem Left ovarian cyst N83.202 Active Problem Paresthesias R20.2 Active Problem Bipolar disorder F31.9 Active Problem Other chronic pain G89.29 Active Problem Lightheadedness R42 Active Problem Neck pain M54.2 Active Problem Abnormal liver function test R94.5 Active Problem Chest pain, unspecified type R07.9 Active Problem Dorsalgia, unspecified M54.9 Activ e Problem Gastroesophageal reflux disease K21.9 Active without esophagitis Problem Diarrhea, unspecified type R19.7 A ctive Problem Arthralgia, unspecified joint M25.50 Active Problem Weakness R53.1 Active Problem Non-intractable vomiting with R11.2 Active nausea, unspecified vomiting type Problem Iron deficiency anemia, unspecified D50.9 Active iron deficiency anemia type Problem Joint swelling M25.40 Active Problem Hypotension, unspecified I95.9 Act jyotsna hypotension type Problem Syncope, unspecified syncope type R55 Active Assessment Paresthesias R20.2 Active Problem Fatigue, unspecified type R53.83 Ac tive Problem Abdominal pain, unspecified R10.9 Active abdominal location Medications Medication Code Code Instructions Start End Status Dosage System Date Date [place] [facility] 65443922206 300 MG Orally Active 3 caps ule at Carbonate Once a day bedtime Multivitamin [facility] 53134914551 - Orally Active as dir ected Women Vitamin B [facility] 30747179991 - Orally Active as direct ed Complex Trazodone HCl [facility] 23667250841 100 MG Orally Active 2 tablet at Once a day bedtime as needed Melatonin [facility] 07156416648 10 MG Orally Active 3 cap cat at bedtime as needed with food Dicyclomine HCl ND 05747789187 20 mg Orally Up Acti ve 1 tablet as to 4x daily needed for abdominal pain Fish Oil ND 39836920390 1000 MG Orally Active 1 ca psule Once a day Lyrica ND 77104032969 100 MG Orally Aug 14, Active 1 caps ule Three times a 2017 day Fluoxetine HCl [facility] 19892511738 20 MG Orally Active 1 capsule in Once a day the morning Results No Known Results Summary Purpose eClinicalWorks Submission
--- OUTSIDE RECORDS SUMMARY | 2020-01-17 11:00 | XMS REPORT ---
:1970 Author Organization eClinicalWorks Care Team Providers Name Role Phone Mariana Ochoa Provider Role Unavailable Allergies, Adverse Reactions, Alerts Substance Reaction Event Type Zofran Causes red bumps on her tongue Drug Dwayne rgy Gabapentin shaking and twitching Drug Allergy Problems Problem Type Condition Code Onset Dates Condition Statu s Assessment URI, acute J06.9 Active Assessment Acute [...] End Status Dosage System Date Date Cyclobenzaprine [facility] 57150569315 10 MG Orally December Active 1 tablet as HCl Three times a , needed for day 2019 2019 muscle cramps/pain Lyrica [facility] 40641617216 100 MG Orally Aug 14, Active 1 caps ule Three times a 2017 day Fish Oil [facility] 54793987414 1000 MG Orally Active 1 ca psule Once a day Fluoxetine HCl [facility] 25066360133 20 MG Orally Active 1 capsule Once a day in the morning [place] Carbonate [facility] 42600408906 300 MG Orally Acti ve 3 capsule Once a day at bedtime Trazodone HCl [facility] 38891533278 100 MG Orally Active 2 tablet at Once a day bedtime as needed Dicyclomine HCl [facility] 62822474913 20 mg Orally Up Acti ve 1 tablet as to 4x daily needed for abdominal pain Multivitamin Women [facility] 13283613899 - Orally Active as directed Vitamin B Complex [facility] 74468177279 - Orally Active a s directed Meloxicam [facility] 55911290511 15 MG Orally December Active 1 tab let Once a day as , needed for 2018 2018 pain; take with food Melatonin [facility] 35342084374 10 MG Orally Active 3 cap cat at bedtime as needed with food Results Name Result Date Reference Range Unit Abnormali ty Flag STREP A RAPID ----Result Negative [id number] Summary Purpose eClinicalWorks Submission
[2020-01-17] MEDS ORDERED: ONDANSETRON 4 MG/2 ML VIAL ONE (11:12)
[2020-01-17] MEDS ORDERED: MORPHINE 2 MG/ML SYR ONE (11:12)
[2020-01-17] MEDS ORDERED: NA CHLORIDE 0.9% 2,000 ML ONE (11:12)
[2020-01-17 12:11] LABS: Absolute Lymphocytes (CBC) 2.4 K/uL (0.7-4.9); Basophils % 1.1 % (0-1.3); Hematocrit 38.1 % (36.0-45.0); Lymphocytes % 37.8 % (15.3-44.8); RBC Red Blood Cell Count 4.75 M/uL (3.86-4.86)
[2020-01-17] MEDS ORDERED: FENTANYL CITR 100 MCG/2 ML ONE ×2 (12:14→12:57)
[2020-01-17 12:33] LABS: ALT/SGPT 16 U/L (12-78); AST/SGOT 9 U/L (15-37); Albumin 3.6 g/dL (3.4-5.0); Alkaline Phosphatase 66 U/L (45-117); BUN Blood Urea Nitrogen 12 mg/dL (7-18); Bicarbonate 26 mmol/L (21-32); Bilirubin Total 0.1 mg/dL (0.2-1.0); Glucose Level 96 mg/dL (74-106); Lipase 73 U/L (73-393); Potassium 4.2 mmol/L (3.5-5.1); Protein, Total 7.2 g/dL (6.4-8.2); Sodium Level 141 mmol/L (136-145); Troponin (Emerg Dept Use Only) < 0.02 ng/mL (0.0-0.045)
[2020-01-17 12:40] LABS: Urine Blood NEGATIVE (NEG); Urine Glucose NEGATIVE (NEG); Urine Protein NEGATIVE (NEG); Urine Specific Gravity 1.025 (1.005-1.030)
--- NOTE | 2020-01-17 12:45 | ER ---
Nurse's Notes [facility] Name: Nithin Beth Age: 49 yrs Sex: Female : 1970 Arrival Date: 01/17/2020 Time: 10:56 Bed 4 Private MD: Diagnosis: Low back pain;Strain of muscle and tendon of back wall of thorax;Vomiting Presentation: 01/16 10:55 Chief complaint: EMS states: pt complaining of lower and middle back pain and nausea.vomiting and dizziness for 2 days. pt states that she fainted this morning but did not hit her head that she knows of. pain 05/02. Vitals per EMS 112/88, 70, 20, 98%, 97.5, and BGL 134. Coronavirus screen: Proceed with normal triage. Patient denies a cough. Patient denies shortness of breath or difficulty breathing. Patient denies measured and/or subjective temperature greater than 100.4F prior to today's visit. Patient denies travel on a cruise ship or to a country the [facility] currently lists as an affected area. Patient denies contact with known and/or suspected case of COVID-19. Ebola Screen: No symptoms or risks identified at this time. Initial Sepsis Screen: Does the patient meet any 2 criteria? No. Patient's initial sepsis screen is negative. Does the patient have a suspected source of infection? No. Patient's initial sepsis screen is negative. Risk Assessment: Do you want to hurt yourself or someone else? Patient reports no desire to harm self or others. Onset of symptoms was January 15, 2020. 10:55 Method Of Arrival: EMS: [facility] 10:55 Acuity: HUSAM 3 Historical: - Allergies: 11:06 Erythromycin; 11:06 TETRACYCLINES; 11:06 Zofran; 11:06 Toradol; - Home Meds: 11:06 trazodone 300 mg Oral tab 2 tab [Active]; Ativan Oral [Active]; hormone threapy [Active]; - PMHx: 11:06 Chronic pain; "Possibly Fibromyalgia"; Pancreatitis; Bipolar disorder; - PSHx: 11:06 right knee surgery; - Immunization history:: Adult Immunizations up to date, Flu vaccine is up to date. - Social history:: Smoking status: Patient denies any tobacco usage or history of. - Family history:: not pertinent. Screenin:03 Abuse screen: Denies threats or abuse. Nutritional screening: No deficits noted. em Tuberculosis screening: No symptoms or risk factors identified. Fall Risk None identified. Vital Signs: 10:55 Weight 95.25 kg; Height 5 ft. 3 in. (160.02 cm); Pain 8/10; ah 11:00 BP 135 / 107; Pulse 62; Resp 18; Temp 97.8; Pulse Ox 98% on R/A; kj1 10:55 Body Mass Index 37.20 (95.25 kg, 160.02 cm) ED Course: 10:56 Patient arrived in ED. am2 10:57 Parish Hawkins, RN is Primary Nurse. em 10:57 Sulaiman Garcia MD is Attending Physician[facility] 11:01 Triage completed. 11:03 Patient has correct armband on for positive identification. Placed in gown. Bed in low em position. Call light in reach. Side rails up X2. Pulse ox on. NIBP on. 11:30 Missed attempt(s): 22 gauge in right antecubital area. kj1 11:48 Urine Culture Sent. kj1 12:05 Inserted saline lock: 22 gauge in left ,using aseptic technique. thumb. hb 13:00 Chest Single View XRAY In Process Unspecified. EDMS 13:02 No provider procedures requiring assistance completed. IV discontinued, intact, hb bleeding controlled, No redness/swelling at site. Pressure dressing applied. Administered Medications: 11:47 Not Given (Duplicate Order): morphine 2 mg IVP once; (PAIN>8) RASS on ADMN: Combtv4, deborah Very Agttd3, Agttd2, Rstlss1, AlertClm0, Drwsy-1, LtSdtn-2, ModSdtn-3, DpSdtn-4, UnArsble-5 x2 12:18 Drug: fentaNYL (PF) 25 mcg Route: IVP; Site: right hand; hb 12:22 Drug: NS 0.9% 1000 ml Route: IV; Rate: 1 bolus; Site: left hand; hb 13:01 Drug: fentaNYL (PF) 25 mcg Route: IVP; Site: left hand; hb Outcome: 12:44 Discharge ordered by . deborah 13:02 Discharged to home ambulatory. hb 13:02 Condition: stable 13:02 Discharge instructions given to patient, Instructed on discharge instructions, follow up and referral plans. medication usage, Demonstrated understanding of instructions, follow-up care, medications, Prescriptions given X 1. 13:02 Patient left the ED. Signatures: Dispatcher [employer] Sulaiman Ji MD MD cha Munoz, Edgar, RN RN Tory Hernandez RN RN Manuela Cornelius am2 Dalia Howe kj1 Marquita Young RN RN Corrections: (The following items were deleted from the chart) 11:08 10:55 Chief complaint: EMS states: pt complaining of lower and middle back pain and ah nausea.vomiting and dizziness for 2 days. pain 8/10. Vitals per EMS 112/88, 70, 20, 98%, 97.5, and BGL 134 ah
--- NOTE | 2020-01-17 12:45 | EDPHYS ---
Physician Documentation [facility] Name: Nithin Beth Age: 49 yrs Sex: Female : 1970 Arrival Date: 01/17/2020 Time: 10:56 Bed 4 Private MD: BRYCE Physician Sulaiman Garcia HPI: 01/16 11:06 This 49 yrs old Female presents to ER via EMS with complaints of Back Pain. deborah 11:06 The patient presents with pain and decreased range of motion, and tenderness. The deborah symptoms are located in the lumbar area and right mid back. Onset: The symptoms/episode began/occurred 2 day(s) ago. The pain does not radiate. Associated signs and symptoms: The patient has no apparent associated signs or symptoms. Modifying factors: The patient symptoms are alleviated by nothing, remaining still, the patient symptoms are aggravated by movement, nothing. Severity of symptoms: At their worst the symptoms were moderate, in the emergency department the symptoms are unchanged. The patient has experienced a previous episode, approximately 3 weeks ago. Historical: - Allergies: 11:06 Erythromycin; 11:06 TETRACYCLINES; 11:06 Zofran; 11:06 Toradol; - Home Meds: 11:06 trazodone 300 mg Oral tab 2 tab [Active]; Ativan Oral [Active]; hormone threapy ah [Active]; - PMHx: 11:06 Chronic pain; "Possibly Fibromyalgia"; Pancreatitis; Bipolar disorder; - PSHx: 11:06 right knee surgery; - Immunization history:: Adult Immunizations up to date, Flu vaccine is up to date. - Social history:: Smoking status: Patient denies any tobacco usage or history of. - Family history:: not pertinent. ROS: 11:06 Constitutional: Negative for fever, chills, and weight loss, Eyes: Negative for injury, deborah pain, redness, and discharge, ENT: Negative for injury, pain, and discharge, Neck: Negative for injury, pain, and swelling, Cardiovascular: Negative for chest pain, palpitations, and edema, Respiratory: Negative for shortness of breath, cough, wheezing, and pleuritic chest pain, Abdomen/GI: Negative for abdominal pain, nausea, vomiting, diarrhea, and constipation, : Negative for injury, bleeding, discharge, and swelling, MS/Extremity: Negative for injury and deformity, Skin: Negative for injury, rash, and discoloration, Neuro: Negative for headache, weakness, numbness, tingling, and seizure, Psych: Negative for depression, anxiety, suicide ideation, homicidal ideation, and hallucinations, Allergy/Immunology: Negative for hives, rash, and allergies, Endocrine: Negative for neck swelling, polydipsia, polyuria, polyphagia, and marked weight changes, Hematologic/Lymphatic: Negative for swollen nodes, abnormal bleeding, and unusual bruising. 11:06 Back: Negative for pain at rest, pain with movement. Exam: 11:06 Constitutional: This is a well developed, well nourished patient who is awake, alert, deborah and in no acute distress. Head/Face: Normocephalic, atraumatic. Eyes: Pupils equal round and reactive to light, extra-ocular motions intact. Lids and lashes normal. Conjunctiva and sclera are non-icteric and not injected. Cornea within normal limits. Periorbital areas with no swelling, redness, or edema. ENT: Nares patent. No nasal discharge, no septal abnormalities noted. Tympanic membranes are normal and external auditory canals are clear. Oropharynx with no redness, swelling, or masses, exudates, or evidence of obstruction, uvula midline. Mucous membranes moist. Neck: Trachea midline, no thyromegaly or masses palpated, and no cervical lymphadenopathy. Supple, full range of motion without nuchal rigidity, or vertebral point tenderness. No Meningismus. Chest/axilla: Normal chest wall appearance and motion. Nontender with no deformity. No lesions are appreciated. Cardiovascular: Regular rate and rhythm with a normal S1 and S2. No gallops, murmurs, or rubs. Normal PMI, no JVD. No pulse deficits. Respiratory: Lungs have equal breath sounds bilaterally, clear to auscultation and percussion. No rales, rhonchi or wheezes noted. No increased work of breathing, no retractions or nasal flaring. Abdomen/GI: Soft, non-tender, with normal bowel sounds. No distension or tympany. No guarding or rebound. No evidence of tenderness throughout. Skin: Warm, dry with normal turgor. Normal color with no rashes, no lesions, and no evidence of cellulitis. MS/ Extremity: Pulses equal, no cyanosis. Neurovascular intact. Full, normal range of motion. Neuro: Awake and alert, GCS 15, oriented to person, place, time, and situation. Cranial nerves II-XII grossly intact. Motor strength 5/5 in all extremities. Sensory grossly intact. Cerebellar exam normal. Normal gait. Psych: Awake, alert, with orientation to person, place and time. Behavior, mood, and affect are within normal limits. 11:06 Back: pain, that is moderate, ROM is painful, normal spinal alignment noted, CVA tenderness, that is moderate, is noted on the right, vertebral tenderness, is not appreciated, muscle spasm, is appreciated in the lumbar area and right mid back. 12:38 ECG was reviewed by the Attending Physician. [facility] Vital Signs: 10:55 Weight 95.25 kg; Height 5 ft. 3 in. (160.02 cm); Pain 8/10; ah 11:00 BP 135 / 107; Pulse 62; Resp 18; Temp 97.8; Pulse Ox 98% on R/A; kj1 10:55 Body Mass Index 37.20 (95.25 kg, 160.02 cm) MDM: 10:58 Patient medically screened. [facility] 11:08 Data reviewed: vital signs, nurses notes, lab test result(s), EKG, radiologic studies, [facility] CT scan. 12:39 Differential diagnosis: Abdominal Aortic Aneurysm arthritis, chronic back pain, deborah Osteoporosis Pyelonephritis Ureterolithiasis. 01/16 11:03 Order name: CBC with Diff [facility] 01/16 11:03 Order name: Comprehensive Metabolic Panel; Complete Time: 12:35 [facility] 01/16 11:03 Order name: Urine Culture [facility] 01/16 11:03 Order name: Troponin (emerg Dept Use Only); Complete Time: 12:35 [facility] 01/16 11:03 Order name: Lipase; Complete Time: 12:35 [facility] 01/16 11:03 Order name: CBC with Automated Diff; Complete Time: 12:20 EDMS 01/16 11:23 Order name: Urine Dipstick--Ancillary (enter results); Complete Time: 12:43 bd 01/16 11:23 Order name: Urine --Ancillary (enter results); Complete Time: 12:43 bd 01/16 12:22 Order name: Chest Single View XRAY [facility] 01/16 11:03 Order name: Urine Dipstick-Ancillary (obtain specimen); Complete Time: 11:48 [facility] 01/16 11:03 Order name: EKG; Complete Time: [facility] 01/16 11:03 Order name: EKG - Nurse/Tech; Complete Time: [facility] 01/16 12:37 Order name: Bilateral blood pressure: dissection,back pain deborah EC:38 Rate is 60 beats/min. Rhythm is regular. QRS [place] is Normal. IN interval is normal. QRS deborah interval is normal. QT interval is normal. No Q waves. T waves are Normal. No ST changes noted. Clinical impression: Normal ECG. Interpreted by me. Reviewed by me. Administered Medications: 11:47 Not Given (Duplicate Order): morphine 2 mg IVP once; (PAIN>8) RASS on ADMN: Combtv4, deborah Very Agttd3, Agttd2, Rstlss1, AlertClm0, Drwsy-1, LtSdtn-2, ModSdtn-3, DpSdtn-4, UnArsble-5 x2 12:18 Drug: fentaNYL (PF) 25 mcg Route: IVP; Site: right hand; hb 12:22 Drug: NS 0.9% 1000 ml Route: IV; Rate: 1 bolus; Site: left hand; hb 13:01 Drug: fentaNYL (PF) 25 mcg Route: IVP; Site: left hand; hb Disposition: 01/17/20 12:44 Discharged to Home. Impression: Low back pain, Strain of muscle and tendon of back wall of thorax, Vomiting. - Condition is Stable. - Discharge Instructions: Back Pain, Adult, Musculoskeletal Pain, Nausea and Vomiting, Adult, Obesity, Adult, Back Injury Prevention, Gxfe-gr-Wsgi, Back Pain, Adult, Wzde-cu-Zxkz, Obesity, Adult, Vpsi-gf-Sxsj. - Prescriptions for promethazine 25 mg Oral Tablet - take 1 tablet by ORAL route every 6 hours As needed; 14 tablet. - Medication Reconciliation Form, Thank You Letter, Antibiotic Education, Prescription Opioid Use form. - Follow up: Private Physician; When: 2 - 3 days; Reason: Recheck today's complaints, Continuance of care, Re-evaluation by your physician. - Problem is new. - Symptoms have improved. Signatures: Dispatcher [employer] EDMS Sulaiman Garcia MD MD cha Baxter, Heather, RN RN Marquita Young RN RN Corrections: (The following items were deleted from the chart) 12:44 12:44 01/17/2020 12:44 Discharged to Home. Impression: Low back pain; Strain of muscle deborah and tendon of back wall of thorax. Condition is Stable. Discharge Instructions: Back Pain, Adult, Musculoskeletal Pain, Obesity, Adult, Back Injury Prevention, Wdmm-ds-Cphl, Back Pain, Adult, Fjpv-yv-Ujca, Obesity, Adult, Inhp-ay-Hqke. Forms are Medication Reconciliation Form, Thank You Letter, Antibiotic Education, Prescription Opioid Use. Follow up: Private Physician; When: 2 - 3 days; Reason: Recheck today's complaints, Continuance of care, Re-evaluation by your physician. Problem is new. Symptoms have improved. deborah 13:02 12:44 01/17/2020 12:44 Discharged to Home. Impression: Low back pain; Strain of muscle hb and tendon of back wall of thorax; Vomiting. Condition is Stable. Discharge Instructions: Back Pain, Adult, Musculoskeletal Pain, Obesity, Adult, Back Injury Prevention, Bwmq-lt-Hvls, Back Pain, Adult, Fvvd-mp-Gmeg, Obesity, Adult, Ushi-ur-Cdag. Forms are Medication Reconciliation Form, Thank You Letter, Antibiotic Education, Prescription Opioid Use. Follow up: Private Physician; When: 2 - 3 days; Reason: Recheck today's complaints, Continuance of care, Re-evaluation by your physician. Problem is new. Symptoms have improved. deborah
--- NOTE | 2020-01-17 13:05 | RAD REPORT ---
EXAM DESCRIPTION: RAD - Chest Single View - 01/17/2020 1:00 pm CLINICAL HISTORY: back pain;Dyspnea;Pain COMPARISON: Two chest November 2018 TECHNIQUE: AP portable chest image was obtained 01/17/2020 1:00 pm . FINDINGS: Lungs are clear. Heart and vasculature are normal. No measurable pleural effusion and no p neumothorax. No acute bony abnormality seen. No acute aortic findings suspected. IMPRESSION: No acute cardiopulmonary process. No significant interval change.
[2020-01-17 13:10] VITALS: BP 135/107; TEMP 97.8; O2SAT 98
--- NOTE | 2020-01-18 20:14 | EKG ---
Test Date: 2020-01-17 Test Time: 11:13:31 Co Founder And Ceo: HOMERO MEASUREMENT RESULTS: Intervals: Rate: 60 NC: 132 QRSD: 82 QT: 434 QTc: 434 [place]: P: 51 NC: 132 QRS: 3 T: 48 INTERPRETIVE STATEMENTS: Normal sinus rhythm Low voltage QRS Borderline ECG Compared to ECG 01/17/2020 11:12:45 Low QRS voltage now present Short NC interval no longer present Ventricular-paced complex(es) or rhythm no longer present Electronically Signed On 01-18-20 20:11:16 CDT by Dano Johansen
== END 2020-01-17 13:02 | disposition home or self-care (01) ==
LOC: ER 10:55
DX: S29.012A Strain of muscle and tendon of back wall of thorax, initial encounter (principal); R11.10 Vomiting, unspecified; F31.9 Bipolar disorder, unspecified; Z88.1 Allergy status to other antibiotic agents; Z88.3 Allergy status to other anti-infective agents; Z88.5 Allergy status to narcotic agent
CPT/HCPCS: 93005; 87088; 85025; 87086; 36415; 81025; 81003; 84484; 83690; 80053; 71045; J3010 ×2; J7030; J2405; 96374; 99284; J2270

== ENCOUNTER 2020-01-19 16:34 | Emergency (ER) | payer OTHER ==
--- OUTSIDE RECORDS SUMMARY | 2020-01-19 16:36 | XMS REPORT ---
[...] Status Dosage System Date Date Fish Oil [facility] 37032826464 1000 MG Orally Active 1 ca psule Once a day Multivitamin [facility] 66533231079 - Orally Active as Women directed Fluoxetine HCl [facility] 33919887362 20 MG Orally Active 1 capsule Once a day in the morning [place] [facility] [address]-10 300 MG Orally Active 3 ca psule Carbonate Once a day at bedtime Trazodone HCl [facility] [address]-48 100 MG Orally Active 2 tablet Once a day at bedtime as needed Vitamin B [facility] 82264045344 - Orally Active as Complex directed Melatonin [facility] 0[address]39-06279 10 MG Orally Active 3 cap cat at bedtime as needed with food Results Name Result Date Reference Range Unit Abnormali ty Flag Electrocardiogram (EKG) Summary Purpose eClinicalWorks Submission
--- OUTSIDE RECORDS SUMMARY | 2020-01-19 16:36 | XMS REPORT ---
:1970 Author Organization [facility] t Address [facility] [place] [address] Care Team Providers Name Role Phone Unavailable [...] capsule HCl HCl Mill[place] in the morning [place] Yes [place] 3 capsule Carbonate Carbonate Millender [...] 16:43:00 2018-12-31 2018-12-31 [facility] [id number] 08:47:00 08:47:00 [facility] 2018-12-30 2018-12-30 [facility] [id number] 16:20:00 16:20:00 [facility] 2018-09-09 2018-09-09 [facility] [id number] 09:45:00 09:45:00 [facility] 2018-05-15 2018-05-15 [facility] [id number] 08:45:00 08:45:00 [facility] 2018-04-16 2018-04-16 [facility] [id number] 11:03:00 11:03:00 [facility] 2018-04-16 2018-04-16 [facility] [id number] 09:00:00 09:00:00 [facility] 2018-04-11 2018-04-11 [facility] [id number] 11:28:00 11:28:00 [facility] 2018-04-09 2018-04-09 [facility] [id number] 09:00:00 09:00:00 [facility]
--- OUTSIDE RECORDS SUMMARY | 2020-01-19 16:36 | XMS REPORT ---
[...] Start End Status Dosage System Date Date [place] 89348824861 300 MG Orally Active 3 caps ule at Carbonate Once a day bedtime Fish Oil ND 28154792753 1000 MG Orally Active 1 ca psule Once a day Multivitamin ND 05953670050 - Orally Active as dir ected Women Trazodone HCl ND 35923719592 100 MG Orally Active 2 tablet at Once a day bedtime as needed Melatonin ND 86392895895 10 MG Orally Active 3 cap cat at bedtime as needed with food Dicyclomine HCl ND 26395661352 20 mg Orally Up Acti ve 1 tablet as to 4x daily needed for abdominal pain Tramadol HCl [facility] 22327328315 50 MG Orally May 15May Active 1 tablet as Twice daily 2018 03, needed for 2017 pain Vitamin B [facility] 98048771015 - Orally Active as direct ed Complex Fluoxetine HCl [facility] 73607932014 20 MG Orally Active 1 capsule in Once a day the morning Results No Known Results Summary Purpose eClinicalWorks Submission
--- OUTSIDE RECORDS SUMMARY | 2020-01-19 16:36 | XMS REPORT ---
[...] Status Dosage System Date Date Multivitamin [facility] 33481875712 - Orally Active as dir ected Women Vitamin B [facility] 46353998624 - Orally Active as direct ed Complex Trazodone HCl ND 02982717183 100 MG Orally Active 2 tablet at Once a day bedtime as needed [place] 13724750437 300 MG Orally Active 3 caps ule at Carbonate Once a day bedtime Melatonin [facility] 98165751539 10 MG Orally Active 3 cap cat at bedtime as needed with food Fluoxetine HCl ND 61154219201 20 MG Orally Active 1 capsule in Once a day the morning Fish Oil ND 05167311081 1000 MG Orally Active 1 ca psule Once a day Dicyclomine HCl ND 63886618898 20 mg Orally Up April 16, May 16, Act jyotsna 1 tablet as to 4x daily 2017 2017 needed for abdominal pain Results No Known Results Summary Purpose eClinicalWorks Submission
--- OUTSIDE RECORDS SUMMARY | 2020-01-19 16:37 | XMS REPORT ---
[...] Start End Status Dosage System Date Date [place] [facility] 74747275656 300 MG Orally Active 3 caps ule at Carbonate Once a day bedtime Multivitamin [facility] 36348682209 - Orally Active as dir ected Women Vitamin B [facility] 03091972579 - Orally Active as direct ed Complex Trazodone HCl [facility] 05100539149 100 MG Orally Active 2 tablet at Once a day bedtime as needed Melatonin [facility] 40506683768 10 MG Orally Active 3 cap cat at bedtime as needed with food Dicyclomine HCl ND 60442183673 20 mg Orally Up Acti ve 1 tablet as to 4x daily needed for abdominal pain Fish Oil ND 12912356301 1000 MG Orally Active 1 ca psule Once a day [place] ND 21528876334 100 MG Orally Aug 14, Active 1 caps ule Three times a 2017 day Fluoxetine HCl [facility] 73420443917 20 MG Orally Active 1 capsule in Once a day the morning Results No Known Results Summary Purpose eClinicalWorks Submission
--- OUTSIDE RECORDS SUMMARY | 2020-01-19 16:37 | XMS REPORT ---
[...] End Status Dosage System Date Date Cyclobenzaprine [facility] 87475834641 10 MG Orally December Active 1 tablet as HCl Three times a , needed for day 2019 2019 muscle cramps/pain [place] [facility] 90395437256 100 MG Orally Aug 14, Active 1 caps ule Three times a 2017 day Fish Oil [facility] 78864110532 1000 MG Orally Active 1 ca psule Once a day Fluoxetine HCl [facility] 29986056307 20 MG Orally Active 1 capsule Once a day in the morning [place] Carbonate [facility] 97939109482 300 MG Orally Acti ve 3 capsule Once a day at bedtime Trazodone HCl [facility] 16801169764 100 MG Orally Active 2 tablet at Once a day bedtime as needed Dicyclomine HCl [facility] 29796283202 20 mg Orally Up Acti ve 1 tablet as to 4x daily needed for abdominal pain Multivitamin Women [facility] 32088099795 - Orally Active as directed Vitamin B Complex [facility] 00839808057 - Orally Active a s directed Meloxicam [facility] 35620758040 15 MG Orally December Active 1 tab let Once a day as , needed for 2018 2018 pain; take with food Melatonin [facility] 66437997629 10 MG Orally Active 3 cap cat at bedtime as needed with food Results Name Result Date Reference Range Unit Abnormali ty Flag STREP A RAPID ----Result Negative [id number] Summary Purpose eClinicalWorks Submission
--- OUTSIDE RECORDS SUMMARY | 2020-01-19 16:37 | XMS REPORT ---
[...] Dosage System Date Date Vitamin B Complex [facility] 63210676507 - Orally Active a s directed Fluoxetine HCl ND 62204841573 20 MG Orally Active 1 capsule Once a day in the morning Meloxicam ND 00149111267 15 MG Orally DecemberJanuary 29, Active 1 tab let Once a day as 2018 needed for 2019 pain; take with food Cyclobenzaprine ND 36326587826 10 MG Orally DecemberJanuary 29, Active 1 tablet as HCl Three times a 2018 needed for day 2019 muscle cramps/pain [place] Carbonate ND 71201240591 300 MG Orally Acti ve 3 capsule Once a day at bedtime Melatonin [facility] 23921300706 10 MG Orally Active 3 cap cat at bedtime as needed with food Trazodone HCl ND 57647663903 100 MG Orally Active 2 tablet at Once a day bedtime as needed Dicyclomine HCl ND 93019880604 20 mg Orally Active 1 tablet as Up to 4x daily needed fo r abdominal pain Fish Oil ND 49334524700 1000 MG Orally Active 1 ca psule Once a day Medrol ND 73618177883 4 MG Orally as December Active as di rected directed 2018 [place] ND 33628696559 100 MG Orally Aug 14, Active 1 caps ule Three times a 2017 day Multivitamin Women ND 50416354296 - Orally Active as directed Results No Known Results Summary Purpose eClinicalWorks Submission
[2020-01-19] MEDS ORDERED: MORPHINE 4 MG/ML SYR ONE ×2 (17:16→18:22)
[2020-01-19] MEDS ORDERED: NA CHLORIDE 0.9% 1,000 ML ONE (17:16)
[2020-01-19] MEDS ORDERED: ONDANSETRON 4 MG/2 ML VIAL ONE (17:16)
[2020-01-19 17:39] LABS: Absolute Lymphocytes (CBC) 2.1 K/uL (0.7-4.9); Basophils % 0.8 % (0-1.3); Hematocrit 38.6 % (36.0-45.0); Lymphocytes % 23.1 % (15.3-44.8); MPV 7.9 fL (7.6-11.3); RBC Red Blood Cell Count 4.79 M/uL (3.86-4.86)
[2020-01-19 17:59] LABS: ALT/SGPT 16 U/L (12-78); AST/SGOT 10 U/L (15-37); Alkaline Phosphatase 68 U/L (45-117); BUN Blood Urea Nitrogen 9 mg/dL (7-18); Bicarbonate 25 mmol/L (21-32); Bilirubin Direct < 0.1 mg/dL (0-0.2); Glucose Level 107 mg/dL (74-106); Lipase 69 U/L (73-393); Potassium 3.5 mmol/L (3.5-5.1); Protein, Total 7.8 g/dL (6.4-8.2); Sodium Level 142 mmol/L (136-145)
[2020-01-19 18:01] LABS: Bilirubin Total < 0.1 mg/dL (0.2-1.0)
--- NOTE | 2020-01-19 18:39 | RAD REPORT ---
EXAM DESCRIPTION: CT - Abdomen Pelvis W Contrast - 01/19/2020 6:26 pm CLINICAL HISTORY: Abdominal pain COMPARISON: December 26, 2019 TECHNIQUE: Computed axial tomography of the abdomen pelvis was obtained. 100 cc Isovue-300 was admin istered intravenously. Oral contrast was not requested which limits evaluation of bowel. All CT scans are performed using dose optimization technique as appropriate and may include automated exposure control or mA/KV adjustment according to patient size. FINDINGS: Cholecystectomy. Postsurgical changes involve the stomach and small bowel. The liver, spleen, pancreas, adrenal and kidneys appear unremarkable. There is no evidence of diverticulitis. Small right inguinal hernia contains fat. Small umbilical hernia Fluid is present within non dilated l small bowel The common bile duct is little bit more prominent than on the prior exam IMPRESSION: Fluid is present within non dilated l small bowel which may indicate an enteritis Prominence of the common bile duct may be physiologic in this patient status post cholecystectomy. Pa thology such as a stricture can also result in this appearance and should be correlated clinically an d with appropriate lab values
[2020-01-19 19:21] LABS: Urine Bacteria <20 /HPF (<20); Urine Culture Reflex Order NOT NEEDED; Urine RBC <5 /HPF (NONE SEEN)
[2020-01-19] MEDS ORDERED: FENTANYL CITR 100 MCG/2 ML ONE (19:50)
--- NOTE | 2020-01-19 19:59 | ER ---
Nurse's Notes [facility] Name: Nithin Beth Age: 49 yrs Sex: Female : 1970 Arrival Date: 01/19/2020 Time: 16:37 Bed 18 Private MD: Ramez Del Toro T Diagnosis: Low back pain;Diarrhea, unspecified;Vomiting Presentation: 01/18 17:00 Chief complaint: Patient states: was recently admitted to hospital 3 weeks ago for iw kidney failure, has had mid back pain, diarrhea and vomiting. Coronavirus screen: Proceed with normal triage. Patient denies a cough. Patient denies shortness of breath or difficulty breathing. Patient denies measured and/or subjective temperature greater than 100.4F prior to today's visit. Patient denies travel on a cruise ship or to a country the [facility] currently lists as an affected area. Patient denies contact with known and/or suspected case of COVID-19. Ebola Screen: Patient negative for fever greater than or equal to 101.5 degrees Fahrenheit, and additional compatible Ebola Virus Disease symptoms Patient denies exposure to infectious person. Patient denies travel to an Ebola-affected area in the 21 days before illness onset. No symptoms or risks identified at this time. Initial Sepsis Screen: Does the patient meet any 2 criteria? No. Patient's initial sepsis screen is negative. Does the patient have a suspected source of infection? No. Patient's initial sepsis screen is negative. Risk Assessment: Do you want to hurt yourself or someone else? Patient reports no desire to harm self or others. Onset of symptoms was January 19, 2020. 17:00 Method Of Arrival: Wheelchair iw 17:00 Acuity: HUSAM 3 iw Triage Assessment: 16:59 General: Appears in no apparent distress. comfortable, Behavior is cooperative, bp appropriate for age, anxious. Pain: Complains of pain in back. EENT: No deficits noted. Neuro: No deficits noted. Cardiovascular: No deficits noted. Respiratory: No deficits noted. GI: Reports nausea, vomiting. : No signs and/or symptoms were reported regarding the genitourinary system. Derm: No deficits noted. Musculoskeletal: Circulation, motion, and sensation intact. Range of motion:. 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 - iw Historical: - Allergies: 17:05 Erythromycin; iw 17:05 TETRACYCLINES; iw 17:05 Toradol; iw 17:05 Zofran; iw 17:05 Demerol; iw - Home Meds: 17:05 Ativan 0.5 mg oral tab 2 times per day [Active]; cyclobenzaprine 10 mg Oral tab iw [Active]; estrogen [Active]; Fish Oil Oral [Active]; gabapentin Oral [Active]; hormone threapy [Active]; hydrocodone-acetaminophen 7.5-325 mg Oral tab 1 tab every 6 hours [Active]; Latuda 60 mg Oral tab 1 tab once daily [Active]; lithium carbonate 900mg Oral cap [Active]; trazodone 300 mg Oral tab 2 tab [Active]; Wellbutrin 75 mg Oral tab [Active]; - PMHx: 17:05 "Possibly Fibromyalgia"; Bipolar disorder; Chronic pain; Pancreatitis; iw - PSHx: 17:05 right knee surgery; iw - Immunization history:: Adult Immunizations up to date. - Social history:: Smoking status: Patient denies any tobacco usage or history of. Screenin:58 Abuse screen: Denies threats or abuse. Denies injuries from another. Nutritional bp screening: No deficits noted. Tuberculosis screening: No symptoms or risk factors identified. Fall Risk None identified. Assessment: 16:58 General: SEE TRIAGE NOTE. Pain: Complains of pain in back. Neuro: Level of bp Consciousness is awake, alert, obeys commands, Oriented to person, place, time, situation, Appropriate for age. 19:05 Reassessment: Patient appears in no apparent distress at this time. Patient and/or ca1 family updated on plan of care and expected duration. Pain level reassessed. Patient is alert, oriented x 3, equal unlabored respirations, skin warm/dry/pink. 19:55 Reassessment: Patient appears in no apparent distress at this time. Patient is alert, ca1 oriented x 3, equal unlabored respirations, skin warm/dry/pink. Vital Signs: 17:00 BP 121 / 66; Pulse 93; Resp 16; Temp 97.9(TE); Pulse Ox 99% on R/A; Weight 94.8 kg; iw Height 5 ft. 3 in. (160.02 cm); Pain 9/10; 17:30 BP 105 / 65; Pulse 92; Resp 16; Pulse Ox 93% ; bp 18:37 BP 101 / 66; Pulse 85; Resp 17; Pulse Ox 100% ; bp 19:55 BP 107 / 68; Pulse 81; Resp 17 S; Pulse Ox 100% on R/A; ca1 17:00 Body Mass Index 37.02 (94.80 kg, 160.02 cm) ED Course: 16:37 Patient arrived in ED. mr 16:37 Ramez Del Toro MD is Private Physician. mr 16:45 Ghassan Fong, RON is Primary Nurse. bp 16:48 Peter Peraza NP is PHCP. pm1 16:48 Tevin Méndez MD is Attending Physician. pm1 16:58 Patient has correct armband on for positive identification. Bed in low position. Call bp light in reach. Side rails up X2. 17:02 Triage completed. iw 17:05 Arm band placed on. iw 17:30 Inserted saline lock: 22 gauge in right ,using aseptic technique. R CHEST. bp 18:26 CT Abd/Pelvis - IV Contrast Only In Process Unspecified. EDMS 20:09 No provider procedures requiring assistance completed. IV discontinued, intact, ca1 bleeding controlled, No redness/swelling at site. Pressure dressing applied. Administered Medications: 17:30 Drug: Zofran (Ondansetron) 4 mg Route: IVP; Site: Other; bp 18:19 Follow up: Response: No adverse reaction bp 17:30 Drug: morphine 4 mg Route: IVP; Site: Other; bp 18:19 Follow up: Response: Pain is decreased bp 17:30 Drug: NS 0.9% 1000 ml Route: IV; Rate: 1000 ml; Site: Other; bp 18:18 Drug: morphine 4 mg Route: IVP; Site: Other; bp 19:47 Drug: fentaNYL (PF) 50 mcg {Note: R breast. RASS - 0.} Route: IVP; Site: Other; ca1 Outcome: 19:58 Discharge ordered by MD. pm1 20:16 Discharged to home ambulatory. ca1 20:16 Condition: stable 20:16 Discharge instructions given to patient, Instructed on discharge instructions, follow up and referral plans. no drinking with medication, no driving heavy equipment, medication usage, Demonstrated understanding of instructions, follow-up care, medications, Prescriptions given X 3. 20:16 Patient left the ED. ca1 Signatures: Dispatcher [employer] [facility] Caty Clifton Irene, RN RN iw Peter Peraza, TRAVEL MONEY ADVISOR TRAVEL MONEY ADVISOR pm1 Ghassan Fong, RN RN bp Louise Elizondo, RN RN ca1
--- NOTE | 2020-01-19 19:59 | EDPHYS ---
Physician Documentation [facility] Name: Nithin Beth Age: 49 yrs Sex: Female : 1970 Arrival Date: 01/19/2020 Time: 16:37 Bed 18 Private MD: Ramez Del Toro T ED Physician Tevin Méndez HPI: 01/18 18:08 This 49 yrs old Female presents to ER via Wheelchair with complaints of Back pm1 Pain, Vomiting/Diarrhea. 18:08 The patient presents with pain that is acute, with no known mechanism of injury. The pm1 symptoms are located in the left low back. Onset: The symptoms/episode began/occurred 5 day(s) ago. The pain does not radiate. Associated signs and symptoms: Pertinent positives: nausea, vomiting, diarrhea, Pertinent negatives: dysuria, fever. The problem was sustained from unknown cause. Modifying factors: The patient symptoms are alleviated by nothing, the patient symptoms are aggravated by nothing. Severity of symptoms: in the emergency department the symptoms are actually worse. The patient has experienced similar episodes in the past, a few times. The patient has been recently seen at the [facility] Emergency Department, this week, for similar complaints labs were performed. Patient reports that she no longer has her prescription for hydrocodone at home. 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 - iw Historical: - Allergies: 17:05 Erythromycin; iw 17:05 TETRACYCLINES; iw 17:05 Toradol; iw 17:05 Zofran; iw 17:05 Demerol; iw - Home Meds: 17:05 Ativan 0.5 mg oral tab 2 times per day [Active]; cyclobenzaprine 10 mg Oral tab iw [Active]; estrogen [Active]; Fish Oil Oral [Active]; gabapentin Oral [Active]; hormone threapy [Active]; hydrocodone-acetaminophen 7.5-325 mg Oral tab 1 tab every 6 hours [Active]; Latuda 60 mg Oral tab 1 tab once daily [Active]; lithium carbonate 900mg Oral cap [Active]; trazodone 300 mg Oral tab 2 tab [Active]; Wellbutrin 75 mg Oral tab [Active]; - PMHx: 17:05 "Possibly Fibromyalgia"; Bipolar disorder; Chronic pain; Pancreatitis; iw - PSHx: 17:05 right knee surgery; iw - Immunization history:: Adult Immunizations up to date. - Social history:: Smoking status: Patient denies any tobacco usage or history of. ROS: 18:08 Constitutional: Negative for fever, chills, and weight loss, Cardiovascular: Negative pm1 for chest pain, palpitations, and edema, Respiratory: Negative for shortness of breath, cough, wheezing, and pleuritic chest pain. 18:08 : Negative for injury, bleeding, discharge, and swelling, MS/Extremity: Negative for injury and deformity, Skin: Negative for injury, rash, and discoloration, Neuro: Negative for headache, weakness, numbness, tingling, and seizure. 18:08 Abdomen/GI: Positive for nausea, vomiting, and diarrhea, Negative for abdominal pain. 18:08 Back: Positive for flank pain, on the left. Exam: 18:08 Constitutional: This is a well developed, well nourished patient who is awake, alert, pm1 and in no acute distress. Head/Face: Normocephalic, atraumatic. Neck: Trachea midline, no thyromegaly or masses palpated, and no cervical lymphadenopathy. Supple, full range of motion without nuchal rigidity, or vertebral point tenderness. No Meningismus. Chest/axilla: Normal chest wall appearance and motion. Nontender with no deformity. No lesions are appreciated. 18:08 Abdomen/GI: Soft, non-tender, with normal bowel sounds. No distension or tympany. No guarding or rebound. No evidence of tenderness throughout. Back: No spinal tenderness. No costovertebral tenderness. Full range of motion. Skin: Warm, dry with normal turgor. Normal color with no rashes, no lesions, and no evidence of cellulitis. MS/ Extremity: Pulses equal, no cyanosis. Neurovascular intact. Full, normal range of motion. 18:08 Cardiovascular: Exam negative for acute changes, Rate: normal, Rhythm: regular, Pulses: no pulse deficits are appreciated, Edema: is not appreciated. 18:08 Respiratory: Exam negative for acute changes, respiratory distress, shortness of breath. 18:08 Neuro: Exam negative for acute changes, Orientation: is normal, Mentation: is normal, Motor: is normal, moves all fours, Gait: is steady, at a normal pace, without difficulty. Vital Signs: 17:00 BP 121 / 66; Pulse 93; Resp 16; Temp 97.9(TE); Pulse Ox 99% on R/A; Weight 94.8 kg; iw Height 5 ft. 3 in. (160.02 cm); Pain 9/10; 17:30 BP 105 / 65; Pulse 92; Resp 16; Pulse Ox 93% ; bp 18:37 BP 101 / 66; Pulse 85; Resp 17; Pulse Ox 100% ; bp 19:55 BP 107 / 68; Pulse 81; Resp 17 S; Pulse Ox 100% on R/A; ca1 17:00 Body Mass Index 37.02 (94.80 kg, 160.02 cm) iw MDM: 16:57 Patient medically screened. pm1 19:48 Data reviewed: vital signs. Data interpreted: Pulse oximetry: on room air is 100 %. pm1 Interpretation: normal. Counseling: I had a detailed discussion with the patient and/or guardian regarding: the historical points, exam findings, and any diagnostic results supporting the discharge/admit diagnosis, lab results, radiology results, the need for outpatient follow up, to return to the emergency department if symptoms worsen or persist or if there are any questions or concerns that arise at home. 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 pm01/18 17:02 Order name: Basic Metabolic Panel; Complete Time: 18:08 pm01/18 17:02 Order name: CBC with Diff; Complete Time: 18:00 pm01/18 17:02 Order name: Creatinine for Radiology; Complete Time: 18:00 pm01/18 17:02 Order name: Hepatic Function; Complete Time: 18:08 pm01/18 17:02 Order name: Lipase; Complete Time: 18:08 pm01/18 18:14 Order name: Urine Microscopic Only; Complete Time: 19:28 pm01/18 17:24 Order name: CT Abd/Pelvis - IV Contrast Only; Complete Time: 18:46 pm01/18 19:54 Order name: Urine Dipstick--Ancillary (enter results) 01/18 19:55 Order name: Urine --Ancillary (enter results) 01/18 17:02 Order name: IV Saline Lock; Complete Time: 17:34 pm01/18 17:02 Order name: Labs collected and sent; Complete Time: 17:34 pm1 04/28 18:14 Order name: Urine Dipstick-Ancillary (obtain specimen); Complete Time: 19:04 pm1 Administered Medications: 17:30 Drug: Zofran (Ondansetron) 4 mg Route: IVP; Site: Other; bp 18:19 Follow up: Response: No adverse reaction bp 17:30 Drug: morphine 4 mg Route: IVP; Site: Other; bp 18:19 Follow up: Response: Pain is decreased bp 17:30 Drug: NS 0.9% 1000 ml Route: IV; Rate: 1000 ml; Site: Other; bp 18:18 Drug: morphine 4 mg Route: IVP; Site: Other; bp 19:47 Drug: fentaNYL (PF) 50 mcg {Note: R breast. RASS - 0.} Route: IVP; Site: Other; ca1 Disposition: 01/19/20 19:58 Discharged to Home. Impression: Low back pain, Diarrhea, unspecified, Vomiting. - Condition is Stable. - Discharge Instructions: Food Choices to Help Relieve Diarrhea, Adult, Back Pain, Adult, Diarrhea, Adult, Nausea and Vomiting, Adult. - Prescriptions for Phenergan 25 mg Rectal Suppository - insert 1 suppository by RECTAL route every 6 hours As needed; 12 suppository. promethazine 25 mg Oral Tablet - take 1 tablet by ORAL route every 6 hours As needed; 20 tablet. Tylenol- Codeine #3 300-30 mg Oral Tablet - take 2 tablets by ORAL route every 6 hours As needed; 20 tablet. - Medication Reconciliation Form, Thank You Letter, Antibiotic Education, Prescription Opioid Use form. - Follow up: Emergency Department; When: As needed; Reason: Worsening of condition. Follow up: Private Physician; When: 2 - 3 days; Reason: Recheck today's complaints, Continuance of care, Re-evaluation by your physician. - Problem is new. - Symptoms have improved. Addendum: 01/23/2020 07:52 Co-signature as Attending Physician, Tevin Méndez MD. r n Signatures: Dispatcher [employer] Katherine Valdez RN Tevin Hoang MD MD rn Marinas, Patrick, MORGAN MAINSPRING STRIP GAUGER pm1 Ghassan Fong RN RN bp Louise Elizondo RN RN ca1 Corrections: (The following items were deleted from the chart) 01/18 20:16 19:58 01/19/2020 19:58 Discharged to Home. Impression: Low back pain; Diarrhea, ca1 unspecified; Vomiting. Condition is Stable. Forms are Medication Reconciliation Form, Thank You Letter, Antibiotic Education, Prescription Opioid Use. Follow up: Emergency Department; When: As needed; Reason: Worsening of condition. Follow up: Private Physician; When: 2 - 3 days; Reason: Recheck today's complaints, Continuance of care, Re-evaluation by your physician. Problem is new. Symptoms have improved. pm1
[2020-01-19 20:49] LABS: Urine Blood NEGATIVE (NEG); Urine Glucose 2+ (NEG); Urine Protein NEGATIVE (NEG); Urine Specific Gravity >1.030 (1.005-1.030)
[2020-01-19 20:53] VITALS: TEMP 97.9
[2020-01-19 20:56] VITALS: O2SAT 100
[2020-01-19 20:57] VITALS: BP 107/68
[2020-01-19 22:08] LABS: Urine Specific Gravity >1.030 (1.005-1.030)
== END 2020-01-19 20:16 | disposition home or self-care (01) ==
LOC: ER 16:34
DX: R19.7 Diarrhea, unspecified (principal); R11.10 Vomiting, unspecified; F31.9 Bipolar disorder, unspecified; G89.29 Other chronic pain; Z88.3 Allergy status to other anti-infective agents; Z88.5 Allergy status to narcotic agent; Z88.8 Allergy status to other drugs, medicaments and biological substances
CPT/HCPCS: 85025; 80048; 36415; 81025; 80076; 83690; 74177; 96375; 96374; 99284; Q9967; J3010; J7030; J2405; 81003; 81015

== ENCOUNTER 2020-03-23 11:18 | Emergency (ER) | payer OTHER ==
--- NOTE | 2020-03-23 13:15 | ER ---
Nurse's Notes 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 Coronavirus screen: Surgical mask placed on patient. Patient moved to private room, placed in contact and droplet isolation with eye protection until further assessment. Patient reports a cough. Patient reports shortness of breath or difficulty breathing. Patient reports a measured and/or subjective temperature greater than 100.4F. Patient denies travel on a cruise ship or to a country the [facility] currently lists as an affected area. Patient reports contact with known and/or suspected case of COVID-19. Ebola Screen: Patient negative for fever greater than or equal to 101.5 degrees Fahrenheit, and additional compatible Ebola Virus Disease symptoms Patient denies exposure to infectious person. Patient denies travel to an Ebola-affected area in the 21 days before illness onset. No symptoms or risks identified at this time. Initial Sepsis Screen: Does the patient meet any 2 criteria? No. Patient's initial sepsis screen is negative. Does the patient have a suspected source of infection? No. Patient's initial sepsis screen is negative. Risk Assessment: Do you want to hurt yourself or someone else? Patient reports no desire to harm self or others. Onset of symptoms was March 22, 2020. 11:38 Method Of Arrival: Ambulatory em 11:38 Acuity: HUSAM 4 em Historical: - Allergies: 11:42 Demerol; em 11:42 Erythromycin; em 11:42 TETRACYCLINES; em 11:42 Toradol; em 11:42 Zofran; em - PMHx: 11:42 "Possibly Fibromyalgia"; Bipolar disorder; Chronic pain; Pancreatitis; em - PSHx: 11:42 right knee surgery; em - Immunization history:: Adult Immunizations up to date. - Social history:: Smoking status: Patient denies any tobacco usage or history of. Screenin:05 Abuse screen: Denies threats or abuse. Denies injuries from another. Nutritional ph screening: No deficits noted. Tuberculosis screening: No symptoms or risk factors identified. Fall Risk None identified. Assessment: 12:00 General: Appears in no apparent distress. comfortable, well groomed, Behavior is calm, ph cooperative, appropriate for age, Reports chills for fever for 12-24 hours. Pain: Complains of pain in throat. Neuro: Level of Consciousness is awake, alert, obeys commands, Oriented to person, place, time, situation, Reports dizziness, weakness "all over". Cardiovascular: Capillary refill < 3 seconds in bilateral fingers Patient's skin is warm and dry. Respiratory: Reports shortness of breath at rest Airway is patent Respiratory effort is even, unlabored, Respiratory pattern is regular, symmetrical. GI: No signs and/or symptoms were reported involving the gastrointestinal system. EENT: Throat is reddened Reports pain when swallowing. Derm: Skin is intact, is healthy with good turgor, Skin is pink, warm \\T\\ dry. Musculoskeletal: Circulation, motion, and sensation intact. Range of motion: intact in all extremities. 13:00 Reassessment: Patient appears in no apparent distress at this time. Patient and/or ph family updated on plan of care and expected duration. Pain level reassessed. Patient is alert, oriented x 3, equal unlabored respirations, skin warm/dry/pink. Vital Signs: 11:38 BP 126 / 78; Pulse 78; Resp 18; Temp 98.3(O); Pulse Ox 97% on R/A; Weight 68.95 kg; em Height 5 ft. 3 in. (160.02 cm); Pain 6/10; 13:10 BP 132 / 72; Pulse 74; Resp 18; Temp 98.0; Pulse Ox 99% on R/A; ph 11:38 Body Mass Index 26.93 (68.95 kg, 160.02 cm) em ED Course: 11:21 Patient arrived in ED. as 11:37 Kera Nelson, RN is Primary Nurse. ph 11:41 Triage completed. em 11:42 Arm band placed on. em 11:44 Sulaiman Reed PA is PHCP. cp 11:44 Ortega Steinberg MD is Attending Physician. cp 13:05 No provider procedures requiring assistance completed. Patient did not have IV access ph during this emergency room visit. 13:06 Patient has correct armband on for positive identification. Bed in low position. Call ph light in reach. Side rails up X 1. Pulse ox on. NIBP on. Door closed. Noise minimized. Administered Medications: No medications were administered Outcome: 13:14 Discharge ordered by . kdr 13:26 Discharged to home ambulatory, with family. ph 13:26 Condition: good 13:26 Discharge instructions given to patient, Instructed on discharge instructions, follow up and referral plans. Demonstrated understanding of instructions, follow-up care. 13:26 Patient left the ED. ph Addendum: 03/25/2020 12:34 Addendum: Other attempted to contact pt regarding negative COVID-19 swab results. Left d m5 voice mail. 12:49 Addendum: Other pt notified of negative result but states that she was exposed to a d m5 known positive after this test. advised to monitor symptoms and to return to the ED if symptoms worsen. Signatures: Marcella Zavaleta RN RN dm5 Ortega Steinberg MD MD kdr Munoz, Edgar, RN RN Patsy Juarez Patricia, RN RN ph Sulaiman Reed, TIKA PA cp Corrections: (The following items were deleted from the chart) 03/23 19:31 13:10 Respiratory: ph ph
--- NOTE | 2020-03-23 13:15 | EDPHYS ---
Physician Documentation [facility] Name: Nithin Beth Age: 49 yrs Sex: Female : 1970 Arrival Date: 03/23/2020 Time: 11:21 Bed 16 Private MD: ED Physician Ortega Steinberg HPI: 03/23 13:39 This 49 yrs old Female presents to ER via Ambulatory with complaints of Sore kdr Throat, Shortness Of Breath. 13:43 The patient has shortness of breath at rest, with light activity. Onset: The kdr symptoms/episode began/occurred gradually, yesterday. Duration: The symptoms are intermittent, with no pattern. The patient's shortness of breath is aggravated by exertion, light activity, is alleviated by nothing. Associated signs and symptoms: Pertinent positives: non-productive cough, sore throat. Severity of symptoms: At their worst the symptoms were mild. The patient has not experienced similar symptoms in the past. The patient has not recently seen a physician. Her father was recently diagnosed with COVID and her daughter was swabbed yesterday and has siilar symptoms. Historical: - Allergies: 11:42 Demerol; em 11:42 Erythromycin; em 11:42 TETRACYCLINES; em 11:42 Toradol; em 11:42 Zofran; em - PMHx: 11:42 "Possibly Fibromyalgia"; Bipolar disorder; Chronic pain; Pancreatitis; em - PSHx: 11:42 right knee surgery; em - Immunization history:: Adult Immunizations up to date. - Social history:: Smoking status: Patient denies any tobacco usage or history of. ROS: 13:43 Constitutional: Negative for fever, chills, and weight loss, Eyes: Negative for injury, kdr pain, redness, and discharge, Neck: Negative for injury, pain, and swelling, Cardiovascular: Negative for chest pain, palpitations, and edema, Abdomen/GI: Negative for abdominal pain, nausea, vomiting, diarrhea, and constipation, Back: Negative for injury and pain, : Negative for injury, bleeding, discharge, and swelling, MS/Extremity: Negative for injury and deformity, Skin: Negative for injury, rash, and discoloration, Neuro: Negative for headache, weakness, numbness, tingling, and seizure activity. Psych: Negative for depression, anxiety, suicide ideation, homicidal ideation, and hallucinations, Allergy/Immunology: Negative for hives, rash, and allergies, Endocrine: Negative for neck swelling, polydipsia, polyuria, polyphagia, and marked weight changes, Hematologic/Lymphatic: Negative for swollen nodes, abnormal bleeding, and unusual bruising. 13:43 ENT: Positive for sore throat, Negative for drainage from ear(s), ear pain, hearing loss, pulling at ears, nasal discharge, rhinorrhea, sinus congestion, sinus pain, difficulty handling secretions, hoarseness, acute changes. Exam: 13:43 Constitutional: This is a well developed, well nourished patient who is awake, alert, kdr and in no acute distress. Head/Face: Normocephalic, atraumatic. Eyes: Pupils equal round and reactive to light, extra-ocular motions intact. Lids and lashes normal. Conjunctiva and sclera are non-icteric and not injected. Cornea within normal limits. Periorbital areas with no swelling, redness, or edema. ENT: Nares patent. No nasal discharge, no septal abnormalities noted. Tympanic membranes are normal and external auditory canals are clear. Oropharynx with no redness, swelling, or masses, exudates, or evidence of obstruction, uvula midline. Mucous membranes moist. Neck: Trachea midline, no thyromegaly or masses palpated, and no cervical lymphadenopathy. Supple, full range of motion without nuchal rigidity, or vertebral point tenderness. No Meningismus. Chest/axilla: Normal chest wall appearance and motion. Nontender with no deformity. No lesions are appreciated. Cardiovascular: Regular rate and rhythm with a normal S1 and S2. No gallops, murmurs, or rubs. Normal PMI, no JVD. No pulse deficits. Respiratory: Lungs have equal breath sounds bilaterally, clear to auscultation and percussion. No rales, rhonchi or wheezes noted. No increased work of breathing, no retractions or nasal flaring. Abdomen/GI: Soft, non-tender, with normal bowel sounds. No distension or tympany. No guarding or rebound. No evidence of tenderness throughout. Back: No spinal tenderness. No costovertebral tenderness. Full range of motion. Skin: Warm, dry with normal turgor. Normal color with no rashes, no lesions, and no evidence of cellulitis. MS/ Extremity: Pulses equal, no cyanosis. Neurovascular intact. Full, normal range of motion. Neuro: Awake and alert, GCS 15, oriented to person, place, time, and situation. Cranial nerves II-XII grossly intact. Motor strength 5/5 in all extremities. Sensory grossly intact. Cerebellar exam normal. Normal gait. Psych: Awake, alert, with orientation to person, place and time. Behavior, mood, and affect are within normal limits. Vital Signs: 11:38 BP 126 / 78; Pulse 78; Resp 18; Temp 98.3(O); Pulse Ox 97% on R/A; Weight 68.95 kg; em Height 5 ft. 3 in. (160.02 cm); Pain 6/10; 13:10 BP 132 / 72; Pulse 74; Resp 18; Temp 98.0; Pulse Ox 99% on R/A; ph 11:38 Body Mass Index 26.93 (68.95 kg, 160.02 cm) em MDM: 13:14 Patient medically screened. [facility] 13:43 Data reviewed: vital signs, nurses notes, lab test result(s). [facility] 03/23 12:02 Order name: Flu; Complete Time: 13:12 kdr 03/23 12:02 Order name: Strep; Complete Time: 13:00 [facility] 03/23 12:02 Order name: COVID-19 [facility] Administered Medications: No medications were administered Disposition: 03/23/20 13:14 Discharged to Home. Impression: Weakness, Acute upper respiratory infection, unspecified, Viral infection, unspecified. - Condition is Stable. - Discharge Instructions: Upper Respiratory Infection, Adult, Fatigue, Weakness, [id number], Viral Respiratory Infection, [id number]. - Medication Reconciliation Form, Thank You Letter form. - Follow up: Private Physician; When: 2 - 3 days; Reason: If symptoms return, Further diagnostic work-up, Recheck today's complaints, Continuance of care, Re-evaluation by your physician. - Problem is new. - Symptoms are unchanged. Signatures: Dispatcher [employer] EDNJ Ortega Steinberg MD MD kdr Parish Hawkins, RN RN em Kera Nelson RN RN ph Corrections: (The following items were deleted from the chart) 13:08 12:57 Throat Culture ordered. [facility] 13:26 13:14 03/23/2020 13:14 Discharged to Home. Impression: Weakness; Acute upper ph respiratory infection, unspecified; Viral infection, unspecified. Condition is Stable. Forms are Medication Reconciliation Form, Thank You Letter, Antibiotic Education, Prescription Opioid Use. Follow up: Private Physician; When: 2 - 3 days; Reason: If symptoms return, Further diagnostic work-up, Recheck today's complaints, Continuance of care, Re-evaluation by your physician. Problem is new. Symptoms are unchanged. kdr
[2020-03-23 13:33] VITALS: BP 132/72; TEMP 98; O2SAT 99
--- OUTSIDE RECORDS SUMMARY | 2020-03-23 16:32 | XMS REPORT | Clinical Summary ---
:1970 Author Organization [facility] Address [address] [place] [address] Care Team Providers Name Role Phone Ramez Del Toro MD Primary Care Provider Allergies Active Allergy Reactions Severity Noted Date Comments Coconut Other (See Comments) 12/05/2019 Edema i n ears Erythromycin 05/04/2018 Tetracycline 05/04/2018 Ketorolac Hives 12/05/2019 Ondansetron Hcl 05/04/2018 Medications Medication Sig Dispensed Refills Start Date End Date Status FLUoxetine Take 20 mg by 0 Activ e (PROzac) 20 mg/5 mouth daily. mL (4 mg/mL) solution lithium 300 mg Take 900 mg by 0 Active tablet mouth nightly. meclizine Take 1 tablet 20 tablet 0 05/11/2018 Activ e (ANTIVERT) 25 mg (25 mg total) tablet by mouth every 6 (six) hours as needed for dizziness for up to 20 doses. ibuprofen Take 800 mg by 0 Activ e (ADVIL) 800 MG mouth every 6 tablet (six) hours as needed for mild pain. HYDROcodone-acet Take 1 tablet 0 Active aminophen by mouth every (NORCO) 7.5-325 6 (six) hours mg per as needed for tabletIndication moderate pain s: acute pain .acute pain. tiZANidine Take 4 mg by 0 Active (ZANAFLEX) 4 MG mouth every 8 tablet (eight) hours as needed for muscle spasms. estrogens, Take 0.3 mg by 0 Acti ve conjugated, mouth daily. (PREMARIN) 0.3 Take daily for MG tablet 21 days then do not take for 7 days. gabapentin Take 400 mg by 0 Disc ontinued (NEURONTIN) 250 mouth 3 0 mg/5 mL solution (three) times a day. gabapentin Take 400 mg by 0 Disc ontinued (NEURONTIN) 400 mouth 3 0 (Err or) mg capsule (three) times a day. diclofenac Apply 1 Tube 0 12/06/2019 (VOLTAREN) 1 % topically 4 0 gel (four) times a day for [address] 1 patch 3 patch 0 12/06/2019 Expir ed (LIDODERM) 5 % on the skin 0 daily for 3 days. Remove & Discard patch within 12 hours or as directed by gabapentin Take 1 capsule 30 capsule 0 12/06/2019 Ex pired (NEURONTIN) 300 (300 mg total) 0 mg capsule by mouth 3 (three) times a day for 10 days. Active Problems Problem Noted Date Chest pain 05/06/2018 Unstable angina 05/04/2018 Encounters Date Type Specialty Care Team Description 12/05/2019 - Emergency Emergency Medicine Virginia Posada MD Acute pain of right 12/06/2019 knee (Primary D x) 12/05/2019 Travel after 03/23/2019 Social History Tobacco Use Types Packs/Day Years Used Date Former Smoker Cigarettes 30 Quit: 02/22/20 18 Smokeless Tobacco: Never Used Comments: 3-4 cigarrettes at day Alcohol Use Drinks/Week oz/Week Comments No Sex Assigned at Date Recorded Not on file Job Start Date Occupation Industry Not on file Not on file Not on file Travel History Travel Start Travel End No recent travel history available. Last Filed Vital Signs Vital Sign Reading Time Taken Comments Blood Pressure 119/64 12/06/2019 3:55 AM CDT Pulse 68 12/06/2019 3:55 AM CDT Temperature 36.4 C (97.5 F) 12/05/2019 11:07 PM CDT Respiratory Rate 20 12/06/2019 3:55 AM CDT Oxygen Saturation 98% 12/06/2019 3:55 AM CDT Inhaled Oxygen Concentration - - Weight - - Height 160 cm (5' 3") 12/05/2019 11:08 PM CDT Body Mass Index - - Plan of Treatment Health Maintenance Due Date Last Done Comments CERVICAL CANCER SCREENING 1993 INFLUENZA VACCINE 04/23/2020 Procedures Procedure Name Priority Date/Time Associated Comments Diagnosis US DUPLEX VENOUS LOWER STAT 12/06/2019 3:15 R esults for this EXTREMITY RIGHT AM CDT procedure ar e in the results section. XR KNEE 1 OR 2 VW RIGHT STAT 12/06/2019 12:21 Results for this AM CDT procedure are i n the results section. ESTIMATED GFR STAT 12/06/2019 12:14 Results fo r this AM CDT procedure are i n the results section. C-REACTIVE PROTEIN STAT 12/06/2019 12:14 Resul ts for this AM CDT procedure are i n the results section. SEDIMENTATION RATE STAT 12/06/2019 12:14 Resul ts for this AM CDT procedure are i n the results section. MAGNESIUM LEVEL STAT 12/06/2019 12:14 Results for this AM CDT procedure are i n the results section. PHOSPHORUS LEVEL STAT 12/06/2019 12:14 Results for this AM CDT procedure are i n the results section. COMPREHENSIVE METABOLIC STAT 12/06/2019 12:14 Results for this PANEL AM CDT procedure are i n the results section. PARTIAL THROMBOPLASTIN STAT 12/06/2019 12:14 R esults for this TIME (PTT) AM CDT procedure are i n the results section. PROTHROMBIN TIME WITH STAT 12/06/2019 12:14 Re sults for this INR AM CDT procedure are i n the results section. HC COMPLETE BLD COUNT STAT 12/06/2019 12:14 Re sults for this W/AUTO DIFF AM CDT procedure are i n the results section. after 03/23/2019 Results Us duplex venous lower extremity (12/06/2019 3:15 AM CDT) Specimen Narrative Performed At [facility] Vascular U ltrasound Laboratory Lower Extr emity Venous Report [id number] [facility], [place] [address], [place] [address] Pat.Name: NITHIN BOJORQUEZ Pat.ID: [id number] .Date: 12/06/2019 Refer.MD: PHYSICIAN, EMERGENCY, MD Exam Time: 2:52:00 AM Study Type:L E Venous Age: 9 1970,49Y Sex: FEMALE Sonogrphr: Loyd Pisano, BA, BS, RDMS, RVT Pat. Stat.:Inpatient Room: [facility] Vol: LULA, CPT - 4: 66452 Echo Berta nt ID:[id number] Order ID: [id number] Reason for Study:Leg swelling or pain, D VT suspected. Patient has history of fibromyalgia, recent history of right knee arthroscopic meniscal repair (12/01/2019). Procedures: Colorflow, Grayscale/2D, Pul sed wave Doppler Race: C SUMMARY: * Normal Reflux Criteria: < 0.5 second s * Abnormal Reflux Criteria: > or equal to 0.5 seconds DUPLEX SCAN OBSERVATIONS Deep Veins Superficial Veins Right Left Right Left GSV (prox) Normal CFV Normal Normal (above knee) Femoral Normal GSV (dist) Normal Profunda Normal (below knee) Popliteal Normal PT (prox) Normal SSV Normal PT (dist) Normal Peroneal Normal Gastrocs Normal RIGHT: There is normal compressibility with no evidence of echogenic material noted within the lumen of the v isualized veins.Colorflow and Doppler signals are normal. LEFT: There is normal compressibility wi th no evidence of echogenic material noted within the lumen of the c ommon femoral vein.Colorflow and Doppler signals are normal. PRELIMINARY FINDINGS 1. No evidence of venous thrombosis note d in the visualized veins. PHYSICIAN INTERPRETATION Venous examination of the right lower ex tremity and left groin demonstrated no evidence of venous throm bosis in the visualized veins. Normal compressibility and augmentation of all veins visualized. FINDINGS: Signed 12/06/2019 08:54 AM Frantz Lawrence MD, RPVI Procedure Note Interface, Radiology Results In - 2019 8:54 AM CDT Vascular Ultrasound Laboratory Lower Extremity Veno us Report [id number] [address] Pat.Name: NITHIN BOJORQUEZ I D: [id number] .Date: 12/06/2019 Refer .MD: PHYSICIAN, EMERGENCY, MD Exam Time: 2:52:00 AM Study Type:LE Venous Age: 7 1970,49Y Sex: FEMALE Sonogrphr: Loyd Pisano, BA, BS, RDMS, RVT Pat. Stat.:Inpatient Room: [facility] Vol: LULA, CPT - 4: 71079 Echo Event ID:[id number] Order ID: [id number] Reason for Study:Leg swelling or pain, D VT suspected. Patient has history of fibromyalgia, recent history of right knee arthroscopic meniscal repair (12/01/2019). Procedures: Colorflow, Grayscale/2D, Pul sed wave Doppler Race: C SUMMARY: * Normal Reflux Criteria: < 0.5 seconds * Abnormal Reflux Criteria: > or equal to 0.5 seconds DUPLEX SCAN OBSERVATIONS Deep Veins Superficial Veins Right Left Right Left GSV (prox) Normal CFV Normal Normal (above knee) Femoral Normal GSV (dist) Normal Profunda Normal (below knee) Popliteal Normal PT (prox) Normal SSV Normal PT (dist) Normal Peroneal Normal Gastrocs Normal RIGHT: There is normal compressibility with no evidence of echogenic material noted within the lumen of the v isualized veins.Colorflow and Doppler signals are normal. LEFT: There is normal compressibility wi th no evidence of echogenic material noted within the lumen of the c ommon femoral vein.Colorflow and Doppler signals are normal. PRELIMINARY FINDINGS 1. No evidence of venous thrombosis note d in the visualized veins. PHYSICIAN INTERPRETATION Venous examination of the right lower ex tremity and left groin demonstrated no evidence of venous throm bosis in the visualized veins. Normal compressibility and augmentation of all veins visualized. FINDINGS: Signed 12/06/2019 08:54 AM Frantz Lawrence MD, RPVI Performing Organization Address City/[facility]/Zipcode Phone Number [facility] [address] [place] [address] XR Knee 1 Or 2 Vw Right (12/06/2019 12:21 AM CDT) Specimen Narrative Performed At EXAMINATION: XR KNEE 1 OR 2 VW RIGHT [facility] CLINICAL HISTORY: Post surgery pain COMPARISON: None. IMPRESSION: No evidence of acute right knee fracture or dislocatio n. Bone mineralization is normal. Small suprapatellar effusion . Few soft tissue zuri about the knee. [facility]-[id number] Procedure Note Interface, Radiology Results Incoming - 12/06/2019 12:33 AM CDT EXAMINATION: XR KNEE 1 OR 2 VW RIGHT CLINICAL HISTORY: Post surgery pain COMPARISON: None. IMPRESSION: No evidence of acute right knee fracture or dislocation. Bone mineralization is normal. Small suprapatellar effusion. Few soft tissue zuri about the knee. [facility]-[id number] Performing Organization Address [facility] Phone Number [facility] [address] [place] [address] Estimated GFR (12/06/2019 12:14 AM CDT) Estimated GFR 76 mL/min/1.73 [facility] Comment: [address] Catergory Units Interpretation G1 >=90 Normal or high G2 60-89 Mildly decreased G3a 45-59 Mildly to moderately decreas ed G3b 30-44 Moderately to severely decre ased G4 15-29 Severely decreased G5 <15 Kidney failure The eGFR was calculated using the Chronic Kidney Disea se Epidemiology Collaboration (CKD-EPI) equation. Interpretation is based on recommendations of the National Kidney Foundation-Kidney Disease Outcomes Tobias lity Initiative (NKF-KDOQI) published in 2014. Specimen Performing Organization Address [facility]/Zipcode Phone Number [facility] DEPARTMENT OF PATHOLOGY AND [address] [place] [phone] GENOMIC MEDICINE [address] [address] Partial thromboplastin time, activated (12/06/2019 12:14 AM CDT) PTT 24.8 23.0 - 36.0 [facility] Comment: [facility] PTT therapeutic range for unfractionated heparin is 61.0-112.0 seconds which corresponds to Anti-Xa 0.3-0.7 U/ml. Specimen Blood Performing Organization Address City/[facility]/Zipcode Phone Number [facility] DEPARTMENT OF PATHOLOGY AND [address] [place] [address] [phone] [address] Sedimentation rate (12/06/2019 12:14 AM CDT) Pathologist Sig nature Sedimentation rate 7 0 - 20 mm/hr [facility] Specimen Blood Performing Organization Address City/[facility]/Zipcode Phone Number [facility] DEPARTMENT OF PATHOLOGY AND [address] [place] [address] [phone] [address] Prothrombin time with INR (12/06/2019 12:14 AM CDT) [facility] Prothrombin time 12.3 11.5 - 14.[address] [facility] INR 0.9 [facility] Comment: [facility] The International Normalized Ratio (INR) is a [facility] monitoring tool for patients who are stable on oral anticoagulant therapy. An INR of 2.0-3.0 is suggested for deep vein thrombosis/pulmonary embolism. Specimen Blood Performing Organization Address City/[facility] Phone Number [facility] DEPARTMENT OF PATHOLOGY AND [address] [place] [address] [phone] [address] CBC with platelet and differential (12/06/2019 12:14 AM CDT) Pathologist [facility] WBC 6.18 4.50 - 11.00 [facility] k/uL [facility] RBC 4.03 (L) 4.20 - 5.50 [facility] m/uL [facility] HGB 10.5 (L) 12.0 - 16.0 [facility] g/dL [facility] HCT 33.9 (L) 37.0 - 47.0 % [facility] MCV 84.1 82.0 - 100.0 [facility] MCH 26.1 (L) 27.0 - 34.0 pg [facility] MCHC 31.0 31.0 - 37.0 [facility] RDW - SD 43.4 37.0 - 55.0 fL [facility] MPV 9.4 8.8 - 13.2 fL [facility] Platelet count 293 150 - 400 k/uL [facility] Nucleated RBC 0.00 /100 WBC [facility] Neutrophils 54.7 39.0 - 69.0 % [facility] Lymphocytes 33.7 25.0 - 45.0 % [facility] Monocytes 6.1 0.0 - 10.0 % [facility] Eosinophils 4.2 0.0 - 5.0 % [facility] Basophils 0.8 0.0 - 1.0 % [facility] Immature granulocytes 0.5Comment: 0.0 - 1.0 % [facility] "Immature HOSPITAL granulocytes" (promyelocytes , myelocytes, metamyelocytes ) Specimen Blood Performing Organization Address City/[facility] Phone Number [facility] DEPARTMENT OF PATHOLOGY AND [address] [place] [address] [place] [phone] C-reactive protein (12/06/2019 12:14 AM CDT) Pathologist Sig nature CRP 0.32 0.00 - 0.50 mg/dL [facility] Specimen Blood Performing Organization Address [facility] Phone Number [facility] DEPARTMENT OF PATHOLOGY AND [address] [place] [address] [phone] [address] Phosphorus level (12/06/2019 12:14 AM CDT) Pathologist Sig nature Phosphorus 4.1 2.4 - 4.5 mg/dL [facility] Specimen Blood Performing Organization Address [facility] Phone Number [facility] DEPARTMENT OF PATHOLOGY AND [address] [place] [address] [phone] [address] Magnesium level (12/06/2019 12:14 AM CDT) Pathologist Sig nature Magnesium 1.8 1.6 - 2.6 mg/dL [facility] Specimen Blood Performing Organization Address [facility] Phone Number [facility] DEPARTMENT OF PATHOLOGY AND [address] [place] [address] [place] [phone] Comprehensive metabolic panel (12/06/2019 12:14 AM CDT) Sodium 141 135 - 148 [facility] mEq/L HOSPITAL Potassium 4.3 3.5 - 5.0 [facility] mEq/L [facility] Chloride 107 98 - 112 [facility] mEq/L [facility] CO2 21 (L) 24 - 31 mEq/L [facility] Anion gap 13@ANIO 7 - 15 mEq/L [facility] BUN 12 6 - 20 mg/dL [facility] Creatinine 0.90 0.50 - 0.90 [facility] mg/dL [facility] Glucose 101 (H) 65 - 99 mg/dL [facility] Calcium 9.2 8.3 - 10.2 [facility] mg/dL [facility] Protein 6.6 6.3 - 8.3 [facility] Comment: g/dL [facility] [place] 4.6-7.0 g/dL 1 week 4.4-7.6 g/dL 7 months-1year 5.1-7.3 g/dL 1-2 years 5.6-7.5 g/dL >3 years 6.0-8.0 g/dL 18-150 6.3-8.3 g/dL Albumin 3.7 3.5 - 5.0 [facility] g/dL [facility] A/G ratio 1.3 0.7 - 3.8 [facility] Alkaline phosphatase 58 35 - 104 U/L [facility] AST 11 10 - 35 U/L [facility] ALT <5 (A) 5 - 50 U/L [facility] Total bilirubin 0.3 0.0 - 1.2 [facility] mg/dL [facility] Specimen Blood Performing Organization Address [facility]/State/Zipcode Phone Number 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
--- OUTSIDE RECORDS SUMMARY | 2020-03-23 16:33 | XMS REPORT | Continuity of Care Document ---
:1970 Author Organization [facility] t Address [address] [place] [address] Care Team Providers Name Role Phone Alexx Del Toro MD Primary Care Physician Thang [place] Attending Clinician Payers Payer Name Policy Type Policy Number Effective Date Expiration Date S spring CIGNACIGNA OPEN xxxxxxxxxxx 2017 [place] ACCESS/NETWORKxx 00:00:00 Methodis t [id number]/25/2 017-PresentHMO Problems Condition Condition Condition Status Onset Resolution Last Treating Co mments Source Name Details Category Date Date Treatment Clinician Date Chest pain Chest pain Disease Active [place] 8[facility]14 [facility] 00:[facility]: st 00 Unstable Unstable Disease Active [place] angina angina 812 [facility] 00:00: st 00 Non-intrac Non-intrac Problem Active [facility] table [facility] - vomiting vomiting Memori a with with l nausea, nausea, Outpati unspecifie unspecifie en t d vomiting d vomiting Cl inics type type Arthralgia Arthralgia Problem Active [facility] , , [facility] - unspecifie unspecifie Me moria d joint d joint l Outpati ent Clinics Diarrhea, Diarrhea, Problem Active [facility] unspecifie unspecifie Camila kes - d type d type [facility] Bipolar Bipolar Problem Active [facility] disorder disorder [facility]ics Lightheade Lightheade Problem Active [facility] dness dness [facility] Weakness Weakness Problem [facility] Joint Joint Problem Active [facility] swelling swelling [facility] Iron Iron Problem Active [facility] deficiency deficiency Camila kes - anemia, anemia, Memoria unspecifie unspecifie l d iron d iron Outpati deficiency deficiency en t anemia anemia Clinics type type Fatigue, Fatigue, Problem Active [facility] unspecifie unspecifie Camila kes - d type d type Memoria l [facility] Hypotensio Hypotensio Problem Active [facility] n, n, [facility] - unspecifie unspecifie Me moria d d l hypotensio hypotensio Ou tpati n type n type ent Clinics Abdominal Abdominal Problem Active [facility] pain, pain, [facility] - unspecifie unspecifie Me moria d d l abdominal abdominal Outp ati location location ent Clinics Syncope, Syncope, Problem Active [facility] unspecifie unspecifie Camila kes - d syncope d syncope Mich sherri type type l [facility] Left lower Left lower Problem Active [facility] quadrant quadrant [facility] - pain pain Memoria l [facility] Chest Chest Problem Active [facility] pain, pain, [facility] - unspecifie unspecifie Me moria d type d type l [facility] Abnormal Abnormal Problem Active [facility] liver liver [facility] - function function Memori a test test l [facility] Vitamin D Vitamin D Problem Active [facility] deficiency deficiency Camila kes - Memoria l [facility]ics Left Left Problem Active [facility] ovarian ovarian [facility] - cyst cyst [facility]oria l [facility] Paresthesi Paresthesi Problem Active [facility] as as [facility] Other Other Problem Active [facility] chronic chronic [facility] - pain pain Memoria l [facility] Neck pain Neck pain Problem Active [facility] Dorsalgia, Dorsalgia, Problem Active [facility] unspecifie unspecifie Camila kes - d d Memoria l [facility] Gastroesop Gastroesop Problem Active [facility] hageal hageal [facility] - reflux reflux Memoria disease disease l without [facility] esophag[facility] s Clinics URI, acute URI, acute Diagnosis Active [facility] Acute Acute Diagnosis Active [facility] pharyngiti pharyngiti Camila kes - s, s, Memoria unspecifie unspecifie l d etiology d etiology Ou tpati ent Clinics Allergies, Adverse Reactions, Alerts Allergy Allergy Status Severity Reaction(s) Onset Inactive Treating Comm ents Source Name Type Date Date Clinician Coconmegan Propensi Active Other ([facility]) 3-14 ears [facility] adverse 00:00: st reaction 00 s to drug Ketorola Propensi Active H[place] ty to 12-04 [facility] adverse 00:00: st reaction 00 s to drug Erythrom Propensi Active [place] [facility] ty to 05-04 [facility] adverse 00:00: st reaction 00 s to drug Tetracyc Propensi Active [place] ty to 05-04 [facility] adverse 00:00: st reaction 00 s to drug Ondanset Propensi Active [place] [facility] to 05-04 [facility] adverse 00:00: st reaction 00 s to drug Zofran Adverse Active Causes red [facility] Reaction bumps on her Camila kes - tongue Memoria l Outpati ent Clinics Gabapent Adverse Active shaking and [facility] in Reaction twitching [facility] Social History Social Habit Start Date Stop Date Quantity Comments Source Sex Assigned At [facility] Alcohol intake 2019-12-06 2019-12-06 [facility]drinker [facility]:00:00 of alcohol [facility] (finding) Tobacco Comment 2018-05-04 2018-05-04 3[facility] day [facility] History of 2018-02-21 Current smoker [facility] tobacco use 00:00:00 [facility] Smoking Status Start Date Stop Date Source Former smoker 2019-12-06 00:00:00 2019-12-06 00:00:00 [place] Medications Ordered Filled Start Stop Current Ordering Indication Dosage Frequency Signature Comments Components Source Medication Medication Date Date Medication? Clinician (SIG) Name Name gabapentin No 400mg Q.[id number] Take 400 [place] (NEURONTIN) 12-05 [id number] mg by [facility] 250 mg/5 mL 04:06: 00:[address] solution 40 :00 (three) times a day. gabapentin 2020-0 2020- No 400mg Q.[id number] Take 400 [place] (NEURONTIN) 12-05-15 [id number] mg by [facility] 400 mg 03:24: 00:[address] capsule 37 :00 (three) times a day. diclofenac 2019-0 2020- No Q.25D Apply [place] (VOLTAREN) 12-05 04-14 topically Met kristen 1 % gel 00:00: 23:59 4 (four) st 00 :00 times a day for 30 days. gabapentin 2019-0 2019- No 300mg Q.77632123 Take 1 [place] (NEURONTIN) 12-05 [id number] capsule [facility] 300 mg 00:00: 23:59 3D ([address] capsule 00 :00 total) by mouth 3 (three) times a day for 10 days. lidocaine 2019-2019- No 1{patch Q24H Place 1 [place] (LIDODERM) 12-0518 } patch on Meth frank 5 % 00:00: 23:[address] 00 :00 daily for 3 days. Remove & Discard patch within 12 hours or as directed by MD bullock, Yes .3mg QD Take 0.3 [place] conjugated, 3-14 mg by [facility] (PREMARIN) 23:28: mouth st 0.3 MG 10 daily. tablet Take daily for 21 days then do not take for 7 days. tiZANidine 2019-0 Yes 4mg Q8H Take 4 mg [place] (ZANAFLEX) 3-14 by mouth Metho di 4 MG tablet 23:27: every 8 st 00 (eight) hours as needed for muscle spasms. HYDROcodone 2019-0 Yes acute pain 1{tbl} Q6H Take 1 [place] -acetaminop 3-14 tablet by Met kristen hen (NORCO) 23:25: mouth st 7.5-325 mg 30 every 6 per tablet (six) hours as needed for moderate pain .acute pain. ibuprofen 2019-0 Yes 800mg Q6H Take [address] [place] (ADVIL) 800 3-14 mg by [facility] MG tablet 23:25: mouth st 29 every 6 (six) hours as needed for mild pain. Meloxicam Meloxicam 2018- No [place] [address] [facility] 12-30 05-09 [facility] - 00:00: 00:00 Memoria 00 :00 l Outpati ent Clinics Cyclobenzap Cyclobenzap 2019- No [place] [address] rine HCl rine HCl 4-09 05-09 [place] as needed [facility] - 00:00: 00:00 for muscle Memori a 00 :00 cramps/berlin l n Outpati ent Clinics Lyrica Lyrica 2017-09 Yes [place] [address] 1-22 Millender [facility] - 00:00: Memoria 00 l Outpati ent Clinics FLUoxetine Yes 20mg QD Take 20 mg [place] (PROzac) 20 8-19 by mouth Meth frank mg/5 mL (4 11:08: daily. st mg/mL) 23 solution lithium 300 Yes 900mg QD Take 900 [place] mg tablet 8-19 mg by Methodi 11:08: mouth st 23 nightly. meclizine Yes 25mg Q6H Take 1 [place] (ANTIVERT) 8-19 tablet (25 Met hodi 25 mg 00:00: mg total) st tablet 00 by mouth every 6 (six) hours as needed for dizziness for up to 20 doses. Dicyclomine Dicyclomine 2018- No [place] [address] HCl HCl 7-25 08-24 Millender as needed Luke s - 00:00: 00:00 for Memoria 00 :00 abdominal l pain Outpati ent Clinics Fish Oil Fish Oil Yes [place] [address] Millender [facility] Fluoxetine Fluoxetine Yes [place] [address] HCl HCl Millender in the [facility] - morning Memoria l Outpati ent Clinics Summit View Summit View Yes [place] [address] Carbonate Carbonate Mill[place] at bedtime [facility] Multivitami Multivitami Yes [place] as [facility] n Women n Women Millender directed [facility] Vitamin B Vitamin B Yes [place] as [facility] Complex Complex [facility] directed [facility] Trazodone Trazodone Yes [place] [address] HCl HCl Millender at bedtime Luke s - as needed Memoria l Outpati ent Clinics Melatonin Melatonin Yes [place] [address] Millender at bedtime Luke s - as needed Memoria with food l Outpati ent Clinics Vital Signs Vital Name Observation Time Observation Value Comments Source Systolic blood 2019-12-06 03:55:00 119 mm[Hg] José Miguel n [facility] pressure Diastolic blood 2019-12-06 03:55:00 64 mm[Hg] [place] [facility] pressure Heart rate 2019-12-06 03:55:00 68 /min Félix [facility] Respiratory rate 2019-12-06 03:55:00 20 /min Dagoberto [facility] Oxygen saturation in 2019-12-06 03:55:00 98 /min Félix Madsen Arterial blood by Pulse oximetry Body height 2019-12-05 23:08:00 160 cm Félix [facility] Body temperature 2019-12-05 23:07:12 36.39 Farideh Dagoberto ton [facility] Procedures Procedure Date / Time Performing Clinician Source Performed US DUPLEX VENOUS LOWER 2019-12-06 03:15:00 Richar Thomson on [facility] EXTREMITY RIGHT XR KNEE 1 OR 2 VW RIGHT 2019-12-06 00:21:34 Richar Thomson [facility] HC COMPLETE BLD COUNT 2019-12-06 00:14:00 Richar Thomson [facility] W/AUTO DIFF PROTHROMBIN TIME WITH INR 2019-12-06 00:14:00 Richar Thomson [facility] PARTIAL THROMBOPLASTIN 2019-12-06 00:14:00 Richar Thomson on [facility] TIME (PTT) COMPREHENSIVE METABOLIC 2019-12-06 00:14:00 Richar Thomson [facility] PANEL PHOSPHORUS LEVEL 2019-12-06 00:14:00 Richar Thomson Met [facility]odist MAGNESIUM LEVEL 2019-12-06 00:14:00 Richar Thomson Meth odist SEDIMENTATION RATE 2019-12-06 00:14:00 Richar Thomson ethodist C-REACTIVE PROTEIN 2019-12-06 00:14:00 Richar Thomson ethodist ESTIMATED GFR 2019-12-06 00:14:00 Virginia Posada Félix Meth odist Plan of Care Planned Activity Planned Date Details Comments Source Future Scheduled 2020-04-23 INFLUENZA VACCINE José Miguel mendez [facility] Test 00:00:00 [code = INFLUENZA VACCINE] Future Scheduled 1993 Screening for [facility]odist Test 00:00:00 malignant neoplasm of cervix (procedure) [code = 201240234] Encounters Start End Encounter Admission Attending Care Care Encounter Source Date/Time Date/Time Type Type Clinicians Facility Department ID 2019-12-05 2019-12-06 Emergency [facility] 064 [id number] [place] 00:00:00 00:00:00 [place] [address] 2019-09-07 2019-09-07 Emergency E [facility] [id number] [facility] 16:43:00 16:43:00 2018-12-31 2018-12-31 [facility] [id number] [address] 08:47:00 08:47:00 t [facility] Outpati ent Clinics 2018-12-30 2018-12-30 [facility] [id number] 16:20:00 16:20:00 [facility] Medicine Outpati ent Clinics 2018-09-09 2018-09-09 [facility] [id number] 09:45:00 09:45:00 t [facility] Medicine Outpati ent Clinics 2018-05-15 2018-05-15 [facility] [id number] 08:45:00 08:45:00 t [facility] Medicine Outpati ent Clinics 2018-04-16 2018-04-16 [facility] [id number] 11:03:00 11:03:00 t [facility] Medicine Outpati ent Clinics 2018-04-16 2018-04-16 [facility] [id number] 09:00:00 09:00:00 t [facility] Medicine Outpati ent Clinics 2018-04-11 2018-04-11 [facility] [id number] 11:28:00 11:28:00 t [facility] Outpati ent Clinics 2018-04-09 2018-04-09 [facility] [id number] 09:00:00 09:00:00 [facility] Medicine Outpati ent Clinics Results Test Description Test Test Results Result Source Time Comments Comments Us duplex venous 2019-11- Interface, Radiology [place] lower extremity 15 Results In - 12/06/2019 [facility] 08:54:00 8:54 AM CDT Vascular Ultrasound Laboratory Lower Extremity Venous Report [address] [address], [place] [address] Pat.Name: TANIKA BOJORQUEZ.ID: [id number] .Date: 12/06/2019 Refer.MD: PHYSICIAN, EMERGENCY, MDExam Time: 2:52:00 AM Study Type:LE Venous Age: 9 1970,49Y Sex: FEMALE Sonogrphr: Loyd Pisano BA, BS, RDMS, RVTPat. Stat.:Inpatient Room: [facility] Vol: LULA, CPT - 4: 73873 Echo Event ID:[id number] Order ID: [id number] Reason for Study:Leg swelling or pain, DVT suspected. Patient hashistory of fibromyalgia, recent history of right knee arthroscopicmeniscal repair (12/01/2019). Procedures: Colorflow, Grayscale/2D, Pulsed wave DopplerRace: C SUMMARY:---- --------* Normal Reflux Criteria: < 0.5 seconds * Abnormal Reflux Criteria: > or equal to 0.5 secondsDUPLEX SCAN OBSERVATIONS Deep Veins Superficial Veins Right Left Right Left GSV (prox) Normal CFV Normal Normal (above knee)Femoral Normal GSV (dist) Normal Profunda Normal (below knee)Popliteal Normal PT (prox) Normal SSV Normal PT (dist) Normal Peroneal Normal Gastrocs Normal RIGHT: There is normal compressibility with no evidence of echogenicmaterial noted within the lumen of the visualized veins.Colorflow andDoppler signals are normal.LEFT: There is normal compressibility with no evidence of echogenicmaterial noted within the lumen of the common femoral vein.Colorflowand Doppler signals are normal. PRELIMINARY FINDINGS1. No evidence of venous thrombosis noted in the visualized veins. PHYSICIAN INTERPRETATION Venous examination of the right lower extremity and left groindemonstrated no evidence of venous thrombosis in the visualized veins. Normal compressibility and augmentation of all veins visualized. F INDINGS: Sign ed 12/06/2019 08:54 Esther Lawrence MD, RPVI Partial thromboplastin time, activated 2019-12-06 00:59:47 Test Item Value Reference Range Interpretation Comme nts PTT (test code = 81939-9) 24.8 23.0- 36.0 sec PTT therapeutic range for unfractionated heparin is61.0-112.0 seconds which c orresponds to Anti-Xa0.3-0.7 U/ml. [place] MethodistProthrombin time with [id number] 00:59:04 Test Item Value Reference Range Interpretation Comments Prothrombin time (test 12.3 11.5- 14.5 sec code = 5902-2) INR (test code = 0.9 [facility] 164[facility]-8) Normalized Rati o (INR) is a therapeutic m onitoring tool for patien ts who are stable on oral anticoagulant t herapy. An INR of 2.0-3.0 is suggested for d eep vein thrombosis/pulm onary embolism. [place] MethodistComprehensive metabolic [id number] 00:56:19 Test Item Value Reference Range Interpretation Comments Sodium (test code = 141 135- 148 mEq/L 2951-2) Potassium (test code = 4.3 3.5- 5.0 mEq/L 2823-3) Chloride (test code = 107 98- 112 mEq/L 2075-0) CO2 (test code = 2027-9) 21 24- 31 mEq/L L Anion gap (test code = 13@ANIO 7- 15 mEq/L 64889-5) BUN (test code = 3094-0) 12 mg/dL 6-20 Creatinine (test code = 0.90 mg/dL 0.5-0.9 0-0) Glucose (test code = 101 mg/dL 65-99 H 2345-7) Calcium (test code = 9.2 mg/dL 8.3-10.2 61885-9) Protein (test code = 6.6 g/dL 6.3-8.3 -[place] n 2885-2) 4.6-7.0 g/dL1 week 4.4-7 .6 g/dL7 months-1y ear 5.1-7 .3 g/dL1-2 years 5.6-7 .5 g/dL>3 years 6.0-8 .0 g/rP69-495 6.3-8 .3 g/dL Albumin (test code = 3.7 g/dL 3.5-5 175-7) A/G ratio (test code = 1.3 0.7-3.8 1759-0) Alkaline phosphatase 58 U/L 35-104 (test code = 6768-6) AST (test code = 1920-8) 11 U/L 10-35 ALT (test code = 1742-6) <5 5-50 A Total bilirubin (test 0.3 mg/dL 0-1.2 code = 1974-) Lab Interpretation (test Abnormal code = 30042-5) Félix MethodistMagnesium [id number] 00:56:19 Test Item Value Reference Range Interpretation Comments Magnesium (test code = 78487-4) 1.8 mg/dL 1.6-2.6 [facility] MethodistEstimated [id number] 00:56:19 Test Item Value Reference Range Interpretation Comments Estimated GFR (test 76 mL/min/1.73 m2 Caterg ory Units code = 5488) InterpretationG 1 >=90 Normal or highG2 60-89 Mildly pzkhrkobmH2g 45-59 Mildly to mode rately rregirvvaS6p 30-44 Moderately to severely decreasedG4 15-29 Severely decre asedG5 <15 Kidn ey failureThe eGFR was calculated [place]son [place] the Chronic Kidney Disease Epidemiology Co llaboration (CKD-EPI) equat ion. Interpretation is based on recommendations of the National Kidney Foundation-Kidn ey Disease Outcomes Qualit y Initiative (NKF-KDOQI) pub lished in 2013. Félix MethodistPhosphorus [id number] 00:56:18 Test Item Value Reference Range Interpretation Comments Phosphorus (test code = 2777-1) 4.1 mg/dL 2.4-4.5 Félix MethodistC-reactive [id number] 00:56:16 Test Item Value Reference Range Interpretation Comments CRP (test code = 1987-5) 0.32 mg/dL 0-0.5 Fél[facility] MethodistSedimentation [id number] 00:39:45 Test Item Value Reference Range Interpretation Comments Sedimentation rate (test code = 7 0- 20 mm/hr 14550-0) [facility] MethodistCBC with platelet and [id number] 00:34:33 Test Item Value Reference Range Interpretation Comments WBC (test code = 78906-6) 6.18 4.50- 11.00 k/uL RBC (test code = 93977-0) 4.03 m/uL 4.2-5.5 L HGB (test code = 718-7) 10.5 g/dL 12-16 L HCT (test code = 4544-3) 33.9 % 37-47 L MCV (test code = 787-2) 84.1 fL 82-100 MCH (test code = 785-6) 26.1 pg 27-34 L MCHC (test code = 786-4) 31.0 g/dL 31-37 RDW - SD (test code = 43.4 fL 37-55 75973-0) MPV (test code = 17608-6) 9.4 fL 8.8-13.2 Platelet count (test code 293 150- 400 k/uL = 87756-2) Nucleated RBC (test code 0.00 /100 WBC = 78359-8) Neutrophils (test code = 54.7 % 39-69 39337-5) Lymphocytes (test code = 33.7 % 25-45 11719-7) Monocytes (test code = 6.1 % 0-10 62270-4) Eosinophils (test code = 4.2 % 0-5 70232-3) Basophils (test code = 0.8 % 0-1 30763-7) Immature granulocytes 0.5 % 0-1 "Immat ure (test code = 30598-3) granul ocytes" (promyelocytes, myelocytes, metamyelocytes) Lab Interpretation (test Abnormal code = 04194-9) Félix MadsenXR Knee 1 Or 2 Vw [id number] 00:29:55Hm Interface, Radiology Results - 12/06/2019 12:33 AM CDTEXAMINATION: XR KNEE 1 OR 2 VW RIGHTCLINICAL HISTORY: Post surgery painCOMPARISON: None.IMPRESSION:No evidence of acute right knee fracture or dislocation. Bone mineralization is normal. Small suprapatellar effusion. Few soft tissue zuri about the knee.[facility]-[id number] [facility]
== END 2020-03-23 13:26 | disposition home or self-care (01) ==
LOC: ER 11:18
DX: J06.9 Acute upper respiratory infection, unspecified (principal); Z20.828 Contact with and (suspected) exposure to other viral communicable diseases; R53.1 Weakness; Z88.1 Allergy status to other antibiotic agents; Z88.3 Allergy status to other anti-infective agents; Z88.5 Allergy status to narcotic agent; Z88.8 Allergy status to other drugs, medicaments and biological substances
CPT/HCPCS: 87081; 87804 ×2; 99283; U0001

== ENCOUNTER 2020-04-10 11:05 | Emergency (ER) | payer OTHER ==
--- OUTSIDE RECORDS SUMMARY | 2020-04-10 11:08 | XMS REPORT | Clinical Summary ---
:1970 Author Organization [facility] Address [address] [place] [address] Care Team Providers Name Role Phone Ramez [...] knee (Primary D x) 12/05/2019 Travel after 04/10/2019 Social History Tobacco Use Types Packs/Day Years [...] are i n the results section. after 04/10/2019 Results Us duplex venous lower extremity (12/06/2019 3:15 AM CDT) Specimen Narrative Performed At [facility] Vascular U ltrasound Laboratory Lower Extr emity Venous Report [address] [facility], [place] [address], [place] [address] Pat.Name: NITHIN BOJORQUEZ Pat.ID: [id number] .Date: 12/06/2019 Refer.MD: PHYSICIAN, EMERGENCY, MD Exam Time: 2:52:00 AM Study Type:L E Venous Age: 9 1970,49Y Sex: FEMALE Sonogrphr: Loyd Pisano, BA, BS, RDMS, RVT Pat. Stat.:Inpatient Room: [facility] Vol: LULA, CPT - 4: 45994 Echo Berta nt ID:[id number] Order ID: [id number] Reason for Study:Leg swelling or pain, D [...] Ultrasound Laboratory Lower Extremity Veno us Report [address] [address] Pat.Name: NITHIN BOJORQUEZ I D: [id number] .Date: 12/06/2019 Refer .MD: PHYSICIAN, EMERGENCY, MD Exam Time: 2:52:00 AM Study Type:LE Venous Age: 9 1970,49Y Sex: FEMALE Sonogrphr: Loyd Pisano, BA, BS, RDMS, RVT Pat. Stat.:Inpatient Room: [facility] Vol: LULA, CPT - 4: 97946 Echo Event ID:[id number] Order ID: [id number] Reason for Study:Leg swelling or pain, D [...] Frantz Lawrence MD, RPVI Performing Organization Address City/[facility]/Zipcode Phone Number CUPID [address] [place] [address] XR Knee 1 Or 2 Vw Right (12/06/2019 12:21 AM CDT) Specimen Narrative Performed At EXAMINATION: XR KNEE 1 OR 2 VW RIGHT [facility] CLINICAL HISTORY: Post surgery pain COMPARISON: None. IMPRESSION: No evidence of acute right knee fracture or dislocatio n. Bone mineralization is normal. Small suprapatellar effusion . Few soft tissue zuri about the knee. [facility]-[id number] Procedure Note Interface, Radiology Results Incoming - 12/06/2019 12:33 AM CDT EXAMINATION: XR KNEE 1 OR 2 VW RIGHT CLINICAL HISTORY: Post surgery pain COMPARISON: None. IMPRESSION: No evidence of acute right knee fracture or dislocation. Bone mineralization is normal. Small suprapatellar effusion. Few soft tissue zuri about the knee. [facility]-[id number] Performing Organization Address [facility] Phone Number RADIANT [address] [place] [address] Estimated GFR (12/06/2019 12:14 AM CDT) Estimated GFR 76 mL/min/1.73 [facility] Comment: [address] Catergory Units Interpretation G1 >=90 Normal [...] published in 2014. Specimen Performing Organization Address [facility]/Zipcode Phone Number [facility] DEPARTMENT OF PATHOLOGY AND [address] [place] [phone] GENOMIC MEDICINE [address] [address] Partial thromboplastin time, activated (12/06/2019 12:14 AM CDT) PTT 24.8 23.0 - 36.0 [facility] Comment: [facility] PTT therapeutic range for unfractionated heparin is 61.0-112.0 seconds which corresponds to Anti-Xa 0.3-0.7 U/ml. Specimen Blood Performing Organization Address City/[facility]/Zipcode Phone Number [facility] DEPARTMENT OF PATHOLOGY AND [address] [place] [address] [phone] [address] Sedimentation rate (12/06/2019 12:14 AM CDT) Pathologist Sig nature Sedimentation rate 7 0 - 20 mm/hr [facility] Specimen Blood Performing Organization Address City/[facility]/Zipcode Phone Number [facility] DEPARTMENT OF PATHOLOGY AND [address] [place] [address] [phone] [address] Prothrombin time with INR (12/06/2019 12:14 AM CDT) [facility] Prothrombin time 12.3 11.5 - 14.5 [facility] INR 0.9 [facility] Comment: [facility] The International Normalized Ratio (INR) is a [facility] monitoring tool for patients who are stable on oral anticoagulant therapy. An INR of 2.0-3.0 is suggested for deep vein thrombosis/pulmonary embolism. Specimen Blood Performing Organization Address City/[facility] Centercode Phone Number [facility] DEPARTMENT OF PATHOLOGY AND [address] [place] [address] [phone] [address] CBC with platelet and differential (12/06/2019 12:14 AM CDT) Pathologist [facility] WBC 6.18 4.50 - 11.00 [facility] k/uL [facility] RBC 4.03 (L) 4.20 - 5.50 [facility] m/uL [facility] HGB 10.5 (L) 12.0 - 16.0 [facility] g/dL [facility] HCT 33.9 (L) 37.0 - 47.0 % [facility] MCV 84.1 82.0 - 100.[address] [facility] [place] [place] MCH 26.1 (L) 27.0 - 34.0 pg [facility] MCHC 31.0 31.0 - 37.0 [facility] RDW - SD 43.4 37.0 - 55.0 fL [facility] MPV 9.4 8.8 - 13.2 fL [facility] Platelet count 293 150 - 400 k/uL [facility] Nucleated RBC 0.00 /100 WBC [facility] Neutrophils 54.7 39.0 - 69.0 % [facility] Lymphocytes 33.7 25.0 - 45.0 % [facility] Monocytes 6.1 0.0 - 10.0 % [facility] Eosinophils 4.2 0.0 - 5.0 % [facility] Basophils 0.8 0.0 - 1.0 % [facility] Immature granulocytes 0.5Comment: 0.0 - 1.0 % [facility] "Immature HOSPITAL granulocytes" (promyelocytes , myelocytes, metamyelocytes ) Specimen Blood Performing Organization Address City/[facility]oid Phone Number [facility] DEPARTMENT OF PATHOLOGY AND [address] [place] [address] [place] [phone] C-reactive protein (12/06/2019 12:14 AM CDT) Pathologist Sig nature CRP 0.32 0.00 - 0.50 mg/dL [facility] Specimen Blood Performing Organization Address [facility] Phone Number [facility] DEPARTMENT OF PATHOLOGY AND [address] [place] [address] [phone] [address] Phosphorus level (12/06/2019 12:14 AM CDT) Pathologist Sig nature Phosphorus 4.1 2.4 - 4.5 mg/dL [facility] Specimen Blood Performing Organization Address [facility] Phone Number [facility] DEPARTMENT OF PATHOLOGY AND [address] [place] [address] [phone] [address] Magnesium level (12/06/2019 12:14 AM CDT) Pathologist Sig nature Magnesium 1.8 1.6 - 2.6 mg/dL [facility] Specimen Blood Performing Organization Address [facility] Phone Number [facility] DEPARTMENT OF PATHOLOGY AND [address] [place] [address] [place] [phone] Comprehensive metabolic panel (12/06/2019 12:14 AM CDT) Sodium 141 135 - 148 [facility] mEq/L HOSPITAL Potassium 4.3 3.5 - 5.0 [facility] mEq/L [facility] Chloride 107 98 - 112 [facility] mEq/L [facility] CO2 21 (L) 24 - 31 mEq/L [facility] Anion gap 13@ANIO 7 - 15 mEq/L [facility] BUN 12 6 - 20 mg/dL [facility] Creatinine 0.90 0.50 - 0.90 [facility] mg/dL [facility] Glucose 101 (H) 65 - 99 mg/dL [facility] Calcium 9.2 8.3 - 10.2 [facility] mg/dL [facility] Protein 6.6 6.3 - 8.3 [facility] Comment: g/dL [facility] [place] 4.6-7.0 g/dL 1 week 4.4-7.6 g/dL 7 months-1year 5.1-7.3 g/dL 1-2 years 5.6-7.5 g/dL >3 years 6.0-8.0 g/dL 18-150 6.3-8.3 g/dL Albumin 3.7 3.5 - 5.0 [facility] g/dL [facility] A/G ratio 1.3 0.7 - 3.8 [facility] Alkaline phosphatase 58 35 - 104 U/L [facility] AST 11 10 - 35 U/L [facility] ALT <5 (A) 5 - 50 U/L [facility] Total bilirubin 0.3 0.0 - 1.2 [facility] mg/dL [facility] Specimen Blood Performing Organization Address [facility]/State/Zipcode Phone Number [facility] DEPARTMENT OF PATHOLOGY AND [address] [place], [place] [phone] GENOMIC MEDICINE [facility] [address] [place] [phone] after 04/10/2019 Advance Directives For more information, please contact: [phone] Type Date Recorded 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
--- OUTSIDE RECORDS SUMMARY | 2020-04-10 11:09 | XMS REPORT | Continuity of Care Document ---
:1970 Author Organization [facility] t Address [address] [place] [address] Care Team Providers Name Role Phone Alexx Del Toro MD Primary Care Physician Thang [place] Attending Clinician Payers Payer Name Policy Type Policy Number Effective Date Expiration Date S spring CIGNACIGNA OPEN xxxxxxxxxxx 2017 [place] ACCESS/NETWORKxx 00:00:00 Methodis t [id number] Problems Condition Condition Condition Status Onset [...] St swelling swelling [facility] Iron Iron Problem Active [facility] deficiency deficiency Camila kes - anemia, anemia, Memoria unspecifie unspecifie l d iron d iron [facility] deficiency deficiency en t anemia anemia Clinics type type Fatigue, Fatigue, Problem Active [facility] unspecifie unspecifie Camila kes - d type d type [facility] Hypotensio Hypotensio Problem Active [...] d syncope Mich sherri type type l [facility] Left lower Left lower Problem Active [facility] quadrant quadrant [facility] pain pain [facility] Chest Chest Problem Active [facility] pain, pain, [facility] - unspecifie unspecifie Me moria d type d type l [facility] Abnormal Abnormal Problem Active [facility] liver liver [facility] function function Memori a test test l [facility] Vitamin D Vitamin D Problem Active [facility] deficiency deficiency Camila kes - [facility]ics Left Left Problem Active [facility] ovarian ovarian [facility] cyst cyst [facility] Paresthesi Paresthesi Problem Active [facility] as as [facility] Other Other Problem Active [facility] chronic chronic [facility] pain pain [facility] Neck pain Neck pain Problem Active [facility] Dorsalgia, Dorsalgia, Problem Active C [facility] unspecifie unspecifie Camila kes - d d [facility] Gastroesop Gastroesop Problem Active C [facility] hageal hageal [facility] - reflux reflux Memoria disease disease l without without [facility] esophagiti esophagiti en t s s Clinics URI, acute URI, acute Diagnosis Active [facility] Acute Acute Diagnosis Active [facility] pharyngiti pharyngiti Camila kes - s, s, Memoria unspecifie unspecifie l d etiology d etiology Ou tpati ent Clinics Allergies, Adverse Reactions, Alerts Allergy Allergy Status Severity Reaction(s) Onset Inactive Treating Comm ents Source Name Type Date Date Clinician Coconmegan Propensi Active Other (See Edema in [facility] ty to Comments) 3-14 ears Methodi adverse [...] in Reaction twitching [facility] Social History Social Habit Start Date Stop Date Quantity Comments Source Sex Assigned At [place] [facility] Alcohol intake 2019-12-06 2019-12-06 Current non-drinker [facility] 00:00:00 00:00:00 of alcohol [facility] (finding) Tobacco Comment 2018-05-04 2018-05-04 3-4 cigarrettes at [facility] 00:00:00 00:00:00 day [facility] History of 2018-02-21 Current smoker [place] tobacco use 00:00:00 [facility] Smoking Status Start Date Stop Date Source Former smoker 2019-12-06 00:00:00 2019-12-06 00:00:00 [place] [facility] Medications Ordered Filled Start Stop Current Ordering Indication Dosage Frequency Signature Comments Components Source Medication Medication Date Date Medication? Clinician (SIG) Name Name gabapentin No 400mg [id number] Take 400 [place] (NEURONTIN) 12-05 [id number] mg by Method[facility] 250 mg/5 mL 04:06: 00:[address] solution 40 :00 (three) times a day. gabapentin 2020-0 2020- No 400mg Q.[id number] Take 400 [place] (NEURONTIN) 12-05-15 [id number] mg by [facility] 400 mg 03:24: 00:[address] capsule 37 :00 (three) times a day. diclofenac 2019-0 2020- No Q.25D Apply [place] (VOLTAREN) 12-05 04-14 topically Met kristen 1 % gel 00:00: 23:59 4 (four) st 00 :00 times a day for 30 days. gabapentin 2019-0 2020- No 300mg Q.[id number] Take 1 [place] (NEURONTIN) 12-05 [id number] capsule [facility] 300 mg 00:00: 23:59 3D ([address] capsule 00 :00 total) by mouth 3 (three) times a day for 10 days. lidocaine 2019-0 2020- No 1{patch Q24H Place 1 [place] [...] as needed for mild pain. Meloxicam Meloxicam 2019- No [place] [address] - 05-09 [facility] - 00:00: 00:00 Memoria [...] Memoria 00 l Outpati ent Clinics FLUoxetine 0 Yes 20mg QD Take 20 mg [place] (PROzac) 20 8-19 by mouth Meth frank mg/5 mL (4 11:08: daily. st mg/mL) 23 solution lithium 300 0 Yes 900mg QD Take 900 [place] [...] - morning Memoria l Outpati ent Clinics [place] [address] Carbonate [...] 2019-12-06 03:55:00 119 mm[Hg] José Miguel n [facility] pressure Diastolic blood 2019-12-06 03:55:00 64 mm[Hg] [place] on [facility] pressure Heart rate 2019-12-06 03:55:00 68 /min Félix [facility] Respiratory rate 2019-12-06 03:55:00 20 /min Dagoberto ton [facility] Oxygen saturation in 2019-12-06 03:55:00 98 /min Félix Madsen Arterial blood by Pulse oximetry Body height 2019-12-05 23:08:00 160 cm Félix [facility] Body temperature 2019-12-05 23:07:12 36.39 Faride[place] Dagoberto ton [facility] Procedures Procedure Date / Time Performing Clinician Source Performed US DUPLEX VENOUS LOWER 2019-12-06 03:15:00 Richar Thomson on [facility] EXTREMITY RIGHT XR KNEE 1 OR 2 VW RIGHT 2019-12-06 00:21:34 Richar Thomson [facility] HC COMPLETE BLD COUNT 2019-12-06 00:14:00 Richar Thomson [facility] W/AUTO DIFF PROTHROMBIN TIME WITH INR 2019-12-06 00:14:00 Richar Thomson [facility] PARTIAL THROMBOPLASTIN 2019-12-06 00:14:00 Richar Thomson on [facility] TIME (PTT) COMPREHENSIVE METABOLIC 2019-12-06 00:14:00 Richar Thomson [facility] PANEL PHOSPHORUS LEVEL 2019-12-06 00:14:00 Richar Thomson Met hodist MAGNESIUM LEVEL 2019-12-06 00:14:00 Richar Thomson Meth odist SEDIMENTATION RATE 2019-12-06 00:14:00 Richar Thomson ethodist C-REACTIVE PROTEIN 2019-12-06 00:14:00 Richar Thomson ethodist ESTIMATED GFR 2019-12-06 00:14:00 [place] Posada Félix Meth odist Plan of Care Planned Activity Planned Date Details Comments Source Future Scheduled 2020-04-23 INFLUENZA VACCINE José Miguel mendez [facility] Test 00:00:00 [code = INFLUENZA VACCINE] Future Scheduled 1993 Screening for [facility] thodist Test 00:00:00 malignant neoplasm of cervix (procedure) [code = 969338028] Encounters Start End Encounter Admission Attending Care Care Encounter Source Date/Time Date/Time Type Type Clinicians Facility Department ID 2019-12-05 2019-12-06 Emergency THANG [facility] 064 [id number] [address] [place] 00:00:00 00:00:00 [place] [address] 2019-09-07 2019-09-07 Emergency E [facility] 7500 [facility] 16:43:00 16:43:00 2018-12-31 2018-12-31 [facility] [id number] 08:47:00 08:47:00 t [facility] Outpati ent Clinics 2018-12-30 2018-12-30 [facility] [id number] 16:20:00 16:20:00 [facility] Medicine Outpati ent Clinics 2018-09-09 2018-09-09 [facility] [id number] 09:45:00 09:45:00 t [facility] Medicine Outpati ent Clinics 2018-05-15 2018-05-15 [facility] [id number] 08:45:00 08:45:00 t [facility] Medicine Outpati ent Clinics 2018-04-16 2018-04-16 [facility] [id number] 11:03:00 11:03:00 t [facility] Medicine Outpati ent Clinics 2018-04-16 2018-04-16 [facility] [id number] 09:00:00 09:00:00 t [facility] Medicine Outpati ent Clinics 2018-04-11 2018-04-11 [facility] [id number] 11:28:00 11:28:00 t Urgent Urgent Care L [facility] Outpati ent Clinics 2018-04-09 2018-04-09 [facility] [id number] 09:00:00 09:00:00 [facility] s [facility] Medicine Medicine Outpati ent Clinics Results Test Description Test Test Results Result Source Time Comments Comments Us duplex venous 2019-11- Interface, Radiology [place] lower extremity 15 Results In - 12/06/2019 [facility] 08:54:00 8:54 AM CDT Vascular Ultrasound Laboratory Lower Extremity Venous Report [address] [facility], [place] [address], [place] [address] Pat.Name: TANIKA BOJORQUEZ Pat.ID: [id number] .Date: 12/06/2019 Refer.MD: PHYSICIAN, EMERGENCY, MDExam Time: 2:52:00 AM Study Type:LE Venous Age: 9 1970,49Y Sex: FEMALE Sonogrphr: Loyd Pisano BA, BS, RDMS, RVTPat. Stat.:Inpatient Room: [facility] Vol: LULA, CPT - 4: 53212 Echo Event ID:[id number] Order ID: [id number] Reason for Study:Leg swelling or pain, DVT [...] Interpretation Comme nts PTT (test code = 37604-3) 24.8 23.0- 36.0 sec PTT therapeutic range for unfractionated heparin is61.0-112.0 seconds which c orresponds to Anti-Xa0.3-0.7 U/ml. [place] MethodistProthrombin time with [id number] 00:59:04 Test Item Value Reference Range Interpretation Comments Prothrombin time (test 12.3 11.5- 14.5 sec code = 5902-2) INR (test code = 0.9 [facility] 24110[facility]0) Normalized Rati o (INR) is a therapeutic m onitoring tool for patien ts who are stable on oral anticoagulant t herapy. An INR of 2.0-3.0 is suggested for d eep vein thrombosis/pulm onary embolism. [place] MethodistComprehensive metabolic [id number] 00:56:19 Test Item Value Reference Range Interpretation Comments Sodium (test code = 141 135- 148 mEq/L 2951-2) Potassium (test code = 4.3 3.5- 5.0 mEq/L 2823-3) Chloride (test code = 107 98- 112 mEq/L 2075-0) CO2 (test code = 2027-9) 21 24- 31 mEq/L L Anion gap (test code = 13@ANIO 7- 15 mEq/L 73078-2) BUN (test code = 3094-0) 12 mg/dL 6-20 Creatinine (test code = 0.90 mg/dL 0.5-0.9 0-0) Glucose (test code = 101 mg/dL 65-99 H 2345-7) Calcium (test code = 9.2 mg/dL 8.3-10.2 22357-9) Protein (test code = 6.6 g/dL 6.3-8.3 -[place] n 2885-2) 4.6-7.0 g/dL1 week 4.4-7 .6 g/dL7 months-1y ear 5.1-7 .3 g/dL1-2 years 5.6-7 .5 g/dL>3 years 6.0-8 .0 g/gM17-518 6.3-8 .3 g/dL Albumin (test code = 3.7 g/dL 3.5-5 175-7) A/G ratio (test code = 1.3 0.7-3.8 1759-0) Alkaline phosphatase 58 U/L 35-104 (test code = 6768-6) AST (test code = 1920-8) 11 U/L 10-35 ALT (test code = 1742-6) <5 5-50 A Total bilirubin (test 0.3 mg/dL 0-1.2 code = 1974-2) Lab Interpretation (test Abnormal code = 21780-3) Félix MethodistMagnesium [id number] 00:56:19 Test Item Value Reference Range Interpretation Comments Magnesium (test code = 29291-4) 1.8 mg/dL 1.6-2.6 [facility] MethodistEstimated [id number] 00:56:19 Test Item Value Reference Range Interpretation Comments Estimated GFR (test 76 mL/min/1.73 m2 Caterg ory Units code = 5488) InterpretationG 1 >=90 Normal or highG2 60-89 Mildly ppdtqbfeoF4d 45-59 Mildly to mode rately lnkrmpxflQ7k 30-44 Moderately to severely decreasedG4 15-29 Severely decre asedG5 <15 Kidn ey failureThe eGFR was calculated watson [place] the Chronic Kidney Disease Epidemiology Co llaboration (CKD-EPI) equat ion. Interpretation is based on recommendations of the National Kidney Foundation-Kidn ey Disease Outcomes Qualit y Initiative (NKF-KDOQI) pub lished in 2014. [place] MethodistPhosphorus [id number] 00:56:18 Test Item Value Reference Range Interpretation Comments Phosphorus (test code = 2777-1) 4.1 mg/dL 2.4-4.5 Félix MadsenC-reactive [id number] 00:56:16 Test Item Value Reference Range Interpretation Comments CRP (test code = 1988-5) 0.32 mg/dL 0-0.5 Félix MethodistSedimentation [id number] 00:39:45 Test Item Value Reference Range Interpretation Comments Sedimentation rate (test code = 7 0- 20 mm/hr 78189-9) Félix MethodariannaCBC with platelet and [id number] 00:34:33 Test Item Value Reference Range Interpretation Comments WBC (test code = 18110-3) 6.18 4.50- 11.00 k/uL RBC (test code = 36733-5) 4.03 m/uL 4.2-5.5 L HGB (test code = 718-7) 10.5 g/dL 12-16 L HCT (test code = 4544-3) 33.9 % 37-47 L MCV (test code = 787-2) 84.1 fL 82-100 MCH (test code = 785-6) 26.1 pg 27-34 L MCHC (test code = 786-4) 31.0 g/dL 31-37 RDW - SD (test code = 43.4 fL 37-55 24439-6) MPV (test code = 46054-9) 9.4 fL 8.8-13.2 Platelet count (test code 293 150- 400 k/uL = 04205-8) Nucleated RBC (test code 0.00 /100 WBC = 56799-3) Neutrophils (test code = 54.7 % 39-69 01480-8) Lymphocytes (test code = 33.7 % 25-45 91572-4) Monocytes (test code = 6.1 % 0-10 10292-5) Eosinophils (test code = 4.2 % 0-5 97766-7) Basophils (test code = 0.8 % 0-1 51453-5) Immature granulocytes 0.5 % 0-1 "Immat ure (test code = 29122-8) granul ocytes" (promyelocytes, myelocytes, metamyelocytes) Lab Interpretation (test Abnormal code = 52975-3) Félix MadsenXR Knee 1 Or 2 Vw [id number] 00:29:55Hm Interface, Radiology Results - 12/06/2019 12:33 AM CDTEXAMINATION: XR KNEE 1 OR 2 VW RIGHTCLINICAL HISTORY: Post surgery painCOMPARISON: None.IMPRESSION:No evidence of acute right knee fracture or dislocation. Bone mineralization is normal. Small suprapatellar effusion. Few soft tissue zuri about the knee.[facility]-[id number] Tenriism
[2020-04-10] MEDS ORDERED: HYDROCODONE/CHLORPHEN 5 ML/OSYR ONE (13:07)
--- NOTE | 2020-04-10 13:18 | RAD REPORT ---
EXAM DESCRIPTION: RAD - Chest Single View - 04/10/2020 1:12 pm CLINICAL HISTORY: COVID+;Chest pain;Cough Chest pain. COMPARISON: Chest Single View dated 01/17/2020; Chest Pa And Lat (2 Views) dated 12/07/2018; Chest Sin gle View dated 11/10/2018; Chest Single View dated 10/29/2018 FINDINGS: Portable technique limits examination quality. Mild bilateral interstitial lung opacities are seen, greatest in the right base, most compatible with interstitial pneumonitis. The heart is normal in size. No displaced fractures.
--- NOTE | 2020-04-10 13:23 | ER ---
Nurse's Notes [facility] Name: Nithin Beth Age: 50 yrs Sex: Female : 1970 Arrival Date: 04/10/2020 Time: 11:10 Bed 20 Private MD: Diagnosis: Acute interstitial pneumonitis Presentation: 04/10 11:20 Chief complaint: Patient states: +COVID. "The chest is getting worse. When I cough it ss hurts horribly. Coronavirus screen: Patient reports a cough. Patient reports shortness of breath or difficulty breathing. Patient reports a measured and/or subjective temperature greater than 100.4F. Ebola Screen: Patient denies exposure to infectious person. Patient denies travel to an Ebola-affected area in the 21 days before illness onset. Initial Sepsis Screen: Does the patient meet any 2 criteria? No. Patient's initial sepsis screen is negative. Does the patient have a suspected source of infection? No. Patient's initial sepsis screen is negative. Risk Assessment: Do you want to hurt yourself or someone else? Patient reports no desire to harm self or others. Onset of symptoms was March 31, 2020. 11:20 Method Of Arrival: Ambulatory ss 11:20 Acuity: HUSAM 3 ss Historical: - Allergies: 11:25 Demerol; ss 11:25 Erythromycin; ss 11:25 TETRACYCLINES; ss 11:25 Toradol; ss 11:25 Zofran; ss - PMHx: 11:25 "Possibly Fibromyalgia"; Bipolar disorder; Chronic pain; Pancreatitis; ss - PSHx: 11:25 right knee surgery; ss - Immunization history:: Adult Immunizations up to date. - Social history:: Smoking status: Patient denies any tobacco usage or history of. Screenin:00 Abuse screen: Denies threats or abuse. Denies injuries from another. Nutritional ss screening: No deficits noted. Tuberculosis screening: Never had TB. Fall Risk None identified. Assessment: 12:00 General: Appears uncomfortable, ill, Behavior is calm, cooperative. Pain: Complains of ss pain in chest Pain currently is 8 out of 10 on a pain scale. Quality of pain is described as aching, tender, Aggravated by coughing. Neuro: Level of Consciousness is awake, alert, obeys commands, Oriented to person, place, time, situation. Cardiovascular: Pulses are palpable in right radial artery and left radial artery. Respiratory: Reports shortness of breath at rest on exertion cough that is productive, non-productive, pain with cough pain with respiration Airway is patent Respiratory effort is even, unlabored, Respiratory pattern is regular, symmetrical. GI: Patient currently denies abdominal pain, diarrhea, nausea, vomiting. EENT: Oral mucosa is moist. Derm: Skin is intact, is healthy with good turgor, Skin is dry, Skin is pink, warm \\T\\ dry. normal. Musculoskeletal: Circulation, motion, and sensation intact. Range of motion: intact in all extremities, Swelling absent. Vital Signs: 11:20 BP 98 / 54; Pulse 89; Resp 17; Temp 98.3; Pulse Ox 95% on R/A; Weight 83.46 kg; Height ss 5 ft. 3 in. (160.02 cm); Pain 8/10; 13:00 BP 94 / 69 LA (auto/reg); Pulse 84; Pulse Ox 100% on R/A; jp3 11:20 Body Mass Index 32.59 (83.46 kg, 160.02 cm) ss ED Course: 11:10 Patient arrived in ED. fj1 11:24 Triage completed. ss 11:24 Milagros Howe FNP-C is [facility] kb 11:24 Sulaiman Garcia MD is Attending Physician. kb 11:25 Arm band placed on right wrist. ss 12:00 Patient has correct armband on for positive identification. Bed in low position. Call ss light in reach. 12:28 Veronica Villalpando, RON is Primary Nurse. ss 12:30 Warm blanket given. Verbal reassurance given. color television console monitor on. Pulse ox on. NIBP on. jp3 12:30 Patient maintains SpO2 saturation greater than 95% on room air. jp3 12:30 EKG done, by ED staff, reviewed by Milagros FINNEGAN. jp3 13:02 X-ray(s) taken. jp3 13:12 Chest Single View XRAY In Process Unspecified. EDMS 13:32 No provider procedures requiring assistance completed. Patient did not have IV access ss during this emergency room visit. Administered Medications: 13:04 Drug: Tussionex Pennkinetic ER 5 ml Route: PO; ll1 13:32 Follow up: Response: No adverse reaction; Medication administered at discharge. ss Outcome: 13:22 Discharge ordered by . damien 13:32 Discharged to home ambulatory. ss 13:32 Condition: good 13:32 Discharge instructions given to patient, Instructed on discharge instructions, follow up and referral plans. medication usage, Demonstrated understanding of instructions, follow-up care, medications, Prescriptions given X 2. 13:33 Patient left the ED. Signatures: Dispatcher [employer] EDMS Milagros Howe, BENJAMIN-C MILL RECORDER-Veronica Castillo, RN RN Sebastian Dunne jp3 Panchito Kilpatrick fj1 Piyush Lama, RN RN ll1 Corrections: (The following items were deleted from the chart) 13:02 12:50 X-ray(s) taken. jp3 jp3
--- NOTE | 2020-04-10 13:23 | EDPHYS ---
Physician Documentation [facility] Name: Nithin Beth Age: 50 yrs Sex: Female : 1970 Arrival Date: 04/10/2020 Time: 11:10 Bed 20 Private MD: BRYCE Physician Sulaiman Garcia HPI: 04/10 12:44 This 50 yrs old Female presents to ER via Ambulatory with complaints of Covid kb Pos, Symptoms getting worse. 12:44 The patient or guardian reports cough, described as moderate, difficulty breathing. kb Onset: The symptoms/episode began/occurred 9 day(s) ago, and became worse. Severity of symptoms: At their worst the symptoms were moderate, in the emergency department the symptoms are unchanged. Modifying factors: The symptoms are alleviated by nothing, the symptoms are aggravated by nothing. Associated signs and symptoms: Pertinent positives: chest pain, with cough, Pertinent negatives: diarrhea, ear ache, fever, nausea, rhinorrhea, sore throat, vomiting. The patient has not experienced similar symptoms in the past. The patient has not recently seen a physician. Pt reports she was tested for covid approx 9 days ago and is positive. States the cough and shortness of breath have gotten worse and the cough is causing pain to her chest. Pt has been taking "covid medications" as prescribed, including zinc, zithromax and hydroxychloroquine . Historical: - Allergies: 11:25 Demerol; ss 11:25 Erythromycin; ss 11:25 TETRACYCLINES; ss 11:25 Toradol; ss 11:25 Zofran; ss - PMHx: 11:25 "Possibly Fibromyalgia"; Bipolar disorder; Chronic pain; Pancreatitis; ss - PSHx: 11:25 right knee surgery; ss - Immunization history:: Adult Immunizations up to date. - Social history:: Smoking status: Patient denies any tobacco usage or history of. ROS: 12:39 Neck: Negative for injury, pain, and swelling, Abdomen/GI: Negative for abdominal pain, kb nausea, vomiting, diarrhea, and constipation, Back: Negative for injury and pain, MS/Extremity: Negative for injury and deformity, Skin: Negative for injury, rash, and discoloration, Neuro: Negative for headache, weakness, numbness, tingling, and seizure. 12:39 Constitutional: Positive for fatigue, malaise. 12:39 Cardiovascular: Positive for chest pain, with cough, Negative for edema, orthopnea, palpitations, paroxysmal nocturnal dyspnea. 12:39 Respiratory: Positive for cough, Negative for dyspnea on exertion, hemoptysis, orthopnea, pleurisy, shortness of breath, sputum production, wheezing. Exam: 12:43 Constitutional: This is a well developed, well nourished patient who is awake, alert, kb and in no acute distress. Head/Face: Normocephalic, atraumatic. Chest/axilla: Normal chest wall appearance and motion. Nontender with no deformity. No lesions are appreciated. Cardiovascular: Regular rate and rhythm with a normal S1 and S2. No gallops, murmurs, or rubs. Normal PMI, no JVD. No pulse deficits. Respiratory: Lungs have equal breath sounds bilaterally, clear to auscultation and percussion. No rales, rhonchi or wheezes noted. No increased work of breathing, no retractions or nasal flaring. Abdomen/GI: Soft, non-tender, with normal bowel sounds. No distension or tympany. No guarding or rebound. No evidence of tenderness throughout. Back: No spinal tenderness. No costovertebral tenderness. Full range of motion. Skin: Warm, dry with normal turgor. Normal color with no rashes, no lesions, and no evidence of cellulitis. MS/ Extremity: Pulses equal, no cyanosis. Neurovascular intact. Full, normal range of motion. Neuro: Awake and alert, GCS 15, oriented to person, place, time, and situation. Cranial nerves II-XII grossly intact. Motor strength 5/5 in all extremities. Sensory grossly intact. Cerebellar exam normal. Normal gait. 12:43 ECG was reviewed by the Attending Physician. Vital Signs: 11:20 BP 98 / 54; Pulse 89; Resp 17; Temp 98.3; Pulse Ox 95% on R/A; Weight 83.46 kg; Height ss 5 ft. 3 in. (160.02 cm); Pain 8/10; 13:00 BP 94 / 69 LA (auto/reg); Pulse 84; Pulse Ox 100% on R/A; jp3 11:20 Body Mass Index 32.59 (83.46 kg, 160.02 cm) MDM: 11:25 Patient medically screened. kb 12:39 Data reviewed: vital signs, nurses notes. Data interpreted: Pulse oximetry: on room air kb is 95 %. Interpretation: normal. 13:21 Counseling: I had a detailed discussion with the patient and/or guardian regarding: the kb historical points, exam findings, and any diagnostic results supporting the discharge/admit diagnosis, radiology results, the need for outpatient follow up, a family practitioner, to return to the emergency department if symptoms worsen or persist or if there are any questions or concerns that arise at home. 04/10 11:25 Order name: Chest Single View XRAY; Complete Time: 13:21 kb 04/10 11:25 Order name: EKG; Complete Time: 11:26 kb 04/10 11:25 Order name: EKG - Nurse/Tech; Complete Time: 12:29 kb EC:43 Rate is 86 beats/min. Rhythm is regular. QRS [place] is Normal. CA interval is normal at kb 136 msec. QRS interval is normal at 82 msec. QT interval is normal at 374 msec. Administered Medications: 13:04 Drug: Tussionex Pennkinetic ER 5 ml Route: PO; ll1 13:32 Follow up: Response: No adverse reaction; Medication administered at discharge. Disposition: 18:09 Co-signature as Attending Physician, Sulaiman Garcia MD I agree with the assessment and deborah plan of care. Disposition: 04/10/20 13:22 Discharged to Home. Impression: Acute interstitial pneumonitis. - Condition is Stable. - Discharge Instructions: Pneumonitis. - Prescriptions for Albuterol Sulfate 90 mcg/actuation - inhale 1-2 puff by INHALATION route every 4-6 hours; 1 Inhaler. dexamethasone 2 mg Oral tablet - take 1 tablet by ORAL route 3 times per day; 6 tablet. - Medication Reconciliation Form, Thank You Letter, Antibiotic Education, Prescription Opioid Use form. - Follow up: Emergency Department; When: As needed; Reason: Worsening of condition. Follow up: Private Physician; When: 2 - 3 days; Reason: Recheck today's complaints, Continuance of care, Re-evaluation by your physician. Signatures: Dispatcher [employer] [facility] Milagros Howe FNP-C FNP-Ckb Anderson, Corey, MD MD cha Smirch, Shelby, RN RN Piyush Lama RN RN ll1 Corrections: (The following items were deleted from the chart) 13:33 13:22 04/10/2020 13:22 Discharged to Home. Impression: Acute interstitial pneumonitis. ss Condition is Stable. Forms are Medication Reconciliation Form, Thank You Letter, Antibiotic Education, Prescription Opioid Use. Follow up: Emergency Department; When: As needed; Reason: Worsening of condition. Follow up: Private Physician; When: 2 - 3 days; Reason: Recheck today's complaints, Continuance of care, Re-evaluation by your physician. kb
[2020-04-10 13:38] VITALS: TEMP 98.3
[2020-04-10 13:39] VITALS: BP 94/69; O2SAT 100
== END 2020-04-10 13:33 | disposition home or self-care (01) ==
LOC: ER 11:05
DX: J84.114 Acute interstitial pneumonitis (principal); Z88.1 Allergy status to other antibiotic agents; Z88.5 Allergy status to narcotic agent; Z88.8 Allergy status to other drugs, medicaments and biological substances
CPT/HCPCS: 71045; 93005; 99285

== ENCOUNTER 2020-04-13 10:11 | Emergency (ER) | payer OTHER ==
--- NOTE | 2020-04-13 11:04 | RAD REPORT ---
EXAM DESCRIPTION: RAD - Chest Single View - 04/13/2020 10:53 am CLINICAL HISTORY: DYSPNEA Chest pain. COMPARISON: Chest Single View dated 04/10/2020; Chest Single View dated 01/17/2020; Chest Pa And Lat ( 2 Views) dated 12/07/2018; Chest Single View dated 11/10/2018 FINDINGS: Portable technique limits examination quality. The lungs are grossly clear. The heart is normal in size. No displaced fractures. IMPRESSION: No acute intrathoracic process suspected.
[2020-04-13] MEDS ORDERED: NA CHLORIDE 0.9% 1,000 ML ONE (11:05)
[2020-04-13] MEDS ORDERED: ONDANSETRON 4 MG/2 ML VIAL ONE (11:05)
--- OUTSIDE RECORDS SUMMARY | 2020-04-13 11:38 | XMS REPORT | Clinical Summary ---
:1970 Author Organization [facility] Address [address] [place] [address] Care Team Providers Name Role Phone Ramez Del Toro MD Primary Care Provider [phone] Allergies Active Allergy Reactions Severity Noted Date [...] knee (Primary D x) 12/05/2019 Travel after 04/13/2019 Social History Tobacco Use Types Packs/Day Years [...] are i n the results section. after 04/13/2019 Results Us duplex venous lower extremity (12/06/2019 3:15 AM CDT) Specimen Narrative Performed At [facility] Vascular U ltrasound Laboratory Lower Extr emity Venous Report [id number] [facility], [place] [address], [place] [address] Pat.Name: NITHIN BOJORQUEZ Pat.ID: [id number] .Date: 12/06/2019 Refer.MD: PHYSICIAN, EMERGENCY, MD Exam Time: 2:52:00 AM Study Type:L E Venous Age: 7 1970,49Y Sex: FEMALE Sonogrphr: Loyd Pisano, BA, BS, RDMS, RVT Pat. Stat.:Inpatient Room: [facility] Vol: LULA, CPT - 4: 06465 Echo Berta nt ID:[id number] Order ID: [id number] Reason for Study:Leg swelling or pain, D [...] Ultrasound Laboratory Lower Extremity Veno us Report [id number] [address] Pat.Name: NITHIN BOJORQUEZ I D: [id number] .Date: 12/06/2019 Refer .MD: PHYSICIAN, EMERGENCY, MD Exam Time: 2:52:00 AM Study Type:LE Venous Age: 7 1970,49Y Sex: FEMALE Sonogrphr: Loyd Pisano, BA, BS, RDMS, RVT Pat. Stat.:Inpatient Room: [facility] Vol: LULA, CPT - 4: 35129 Echo Event ID:[id number] Order ID: [id number] Reason for Study:Leg swelling or pain, D [...] Frantz Lawrence MD, RPVI Performing Organization Address City/[facility]/Zipcode Phone Number CUP[facility] [address] [place] [address] XR Knee 1 Or 2 Vw Right (12/06/2019 12:21 AM CDT) Specimen Narrative Performed At EXAMINATION: XR KNEE 1 OR 2 VW RIGHT [facility] CLINICAL HISTORY: Post surgery pain COMPARISON: None. IMPRESSION: No evidence of acute right knee fracture or dislocatio n. Bone mineralization is normal. Small suprapatellar effusion . Few soft tissue zuri about the knee. [facility]-[id number] Procedure Note Interface, Radiology Results Incoming - 12/06/2019 12:33 AM CDT EXAMINATION: XR KNEE 1 OR 2 VW RIGHT CLINICAL HISTORY: Post surgery pain COMPARISON: None. IMPRESSION: No evidence of acute right knee fracture or dislocation. Bone mineralization is normal. Small suprapatellar effusion. Few soft tissue zuri about the knee. [facility]-[id number] Performing Organization Address [facility] Phone Number [facility] [address] [place] [address] Estimated GFR (12/06/2019 12:14 AM CDT) Estimated GFR 76 mL/min/1.73 [place] [facility] Comment: [address] Catergory Units Interpretation G1 >=90 Normal [...] 2014. Specimen Performing Organization Address [facility]/Zipcode Phone Number [facility] DEPARTMENT OF PATHOLOGY AND [address] [place] [phone] [facility]IC[facility] [address] [address] Partial thromboplastin time, activated (12/06/2019 12:14 AM CDT) PTT 24.8 23.0 - 36.0 [place] [facility] Comment: [facility] PTT therapeutic range for unfractionated heparin is 61.0-112.0 seconds which corresponds to Anti-Xa 0.3-0.7 U/ml. Specimen Blood Performing Organization Address City/[facility]/Zipcode Phone Number [facility] DEPARTMENT OF PATHOLOGY AND [address] [place] [address] [phone] [address] Sedimentation rate (12/06/2019 12:14 AM CDT) Pathologist Sig nature Sedimentation rate 7 0 - 20 mm/hr [facility] Specimen Blood Performing Organization Address City/[facility]/Zipcode Phone Number [facility] DEPARTMENT OF PATHOLOGY AND [address] [place] [address] [phone] [address] Prothrombin time with INR (12/06/2019 12:14 AM CDT) [facility] Prothrombin time 12.3 11.5 - 14.5 [facility] INR 0.9 [place] Comment: [facility] The International Normalized Ratio (INR) is a [facility] monitoring tool for patients who are stable on oral anticoagulant therapy. An INR of 2.0-3.0 is suggested for deep vein thrombosis/pulmonary embolism. Specimen Blood Performing Organization Address City/[facility] Phone Number [facility] DEPARTMENT OF PATHOLOGY AND [address] [place] [address] [phone] [address] CBC with platelet and differential (12/06/2019 12:14 AM CDT) Pathologist [facility] WBC 6.18 4.50 - 11.00 [facility] k/uL [facility] RBC 4.03 (L) 4.20 - 5.50 [facility] m/uL [facility] HGB 10.5 (L) 12.0 - 16.0 [facility] g/dL [facility] HCT 33.9 (L) 37.0 - 47.0 % [facility] MCV 84.1 82.0 - 100.0 [facility] MCH 26.1 (L) 27.0 - 34.0 pg [facility] MCHC 31.0 31.0 - 37.0 [facility] RDW - SD 43.4 37.0 - 55.0 fL [facility] MPV 9.4 8.8 - 13.2 fL [facility] Platelet count 293 150 - 400 k/uL [facility] Nucleated RBC 0.00 /100 WBC [facility] Neutrophils 54.7 39.0 - 69.0 % [facility] Lymphocytes 33.7 25.0 - 45.0 % [facility] Monocytes 6.1 0.0 - 10.0 % [facility] Eosinophils 4.2 0.0 - 5.0 % [facility] Basophils 0.8 0.0 - 1.0 % [facility] Immature granulocytes 0.5Comment: 0.0 - 1.0 % [facility] "Immature HOSPITAL granulocytes" (promyelocytes , myelocytes, metamyelocytes ) Specimen Blood Performing Organization Address City/[facility] Phone Number [facility] DEPARTMENT OF PATHOLOGY AND [address] [place] [phone] [place] [phone] C-reactive protein (12/06/2019 12:14 AM CDT) Pathologist Sig nature CRP 0.32 0.00 - 0.50 mg/dL [facility] Specimen Blood Performing Organization Address [facility] Phone Number [facility] DEPARTMENT OF PATHOLOGY AND [address] [place] [address] [phone] [address] Phosphorus level (12/06/2019 12:14 AM CDT) Pathologist Sig nature Phosphorus 4.1 2.4 - 4.5 mg/dL [facility] Specimen Blood Performing Organization Address [facility] Phone Number [facility] DEPARTMENT OF PATHOLOGY AND [address] [place] [address] [phone] [address] Magnesium level (12/06/2019 12:14 AM CDT) Pathologist Sig nature Magnesium 1.8 1.6 - 2.6 mg/dL [facility] Specimen Blood Performing Organization Address [facility] Phone Number [facility] DEPARTMENT OF PATHOLOGY AND [address] [place] [phone] [place] [phone] Comprehensive metabolic panel (12/06/2019 12:14 AM CDT) Sodium 141 135 - 148 [facility] mEq/L HOSPITAL Potassium 4.3 3.5 - 5.0 [facility] mEq/L [facility] Chloride 107 98 - 112 [facility] mEq/L [facility] CO2 21 (L) 24 - 31 mEq/L [facility] Anion gap 13@ANIO 7 - 15 mEq/L [facility] BUN 12 6 - 20 mg/dL [facility] Creatinine 0.90 0.50 - 0.90 [facility] mg/dL [facility] Glucose 101 (H) 65 - 99 mg/dL [facility] Calcium 9.2 8.3 - 10.2 [facility] mg/dL [facility] Protein 6.6 6.3 - 8.3 [facility] Comment: g/dL HOSPITAL - Tiff 4.6-7.0 g/dL 1 week 4.4-7.6 g/dL 7 months-1year 5.1-7.3 g/dL 1-2 years 5.6-7.5 g/dL >3 years 6.0-8.0 g/dL 18-150 6.3-8.3 g/dL Albumin 3.7 3.5 - 5.0 [facility] g/dL [facility] A/G ratio 1.3 0.7 - 3.8 [facility] Alkaline phosphatase 58 35 - 104 U/L [facility] AST 11 10 - 35 U/L [facility] ALT <5 (A) 5 - 50 U/L [facility] Total bilirubin 0.3 0.0 - 1.2 [facility] mg/dL [facility] Specimen Blood Performing Organization Address [facility]/State/Zipcode Phone Number [facility] DEPARTMENT OF PATHOLOGY AND [address], [place] [phone] GENOMIC MEDICINE [facility] [address] [place] [phone] after 04/13/2019 Advance Directives For more information, please contact: [phone] Type Date 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
--- OUTSIDE RECORDS SUMMARY | 2020-04-13 11:39 | XMS REPORT | Continuity of Care Document ---
:1970 Author Organization [facility] t Address [address] [place] [address] Care Team Providers Name Role Phone Alexx Del Toro MD Primary Care Physician Thang HOUSTON Attending Clinician Payers Payer Name Policy Type Policy Number Effective Date Expiration Date S spring CIGNACIGNA OPEN xxxxxxxxxxx 2017 [place] ACCESS/NETWORKxx 00:00:00 Methodis t pogsnceuh29/25/2 017-PresentHMO Problems Condition Condition Condition Status Onset [...] St swelling swelling [facility] Iron Iron Problem Active [facility] deficiency deficiency Camila kes - anemia, anemia, Memoria unspecifie unspecifie l d iron d iron [facility] deficiency deficiency en t anemia anemia Clinics type type Fatigue, Fatigue, Problem Active [facility] unspecifie unspecifie Camila kes - d type d type [facility] Hypotensio Hypotensio Problem Active C [...] d syncope Mich sherri type type l [facility] Left lower Left lower Problem Active [facility] quadrant quadrant [facility] pain pain [facility] Chest Chest Problem Active [facility] pain, pain, [facility] - unspecifie unspecifie Me moria d type d type l [facility] Abnormal Abnormal Problem Active [facility] liver liver [facility] function function [facility] a test test l [facility] Vitamin D Vitamin D Problem Active [facility] deficiency deficiency Camila kes - [facility] Left Left Problem Active [facility] ovarian ovarian [facility] cyst cyst [facility]ics Paresthesi Paresthesi Problem Active C [facility] as as [facility] Other Other Problem Active [facility] chronic chronic [facility] pain pain [facility] Neck pain Neck pain Problem Active [facility] Dorsalgia, Dorsalgia, Problem Active C [facility] unspecifie unspecifie Camila kes - d d [facility] Gastroesop Gastroesop Problem Active C HI [facility] hageal hageal [facility] - reflux reflux Memoria disease disease l without without [facility] esophagiti esophagiti en t s s Clinics URI, acute URI, acute Diagnosis Active [facility] Acute Acute Diagnosis Active [facility] pharyngiti pharyngiti Camila kes - s, s, Memoria unspecifie unspecifie l d etiology d etiology [facility] Clin[facility] Allergies, Adverse Reactions, Alerts Allergy Allergy Status Severity Reaction(s) Onset Inactive Treating Comm ents Source Name Type Date Date Clinician Coconmegan Propensi Active Other ([facility]) 3-14 ears Methodi [...] in Reaction twitching [facility] Social History Social Habit Start Date Stop Date Quantity Comments Source Sex Assigned At [place] [facility] Alcohol intake 2019-12-06 2019-12-06 Current [facility]drinker [facility] 00:00:00 00:00:00 of alcohol [facility] (finding) Tobacco Comment 2018-05-04 2018-05-04 3-[facility]:00 day [facility] History of 2018-02-21 Current smoker [facility] tobacco use 00:00:00 [facility] Smoking Status Start Date Stop Date Source Former smoker 2019-12-06 00:00:00 2019-12-06 00:00:00 [place] [facility] Medications Ordered Filled Start Stop Current Ordering Indication Dosage Frequency Signature Comments Components Source Medication Medication Date Date Medication? Clinician (SIG) Name Name gabapentin No 400mg Q.[id number] Take 400 [place] (NEURONTIN) 12-05 [id number] mg by [facility] 250 mg/5 mL 04:06: 00:[address] solution 40 :00 (three) times a day. gabapentin 2020-0 2020- No 400mg Q.06838736 Take 400 [place] (NEURONTIN) 12-05-15 [id number] mg by [facility] 400 mg 03:24: 00:[address] capsule 37 :00 (three) times a day. diclofenac 2019-0 2020- No Q.25D Apply [place] (VOLTAREN) 12-05 04-14 topically Met kristen 1 % gel 00:00: 23:59 4 (four) st 00 :00 times a day for 30 days. gabapentin 2019-0 2020- No 300mg Q.64589481 Take 1 [place] (NEURONTIN) 12-05 [id number] capsule [facility] 300 mg 00:00: 23:59 3D [...] - morning [facility] Out[facility] Clin[facility] [employer] Yes [place] [address] Carbonate [...] INFLUENZA VACCINE] Future Scheduled 1993 Screening for [facility] thodist Test 00:00:00 malignant neoplasm of cervix (procedure) [code = 165933574] Encounters Start End Encounter Admission Attending Care Care Encounter Source Date/Time Date/Time Type Type Clinicians Facility Department ID 2019-12-05 2019-12-06 Emergency THANG [facility] [id number] 70 [place] 00:00:00 00:00:00 [place] [address] 2019-09-07 2019-09-07 Emergency E [facility] [id number] [facility] 16:43:00 16:43:00 2018-12-31 2018-12-31 [facility] [id number] [address] 08:47:00 08:47:00 t [facility] Outpati ent Clinics 2018-12-30 2018-12-30 [facility] [id number] [address] 16:20:00 16:20:00 [facility] Medicine Outpati ent Clinics 2018-09-09 2018-09-09 [facility] [id number] 09:45:00 09:45:00 t [facility] Medicine Outpati ent Clinics 2018-05-15 2018-05-15 [facility] [id number] 08:45:00 08:45:00 t [facility] Medicine Outpati ent Clinics 2018-04-16 2018-04-16 [facility] [id number] 11:03:00 11:03:00 t [facility] Medicine Outpati ent Clinics 2018-04-16 2018-04-16 [facility] [id number] 09:00:00 09:00:00 t [facility] Medicine Outpati ent Clinics 2018-04-11 2018-04-11 [facility] [id number] 11:28:00 11:28:00 t Urgent Urgent Care [facility] Outpati ent Clinics 2018-04-09 2018-04-09 [facility] [id number] 09:00:00 09:00:00 [facility] Medicine Medicine Outpati ent Clinics Results Test Description Test Test Results Result Source Time Comments Comments Us duplex venous 2019-11- Interface, Radiology [place] lower extremity 15 Results In - 12/06/2019 [facility] 08:54:00 8:54 AM CDT Vascular Ultrasound Laboratory Lower Extremity Venous Report [address] [facility], [place] [address], [place] [address] Pat.Name: TANIKA BOJORQUEZ Pat.ID: [id number] .Date: 12/06/2019 Refer.MD: PHYSICIAN, EMERGENCY, MDExam Time: 2:52:00 AM Study Type:LE Venous Age: 7 1970,49Y Sex: FEMALE Sonogrphr: Loyd Pisano BA, BS, RDMS, RVTPat. Stat.:Inpatient Room: [facility] Vol: LULA, CPT - 4: 37244 Echo Event ID:[id number] Order ID: [id number] Reason for Study:Leg swelling or pain, DVT [...] Interpretation Comme nts PTT (test code = 36693-9) 24.8 23.0- 36.0 sec PTT therapeutic range for unfractionated heparin is61.0-112.0 seconds which c orresponds to Anti-Xa0.3-0.7 U/ml. [place] MethodistProthrombin time with [id number] 00:59:04 Test Item Value Reference Range Interpretation Comments Prothrombin time (test 12.3 11.5- 14.5 sec code = 5902-2) INR (test code = 0.9 [facility] 29[facility] Normalized Rati o (INR) is a therapeutic m onitoring tool for patien ts who are stable on oral anticoagulant t herapy. An INR of 2.0-3.0 is suggested for d eep vein thrombosis/pulm onary embolism. [place] MethodistComprehensive metabolic [id number] 00:56:19 Test Item Value Reference Range Interpretation Comments Sodium (test code = 141 135- 148 mEq/L 2951-2) Potassium (test code = 4.3 3.5- 5.0 mEq/L 2823-3) Chloride (test code = 107 98- 112 mEq/L 2075-0) CO2 (test code = 2027-9) 21 24- 31 mEq/L L Anion gap (test code = 13@ANIO 7- 15 mEq/L 95356-9) BUN (test code = 3094-0) 12 mg/dL 6-20 Creatinine (test code = 0.90 mg/dL 0.5-0.9 0-0) Glucose (test code = 101 mg/dL 65-99 H 2345-7) Calcium (test code = 9.2 mg/dL 8.3-10.2 73090-9) Protein (test code = 6.6 g/dL 6.3-8.3 -[place] n 2885-2) 4.6-7.0 g/dL1 week 4.4-7 .6 g/dL7 months-1y ear 5.1-7 .3 g/dL1-2 years 5.6-7 .5 g/dL>3 years 6.0-8 .0 g/mZ43-245 6.3-8 .3 g/dL Albumin (test code = 3.7 g/dL 3.5-5 175-7) A/G ratio (test code = 1.3 0.7-3.8 1759-0) Alkaline phosphatase 58 U/L 35-104 (test code = 6768-6) AST (test code = 1920-8) 11 U/L 10-35 ALT (test code = 1742-6) <5 5-50 A Total bilirubin (test 0.3 mg/dL 0-1.2 code = 1974-2) Lab Interpretation (test Abnormal code = 26379-9) Félix MethodistMagnesium [id number] 00:56:19 Test Item Value Reference Range Interpretation Comments Magnesium (test code = 40949-1) 1.8 mg/dL 1.6-2.6 [facility] MethodistEstimated [id number] 00:56:19 Test Item Value Reference Range Interpretation Comments Estimated GFR (test 76 mL/min/1.73 m2 Caterg ory Units code = 5488) InterpretationG 1 >=90 Normal or highG2 60-89 Mildly dxhqnuqfaP8s 45-59 Mildly to mode rately zewilwszzL6d 30-44 Moderately to severely decreasedG4 15-29 Severely decre asedG5 <15 Kidn ey failureThe eGFR was calculated watson [place]orge the Chronic Kidney Disease Epidemiology Co llaboration (CKD-EPI) equat ion. Interpretation is based on recommendations of the National Kidney Foundation-Kidn ey Disease Outcomes Qualit y Initiative (NKF-KDOQI) pub lished in 2014. [place] MethodistPhosphorus [id number] 00:56:18 Test Item Value Reference Range Interpretation Comments Phosphorus (test code = 2777-1) 4.1 mg/dL 2.4-4.5 Félix MadsenC-reactive [id number] 00:56:16 Test Item Value Reference Range Interpretation Comments CRP (test code = 1988-5) 0.32 mg/dL 0-0.5 Félix MethodistSedimentation [id number] 00:39:45 Test Item Value Reference Range Interpretation Comments Sedimentation rate (test code = 7 0- 20 mm/hr 32760-5) Félix MethodariannaCBC with platelet and vsqjpsdvluka6501-93-11 00:34:33 Test Item Value Reference Range Interpretation Comments WBC (test code = 02751-8) 6.18 4.50- 11.00 k/uL RBC (test code = 07593-4) 4.03 m/uL 4.2-5.5 L HGB (test code = 718-7) 10.5 g/dL 12-16 L HCT (test code = 4544-3) 33.9 % 37-47 L MCV (test code = 787-2) 84.1 fL 82-100 MCH (test code = 785-6) 26.1 pg 27-34 L MCHC (test code = 786-4) 31.0 g/dL 31-37 RDW - SD (test code = 43.4 fL 37-55 78389-3) MPV (test code = 36576-4) 9.4 fL 8.8-13.2 Platelet count (test code 293 150- 400 k/uL = 97441-5) Nucleated RBC (test code 0.00 /100 WBC = 65764-7) Neutrophils (test code = 54.7 % 39-69 84981-7) Lymphocytes (test code = 33.7 % 25-45 01786-6) Monocytes (test code = 6.1 % 0-10 51333-9) Eosinophils (test code = 4.2 % 0-5 60352-7) Basophils (test code = 0.8 % 0-1 22103-1) Immature granulocytes 0.5 % 0-1 "Immat ure (test code = 06315-4) granul ocytes" (promyelocytes, myelocytes, metamyelocytes) Lab Interpretation (test Abnormal code = 80674-8) Félix MadsenXR Knee 1 Or 2 Vw [id number] 00:29:55Hm Interface, Radiology Results - 12/06/2019 12:33 AM CDTEXAMINATION: XR KNEE 1 OR 2 VW RIGHTCLINICAL HISTORY: Post surgery painCOMPARISON: None.IMPRESSION:No evidence of acute right knee fracture or dislocation. Bone mineralization is normal. Small suprapatellar effusion. Few soft tissue zuri about the knee.[facility]-[id number] [facility]
[2020-04-13 12:40] LABS: Absolute Lymphocytes (CBC) 0.9 K/uL (0.7-4.9); Basophils % 0.2 % (0-1.3); Hematocrit 34.4 % (36.0-45.0); Lymphocytes % 26.6 % (15.3-44.8); MPV 8.2 fL (7.6-11.3); RBC Red Blood Cell Count 4.23 M/uL (3.86-4.86)
[2020-04-13 12:55] LABS: BUN Blood Urea Nitrogen 11 mg/dL (7-18); Bicarbonate 23 mmol/L (21-32); Glucose Level 92 mg/dL (74-106); Sodium Level 142 mmol/L (136-145)
[2020-04-13] MEDS ORDERED: PROMETHAZINE INJ 25 MG/ML AMP ONE (12:55)
[2020-04-13] MEDS ORDERED: LORazepam 2 MG/ML VIAL ONE (12:55)
--- NOTE | 2020-04-13 14:00 | ER ---
Nurse's Notes [facility] Name: Nithin Beth Age: 50 yrs Sex: Female : 1970 Arrival Date: 04/13/2020 Time: 10:13 Bed 16 Private MD: Ramez Del Toro T Diagnosis: Nausea and vomiting;Diarrhea, unspecified Presentation: 04/13 10:45 Chief complaint: Patient states: unable to eat or drink, decreased urination and ah vomiting. Covid + as of 03/24/2020. Coronavirus screen: Patient reports contact with known and/or suspected case of COVID-19. Patient instructed to continue to wear a mask when interacting with others. Patient moved to private room, placed in contact and droplet isolation with eye protection until further assessment. Prior COVID test collected on: positive on 03/24. Ebola Screen: No symptoms or risks identified at this time. Initial Sepsis Screen: Does the patient meet any 2 criteria? No. Patient's initial sepsis screen is negative. Does the patient have a suspected source of infection? No. Patient's initial sepsis screen is negative. Risk Assessment: Do you want to hurt yourself or someone else? Patient reports no desire to harm self or others. Onset of symptoms is unknown. 10:45 Method Of Arrival: Ambulatory 10:45 Acuity: HUSAM 3 Historical: - Allergies: 12:15 Demerol; 12:15 Erythromycin; 12:15 TETRACYCLINES; 12:15 Toradol; 12:15 Zofran; - Home Meds: 12:15 Ativan 0.5 mg Oral tab 2 times per day [Active]; hydrocodone-acetaminophen 7.5-325 mg ah Oral tab 1 tab every 6 hours [Active]; - PMHx: 12:15 "Possibly Fibromyalgia"; Bipolar disorder; Chronic pain; Pancreatitis; - PSHx: 12:15 Gastric Bypass; Hysterectomy; - Immunization history:: Adult Immunizations up to date. - Social history:: Smoking status: Patient denies any tobacco usage or history of. Screenin:01 Abuse screen: Denies threats or abuse. Nutritional screening: No deficits noted. Tuberculosis screening: No symptoms or risk factors identified. Fall Risk None identified. Assessment: 12:15 General: Appears in no apparent distress. Behavior is calm, cooperative. Pain: Denies ah pain. Neuro: Level of Consciousness is awake, alert, obeys commands, Oriented to person, place, time, situation, Appropriate for age. Cardiovascular: Capillary refill < 3 seconds Patient's skin is warm and dry. Respiratory: Airway is patent Respiratory effort is even, unlabored. GI: Abd is soft and non tender Reports nausea, vomiting. GI: Reports decreased appetite. : Reports decreased urination. Derm: Skin is intact, is healthy with good turgor. 12:30 Reassessment: Patient is alert, oriented x 3, equal unlabored respirations, skin aa5 warm/dry/pink. Pt notified of wait time for lab results, pt verbalized understanding. . 13:00 Reassessment: Pt hit call light to have nurse come to the room. Pt states " She said I ah was being discharged, will you get this IV out so I can go?" Explained to Pt that the discharge orders were not in the computer yet and she asked for nurse to remove IV. Explained to Pt that she really needed the IV fluids and to let them continue until discharge papers were ready. Pt reluctantly agreed. 13:15 Reassessment: Pt again requested that her IV be removed. Explained that provider was working on discharge and the nurse would come in and remove IV and give discharge papers all at the same time so Pt could continue to get the IV fluids. 13:45 Reassessment: Pt demanded to go home at this time. Again explained that discharge ah papers were almost ready as she was getting the daughters papers as well. Pt demanded to speak to a patient advocate, Charge Nurse informed. 14:13 Reassessment: Patient is alert, oriented x 3, equal unlabored respirations, skin aa5 warm/dry/pink. Vital Signs: 10:45 BP 108 / 82; Pulse 85; Resp 18; Pulse Ox 99% ; ah 12:00 BP 120 / 71; Pulse 84; Resp 18; Pulse Ox 99% ; ah ED Course: 10:13 Patient arrived in ED. mr 10:13 Ramez Del Toro MD is Private Physician. mr 10:19 Milagros Howe FNP-C is [facility]. kb 10:19 Tevin Méndez MD is Attending Physician. kb 10:22 Marquita Young, RN is Primary Nurse. ah 10:53 Chest Single View XRAY In Process Unspecified. EDMS 12:09 Triage completed. 12:29 Initial lab(s) drawn, by me, sent to lab. Inserted saline lock: 24 gauge in right aa5 ,using aseptic technique. breast. 14:00 No provider procedures requiring assistance completed. 14:01 Patient has correct armband on for positive identification. Bed in low position. Call light in reach. Pulse ox on. NIBP on. 14:13 Pt pulled out her IV before d/c home. aa5 Administered Medications: 12:11 Not Given (Other Intervention Used): Zofran (Ondansetron) 4 mg IVP once; over 2 minutes kb 12:12 Not Given (Physician Discretion): Phenergan 12.5 mg IVP once kb 13:00 Drug: NS 0.9% 1000 ml Route: IV; Rate: 1000 ml; Site: Other; 13:05 Drug: Phenergan 12.5 mg Route: IVP; Site: Other; 13:05 Drug: Ativan 0.5 mg Route: IVP; Site: Other; Outcome: 13:59 Discharge ordered by MD. kb 14:13 Patient left the ED. aa5 14:13 Discharged to home ambulatory. aa5 14:13 Condition: stable 14:13 Discharge instructions given to N/A. Pt appears upset, asked pt if there is anything I can do to help her or if she had any concerns, pt refusing to speak with me. Pt refused d/c instructions and refused to take prescription. Pt states "I will just come back tomorrow and I will get medications", notified pt prescription from today will not be available tomorrow, pt states "we'll see about that" and walked out of ER with steady gait. Signatures: Dispatcher [employer] EDMN Milagros Howe, SHREDDING MACHINE OPERATOR-C SHREDDING MACHINE OPERATOR-Chrisb Clifton Caty AlvarengaJennifer, RN RN aa5 Marquita Young, RN RN Corrections: (The following items were deleted from the chart) 14:22 14:16 Patient left the ED. aa5 aa5
--- NOTE | 2020-04-13 14:00 | EDPHYS ---
Physician Documentation [facility] Name: Nithin Beth Age: 50 yrs Sex: Female : 1970 Arrival Date: 04/13/2020 Time: 10:13 Bed 16 Private MD: Ramez Del Toro T ED Physician Tevin Méndez HPI: 04/13 13:55 This 50 yrs old Female presents to ER via Ambulatory with complaints of kb COVID+. 13:55 The patient presents to the emergency department with diarrhea. Onset: The kb symptoms/episode began/occurred yesterday. 13:55 Possible causes: COVID +. The symptoms are aggravated by nothing. The symptoms are kb alleviated by nothing. Associated signs and symptoms: Pertinent positives: diarrhea, nausea, vomiting. Severity of symptoms: At their worst the symptoms were moderate in the emergency department the symptoms are unchanged. The patient has not experienced similar symptoms in the past. The patient has not recently seen a physician. Pt reports she has COVID-19. Reports she is still short of breath and now she has diarrhea. Attested to nausea and vomiting when asked. "I can't eat or drink" . Historical: - Allergies: 12:15 Demerol; ah 12:15 Erythromycin; ah 12:15 TETRACYCLINES; ah 12:15 Toradol; 12:15 Zofran; - Home Meds: 12:15 Ativan 0.5 mg Oral tab 2 times per day [Active]; hydrocodone-acetaminophen 7.5-325 mg ah Oral tab 1 tab every 6 hours [Active]; - PMHx: 12:15 "Possibly Fibromyalgia"; Bipolar disorder; Chronic pain; Pancreatitis; - PSHx: 12:15 Gastric Bypass; Hysterectomy; - Immunization history:: Adult Immunizations up to date. - Social history:: Smoking status: Patient denies any tobacco usage or history of. ROS: 13:54 Constitutional: Negative for fever, chills, and weight loss, Cardiovascular: Negative kb for chest pain, palpitations, and edema, Back: Negative for injury and pain, MS/Extremity: Negative for injury and deformity, Skin: Negative for injury, rash, and discoloration, Neuro: Negative for headache, weakness, numbness, tingling, and seizure. 13:54 Respiratory: Positive for shortness of breath, Negative for cough, dyspnea on exertion, hemoptysis, orthopnea, pleurisy, sputum production, wheezing. 13:54 Abdomen/GI: Positive for nausea and vomiting, diarrhea, Negative for abdominal pain. Exam: 13:54 Constitutional: This is a well developed, well nourished patient who is awake, alert, kb and in no acute distress. Head/Face: Normocephalic, atraumatic. Chest/axilla: Normal chest wall appearance and motion. Nontender with no deformity. No lesions are appreciated. Cardiovascular: Regular rate and rhythm with a normal S1 and S2. No gallops, murmurs, or rubs. Normal PMI, no JVD. No pulse deficits. Respiratory: Lungs have equal breath sounds bilaterally, clear to auscultation and percussion. No rales, rhonchi or wheezes noted. No increased work of breathing, no retractions or nasal flaring. Abdomen/GI: Soft, non-tender, with normal bowel sounds. No distension or tympany. No guarding or rebound. No evidence of tenderness throughout. Skin: Warm, dry with normal turgor. Normal color with no rashes, no lesions, and no evidence of cellulitis. MS/ Extremity: Pulses equal, no cyanosis. Neurovascular intact. Full, normal range of motion. Neuro: Awake and alert, GCS 15, oriented to person, place, time, and situation. Cranial nerves II-XII grossly intact. Motor strength 5/5 in all extremities. Sensory grossly intact. Cerebellar exam normal. Normal gait. Vital Signs: 10:45 BP 108 / 82; Pulse 85; Resp 18; Pulse Ox 99% ; ah 12:00 BP 120 / 71; Pulse 84; Resp 18; Pulse Ox 99% ; ah MDM: 10:19 Patient medically screened. kb 13:53 Data reviewed: vital signs, nurses notes. Data interpreted: Pulse oximetry: on room air kb is 99 %. Interpretation: normal. Counseling: I had a detailed discussion with the patient and/or guardian regarding: the historical points, exam findings, and any diagnostic results supporting the discharge/admit diagnosis, lab results, radiology results, the need for outpatient follow up, a family practitioner, to return to the emergency department if symptoms worsen or persist or if there are any questions or concerns that arise at home. 13:59 ED course: Tolerating PO intake. kb 14:13 ED course: Pt has been in no distress. Resp even and unlabored. Lungs clear, x-ray kb normal and oxygen sat 99% on room air. . 04/13 10:32 Order name: Basic Metabolic Panel; Complete Time: 12:57 kb 04/13 10:32 Order name: CBC with Diff; Complete Time: 12:42 kb 04/13 10:32 Order name: Chest Single View XRAY; Complete Time: 11:06 kb 04/13 10:32 Order name: IV Saline Lock; Complete Time: 13:13 kb 04/13 10:32 Order name: Labs collected and sent; Complete Time: 13:13 kb 04/13 11:10 Order name: PO challenge; Complete Time: 13:13 kb Administered Medications: 12:11 Not Given (Other Intervention Used): Zofran (Ondansetron) 4 mg IVP once; over 2 minutes kb 12:12 Not Given (Physician Discretion): Phenergan 12.5 mg IVP once kb 13:00 Drug: NS 0.9% 1000 ml Route: IV; Rate: 1000 ml; Site: Other; 13:05 Drug: Phenergan 12.5 mg Route: IVP; Site: Other; 13:05 Drug: Ativan 0.5 mg Route: IVP; Site: Other; Disposition: 17:36 Co-signature as Attending Physician, Tevin Méndez MD. rn Disposition: 04/13/20 13:59 Discharged to Home. Impression: Nausea and vomiting, Diarrhea, unspecified. - Condition is Stable. - Discharge Instructions: Food Choices to Help Relieve Diarrhea, Adult, Nausea and Vomiting, Adult, Kagd-ub-Ymkb, Diarrhea, Adult, Hqkm-xf-Vonx. - Prescriptions for Phenergan 25 mg Rectal Suppository - insert 1 suppository by RECTAL route every 6 hours As needed; 12 suppository. - Medication Reconciliation Form, Thank You Letter, Antibiotic Education, Prescription Opioid Use form. - Follow up: Emergency Department; When: As needed; Reason: Worsening of condition. Follow up: Private Physician; When: 2 - 3 days; Reason: Recheck today's complaints, Continuance of care, Re-evaluation by your physician. Signatures: Dispatcher [employer] EDHI Milagros Howe, ELECTRONIC PAGINATION SYSTEM OPERATOR-C ELECTRONIC PAGINATION SYSTEM OPERATOR-Ckb Tevin Méndez MD MD rn Calderon, Audri RN RN aa5 Marquita Young, RN RN Corrections: (The following items were deleted from the chart) 14:13 13:55 Pt reports she has COVID-19. Reports she is still short of breath and now she has kb diarrhea. Attested to nausea and vomiting when asked. "I can't eat or drink". kb 14:16 13:59 04/13/2020 13:59 Discharged to Home. Impression: Nausea and vomiting; Diarrhea, aa5 unspecified. Condition is Stable. Forms are Medication Reconciliation Form, Thank You Letter, Antibiotic Education, Prescription Opioid Use. Follow up: Emergency Department; When: As needed; Reason: Worsening of condition. Follow up: Private Physician; When: 2 - 3 days; Reason: Recheck today's complaints, Continuance of care, Re-evaluation by your physician. kb
[2020-04-13 21:04] VITALS: O2SAT 99
[2020-04-13 21:08] VITALS: BP 120/71
== END 2020-04-13 14:16 | disposition home or self-care (01) ==
LOC: ER 10:11
DX: U07.1 COVID-19 (principal); R11.2 Nausea with vomiting, unspecified; R19.7 Diarrhea, unspecified
CPT/HCPCS: 85025; 80048; 36415; 71045; 96375; 96374; 99284; J2550; J7030; J2405

== ENCOUNTER 2020-07-06 07:49 | Inpatient (IN) | payer OTHER ==
--- OUTSIDE RECORDS SUMMARY | 2020-07-06 08:14 | XMS REPORT | Clinical Summary ---
:1970 Author Organization [facility] [employer] Address [address] [place] [address] Care Team Providers Name Role Phone Ramez Del Toro MD Primary Care Provider [phone] Allergies Active Allergy Reactions Severity Noted Date [...] knee (Primary D x) 12/05/2019 Travel after 07/06/2019 Surgical History Surgery Date Site/Laterality Comments CHOLECYSTECTOMY GASTRIC BYPASS 09/23/2000 - 09/22/2001 OOPHORECTOMY Bilateral KNEE ARTHROSCOPY 09/23/2019 - 09/22/2020 Right TUBAL LIGATION Medical History Medical History Date Comments Bipolar 1 disorder (HCC) Fibromyalgia Torn meniscus 2019 right knee Social History Tobacco Use Types Packs/Day Years Used Date Former Smoker Cigarettes 30 Quit: 02/22/20 18 Smokeless Tobacco: Never Used Comments: 3-4 cigarrettes at day Alcohol Use Drinks/Week oz/Week Comments No Sex Assigned at Date Recorded Not on file Last Filed Vital Signs Vital Sign Reading [...] are i n the results section. after 07/06/2019 Results Us duplex venous lower extremity (12/06/2019 3:15 AM CDT) Specimen Narrative Performed At [facility] Vascular U ltrasound Laboratory Lower Extr emity Venous Report [id number] [facility], [place] [address] Pat.Name: NITHIN BOJORQUEZ Pat.ID: [id number] St.Date: 12/06/2019 Refer.MD: PHYSICIAN, EMERGENCY, MD Exam Time: 2:52:00 AM Study Type:L E Venous Age: 7 1970,49Y Sex: FEMALE Sonogrphr: Loyd Pisano, BA, BS, RDMS, RVT Pat. Stat.:Inpatient Room: [facility] Tape Vol: LULA, CPT - 4: 20260 Echo Berta nt ID:[id number] Order ID: [id number] Reason for Study:Leg swelling or pain, D [...] Ultrasound Laboratory Lower Extremity Veno us Report [id number] [address] , [place] [address] Pat.Name: NITHIN BOJORQUEZ Pat.I D: [id number] .Date: 12/06/2019 Refer .MD: PHYSICIAN, EMERGENCY, MD Exam Time: 2:52:00 AM Study Type:LE Venous Age: 7 1970,49Y Sex: FEMALE Sonogrphr: Loyd Pisano, BA, BS, RDMS, RVT Pat. Stat.:Inpatient Room: [facility] Vol: LULA, CPT - 4: 47001 Echo Event ID:[id number] Order ID: [id number] Reason for Study:Leg swelling or pain, D [...] Frantz Lawrence MD, RPVI Performing Organization Address City/[facility]/ZIP Code Phon e Number CUPID [id number] [place] [address] XR Knee 1 Or 2 Vw Right (12/06/2019 12:21 AM CDT) Specimen Narrative Performed At EXAMINATION: XR KNEE 1 OR 2 VW RIGHT [facility] CLINICAL HISTORY: Post surgery pain COMPARISON: None. IMPRESSION: No evidence of acute right knee fracture or dislocatio n. Bone mineralization is normal. Small suprapatellar effusion . Few soft tissue zuri about the knee. [facility]-[id number] Procedure Note Interface, Radiology Results Incoming - 12/06/2019 12:33 AM CDT EXAMINATION: XR KNEE 1 OR 2 VW RIGHT CLINICAL HISTORY: Post surgery pain COMPARISON: None. IMPRESSION: No evidence of acute right knee fracture or dislocation. Bone mineralization is normal. Small suprapatellar effusion. Few soft tissue zuri about the knee. [facility]-[id number] Performing Organization Address [facility] Phon e Number RADIANT [address] [place] [address] Estimated GFR (12/06/2019 12:14 AM CDT) Estimated GFR 76 mL/min/1.73 [facility] UATSDIN Comment: [address] Catergory Units Interpretation G1 >=90 Normal [...] published in 2014. Specimen Performing Organization Address City/[facility] Phon e Number [facility] DEPARTMENT OF PATHOLOGY AND [address] [place], [place] [phone] [facility] MEDICINE [address] [address] Partial thromboplastin time, activated (12/06/2019 12:14 AM CDT) PTT 24.8 23.0 - 36.0 [place] UATSDIN Comment: [facility] PTT therapeutic range for unfractionated heparin is 61.0-112.0 seconds which corresponds to Anti-Xa 0.3-0.7 U/ml. Specimen Blood Performing Organization Address City/[facility]/ZIP [facility] Phon e Number [facility] DEPARTMENT OF PATHOLOGY AND [address] [place] [address] [phone] [address] Sedimentation rate (12/06/2019 12:14 AM CDT) Pathologist Sig nature Sedimentation rate 7 0 - 20 mm/hr [facility] Specimen Blood Performing Organization Address City/[facility] Phon e Number [facility] DEPARTMENT OF PATHOLOGY AND [address] [place] [address] [phone] [address] Prothrombin time with INR (12/06/2019 12:14 AM CDT) Pathologist [facility] Prothrombin time 12.3 11.5 - 14.5 [facility] INR 0.9 [facility]LD[facility] Comment: UATSDIN The International Normalized Ratio (INR) is a therapeu [facility] monitoring tool for patients who are stable on oral anticoagulant therapy. An INR of 2.0-3.0 is suggested for deep vein thrombosis/pulmonary embolism. Specimen Blood Performing Organization Address City/[facility] Phon e Number [facility] DEPARTMENT OF PATHOLOGY AND [address] [place], [place] [phone] [address] [address] CBC with platelet and differential (12/06/2019 12:14 AM CDT) WBC 6.18 4.50 - 11.00 [facility] RBC 4.03 (L) 4.20 - 5.50 [facility] HGB 10.5 (L) 12.0 - 16.0 [facility] HCT 33.9 (L) 37.0 - 47.0 % [facility] MCV 84.1 82.0 - 100.0 [facility] MCH 26.1 (L) 27.0 - 34.0 pg [facility] MCHC 31.0 31.0 - 37.0 [facility] RDW - SD 43.4 37.0 - 55.0 [facility] MPV 9.4 8.8 - 13.2 fL [facility] Platelet count 293 150 - 400 k/uL [facility] Nucleated RBC 0.00 /100 WBC [facility] Neutrophils 54.7 39.0 - 69.0 % [facility] Lymphocytes 33.7 25.0 - 45.0 % [facility] Monocytes 6.1 0.0 - 10.0 % [facility] Eosinophils 4.2 0.0 - 5.0 % [facility] Basophils 0.8 0.0 - 1.0 % [facility] Immature granulocytes 0.5Comment: 0.0 - 1.0 % [facility] "Immature HOSPITAL granulocytes" (promyelocytes , myelocytes, metamyelocytes ) Specimen Blood Performing Organization Address City/[facility] Phon e Number [facility] DEPARTMENT OF PATHOLOGY AND [address] [place] [address] [phone] [address] C-reactive protein (12/06/2019 12:14 AM CDT) Pathologist Sig nature CRP 0.32 0.00 - 0.50 mg/dL [facility] Specimen Blood Performing Organization Address City/[facility] Phon e Number [facility] DEPARTMENT OF PATHOLOGY AND [address] [place] [address] [phone] [address] Phosphorus level (12/06/2019 12:14 AM CDT) Pathologist Sig nature Phosphorus 4.1 2.4 - 4.5 mg/dL [facility] Specimen Blood Performing Organization Address City/[facility] Phon e Number [facility] DEPARTMENT OF PATHOLOGY AND [address] [place] [address] [phone] [address] Magnesium level (12/06/2019 12:14 AM CDT) Pathologist Sig nature Magnesium 1.8 1.6 - 2.6 mg/dL [facility] Specimen Blood Performing Organization Address City/[facility] Phon e Number [facility] DEPARTMENT OF PATHOLOGY AND [address] [place] [address] [phone] [address] Comprehensive metabolic panel (12/06/2019 12:14 AM CDT) Sodium 141 135 - 148 [facility] mEq/L [facility] Potassium 4.3 3.5 - 5.0 [facility] mEq/L [facility] Chloride 107 98 - 112 [facility] mEq/L [facility] CO2 21 (L) 24 - 31 mEq/L [facility] Anion gap 13@ANIO 7 - 15 mEq/L [facility] BUN 12 6 - 20 mg/dL [facility] Creatinine 0.90 0.50 - 0.90 [facility] mg/dL [facility] Glucose 101 (H) 65 - 99 mg/dL [facility] Calcium 9.2 8.3 - 10.2 [facility] mg/dL [facility] Protein 6.6 6.3 - 8.3 [facility] Comment: g/dL HOSPITAL - 4.6-7.0 g/dL 1 week 4.4-7.6 g/dL 7 months-1year 5.1-7.3 g/dL 1-2 years 5.6-7.5 g/dL >3 years 6.0-8.0 g/dL 18-150 6.3-8.3 g/dL Albumin 3.7 3.5 - 5.0 [facility] g/dL [facility] A/G ratio 1.3 0.7 - 3.8 [facility] Alkaline phosphatase 58 35 - 104 U/L [facility] AST 11 10 - 35 U/L [facility] ALT <5 (A) 5 - 50 U/L [facility] Total bilirubin 0.3 0.0 - 1.2 [facility] mg/dL HOSPITAL Specimen Blood Performing Organization Address City/State/[facility] Code Phon e Number [facility] DEPARTMENT OF PATHOLOGY AND [address] [place] [phone] GENOMIC MEDICINE [facility] [address] [place] [address] after 07/06/2019 [phone] Advance Directives For more information, please contact: [phone] Type Date Recorded Patient Process Checker Explanati on Advance Directives, Living Will 12/05/2019 11:41 PM and Medical Power of Manager Ambulatory
--- OUTSIDE RECORDS SUMMARY | 2020-07-06 08:15 | XMS REPORT | Continuity of Care Document ---
:1970 Author Organization [facility] t Address [address] [place] [address] Care Team Providers Name Role Phone Alexx Del Toro MD Primary Care Physician Swetha HOUSTON Attending Clinician Payers Payer Name Policy Type Policy Effective Date Expiration Date [facility] ce Number CIGNACIGNA OPEN [id number] 2017 [place] ACCESS/NETWORKxx 00:00:00 Methodis t [id number]-PresentHMO Problems Condition Condition Condition Status Onset Resolution Last Treating Co mments Source Name Details Category Date Date Treatment Clinician Date Chest pain Chest pain Disease Active [place] 8[facility]14 [facility] 00:00: st 00 Unstable Unstable Disease Active [place] angina angina 8 [facility] 00:00: st 00 Non-intrac Non-intrac Problem [...] swelling [facility] Iron Iron Problem Active [facility] deficiency deficiency Camila kes - anemia, anemia, Memoria unspecifie unspecifie l d iron d iron Outpati deficiency deficiency en t anemia anemia Clinics type type Fatigue, Fatigue, Problem Active [facility] unspecifie unspecifie Camila kes - d type d type [facility] Hypotensio Hypotensio Problem Active C [...] Mich sherri type type l [facility] Left lower Left lower Problem Active [facility] quadrant quadrant [facility] pain pain [facility] Chest Chest Problem Active [facility] pain, pain, [facility] - unspecifie unspecifie Me moria d type d type l [facility] Abnormal Abnormal Problem Active [facility] liver liver [facility] - function function [facility] a test test l [facility] Vitamin D Vitamin D Problem Active [facility] deficiency deficiency Camila kes - [facility]ics Left Left Problem Active [facility] ovarian ovarian [facility] cyst cyst [facility] Paresthesi Paresthesi Problem Active [facility] as as [facility] Other Other Problem Active [facility] chronic chronic [facility] pain pain [facility] Neck pain Neck pain Problem Active [facility] Dorsalgia, Dorsalgia, Problem Active C [facility] unspecifie unspecifie Camila kes - d d [facility] Gastroesop Gastroesop Problem Active [facility] hageal hageal [facility] - reflux reflux Memoria disease disease l without without [facility] esophagiti esophagiti en t s s Clinics URI, acute URI, acute Diagnosis Active [facility] Acute Acute Diagnosis Active [facility] pharyngiti pharyngiti Camila kes - s, s, Memoria unspecifie unspecifie l d etiology d etiology Ou tpati ent Clinics Allergies, Adverse Reactions, Alerts Allergy Allergy Status Severity Reaction(s) Onset Inactive Treating Comm ents Source Name Type Date Date Clinician Coconmegan Propensi Active Other ([facility] to Comments) 12-04 ears [facility] adverse 00:00: st reaction 00 [...] in Reaction twitching [facility] Social History Social Habit Start Date Stop Date Quantity Comments Source Sex Assigned At [place] [facility] Tobacco use and 2019-12-06 2019-12-06 Never used [place] exposure 00:00:00 00:00:00 [facility] Alcohol intake 2019-12-06 2019-12-06 Current [facility]inker [facility] 00:00:00 00:00:00 of alcohol [facility] (finding) Tobacco Comment 2018-05-04 2018-05-04 3-4 [facility] at [facility] 00:00:00 00:00:00 day [facility] History of 2018-02-21 Current smoker [place] tobacco use 00:00:00 [facility] Smoking Status Start Date Stop Date Source Former smoker 2019-12-06 00:00:00 2019-12-06 00:00:00 [place] [facility] Medications Ordered Filled Start Stop Current Ordering Indication Dosage Frequency Signature Comments Components Source Medication Medication Date Date Medication? Clinician (SIG) Name Name gabapentin 2020 No 400mg Q.[id number] Take 400 [place] (NEURONTIN) 12-05 [id number] mg by [facility] 250 mg/5 mL 04:06: 00:[address] solution 40 :00 (three) times a day. gabapentin 2020-0 2020- No 400mg Q.66472825 Take 400 [place] (NEURONTIN) -05 12- [id number] mg by [facility] 400 mg 03:24: 00:[address] capsule 37 :00 (three) times a day. diclofenac 2020-0 2020- No Q.25D Apply [place] (VOLTAREN) 12-0514 topically Met kristen 1 % gel 00:00: 23:59 4 (four) st 00 :00 times a day for 30 days. gabapentin 2020-0 2020- No 300mg Q.57804504 Take 1 [place] (NEURONTIN) 12-05 [id number] capsule [facility] 300 mg 00:00: 23:59 3D ([address] capsule 00 :00 total) by mouth 3 (three) times a day for 10 days. lidocaine 2019-0 2020- No 1{patch Q24H Place 1 [place] (LIDODERM) 12-05 } patch on Meth frank 5 % 00:00: 23:[address] 00 :00 daily for 3 days. Remove & Discard patch within 12 hours or as directed by MD bullock, 2019-0 Yes .3mg QD Take 0.3 [address] [address] conjugated, 3-14 mg by [facility] (PREMARIN) 23:28: mouth st 0.3 MG 10 daily. tablet Take daily for 21 days then do not take for 7 days. tiZANidine 2020-0 Yes 4mg Q8H Take 4 mg [place] (ZANAFLEX) 3-14 by mouth Metho di 4 MG tablet 23:27: every 8 st 00 (eight) hours as needed for muscle spasms. HYDROcodone 2020-0 Yes acute pain 1{tbl} Q6H Take 1 [place] -acetaminop 3-14 tablet by Met kristen askew (NORCO) 23:25: mouth st 7.5-325 mg 30 every 6 per tablet (six) hours as needed for moderate pain .acute pain. ibuprofen 2020-0 Yes 800mg Q6H Take [address] (ADVIL) 800 3-14 mg by [facility] MG tablet 23:25: mouth st 29 every 6 (six) hours as needed for mild pain. Meloxicam Meloxicam 2018- No [place] [address] [facility] [facility] 4- 05-09 Millender [facility] - 00:00: 00:00 Memoria 00 :00 l Outpati ent Clinics Cyclobenzap Cyclobenzap 2018- No [place] [address] [facility] rine HCl rine HCl 12-30 05-09 Millender as needed [facility] - 00:00: [...] for up to 20 doses. Dicyclomine Dicyclomine 2017- No [place] [address] [facility] HCl [...] - morning Memoria l Outpati ent Clinics Waves Waves Yes Mariana [address] Carbonate [...] - as needed Memoria with food l [facility] Vital Signs Vital Name Observation Time Observation Value Comments Source Systolic blood 2019-12-06 03:55:00 119 mm[Hg] José Miguel Madsen pressure Diastolic blood 2019-12-06 03:55:00 64 mm[Hg] [place] [facility] pressure Heart rate 2019-12-06 03:55:00 68 /min Félix Madsen Respiratory rate 2019-12-06 03:55:00 20 /min Dagoberto bello [facility] Oxygen saturation in 2019-12-06 03:55:00 98 /min Félix Madsen Arterial blood by Pulse oximetry Body height 2019-12-05 23:08:00 160 cm Félix Madsen Body temperature 2019-12-05 23:07:12 36.39 Farideh Dagoberto bello [facility] Procedures Procedure Date / Time Performing Clinician Source Performed US DUPLEX VENOUS LOWER 2019-12-06 03:15:00 Richar Thomson on [facility] EXTREMITY RIGHT XR KNEE 1 OR 2 VW RIGHT 2019-12-06 00:21:34 Richar Thomson [facility] HC COMPLETE BLD COUNT 2019-12-06 00:14:00 Richar Thomson W/AUTO DIFF PROTHROMBIN TIME WITH INR 2019-12-06 00:14:00 Richar Thomson PARTIAL THROMBOPLASTIN 2019-12-06 00:14:00 Richar Thomson [facility] TIME (PTT) COMPREHENSIVE METABOLIC 2019-12-06 00:14:00 Richar Thomson [facility] PANEL PHOSPHORUS LEVEL 2019-12-06 00:14:00 Richar Thomson hodist MAGNESIUM LEVEL 2019-12-06 00:14:00 Richar Thomson odist SEDIMENTATION RATE 2019-12-06 00:14:00 Richar Thomson ethodist C-REACTIVE PROTEIN 2019-12-06 00:14:00 Richar Thomson ethodist ESTIMATED GFR 2019-12-06 00:14:00 Virginia Posada Meth odist Plan of Care Planned Activity Planned Date Details Comments Source Future Scheduled 2020-04-23 INFLUENZA VACCINE [place] [facility] Test 00:00:00 [code = INFLUENZA VACCINE] Future Scheduled 1993 Screening for [facility] thodist Test 00:00:00 malignant neoplasm of cervix (procedure) [code = 884851665] Encounters Start End Encounter Admission Attending Care Care Encounter Source Date/Time Date/Time Type Type Clinicians Facility Department ID 2019-12-05 2019-12-06 Emergency [facility] [id number] [place] 00:00:00 00:00:00 [place] [address] 2019-09-07 2019-09-07 Emergency E [facility] [id number] [facility] 16:43:00 16:43:00 2018-12-31 2018-12-31 [facility] [id number] [address] 08:47:00 08:47:00 t [facility] Medicine Outpati ent Clinics 2018-12-30 2018-12-30 [facility] [id number] 16:20:00 16:20:00 t [facility] Medicine Medicine Outpati ent Clinics 2018-09-09 2018-09-09 [facility] [id number] 09:45:00 09:45:00 t [facility] Medicine Medicine Outpati ent Clinics 2018-05-15 2018-05-15 [facility] [id number] 08:45:00 08:45:00 t [facility] Medicine Medicine Outpati ent Clinics 2018-04-16 2018-04-16 [facility] [id number] 11:03:00 11:03:00 t [facility] Medicine Medicine Outpati ent Clinics 2018-04-16 2018-04-16 [facility] [id number] 09:00:00 09:00:00 t [facility] Medicine Medicine Outpati ent Clinics 2018-04-11 2018-04-11 [facility] [id number] 11:28:00 11:28:00 t Urgent Ur[facility] Outpati ent Clinics 2018-04-09 2018-04-09 Outpatient Sen Renteria [id number] 09:00:00 09:00:00 [facility] Medicine [facility] Results Test Description Test Test Results Result Source Time Comments Comments Us duplex venous 2019-11- Interface, Radiology [place] lower extremity 15 Results In - 12/06/2019 Alevism 08:54:00 8:54 AM CDT Vascular Ultrasound Laboratory Lower Extremity Venous Report [address] [place] [address] Pat.Name: TANIKA BOJORQUEZ Pat.ID: [id number] St.Date: 12/06/2019 Refer.MD: PHYSICIAN, EMERGENCY, Exjessie Time: 2:52:00 AM Study Type:LE Venous Age: 7 1970,49Y Sex: FEMALE Sonogrphr: Loyd Pisano, BA, BS, RDMS, RVTPat. Stat.:Inpatient Room: [facility] Vol: LULA, CPT - 4: 13604 Echo Event ID:[id number] Order ID: [id number] Reason for Study:Leg swelling or pain, DVT [...] Interpretation Comme nts PTT (test code = 59655-2) 24.8 23.0- 36.0 sec PTT therapeutic range for unfractionated heparin is61.0-112.0 seconds which c orresponds to Anti-Xa0.3-0.7 U/ml. [place] MethodistProthrombin time with [id number] 00:59:04 Test Item Value Reference Range Interpretation Comments Prothrombin time (test 12.3 11.5- 14.5 sec code = 5902-2) INR (test code = 0.9 [facility] 08661-9) Normalized Rati o (INR) is a therapeutic m onitoring tool for patien ts who are stable on oral anticoagulant t herapy. An INR of 2.0-3.0 is suggested for d eep vein thrombosis/pulm onary embolism. [place] MethodistComprehensive metabolic [id number] 00:56:19 Test Item Value Reference Range Interpretation Comments Sodium (test code = 141 135- 148 mEq/L 2951-2) Potassium (test code = 4.3 3.5- 5.0 mEq/L 2823-3) Chloride (test code = 107 98- 112 mEq/L 2075-0) CO2 (test code = 8-9) 21 24- 31 mEq/L L Anion gap (test code = 13@ANIO 7- 15 mEq/L 36664-4) BUN (test code = 3094-0) 12 mg/dL 6-20 Creatinine (test code = 0.90 mg/dL 0.5-0.9 2160-0) Glucose (test code = 101 mg/dL 65-99 H 2345-7) Calcium (test code = 9.2 mg/dL 8.3-10.2 70077-0) Protein (test code = 6.6 g/dL 6.3-8.3 -[place] n 2885-2) 4.6-7.0 g/dL1 week 4.4-7 .6 g/dL7 months-1y ear 5.1-7 .3 g/dL1-2 years 5.6-7 .5 g/dL>3 years 6.0-8 .0 g/fE35-590 6.3-8 .3 g/dL Albumin (test code = 3.7 g/dL 3.5-5 1751-7) A/G ratio (test code = 1.3 0.7-3.8 1759-0) Alkaline phosphatase 58 U/L 35-104 (test code = 6768-6) AST (test code = 1920-8) 11 U/L 10-35 ALT (test code = 1742-6) <5 5-50 A Total bilirubin (test 0.3 mg/dL 0-1.2 code = 1974-2) Lab Interpretation (test Abnormal code = 78346-1) [place] MethodistMagnesium [id number] 00:56:19 Test Item Value Reference Range Interpretation Comments Magnesium (test code = 31848-1) 1.8 mg/dL 1.6-2.6 [place] MethodistEstimated [id number] 00:56:19 Test Item Value Reference Range Interpretation Comments Estimated GFR (test 76 mL/min/1.73 m2 Caterg or Units code = 5488) InterpretationG 1 >=90 Normal or highG2 60-89 Mildly emrrkurgpB1e 45-59 Mildly to mode rately vjflrpjopR9f 30-44 Moderately to severely decreasedG4 15-29 Severely decre asedG5 <15 Kidn ey failureThe eGFR was calculated watson g the Chronic Kidney Disease Epidemiology Co llaboration (CKD-EPI) equat ion. Interpretation is based on recommendations of the National Kidney Foundation-Kidn ey Disease Outcomes Qualit y Initiative (NKF-KDOQI) pub lished in 2013. [place] MethodistPhosphorus [id number] 00:56:18 Test Item Value Reference Range Interpretation Comments Phosphorus (test code = 2777-1) 4.1 mg/dL 2.4-4.5 [place] MethodistC-reactive [id number] 00:56:16 Test Item Value Reference Range Interpretation Comments CRP (test code = 1988-5) 0.32 mg/dL 0-0.5 [place] MethodistSedimentation [id number] 00:39:45 Test Item Value Reference Range Interpretation Comments Sedimentation rate (test code = 7 0- 20 mm/hr 41161-4) [place] MethodistCBC with platelet and [id number] 00:34:33 Test Item Value Reference Range Interpretation Comments WBC (test code = 29907-6) 6.18 4.50- 11.00 k/uL RBC (test code = 97698-1) 4.03 m/uL 4.2-5.5 L HGB (test code = 718-7) 10.5 g/dL 12-16 L HCT (test code = 4544-3) 33.9 % 37-47 L MCV (test code = 787-2) 84.1 fL 82-100 MCH (test code = 785-6) 26.1 pg 27-34 L MCHC (test code = 786-4) 31.0 g/dL 31-37 RDW - SD (test code = 43.4 fL 37-55 86358-0) MPV (test code = 60440-5) 9.4 fL 8.8-13.2 Platelet count (test code 293 150- 400 k/uL = 77090-8) Nucleated RBC (test code 0.00 /100 WBC = 83824-9) Neutrophils (test code = 54.7 % 39-69 32074-2) Lymphocytes (test code = 33.7 % 25-45 46991-6) Monocytes (test code = 6.1 % 0-10 07085-1) Eosinophils (test code = 4.2 % 0-5 22956-1) Basophils (test code = 0.8 % 0-1 20588-4) Immature granulocytes 0.5 % 0-1 "Immat ure (test code = 00931-8) granul ocytes" (promyelocytes, myelocytes, metamyelocytes) Lab Interpretation (test Abnormal code = 59591-5) Félix MadsenXR Knee 1 Or 2 Vw [id number] 00:29:55Hm Interface, Radiology Results Incoming - 12/06/2019 12:33 AM CDTEXAMINATION: XR KNEE 1 OR 2 VW RIGHTCLINICAL HISTORY: Post surgery painCOMPARISON: None.IMPRESSION:No evidence of acute right knee fracture or dislocation. Bone mineralization is normal. Small suprapatellar effusion. Few soft tissue zuri about the knee.[facility]-[id number] [facility]
[2020-07-06] MEDS ORDERED: FAMOTIDINE 20 MG/2 ML VIAL IV ONE (08:37)
[2020-07-06] MEDS ORDERED: ONDANSETRON 4 MG/2 ML VIAL ONE (08:37)
[2020-07-06] MEDS ORDERED: MORPHINE 4 MG/ML SYR ONE (08:37)
[2020-07-06] MEDS ORDERED: NA CHLORIDE 0.9% 500 ML ONE (08:37)
[2020-07-06] MEDS ORDERED: ONDANSETRON 4 MG (ODT) TAB ONE (08:40)
[2020-07-06] MEDS ORDERED: MORPHINE 2 MG/ML SYR ONE (09:14)
[2020-07-06 09:21] LABS: Basophils % 0.3 % (0-1.3); Hematocrit 41.3 % (36.0-45.0); Lymphocytes % 12.9 % (15.3-44.8); MPV 8.5 fL (7.6-11.3); RBC Red Blood Cell Count 5.24 M/uL (3.86-4.86)
--- NOTE | 2020-07-06 09:27 | RAD REPORT ---
EXAM DESCRIPTION: CT - Abdomen Pelvis Wo Contrast - 07/06/2020 9:15 am CLINICAL HISTORY: ABD PAIN Past history of pancreatitis, gastric bypass and hysterectomy COMPARISON: Abdomen Pelvis W Contrast dated 01/19/2020 TECHNIQUE: Axial [address] imaging of the abdomen and pelvis was performed without IV contrast. No IV contrast was given because of allergy, abnormal renal function, patient refusal or physician re quest. No oral contrast given. All CT scans are performed using dose optimization technique as appropriate and may include automated exposure control or mA/KV adjustment according to patient size. FINDINGS: No suspicious findings in the lung bases. Liver and spleen show no suspicious findings. Gallbladder is absent. No biliary tree dilatation. No solid or cystic mass seen the pancreatic parenchyma. There is edematous/ inflammatory stranding al yolanda the course of the pancreas. No peripancreatic cystic mass. A few small benign-appearing lymph nod es present. No hydronephrosis or suspicious renal mass. No significant adrenal finding. Isodense renal masses an d pyelonephritis cannot be excluded in the absence of IV contrast. Urinary bladder is fully contracte d limiting assessment. Normal appearing uterus is seen. Provided history indicated hysterectomy. This may have been confused with cholecystectomy. No ovarian or adnexal abnormality identifiable. No dilated bowel loops or bowel wall thickening. Gastric bypass surgical changes are noted with no ac keaton finding. There may be minimal secondary involvement of the duodenal C-loop biting pancreatitis ch anges. No free air, pneumatosis or free fluid. No other area of inflammatory stranding. No mass or bu lky lymphadenopathy. Patient has a very small fat only umbilical hernia. A right inguinal hernia is p resent containing only fat. No suspicious bony findings. IMPRESSION: Mild acute pancreatitis changes are present. No pseudocyst, mass or other complicating f actor. Remainder the study, as detailed above, is without acute or significant finding.
[2020-07-06 09:35] LABS: Albumin 3.8 g/dL (3.4-5.0); Bilirubin Direct 0.3 mg/dL (0-0.2); Bilirubin Total 0.9 mg/dL (0.2-1.0); Potassium 3.4 mmol/L (3.5-5.1); Protein, Total 7.4 g/dL (6.4-8.2)
[2020-07-06] MEDS ORDERED: MEPERIDINE HCL 50 MG/ML ONE (10:19)
--- NOTE | 2020-07-06 10:31 | ER ---
Nurse's Notes [facility] Name: Nithin Beth Age: 50 yrs Sex: Female : 1970 Arrival Date: 07/06/2020 Time: 07:51 Bed 8 Private MD: Diagnosis: Abdominal and pelvic pain;Acute pancreatitis;Nausea and vomiting Presentation: 07/06 07:51 Chief complaint: EMS states: Pt c/o upper abdominal pain that started yesterday, also ph reports N/V/D, BP 130/80, HR 79, Spo2 100% RA and temp 98.9, denies fever at home, reports that she had similar symptoms about 8 months ago and had pancreatitis. Coronavirus screen: Client denies travel out of the [place] in the last 14 days. diarrhea, nausea, vomiting. Client presents with at least one sign or symptom that may indicate coronavirus-19. Standard/surgical mask placed on the client. Ebola Screen: No symptoms or risks identified at this time. Initial Sepsis Screen: Does the patient meet any 2 criteria? No. Patient's initial sepsis screen is negative. Does the patient have a suspected source of infection? Yes: Acute abdominal pain. Risk Assessment: Do you want to hurt yourself or someone else? Patient reports no desire to harm self or others. Onset of symptoms was July 06, 2020. 07:51 Method Of Arrival: EMS: [facility] ph 07:51 Acuity: HUSAM 3 ph Historical: - Allergies: 08:01 Erythromycin; ph 08:01 TETRACYCLINES; ph 08:01 Toradol; ph - Home Meds: 08:01 Ativan 0.5 mg Oral tab 2 times per day [Active]; cyclobenzaprine 10 mg Oral tab ph [Active]; hydrocodone-acetaminophen 7.5-325 mg Oral tab 1 tab every 6 hours [Active]; trazodone 300 mg Oral tab 2 tab [Active]; Latuda 60 mg Oral tab 1 tab once daily [Active]; Wellbutrin 75 mg Oral tab [Active]; lithium carbonate 900mg Oral cap [Active]; gabapentin Oral [Active]; - PMHx: 08:01 "Possibly Fibromyalgia"; Bipolar disorder; Chronic pain; Pancreatitis; ph - PSHx: 08:01 Gastric Bypass; Hysterectomy; ph - Immunization history:: Flu vaccine is up to date. - Social history:: Smoking status: Patient denies any tobacco usage or history of. Screenin:55 Abuse screen: Denies threats or abuse. Denies injuries from another. Nutritional ph screening: No deficits noted. Tuberculosis screening: No symptoms or risk factors identified. Fall Risk None identified. Assessment: 08:01 General: Appears in no apparent distress. uncomfortable, Behavior is cooperative, ph appropriate for age, anxious, Denies fever. Pain: Complains of pain in right upper quadrant and left upper quadrant Pain radiates to back. Neuro: Level of Consciousness is awake, alert, obeys commands, Oriented to person, place, time, situation. Cardiovascular: Capillary refill < 3 seconds in bilateral fingers. Respiratory: Airway is patent Respiratory effort is even, unlabored, Respiratory pattern is regular, symmetrical. GI: Abdomen is round non-distended, Reports upper abdominal pain, diarrhea, nausea, vomiting. Derm: Skin is intact, is healthy with good turgor, Skin is pink, warm \\T\\ dry. Musculoskeletal: Circulation, motion, and sensation intact. Range of motion: intact in all extremities. 08:24 Reassessment: Pt asking to have the IV placed in her breast. Informed pt that I would sv look on her arms first for an IV. IV unsuccessful. Pt asking to get her IV placed in her breast, informed pt that I would inform the MD. Dr Steinberg notified, ok to give Morphine 4mg IM and Zofran 4mg ODT until an IV is established. 08:40 Reassessment: Patient appears in no apparent distress at this time. Patient and/or ph family updated on plan of care and expected duration. Pain level reassessed. IM and PO meds given, pt continues to request IV be started in breasts or foot. 08:45 Reassessment: Reassessment: Zofran removed from list of allergies, not a true allergy, ph pt states, " It doesn't work for me usually". 09:21 Reassessment: Patient appears in no apparent distress at this time. Patient and/or ph family updated on plan of care and expected duration. Pain level reassessed. Patient is alert, oriented x 3, equal unlabored respirations, skin warm/dry/pink. Pt reports that pain is improving after medication, awaiting lab and CT results. 09:45 Reassessment: Patient appears in no apparent distress at this time. Patient and/or ph family updated on plan of care and expected duration. Pain level reassessed. Patient is alert, oriented x 3, equal unlabored respirations, skin warm/dry/pink. Pt back from CT, rates pain 7/10 and is requesting more pain medication, ERP notified. 10:55 Reassessment: Patient appears in no apparent distress at this time. Patient and/or ph family updated on plan of care and expected duration. Pain level reassessed. Patient is alert, oriented x 3, equal unlabored respirations, skin warm/dry/pink. Pt continues to c/o pain, states, " The last medicine you gave me helped for a few minutes but that's it." Also reports nausea, ERP notified, see NOV. 11:15 Reassessment: Hospitalist at bedside to speak w/ pt, awaiting room assignment for ph admission. 12:31 Reassessment: Patient appears in no apparent distress at this time. Patient and/or ph family updated on plan of care and expected duration. Pain level reassessed. Patient is alert, oriented x 3, equal unlabored respirations, skin warm/dry/pink. Report called to Clarisa VELASQUEZ. Vital Signs: 07:51 BP 111 / 97; Pulse 72; Resp 18; Temp 97.7; Pulse Ox 100% on R/A; Weight 95.25 kg; ph Height 5 ft. 3 in. (160.02 cm); Pain 9/10; 09:22 BP 118 / 89; Pulse 46; Resp 18; Pulse Ox 100% on R/A; ph 09:46 BP 134 / 80; Pulse 45; Resp 18; Pulse Ox 95% on R/A; ph 11:06 BP 145 / 73; Pulse 51; Resp 18; Pulse Ox 100% on R/A; ph 12:33 BP 151 / 59; Pulse 52; Resp 18; Temp 97.8; Pulse Ox 99% on R/A; ph 07:51 Body Mass Index 37.20 (95.25 kg, 160.02 cm) ph ED Course: 07:51 Patient arrived in ED. ph 07:51 Ortega Steinberg MD is Attending Physician. kdr 07:55 Triage completed. ph 07:55 Arm band placed on Patient placed in an exam room, on a stretcher. ph 07:56 Patient has correct armband on for positive identification. Placed in gown. Bed in low ph position. Call light in reach. Side rails up X 1. Pulse ox on. NIBP on. Door closed. Noise minimized. 08:20 Kera Nelson, RN is Primary Nurse. ph 08:24 Missed attempt(s): 22 gauge in left upper arm. Bleeding controlled, band aid applied, sv catheter tip intact. 08:55 Initial lab(s) drawn, by me, sent to lab. Inserted saline lock: 24 gauge in right ph ,using aseptic technique. breast Blood collected. 09:14 Abdomen In Process Unspecified. EDMS 10:29 Clarke Méndez MD is Hospitalizing Provider. kdr 12:29 No provider procedures requiring assistance completed. Patient admitted, IV remains in ph place. Administered Medications: 08:40 Drug: morphine 4 mg Route: IM; Site: right deltoid; ph 09:15 Follow up: Response: No adverse reaction; Pain is decreased; RASS: Alert and Calm (0) ph 08:40 Drug: Zofran (Ondansetron) 4 mg Route: PO; ph 10:19 Follow up: Response: No adverse reaction ph 09:10 Drug: NS 0.9% 500 ml Route: IV; Rate: bolus; Site: Other; ph 10:19 Follow up: Response: No adverse reaction; IV Status: Completed infusion; IV Intake: ph 500ml 09:10 Drug: morphine 2 mg Route: IVP; Site: Other; ph 09:30 Follow up: Response: No adverse reaction; Pain is decreased ph 09:12 Drug: Pepcid 20 mg Route: IVP; Site: Other; ph 10:18 Follow up: Response: No adverse reaction ph 09:16 Not Given (Other Intervention Used): Zofran (Ondansetron) 4 mg IVP once; over 2 minutes ph 09:16 Not Given (Other Intervention Used): morphine 4 mg IVP once; RASS on ADMIN: Combtv4, ph Very Agttd3, Agttd2, Rstlss1, AlertClm0, Drwsy-1, Lt Sdtn-2, Mod Sdtn-3, Dp Sdtn-4, UnArsble-5 10:08 Drug: Demerol 25 mg Route: IVP; Site: Other; ph 10:35 Follow up: Response: No adverse reaction; Pain is unchanged, physician notified ph 11:00 Drug: Phenergan 12.5 mg Route: IVP; Site: Other; ph 12:30 Follow up: Response: No adverse reaction; Nausea is decreased ph 11:03 Drug: Dilaudid 1 mg Route: IVP; Site: Other; ph 11:30 Follow up: Response: No adverse reaction; Pain is decreased; RASS: Alert and Calm (0) ph Intake: 10:19 IV: 500ml; Total: 500ml. ph Outcome: 10:30 Decision to Hospitalize by Provider. kdr 12:29 Admitted to Med/surg accompanied by tech, via wheelchair, room 204, Report called to mohan Mckenna RN 12:29 Condition: stable 12:29 Instructed on the need for admit. 12:54 Patient left the ED. ph Signatures: Dispatcher [employer] Yojana Laurent RN RN Ortega Steinberg MD MD [facility] Kera Nelson RN RN Santa Hernandez mt Corrections: (The following items were deleted from the chart) 08:27 08:27 Inserted saline lock: 20 gauge in right antecubital area, using aseptic mt technique. Blood collected. mt 09:28 08:01 Allergies: Zofran; pt states that it does not work for her, not a true allergy; [facility]
--- NOTE | 2020-07-06 10:31 | EDPHYS ---
Physician Documentation [facility] Name: Nithin Beth Age: 50 yrs Sex: Female : 1970 Arrival Date: 07/06/2020 Time: 07:51 Bed 8 Private MD: ED Physician Ortega Steinberg HPI: 07/06 08:07 This 50 yrs old Female presents to ER via EMS with complaints of Abdominal kdr Pain. 08:07 The patient presents with abdominal pain in the epigastric area, in the upper abdomen, kdr that is diffuse. Onset: The symptoms/episode began/occurred suddenly, yesterday. The symptoms radiate to back, both flanks. Associated signs and symptoms: Pertinent positives: nausea and vomiting, diarrhea, Pertinent negatives: blood in stools, chest pain, constipation, fever, headache, hematuria, palpitations, shortness of breath. The symptoms are described as achy, sharp, waxing/waning. Modifying factors: The symptoms are alleviated by nothing, the symptoms are aggravated by movement, walking. Severity of pain: At its worst the pain was moderate severe incapacitating just prior to arrival, in the emergency department the pain is unchanged. The patient has experienced a previous episode, approximately 8 months ago. The patient has not recently seen a physician, may have had pancreatitis on last visit and was admitted. Historical: - Allergies: 08:01 Erythromycin; ph 08:01 TETRACYCLINES; ph 08:01 Toradol; ph - Home Meds: 08:01 Ativan 0.5 mg Oral tab 2 times per day [Active]; cyclobenzaprine 10 mg Oral tab ph [Active]; hydrocodone-acetaminophen 7.5-325 mg Oral tab 1 tab every 6 hours [Active]; trazodone 300 mg Oral tab 2 tab [Active]; Latuda 60 mg Oral tab 1 tab once daily [Active]; Wellbutrin 75 mg Oral tab [Active]; lithium carbonate 900mg Oral cap [Active]; gabapentin Oral [Active]; - PMHx: 08:01 "Possibly Fibromyalgia"; Bipolar disorder; Chronic pain; Pancreatitis; ph - PSHx: 08:01 Gastric Bypass; Hysterectomy; ph - Immunization history:: Flu vaccine is up to date. - Social history:: Smoking status: Patient denies any tobacco usage or history of. ROS: 08:12 Constitutional: Negative for fever, chills, and weight loss, Eyes: Negative for injury, kdr pain, redness, and discharge, ENT: Negative for injury, pain, and discharge, Neck: Negative for injury, pain, and swelling, Cardiovascular: Negative for chest pain, palpitations, and edema, Respiratory: Negative for shortness of breath, cough, wheezing, and pleuritic chest pain, Back: Negative for injury and pain, : Negative for injury, bleeding, discharge, and swelling, MS/Extremity: Negative for injury and deformity, Skin: Negative for injury, rash, and discoloration, Neuro: Negative for headache, weakness, numbness, tingling, and seizure activity. Psych: Negative for depression, anxiety, suicide ideation, homicidal ideation, and hallucinations, Allergy/Immunology: Negative for hives, rash, and allergies, Endocrine: Negative for neck swelling, polydipsia, polyuria, polyphagia, and marked weight changes, Hematologic/Lymphatic: Negative for swollen nodes, abnormal bleeding, and unusual bruising. 08:12 Abdomen/GI: Positive for abdominal pain, nausea, vomiting, and diarrhea, abdominal cramps, Negative for constipation, anorexia, dysphagia, hematemesis, black/tarry stool, rectal pain, rectal bleeding, bowel incontinence. Exam: 08:12 Constitutional: This is a well developed, well nourished patient who is awake, alert, kdr and in no acute distress. Head/Face: Normocephalic, atraumatic. Eyes: Pupils equal round and reactive to light, extra-ocular motions intact. Lids and lashes normal. Conjunctiva and sclera are non-icteric and not injected. Cornea within normal limits. Periorbital areas with no swelling, redness, or edema. Neck: Trachea midline, no thyromegaly or masses palpated, and no cervical lymphadenopathy. Supple, full range of motion without nuchal rigidity, or vertebral point tenderness. No Meningismus. Chest/axilla: Normal chest wall appearance and motion. Nontender with no deformity. No lesions are appreciated. Cardiovascular: Regular rate and rhythm with a normal S1 and S2. No gallops, murmurs, or rubs. Normal PMI, no JVD. No pulse deficits. Respiratory: Lungs have equal breath sounds bilaterally, clear to auscultation and percussion. No rales, rhonchi or wheezes noted. No increased work of breathing, no retractions or nasal flaring. Back: No spinal tenderness. No costovertebral tenderness. Full range of motion. Skin: Warm, dry with normal turgor. Normal color with no rashes, no lesions, and no evidence of cellulitis. MS/ Extremity: Pulses equal, no cyanosis. Neurovascular intact. Full, normal range of motion. Neuro: Awake and alert, GCS 15, oriented to person, place, time, and situation. Cranial nerves II-XII grossly intact. Motor strength 5/5 in all extremities. Sensory grossly intact. Cerebellar exam normal. Normal gait. Psych: Awake, alert, with orientation to person, place and time. Behavior, mood, and affect are within normal limits. 08:12 Abdomen/GI: Inspection: abdomen appears normal, obese Bowel sounds: diminished, in all quadrants, Palpation: soft, mild abdominal tenderness, in all quadrants. Vital Signs: 07:51 BP 111 / 97; Pulse 72; Resp 18; Temp 97.7; Pulse Ox 100% on R/A; Weight 95.25 kg; ph Height 5 ft. 3 in. (160.02 cm); Pain 9/10; 09:22 BP 118 / 89; Pulse 46; Resp 18; Pulse Ox 100% on R/A; ph 09:46 BP 134 / 80; Pulse 45; Resp 18; Pulse Ox 95% on R/A; ph 11:06 BP 145 / 73; Pulse 51; Resp 18; Pulse Ox 100% on R/A; ph 12:33 BP 151 / 59; Pulse 52; Resp 18; Temp 97.8; Pulse Ox 99% on R/A; ph 07:51 Body Mass Index 37.20 (95.25 kg, 160.02 cm) ph MDM: 10:30 Patient medically screened. kdr 14:22 Data reviewed: vital signs, nurses notes, lab test result(s), radiologic studies. kdr Counseling: I had a detailed discussion with the patient and/or guardian regarding: the historical points, exam findings, and any diagnostic results supporting the discharge/admit diagnosis, lab results, radiology results, the need for outpatient follow up. 07/06 08:06 Order name: Basic Metabolic Panel; Complete Time: 10:27 kdr 07/06 08:06 Order name: CBC with Diff; Complete Time: 09:34 kdr 07/06 08:06 Order name: Hepatic Function; Complete Time: 10:27 kdr 07/06 08:06 Order name: Lipase; Complete Time: 10:27 kdr 07/06 09:08 Order name: Abdomen ; Complete Time: 09:34 EDMS 07/06 08:06 Order name: IV Saline Lock; Complete Time: 09:10 kdr 07/06 08:06 Order name: Labs collected and sent; Complete Time: 09:10 kdr Administered Medications: 08:40 Drug: morphine 4 mg Route: IM; Site: right deltoid; ph 09:15 Follow up: Response: No adverse reaction; Pain is decreased; RASS: Alert and Calm (0) ph 08:40 Drug: Zofran (Ondansetron) 4 mg Route: PO; ph 10:19 Follow up: Response: No adverse reaction ph 09:10 Drug: NS 0.9% 500 ml Route: IV; Rate: bolus; Site: Other; ph 10:19 Follow up: Response: No adverse reaction; IV Status: Completed infusion; IV Intake: ph 500ml 09:10 Drug: morphine 2 mg Route: IVP; Site: Other; ph 09:30 Follow up: Response: No adverse reaction; Pain is decreased ph 09:12 Drug: Pepcid 20 mg Route: IVP; Site: Other; ph 10:18 Follow up: Response: No adverse reaction ph 09:16 Not Given (Other Intervention Used): Zofran (Ondansetron) 4 mg IVP once; over 2 minutes ph 09:16 Not Given (Other Intervention Used): morphine 4 mg IVP once; RASS on ADMIN: Combtv4, ph Very Agttd3, Agttd2, Rstlss1, AlertClm0, Drwsy-1, Lt Sdtn-2, Mod Sdtn-3, Dp Sdtn-4, UnArsble-5 10:08 Drug: Demerol 25 mg Route: IVP; Site: Other; ph 10:35 Follow up: Response: No adverse reaction; Pain is unchanged, physician notified ph 11:00 Drug: Phenergan 12.5 mg Route: IVP; Site: Other; ph 12:30 Follow up: Response: No adverse reaction; Nausea is decreased ph 11:03 Drug: Dilaudid 1 mg Route: IVP; Site: Other; ph 11:30 Follow up: Response: No adverse reaction; Pain is decreased; RASS: Alert and Calm (0) ph Disposition: 07/06/20 10:30 Hospitalization ordered by Clarke Méndez for Observation. Preliminary diagnosis are Abdominal and pelvic pain, Acute pancreatitis, Nausea and vomiting. - Bed requested for Telemetry/MedSurg (observation). - Status is Observation. ph - Condition is Fair. - Problem is an acute exacerbation. - Symptoms have improved. Signatures: Dispatcher [employer] EDOralia Barnes, RON RN Ortega Steinberg MD MD [facility] Kera Nelson RN RN ph Corrections: (The following items were deleted from the chart) 09:08 08:07 Abdomen Pelvis W Con+CT.RAD.BRZ ordered. [facility] EDDC 09:28 08:01 Allergies: Zofran; pt states that it does not work for her, not a true allergy; [facility] 12:00 10:30 Hospitalization Ordered by Clarke Méndez MD for Observation. Preliminary kl diagnosis is Abdominal and pelvic pain; Acute pancreatitis; Nausea and vomiting. Bed requested for Telemetry/MedSurg (observation). Status is Observation. Condition is Fair. Problem is an acute exacerbation. Symptoms have improved. kdr 12:54 12:00 07/06/2020 10:30 Hospitalization Ordered by Clarke Méndez MD for Observation. ph Preliminary diagnosis is Abdominal and pelvic pain; Acute pancreatitis; Nausea and vomiting. Bed requested for Telemetry/MedSurg (observation). Status is Observation. Condition is Fair. Problem is an acute exacerbation. Symptoms have improved. kl
[2020-07-06] MEDS ORDERED: PROMETHAZINE INJ 25 MG/ML AMP ONE (11:03)
[2020-07-06] MEDS ORDERED: HYDROMORPHONE HCL 1 MG/ML INJ ONE (11:04)
[2020-07-06] MEDS ORDERED: NA CHLORIDE 0.9% 100 ML IV ONE (11:04)
--- NOTE | 2020-07-06 11:38 | P.HP ---
Certification for Inpatient Patient admitted to: Inpatient With expected LOS: >2 Midnights Practitioner: I am a practitioner with admitting privileges, knowledge of patient current condition, hospital course, and medical plan of care. Services: Services provided to patient in accordance with Admission requirements found in Title 42 Section 412.3 of the Code of Federal Regulations Patient History Date of Service: 07/06/20 Primary Care Provider: Katey Reason for admission: Acute pancreatitis History of Present Illness: 50yo F, PMH: Anxiety, fibromyalgia/chronic pain, pancreatitis who presents to the ED due to progressively worsening epigastric pain since yesterday. She states she woke up to go to moderate epigastric pain, worsened throughout the day, associated with nausea/vomiting. She has been unable to hold any food or liquids down. The pain became severe 06/02 this morning and was radiating towards her back, so she presented to the ED. Nothing seemed to relieve or aggravate the pain. She also endorses 4-5 episodes of loose bowel movements in the last 2 days. Her last episode of pancreatitis was approximately 8 months ago. She reports drinking "A few beers" this weekend. Labwork notable for no leukocytosis, lipase: 1300, mildly elevated creatinine. CT abdomen/pelvis consistent with acute pancreatitis, no pseudocyst or mass, or other complicating factors identified. Allergies ketorolac Allergy (Verified 12/26/19 21:56) Unknown ondansetron [From Zofran] Allergy (Verified 12/26/19 21:56) Itching Erythromycin Allergy (Uncoded 08/10/19 11:02) Hives TETRACYCLINES Allergy (Uncoded 08/10/19 11:02) Hives Home Medications: Estradiol/Norethindrone Acet [Estradiol-Noreth 1-0.5 mg Tab] 1 tab PO DAILY 12/26/19 Eszopiclone [Lunesta] 2 mg PO BEDTIME 12/26/19 estradioL [Estradiol] 1 tab PO DAILY 12/26/19 terbinafine HCL [Terbinafine HCl] 1 tab PO DAILY 12/26/19 Levofloxacin [Levaquin] 500 mg PO DAILY #5 tablet 12/29/19 metroNIDAZOLE [Flagyl] 500 mg PO TID #15 capsule 12/29/19 - Past Medical/Surgical History Diabetic: No -: bipolar -: Chronic pain syndrome -: Fibromyalgia -: Chronic pancreatitis -: cholecystectomy -: gastric bypass -: tubal ligation -: Appendectomy -: Oophorectomy - Family History Mother -: Hypertension, Diabetes, Stroke - Social History Smoking Status: Never smoker Alcohol use: No CD- Drugs: No Caffeine use: No Review of Systems 10-point ROS is otherwise unremarkable Physical Examination - Physical Exam General: Alert, Mild distress (Appears uncomfortable) HEENT: Sclerae nonicteric Neck: Supple Respiratory: Clear to auscultation bilaterally, Normal air movement Cardiovascular: No edema, Regular rate/rhythm, Normal S1 S2 Gastrointestinal: Soft and benign, Tenderness (Moderate in the epigastric region) Musculoskeletal: No tenderness Integumentary: No rashes Neurological: Normal speech, Normal affect - Studies Laboratory Data (last 24 hrs) 07/06/20 08:55: WBC 7.9, Hgb 14.0, Hct 41.3, Plt Count 221 07/06/20 08:55: Sodium 134 L, Potassium 3.4 L, BUN 28 H, Creatinine 1.23, Glucose 131 H, Total Bilirubin 0.9, AST 33, ALT 39, Alkaline Phosphatase 161 H, Lipase 1323 H Assessment and Plan - Advance Directives Does patient have a Living Will: No Does patient have a Durable POA for Healthcare: No Physician Review Additional Text: Acute Pancreatitis Anxiety Fibromyalgia Chronic Pain syndrome h/o COVID+ in March -admit to med/surg, NPO, IVF, pain control with Dilaudid, antiemetics -patient unable to tolerate sips of water in ED -advance diet once pain improves / no longer having nausea -will review home medications and restart as appropriate -reported drinking a few beers this weekend, may have precipitated this episode, but reports last drink was ~4yrs ago VTE: Lovenox Code: Full Dispo: anticipate dc home in ~48hrs Time Spent Managing Pts Care (In Minutes): 55
[2020-07-06] MEDS ORDERED: ACETAMINOPHEN 500 MG TAB PO PRN (13:00)
[2020-07-06] MEDS ORDERED: PROCHLORPERAZINE 5 MG TAB PO PRN (13:00)
[2020-07-06] MEDS: PROMETHAZINE INJ 25 MG/ML AMP IV PRN ×2 (13:22→18:54)
[2020-07-06] MEDS: HYDROMORPHONE HCL 1 MG/ML INJ IV PRN ×3 (13:23→21:03)
[2020-07-06] MEDS: NA CHLORIDE 0.9% 1,000 ML IV SCH ×2 (13:24→19:50)
[2020-07-06 14:06] VITALS: O2SAT 99
[2020-07-06 15:54] VITALS: BMI 37.2
[2020-07-06] MEDS ORDERED: LORAZEPAM 1 MG TABLET PO SCH (21:00)
[2020-07-06] MEDS ORDERED: TRAZODONE 150 MG TAB PO SCH (21:00)
[2020-07-06] MEDS: GABAPENTIN 400 MG CAP PO SCH (21:04)
[2020-07-07] MEDS: NA CHLORIDE 0.9% 1,000 ML IV SCH ×3 (02:20→09:00)
[2020-07-07 04:22] LABS: Absolute Lymphocytes (CBC) 0.9 K/uL (0.7-4.9); Basophils % 0.3 % (0-1.3); Hematocrit 35.2 % (36.0-45.0); Lymphocytes % 11.6 % (15.3-44.8); MPV 8.7 fL (7.6-11.3); RBC Red Blood Cell Count 4.47 M/uL (3.86-4.86)
[2020-07-07 04:41] LABS: Albumin 3.4 g/dL (3.4-5.0); Bilirubin Total 0.5 mg/dL (0.2-1.0); Potassium 3.4 mmol/L (3.5-5.1); Protein, Total 6.7 g/dL (6.4-8.2)
[2020-07-07] MEDS: HYDROMORPHONE HCL 1 MG/ML INJ IV PRN ×3 (05:19→13:13)
[2020-07-07] MEDS: PROMETHAZINE INJ 25 MG/ML AMP IV PRN ×2 (07:15→13:14)
[2020-07-07] MEDS: GABAPENTIN 400 MG CAP PO SCH (09:00)
[2020-07-07] MEDS ORDERED: ESTRADIOL PO SCH (09:00)
[2020-07-07] MEDS ORDERED: ENOXAPARIN 40 MG/0.4 ML SQ SCH (09:00)
--- NOTE | 2020-07-07 11:02 | P.PN ---
Subjective Date of Service: 07/07/20 Primary Care Provider: Katey Chief Complaint: Acute pancreatitis Subjective: Improving (Pain slightly improving, worsens as medications wearing off. Asking for pain medication every 4 hr Also with some nausea, would like to try sips of water/broth this morning) Physical Examination - Vital Signs Temperature: 97.2 F Blood Pressure: 141/65 Pulse: 60 Respirations: 18 Pulse Ox (%): 96 - Physical Exam General: Alert, In no apparent distress, Oriented x3 HEENT: Atraumatic, Sclerae nonicteric Respiratory: Clear to auscultation bilaterally, Normal air movement Cardiovascular: No edema, Regular rate/rhythm, Normal S1 S2 Gastrointestinal: Soft and benign, Non-distended, Tenderness (Epigastric) Musculoskeletal: No tenderness Integumentary: No rashes Neurological: Normal speech, Normal affect - Studies Laboratory Data (last 24 hrs) 07/06/20 08:55: Triglycerides 312 H, Cholesterol 103, HDL Cholesterol 22 L, Cholesterol/HDL Ratio 4.68 Assessment & Plan Physician Review Additional Text: Acute Pancreatitis Anxiety Fibromyalgia Chronic Pain syndrome h/o COVID+ in March -advance diet to clears this morning, patient would like to try /starting to get an appetite -her overnight nursing report patient with some confusion, "Seemed out of it", and told staff she fell in the bathroom. CT scan was performed and reportedly negative for acute pathology -this morning, patient states she reported falling at home and not here in the hospital, denies any pain at this time -confusion possibly due to a combination of pain medication, home gabapentin and trazodone -continue IVF, pain control with Dilaudid, antiemetics; PDMP reviewed, Patient gets [place] 5 's BID for chronic pain. -will re-evaluate later today, if tolerating p.o., may switch to oral pain medication -reported drinking a few beers this weekend, may have precipitated this episode, but reports last drink was ~4yrs ago VTE: Lovenox Code: Full Dispo: anticipate dc home in ~24-48hrs Time Spent Managing Pts Care (In Minutes): 35
[2020-07-07 12:21] VITALS: BP 166/78; TEMP 98.8
--- NOTE | 2020-07-07 14:18 | RAD REPORT ---
EXAM DESCRIPTION: Head C Spine Mpr Wo Con CLINICAL HISTORY: The patient is 50 years old and is Female; fall, head injury TECHNIQUE: Axial computed tomography images of the head/brain and cervical spine without intravenous contrast. Sagittal and coronal reformatted images were created and reviewed. This CT exam was pe rformed using one or more of the following dose reduction techniques: automated exposure control, a djustment of the mA and/or kV according to patient size, and/or use of iterative reconstruction techn ique. DLP: 1126 mGy*cm COMPARISON: None. FINDINGS: BRAIN: Unremarkable. No hemorrhage. No significant white matter disease. No edema . VENTRICLES: Unremarkable. No ventriculomegaly. SKULL: No acute fracture. SINUSES: Unremarkable as visualized. No acute sinusitis. MASTOID AIR CELLS: Unremarkable as visualized. No mastoid effusion. VERTEBRAE: Straightening of cervical lordosis. No acute fracture. DISCS/SPINAL CANAL/NEURAL FORAMINA: C5-6 disc space narrowing. C5-6 disc osteophyte complex contributing to mild spinal canal narrowing. SOFT TISSUES: Unremarkable. OTHER FINDINGS: Scattered cervical facets arthropathy. IMPRESSION: 1. No acute intracranial abnormality. 2. No cervical spine fracture or subluxation. 3. Multilevel degenerative changes, worse at C5-6. Electronically signed by: Henry Villanueva DO 07/06/2020 11:46 PM CDT Due to temporary technical issues with the PACS/Fluency reporting system, reports are being signed by the in house radiologist without review as a courtesy to ensure prompt reporting. The interpreting r adiologist is fully responsible for the content of the report.
--- NOTE | 2020-07-07 15:21 | P.DS ---
Admission Date: 07/06/20 Discharge Date: 07/07/20 Primary Care Provider: Katey Reason for Admission: Acute pancreatitis Procedures: CT abdomen/pelvis (07/06): Mild acute pancreatitis changes are present. No pseudocysts, mass or other complicating factors. CT head/C-spine (07/06): No acute intracranial abnormality. No cervical spine fracture subluxation. Multilevel degenerative changes, worse at C5-6. Problem list Acute Pancreatitis Anxiety Fibromyalgia Chronic Pain syndrome h/o COVID+ in March Brief History of Present Illness: 50yo F, PMH: Anxiety, fibromyalgia/chronic pain, pancreatitis who presents to the ED due to progressively worsening epigastric pain that began a day prior to admission, associated with nausea and vomiting. In the ED, she was found to have acute pancreatitis, lipase: 1300, CT abdomen/pelvis consistent with acute pancreatitis. Hospital Course: The patient was admitted, initially NPO, IV fluids, and pain control. She had some mild improvement and was eventually advanced to a clear liquid diet on the morning of 07/07. In the afternoon of 07/07, was paged by the nursing staff, apparently the patient had pulled out her IV and midline and eloped. On the evening of 07/06, patient was reportedly confused, and reported that she fell in the bathroom. She was evaluated did not have any bruising for pain, a CT head/C-spine was performed which is negative for any acute abnormality. Following morning the patient reported that she meant that she fell at home a few days ago and denied falling here in the hospital. Vital Signs/Physical Exam: Temp Pulse Resp BP Pulse Ox 98.8 F 96 H 19 166/78 H 98 07/07/20 12:00 07/07/20 12:00 07/07/20 13:13 07/07/20 12:00 07/07/20 13:13 Laboratory Data at Discharge: WBC 7.6 K/uL (4.3-10.9) 07/07/20 03:51 Hgb 12.0 g/dL (12.0-15.0) 07/07/20 03:51 Hct 35.2 % (36.0-45.0) L 07/07/20 03:51 Plt Count 176 K/uL (152-406) D 07/07/20 03:51 Sodium 137 mmol/L (136-145) 07/07/20 03:51 Potassium 3.4 mmol/L (3.5-5.1) L 07/07/20 03:51 BUN 15 mg/dL (7-18) 07/07/20 03:51 Creatinine 0.79 mg/dL (0.55-1.3) 07/07/20 03:51 Glucose 103 mg/dL (74-106) 07/07/20 03:51 Magnesium 2.0 mg/dL (1.8-2.4) D 07/07/20 03:51 Total Bilirubin 0.5 mg/dL (0.2-1.0) 07/07/20 03:51 AST 21 U/L (15-37) 07/07/20 03:51 ALT 27 U/L (12-78) 07/07/20 03:51 Alkaline Phosphatase 137 U/L (45-117) H 07/07/20 03:51 Triglycerides 312 mg/dL (<150) H 07/06/20 08:55 Cholesterol 103 mg/dL (<200) 07/06/20 08:55 HDL Cholesterol 22 mg/dL (40-60) L 07/06/20 08:55 Cholesterol/HDL Ratio 4.68 07/06/20 08:55 Lipase Cancelled 07/07/20 06:00 Home Medications: Gabapentin [Neurontin*] 1 cap PO BID 07/06/20 LORazepam [Ativan*] 2 mg PO BEDTIME 07/06/20 Tizanidine [Zanaflex*] 1 tab PO BID 07/06/20 Trazodone [Desyrel*] 300 mg PO BEDTIME 07/06/20 Ziprasidone HCl [Geodon*] 1 cap PO BID 07/06/20 estradioL [Estradiol] 1 tab PO DAILY 07/06/20 Patient Discharge Instructions: Patient eloped, known prescriptions were sent. TO[employer]LEMENT REPAIRER reviewed, patient with chronic pain and has a recent prescription for [place] 7.5 mg b.i.d. Diet: Clear liquid diet Activity: Ad harpreet Time spent managing pt's care (in minutes): 35
== END 2020-07-07 15:10 | disposition left against medical advice (07) | DRG 440 ==
LOC: ER 07:49 → ERHOLD 11:29 → 2ND 12:30
PROVIDERS: ADMIT Hospitalist; ATTEND Hospitalist
DX: K85.90 Acute pancreatitis without necrosis or infection, unspecified (principal); M79.7 Fibromyalgia; G89.4 Chronic pain syndrome; F41.9 Anxiety disorder, unspecified; R41.0 Disorientation, unspecified; W18.30XA Fall on same level, unspecified, initial encounter; Z88.8 Allergy status to other drugs, medicaments and biological substances; Z79.891 Long term (current) use of opiate analgesic; Z79.899 Other long term (current) drug therapy; Z90.710 Acquired absence of both cervix and uterus; Z88.1 Allergy status to other antibiotic agents; Z98.84 Bariatric surgery status; Z98.51 Tubal ligation status; Z90.49 Acquired absence of other specified parts of digestive tract; Z86.19 Personal history of other infectious and parasitic diseases
CPT/HCPCS: 36415; 70450; 72125; 74176; 80048; 80053; 80061; 80076; 83690; 83735; 85025; 96361; 96372; 96374; 96375; 99285; J1170; J1650; J2175; J2270; J2405; J2550; J7030; J7040; Q0164